=== PATIENT | male | born 1945 | race African-American/Black ===

== ENCOUNTER 2017-01-02 18:58 | Emergency (ER) | payer MEDICARE, BC ==
[~2017-01-02 18:58] MED LIST: AMLO5TAB2 PO; ASPI500T10 PO; CARV6.25 PO; CHOL100017 PO; CLOP75TA PO; DABI150C PO; GLIP10TA13 PO; INSU100V9 SQ; IPRA4AER IH; LISI1TAB5 PO; METF500T4 PO; NIAC500T PO; OMEP40CA5 PO; SIMV20TA3 PO; SOTA120T7 PO; TRAM50TA PO
[2017-01-02] MEDS ORDERED: ASPI-482 PO (19:28)
[2017-01-02] MEDS ORDERED: IPRATRPIUM/ALBUTEROL 0.5/2.5MG 3 ML NEBU. NEB ONE (20:15)
[2017-01-02] MEDS ORDERED: PREDNISONE 10 MG TABLET PO ONE (20:15)
[2017-01-02 20:22] LABS: BASO % 0 % (0-3); EOS % 4 % (0-3); HEMATOCRIT 38.8 % (39.0-53.0); LYMPH # 3.3 x10^3/uL (1.0-4.8); LYMPH % 36 % (24-48); MEAN CORPUSCULAR HEMOGLOBIN 31 pg (25-35); MEAN CORPUSCULAR HGB CONC 33 g/dL (31-37); MEAN CORPUSCULAR VOLUME 94 fL (79-100); MONO % 9 % (0-9); NEUT % 51 % (31-73); PLATELET COUNT 207 x10^3/uL (140-400); RED BLOOD COUNT 4.12 x10^6/uL (4.30-5.70); RED CELL DISTRIBUTION WIDTH 12.6 % (11.5-14.5); WHITE BLOOD COUNT 9.2 x10^3/uL (4.0-11.0)
[2017-01-02 20:32] LABS: CALCIUM 9.1 mg/dL (8.5-10.1); CREATININE 1.6 mg/dL (0.7-1.3); GFR 52.1; POTASSIUM 3.8 mmol/L (3.5-5.1)
[2017-01-02 20:38] LABS: ALBUMIN 3.4 g/dL (3.4-5.0); ALBUMIN/GLOBULIN RATIO 0.8 (1.0-1.7); TOTAL BILIRUBIN 0.7 mg/dL (0.2-1.0); TOTAL PROTEIN 7.6 g/dL (6.4-8.2)
[2017-01-02 20:48] LABS: CKMB MASS 1.5 ng/mL (0.0-3.6)
[2017-01-02 20:58] LABS: OBC FLU VALID
--- NOTE | 2017-01-02 21:03 | PHYS DOC ---
Past Medical History Past Medical History: A-Fib, Asthma, CVA, Diabetes-Type II, GERD, Hypertension Past Surgical History: Cholecystectomy, Coronary Bypass Surgery Additional Past Surgical Histo: X5 BYPASS,ROTATOR CUFF Alcohol Use: None Drug Use: None Adult General Chief Complaint Chief Complaint: SHORTNESS OF BREATH HPI HPI Patient is a 71 year old male who presents with complaint of cough for the past week. Patient states that he has had persistent symptoms over the course of the last week. Patient has history of asthma and history of congestive heart failure. The patient saw his primary physician who started him on azithromycin. Patient states that he completed the azithromycin but is continuing to have persistent cough. Patient states that he is not having shortness of breath while at rest but is having shortness of breath with exertion. Patient has had subjective fevers associated with his symptoms. Patient states his cough is nonproductive. Patient denies any chest pain, nausea, vomiting, or abdominal pain currently. Review of Systems Review of Systems Constitutional: Subjective fever [] Eyes: Denies change in visual acuity, redness, or eye pain [] HENT: Denies nasal congestion or sore throat [] Respiratory: Cough, shortness of breath [] Cardiovascular: Denies chest pain or edema [] GI: Denies abdominal pain, nausea, vomiting, bloody stools or diarrhea [] : Denies dysuria or hematuria [] Musculoskeletal: Denies back pain or joint pain [] Integument: Denies rash or skin lesions [] Neurologic: Denies headache, focal weakness or sensory changes [] Current Medications Current Medications Current Medications Medications (Trade) Dose Ordered Sig/Missy Start Time Stop Time Status Last Admin Dose Admin Albuterol/ Ipratropium (Duoneb) 6 ml 1X ONCE 01/02/17 20:15 01/02/17 20:20 DC 01/02/17 20:50 6 ML Prednisone (Prednisone) 50 mg 1X ONCE 01/02/17 20:15 01/02/17 20:20 DC 01/02/17 20:34 50 MG Allergies Allergies Allergies Coded Allergies Type Severity Reaction Last Updated Verified No Known Drug Allergies 05/13/14 No Physical Exam Physical Exam Constitutional: Alert, afebrile, appears in mild respiratory distress. [] HENT: Normocephalic, atraumatic, bilateral external ears normal, oropharynx moist, no oral exudates, nose normal. [] Eyes: PERRLA, EOMI, conjunctiva normal, no discharge. [] Neck: Normal range of motion, no tenderness, supple, no stridor. [] Cardiovascular:Heart rate regular rhythm, no murmur [] Lungs & Thorax: Mild to moderate restriction of air movement bilaterally, expiratory wheezes bilaterally, no rales Abdomen: Bowel sounds normal, soft, no tenderness, no masses, no pulsatile masses. [] Skin: Warm, dry, no erythema, no rash. [] Back: No tenderness, no CVA tenderness. [] Extremities: No tenderness, no cyanosis, no clubbing, ROM intact, no edema. [] Neurologic: Alert and oriented X 3, normal motor function, normal sensory function, no focal deficits noted. [] Current Patient Data Vital Signs Vital Signs Date Time Temp Pulse Resp B/P Pulse Ox O2 Delivery O2 Flow Rate FiO2 01/02/17 20:51 95 Room Air 01/02/17 19:06 97.8 103 24 170/107 97.8 Lab Values Laboratory Tests Test 01/02/17 19:15 01/02/17 20:34 White Blood Count 9.2x10^3/uL (4.0-11.0) Red Blood Count 4.12x10^6/uL (4.30-5.70) L Hemoglobin 13.0g/dL (13.0-17.5) Hematocrit 38.8% (39.0-53.0) L Mean Corpuscular Volume 94fL (79-100) Mean Corpuscular Hemoglobin 31pg (25-35) Mean Corpuscular Hemoglobin Concent 33g/dL (31-37) Red Cell Distribution Width 12.6% (11.5-14.5) Platelet Count 207x10^3/uL (140-400) Neutrophils (%) (Auto) 51% (31-73) Lymphocytes (%) (Auto) 36% (24-48) Monocytes (%) (Auto) 9% (0-9) Eosinophils (%) (Auto) 4% (0-3) H Basophils (%) (Auto) 0% (0-3) Neutrophils # (Auto) 4.7x10^3uL (1.8-7.7) Lymphocytes # (Auto) 3.3x10^3/uL (1.0-4.8) Monocytes # (Auto) 0.8x10^3/uL (0.0-1.1) Eosinophils # (Auto) 0.4x10^3/uL (0.0-0.7) Basophils # (Auto) 0.0x10^3/uL (0.0-0.2) Sodium Level 135mmol/L (136-145) L Potassium Level 3.8mmol/L (3.5-5.1) Chloride Level 99mmol/L (98-107) Carbon Dioxide Level 27mmol/L (21-32) Anion Gap 9 (6-14) Blood Urea Nitrogen 31mg/dL (8-26) H Creatinine 1.6mg/dL (0.7-1.3) H Estimated GFR (Cockcroft-Gault) 52.1 BUN/Creatinine Ratio 19 (6-20) Glucose Level 180mg/dL (70-99) H Calcium Level 9.1mg/dL (8.5-10.1) Total Bilirubin 0.7mg/dL (0.2-1.0) Aspartate Amino Transferase (AST) 24U/L (15-37) Alanine Aminotransferase (ALT) 20U/L (16-63) Alkaline Phosphatase 50U/L (46-116) Creatine Kinase 146U/L (39-308) Creatine Kinase MB (Mass) 1.5ng/mL (0.0-3.6) Creatine Kinase MB Relative Index 1.0% (0-4) Troponin I Quantitative 0.022ng/mL (0.000-0.055) UG-Evl-Y-Type Natriuretic Peptide 1383pg/mL (0-124) H Total Protein 7.6g/dL (6.4-8.2) Albumin 3.4g/dL (3.4-5.0) Albumin/Globulin Ratio 0.8 (1.0-1.7) L Influenza Type A Antigen Negative (NEGATIVE) Influenza Type B Antigen Negative (NEGATIVE) Laboratory Tests 01/02/17 19:15 Laboratory Tests 01/02/17 19:15 EKG EKG Interpreted by me: Heart rate 83, atrial fibrillation, left axis deviation, no acute ST elevation or depression [] Radiology/Procedures Radiology/Procedures One view AP chest x-ray interpreted by me: No infiltrates, no effusions, cardiomegaly [] Course & Med Decision Making Course & Med Decision Making Pertinent Labs and Imaging studies reviewed. (See chart for details) Patient was treated with DuoNeb and prednisone in the emergency department. The patient's symptoms improved with treatment. Patient's vital signs are stable at this time. After speaking with the patient, he would like to continue with outpatient treatment at home. Advised him to increase use of Combivent 1-2 puffs every 4 hours as needed for wheezing. Patient will be continued on prednisone taper. Recommended follow-up in 2 days a primary doctor and return to emergency department for any worsening symptoms. Patient voiced understanding and in agreement with treatment plan. Dragon Disclaimer Dragon Disclaimer This electronic medical record was generated, in whole or in part, using a voice recognition dictation system. Departure Departure Impression: Primary Impression: COPD with acute exacerbation Additional Impression: Chronic a-fib Disposition: 01 HOME, SELF-CARE Condition: IMPROVED Referrals: KEMAL JENNINGS (PCP) Patient Instructions: Chronic Obstructive Pulmonary Disease Exacerbation Additional Instructions: Be sure to take your Combivent inhaler 1-2 puffs every 4 hours as needed for wheezing and shortness of breath. Follow-up with your primary doctor in 2 days. Return to the emergency department for any worsening symptoms. Scripts Prednisone 10 Mg [id number] Mg PO UD PREDNISONE TAPER #39 TAB Ref 0 Take 3 tablets by mouth twice a day for 3 days, then take 2 tablets by mouth twice a day for 3 days, then take 1 tablet by mouth twice a day for 3 days, then take 1 tablet by mouth daily x 3 days, then stop. Prov:ANASTASIYA LO MD 01/02/17 Problem Qualifiers ANASTASIYA LO MD Jan 02, 2017 21:03
[2017-01-02] MEDS ORDERED: PRED-220 PO (21:45)
[2017-01-02 22:00] VITALS: BP 119/65
--- NOTE | 2017-01-03 06:02 | EKG ---
[facility] [address] [place] [address] Test Date: 2017-01-02 Test Time: 20:24:41 Pat Name: KIMBER MAYERS Department: Room: Gender: M Manager Staffing: : 1945 Requested By: ANASTASIYA LO Order Number: [id number] Reading MD: Measurements Intervals Hinkley Rate: 83 P: [place]: QRS: -45 QRSD: 114 T: 134 QT: 418 QTc: 492 Interpretive Statements IRREGULAR RHYTHM, NO P-WAVE FOUND ABNORMAL LEFT AXIS DEVIATION LEFT ANTERIOR FASCICULAR BLOCK LVH WITH REPOLARIZATION ABNORMALITY PROLONGED QT RI6.01 Unconfirmed report No previous ECG available for comparison
--- NOTE | 2017-01-03 07:56 | RAD ---
Indication: Cough and short of breath for a week. Technique: Upright portable chest radiograph was obtained. Comparison is from October 09, 2013. Findings: The lungs are clear. The heart is enlarged. There is no heart failure. Median sternotomy wires are noted. There are degenerative changes in the spine and shoulders. Leads overlie the patient. Impression: Cardiomegaly.
== END 2017-01-02 22:13 | disposition home or self-care (01) ==
LOC: ER 18:58
DX: J44.1 Chronic obstructive pulmonary disease with (acute) exacerbation (principal); I48.2 Chronic atrial fibrillation; J45.909 Unspecified asthma, uncomplicated; I11.0 Hypertensive heart disease with heart failure; I50.9 Heart failure, unspecified; E11.9 Type 2 diabetes mellitus without complications; Z95.1 Presence of aortocoronary bypass graft; Z86.73 Personal history of transient ischemic attack (TIA), and cerebral infarction without residual deficits
CPT/HCPCS: 36415; 71010; 80053; 82553; 83880; 84484; 85027; 87804; 93005; 94250; 94640; 99285; J7512; J7620

== ENCOUNTER 2017-01-21 18:59 | Inpatient (IN) | payer MEDICARE, BC ==
[~2017-01-21] VITALS: Ht 172.7 cm; Wt 77.7 kg
[~2017-01-21 18:59] MED LIST changes: +ASPI-482 PO; +PRED-220 PO
[2017-01-21] MEDS ORDERED: methylPREDNISolone SOD SUCC PF 125 MG/2 ML VIAL. IV ONE (19:30)
[2017-01-21 19:44] LABS: BASO # 0.1 x10^3/uL (0.0-0.2); BASO % 0 % (0-3); EOS % 2 % (0-3); HEMATOCRIT 33.1 % (39.0-53.0); HEMOGLOBIN 10.8 g/dL (13.0-17.5); LYMPH # 1.4 x10^3/uL (1.0-4.8); LYMPH % 11 % (24-48); MEAN CORPUSCULAR HEMOGLOBIN 32 pg (25-35); MEAN CORPUSCULAR HGB CONC 33 g/dL (31-37); MEAN CORPUSCULAR VOLUME 98 fL (79-100); MONO % 10 % (0-9); NEUT % 77 % (31-73); PLATELET COUNT 188 x10^3/uL (140-400); RED BLOOD COUNT 3.37 x10^6/uL (4.30-5.70); RED CELL DISTRIBUTION WIDTH 14.7 % (11.5-14.5)
[2017-01-21 20:04] LABS: OBC FLU VALID
[2017-01-21 20:28] LABS: HCO3 ABG 27 mmol/L (21-28); PCO2 ABG 40 mmHg (35-46); PH ABG 7.44 (7.35-7.45); PO2 ABG 208 mmHg (65-108); SAT O2 ABG 99 % (92-99)
[2017-01-21 20:31] LABS: FIO2 ABG 60
[2017-01-21 20:41] LABS: CALCIUM 8.8 mg/dL (8.5-10.1); CREATININE 1.1 mg/dL (0.7-1.3); GFR 80.3; POTASSIUM 4.3 mmol/L (3.5-5.1)
[2017-01-21 20:46] LABS: TOTAL BILIRUBIN 1.2 mg/dL (0.2-1.0); TOTAL PROTEIN 6.3 g/dL (6.4-8.2)
[2017-01-21] MEDS ORDERED: FUROSEMIDE 20 MG/2 ML VIAL IVP ONE (21:00)
[2017-01-21] MEDS ORDERED: VANCOMYCIN 2 GM in IV NORMAL SALINE 500ML BAG 500 ML IV ONE (21:00)
[2017-01-21] MEDS ORDERED: PIPERACILLIN/TAZOBACTAM 4.5 GM in IV NORMAL SALINE 100ML 100 ML IV ONE (21:00)
[2017-01-21 21:17] LABS: ALBUMIN 3.5 g/dL (3.4-5.0); ALBUMIN/GLOBULIN RATIO 1.3 (1.0-1.7)
[2017-01-21] MEDS ORDERED: ONDANSETRON PF 4 MG/2 ML VIAL. IV PRN (22:45)
[2017-01-21] MEDS ORDERED: MORPHINE SULFATE 2 MG/ML DISP.SYRIN. IV PRN (22:45)
[2017-01-21] MEDS ORDERED: ACETAMINOPHEN 325 MG TABLET. PO PRN (22:45)
[2017-01-21 22:50] VITALS: BP 142/91
--- NOTE | 2017-01-21 23:49 | ED.ADGEN ---
Past Medical History Past Medical History: A-Fib, Asthma, CVA, Diabetes-Type II, GERD, Hypertension Past Surgical History: Cholecystectomy, Coronary Bypass Surgery Additional Past Surgical Histo: X5 BYPASS,ROTATOR CUFF Alcohol Use: None Drug Use: None Adult General Chief Complaint Chief Complaint: SHORTNESS OF BREATH HPI HPI Patient is a 71 year old [man, history of CAD status post bypass surgery, COPD , who presents to the emergency department with complaint of difficulty breathing. Patient states that he is experiencing "flulike" symptoms over the past several weeks, intermittently, worsening over the past several days, cough with suspected white sputum, shortness of breath, denies any fevers, chills, or rhinorrhea. Patient states that he recently completed a course of antibiotics and steroids after an admission to the hospital for COPD exacerbation and bronchitis. His vaccinations are up-to-date. He denies any chest pain or nausea or vomiting, noted to be in significant respiratory distress upon arrival to the emergency department, with retractions, oxygen saturation 84% on room air, patient does not use supplemental oxygen at baseline. Patient placed on a nonrebreather, oxygen saturation 1%, he was then transitioned to BiPAP without issue. No recent travel or surgery, history of DVT or PE. Review of Systems Review of Systems Constitutional: Denies fever or chills. [] Eyes: Denies change in visual acuity. [] HENT: Denies nasal congestion or sore throat. [] Respiratory: Cough, with white sputum, shortness of breath worsening over the past several days. Cardiovascular: Denies chest pain or edema. [] GI: Denies abdominal pain, nausea, vomiting, bloody stools or diarrhea. [] : Denies dysuria. [] Musculoskeletal: Denies back pain or joint pain. [] Integument: Denies rash. [] Neurologic: Denies headache, focal weakness or sensory changes. [] Endocrine: Denies polyuria or polydipsia. [] Lymphatic: Denies swollen glands. [] Psychiatric: Denies depression or anxiety. [] Current Medications Current Medications Current Medications Medications (Trade) Dose Ordered Sig/Missy Start Time Stop Time Status Last Admin Dose Admin Methylprednisolone Sodium Succinate (Solu-Medrol 125mg Vial) 125 mg 1X ONCE 01/21/17 19:30 01/21/17 19:31 DC 01/21/17 19:36 125 MG Allergies Allergies Allergies Coded Allergies Type Severity Reaction Last Updated Verified No Known Drug Allergies 05/13/14 No Physical Exam Physical Exam Constitutional: Well developed, well nourished, moderate respiratory distress, ill in appearance. [] HENT: Normocephalic, atraumatic, bilateral external ears normal, oropharynx moist, no oral exudates, nose normal. [] Eyes: PERRLA, EOMI, conjunctiva normal, no discharge. [] Neck: Normal range of motion, no tenderness, supple, no stridor. [] Cardiovascular: Tachycardic, S1, S2, no rubs or gallops. Soft heart sounds. Lungs & Thorax: Patient with diminished breath sounds throughout, poor aeration , significant respiratory distress. No chest tenderness or crepitus. Abdomen: Bowel sounds normal, soft, no tenderness, no rebound, rigidity, or guarding, no masses, no pulsatile masses. [] Skin: Warm, dry, no erythema, no rash. [] Back: No tenderness, no CVA tenderness. [] Extremities: No tenderness, no cyanosis, no clubbing, ROM intact, no edema. Negative Homans sign. Neurologic: Alert and oriented X 3, normal motor function, normal sensory function, no focal deficits noted. [] Psychologic: Affect normal, judgement normal, mood normal. [] Current Patient Data Vital Signs Vital Signs Date Time Temp Pulse Resp B/P Pulse Ox O2 Delivery O2 Flow Rate FiO2 01/21/17 20:39 110 22 161/88 100 BiPAP/CPAP 01/21/17 19:47 100.0 100.0 Lab Values Laboratory Tests Test 01/21/17 19:27 01/21/17 20:20 White Blood Count 13.0x10^3/uL (4.0-11.0) H Red Blood Count 3.37x10^6/uL (4.30-5.70) L Hemoglobin 10.8g/dL (13.0-17.5) L Hematocrit 33.1% (39.0-53.0) L Mean Corpuscular Volume 98fL (79-100) Mean Corpuscular Hemoglobin 32pg (25-35) Mean Corpuscular Hemoglobin Concent 33g/dL (31-37) Red Cell Distribution Width 14.7% (11.5-14.5) H Platelet Count 188x10^3/uL (140-400) Neutrophils (%) (Auto) 77% (31-73) H Lymphocytes (%) (Auto) 11% (24-48) L Monocytes (%) (Auto) 10% (0-9) H Eosinophils (%) (Auto) 2% (0-3) Basophils (%) (Auto) 0% (0-3) Neutrophils # (Auto) 9.9x10^3uL (1.8-7.7) H Lymphocytes # (Auto) 1.4x10^3/uL (1.0-4.8) Monocytes # (Auto) 1.3x10^3/uL (0.0-1.1) H Eosinophils # (Auto) 0.3x10^3/uL (0.0-0.7) Basophils # (Auto) 0.1x10^3/uL (0.0-0.2) Sodium Level 143mmol/L (136-145) Potassium Level 4.3mmol/L (3.5-5.1) Chloride Level 103mmol/L (98-107) Carbon Dioxide Level 24mmol/L (21-32) Anion Gap 16 (6-14) H Blood Urea Nitrogen 17mg/dL (8-26) Creatinine 1.1mg/dL (0.7-1.3) Estimated GFR (Cockcroft-Gault) 80.3 BUN/Creatinine Ratio 15 (6-20) Glucose Level 200mg/dL (70-99) H Calcium Level 8.8mg/dL (8.5-10.1) Total Bilirubin 1.2mg/dL (0.2-1.0) H Aspartate Amino Transferase (AST) 33U/L (15-37) Alanine Aminotransferase (ALT) 37U/L (16-63) Alkaline Phosphatase 66U/L (46-116) Troponin I Quantitative 0.036ng/mL (0.000-0.055) UL-Zaj-M-Type Natriuretic Peptide 4611pg/mL (0-124) H Total Protein 6.3g/dL (6.4-8.2) L Albumin 3.5g/dL (3.4-5.0) Albumin/Globulin Ratio 1.3 (1.0-1.7) Influenza Type A Antigen Negative (NEGATIVE) Influenza Type B Antigen Negative (NEGATIVE) O2 Saturation 99% (92-99) Arterial Blood pH 7.44 (7.35-7.45) Arterial Blood pCO2 at Patient Temp 40mmHg (35-46) Arterial Blood pO2 at Patient Temp 208mmHg (65-108) H Arterial Blood HCO3 27mmol/L (21-28) Arterial Blood Base Excess 2mmol/L (-3-3) FiO2 60 Laboratory Tests 01/21/17 19:27 Laboratory Tests 01/21/17 19:27 EKG EKG EC: Irregular rhythm, atrial fibrillation, heart rate 10 9 bpm, QTC of 468, QRS of 96, patient with contour abnormalities noted in the inferior leads, with Q waves, occasional PVCs, no ST elevations or depressions, abnormal ECG, does not meet STEMI criteria. As interpreted by me. [] Radiology/Procedures Radiology/Procedures Chest x-ray: One view: Patient with hyperinflation noted with flattening of the diaphragms, cephalization noted, with a normal cardiac silhouette, evidence of sternotomy wires in place, no discrete infiltrates identified. No pneumothorax. No bony abnormalities. As interpreted by me. [] Course & Med Decision Making Course & Med Decision Making Pertinent Labs and Imaging studies reviewed. (See chart for details) Patient placed on BiPAP, with good effect, patient tolerating BiPAP without issue, with improvement of his respiratory function. Initial ABG revealed a pH of 7.439, CO2 of 40, PO2 of 208, bicarbonate of 26.8, and a base excess of 2. Oxygen was decreased from 60-35, settings of 18/8 continued. Chest x-ray reveals COPD, with concern for cephalization, patient does not have a history of congestive heart failure than aware of, but does have a proBNP in the ED of greater than 4000. Patient received steroids, nebs, and Lasix in the ED, is agreeable for patient to the hospital for additional evaluation of shortness of breath, also initiated on healthcare associated antibiotics due to his recent hospitalization, and leukocytosis of 13 although he was recently on steroids, and has no fever. Findings as above discussed with Dr. Gomez, on-call for the patient's primary care provider, patient accepted his service as a full admission to the cardiac telemetry floor, with continuation of BiPAP, respiratory support, consultation with cardiology and pulmonary critical care, with bridge orders entered per his request. Dragon Disclaimer Dragon Disclaimer This electronic medical record was generated, in whole or in part, using a voice recognition dictation system. Departure Impression: Primary Impression: COPD with acute exacerbation Additional Impressions: Chronic a-fib Respiratory failure Disposition: ADMITTED INPATIENT Admitting Physician: Livia Gomez Condition: IMPROVED Critical Care Time Critical care time was 15 minutes exclusive of procedures. Problem Qualifiers Additional Impressions: Respiratory failure Chronicity: acute Respiratory failure complication: hypoxia Qualified Code : J96.01 - Acute respiratory failure with hypoxia TREMAINE CAO DO Jan 21, 2017 23:49
[2017-01-22] MEDS: VANCOMYCIN PER PHARMACY MC PRN (00:29)
[2017-01-22] MEDS ORDERED: PRED5DRO6 LEFTEYE (00:36)
[2017-01-22] MEDS ORDERED: KETO5DRO24 LEFTEYE (00:36)
[2017-01-22] MEDS ORDERED: TOBR5DRO13 LEFTEYE (00:36)
--- NOTE | 2017-01-22 01:24 | ACF ---
Admission Forms Criteria COPD Clinical Indications for Admission to Inpatient Care (Place 'X' for any and all applicable criteria): Admission is indicated for ANY ONE of the following (1)(2)(3): [X]I. Acute exacerbation by high-risk comorbidity (e.g., pneumonia, dysrhythmia, heart failure, pleural effusion, pneumothorax) or severe underlying COPD (e.g., steroid dependent) [ ]II. Inpatient admission required rather than observation care (see Chronic Obstructive Pulmonary Disease: Observation Care) because of ANY ONE of the following: [ ]a) New or pre-existing signs or symptoms of COPD (eg, dyspnea or Tachypnea at rest or with minimal activity) that persist despite outpatient and observation care treatment [ ]b) New-onset hypoxemia (room air SaO2 less than 90%, PO2 less than 60 mm Hg (8.0 kPa)) that persists despite outpatient and observation care treatment [ ]c) Worsening of pre-existing hypoxemia (eg, new or increased requirement for supplemental oxygen to maintain oxygenation at baseline level) that persists despite outpatient and observation care treatment, with oxygen treatment needs performable only in acute inpatient setting [ ]d) Hypercarbia (PCO2 greater than 40 mm Hg (5.3 kPa))-induced respiratory acidosis (pH less than 7.35) that persists despite outpatient and observation care treatment [ ]e) Supplemental oxygen or respiratory treatments for over 24 hours that are performable only in acute inpatient setting [ ]f) Chest tube placement with active evacuation (e.g., suction, drainage) (5) [ ]g) Other condition, treatment or monitoring requiring inpatient admission [ ]III. Planned invasive surgical or diagnostic procedures requiring acute- care hospitalization [X]IV. Acute respiratory failure (e.g., uncompensated hypercarbia, severe hypoxemia) [ ]V. Severe comorbid condition (e.g., severe steroid myopathy, acute vertebral fracture) that has acutely worsened pulmonary function [ ]. Confusion state, lethargy, obtundation, stupor or coma Extended stay beyond goal length of stay may be needed for (31)(32): [ ]a ) Respiratory Failure. [ ]b) Severe or persisting hypoxemia or hypercarbia [ ]c) Severe or persistent dyspnea [ ]d) Comorbidities (e.g. chronic heart failure, atrial fibrillation with rapid response, pneumonia) [ ]e) Malnutrition The original [facility] content created by [facility] has been revised. The portions of the content which have been revised are identified through the use of italic text or in bold, and [facility] has neither reviewed nor approved the modified material. All other unmodified content is copyright [facility]. Please see references footnoted in the original [facility] edition 2016 Admission Criteria Met?: Yes JERSON BECERRIL Jan 22, 2017 01:23
[2017-01-22 03:00] VITALS: BP 127/75
[2017-01-22 04:58] LABS: BASO % 0 % (0-3); EOS % 0 % (0-3); HEMATOCRIT 34.8 % (39.0-53.0); HEMOGLOBIN 11.3 g/dL (13.0-17.5); LYMPH # 0.8 x10^3/uL (1.0-4.8); LYMPH % 9 % (24-48); MEAN CORPUSCULAR HEMOGLOBIN 32 pg (25-35); MEAN CORPUSCULAR HGB CONC 32 g/dL (31-37); MEAN CORPUSCULAR VOLUME 99 fL (79-100); MONO % 1 % (0-9); NEUT % 90 % (31-73); PLATELET COUNT 170 x10^3/uL (140-400); RED BLOOD COUNT 3.52 x10^6/uL (4.30-5.70); RED CELL DISTRIBUTION WIDTH 14.5 % (11.5-14.5); WHITE BLOOD COUNT 8.8 x10^3/uL (4.0-11.0)
[2017-01-22] MEDS: PIPERACILLIN/TAZOBACTAM 4.5 GM in IV NORMAL SALINE 100ML 100 ML IV SCH ×3 (05:54→18:08)
[2017-01-22 06:05] LABS: CALCIUM 8.9 mg/dL (8.5-10.1); CREATININE 1.2 mg/dL (0.7-1.3); GFR 72.6; POTASSIUM 4.4 mmol/L (3.5-5.1)
--- NOTE | 2017-01-22 06:40 | EKG ---
[facility] [address] [place] [address] Test Date: 2017-01-21 Test Time: 19:42:49 Pat Name: KIMBER MAYERS Department: Room: 203 1 Gender: M Data Management Analyst: : 1945 Requested By: TREMAINE CAO Order Number: [id number] Reading MD: Manda Rick Measurements Intervals Kiana Rate: 109 P: [place]: QRS: -44 QRSD: 96 T: 121 QT: 346 QTc: 468 Interpretive Statements ATRIAL FIBRILLATION ABNORMAL LEFT AXIS DEVIATION QRS(T) CONTOUR ABNORMALITY CONSISTENT WITH INFERIOR INFARCT PROBABLY OLD T ABNORMALITY IN HIGH LATERAL LEADS ABNORMAL ECG RI6.01 Compared to ECG 01/02/2017 20:24:41 Electronically Signed On 01-26-2017 19:36:23 TERRITORY DEVELOPMENT MANAGER by Manda Rick
[2017-01-22 06:41] VITALS: BP 118/75
--- NOTE | 2017-01-22 09:12 | RAD ---
EXAM: Chest one view. HISTORY: Shortness of breath. COMPARISON: 01/02/2017. FINDINGS: A frontal view of the chest is obtained. There are changes of coronary artery bypass grafting. There are minimal interstitial opacities in the left base. There is no pneumothorax or pleural effusion. The heart is mildly enlarged. IMPRESSION: 1. Mild cardiomegaly. Correlate for trace pulmonary edema.
[2017-01-22] MEDS ORDERED: NON FORMULARY ITEM (Ipratropium/Albuterol Sulfate (Combivent Respimat Inhal) 2 INH) IH PRN (09:15)
[2017-01-22] MEDS ORDERED: HYDROCHLOROTHIAZIDE 25 MG TABLET PO SCH (09:30)
[2017-01-22] MEDS ORDERED: TOBRAMYCIN OS SCH (09:30)
[2017-01-22] MEDS: AMLODIPINE BESYLATE 5 MG TABLET PO SCH (09:30)
[2017-01-22] MEDS ORDERED: DEXAMETHASONE OS SCH (09:30)
[2017-01-22] MEDS ORDERED: LISINOPRIL 20 MG TABLET PO SCH (09:30)
[2017-01-22] MEDS ORDERED: CARVEDILOL 6.25 MG TABLET PO SCH (09:30)
--- NOTE | 2017-01-22 09:33 | PDOC2 ---
CARDIAC CONSULT DATE OF CONSULT Date of Consult DATE: 01/22/17 TIME: 09:30 REASON FOR CONSULT Reason for Consult: respiratory failure REFERRING PHYSICIAN Referring Physician: Patricia SOURCE Source: Chart review, Patient HISTORY OF PRESENT ILLNESS HISTORY OF PRESENT ILLNESS This is a pleasant 71 yo male admitted for complains of shortness of breath. In the last 4-6 weeks he had symptoms of bronchitis in which he was treated with antibiotics and eventually with steroids. He did get well and was doing ok till about 6 days ago when he started having some symptoms again. Reports of nonproductive cough which eventually able to expectorate some white sputum, at time SOA. Yesterday he did have his cataract surgery to his left eye and he did well but afterwards his symptoms appeared to have accelerated. His SOA increased, positive for ROWLAND, orthopnea. Denies any chest pain, palpitations. He also has been experiencing chills. He has significant cardiac history and has been compliant with his medications till in the last few days in which he has skipped some doses because of symptoms. Upon admission he was noted with O2 sat in the 80s which eventually corrected with O2 supplementation and evtual bipap. He currently has NC and is doing much better. PAST MEDICAL HISTORY Cardiovascular: AFIB, CAD, CHF, HTN, Hyperlipidemia Pulmonary: COPD CENTRAL NERVOUS SYSTEM: CVA GI: GERD Heme/Onc: Anemia NOS Hepatobiliary: Cholelithiasis Psych: No pertinent hx Musculoskeletal: Osteoarthritis Rheumatologic: No pertinent hx Infectious disease: No pertinent hx ENT: No pertinent hx Endocrine: Diabetes (2) Dermatology: No pertinent hx PAST SURGICAL HISTORY Past Surgical History: Arthroscopy (right RTC repair), Cholecystectomy, CABG ( 2001), Other (PCI with stents; cardioversion in the past) FAMILY HISTORY Family History: Diabetes SOCIAL HISTORY Smoke: No (quit) ALCOHOL: none Drugs: None Lives: with Family CURRENT MEDICATIONS CURRENT MEDICATIONS Current Medications Medications (Trade) Dose Ordered Sig/Missy Route PRN Reason Start Time Stop Time Status Last Admin Dose Admin Methylprednisolone Sodium Succinate (Solu-Medrol 125mg Vial) 125 mg 1X ONCE IV 01/21/17 19:30 01/21/17 19:31 DC 01/21/17 19:36 Furosemide 20 mg 20 mg 1X ONCE IVP 01/21/17 21:00 01/21/17 21:01 DC 01/21/17 20:56 Piperacillin Sod/ Tazobactam Sod/ Sodium Chloride (Zosyn/Iv Sodium Chloride 0.9% 100ml) 100 ml @ 200 mls/hr Q6HRS IV 01/22/17 06:00 01/22/17 05:54 Vancomycin HCl 1 each 1 each PRN DAILY PRN MC SEE COMMENTS 01/21/17 21:00 01/22/17 00:29 Vancomycin HCl 2 gm/Sodium Chloride 500 ml @ 250 mls/hr 1X ONCE IV 01/21/17 21:00 01/21/17 22:59 DC 01/21/17 23:28 Piperacillin Sod/ Tazobactam Sod/ Sodium Chloride (Zosyn/Iv Sodium Chloride 0.9% 100ml) 100 ml @ 200 mls/hr 1X ONCE IV 01/21/17 21:00 01/21/17 21:29 DC 01/21/17 21:08 ALLERGIES ALLERGIES: Coded Allergies: No Known Drug Allergies (Unverified , 05/13/14) ROS Review of System 14 point ROS evaluated with pertinent positives noted per HPI PHYSICAL EXAM General: Alert, Oriented X3, Cooperative, No acute distress HEENT: Atraumatic, Mucous membr. moist/pink Lungs: Other (diffuse crackles) Heart: Normal S1, Normal S2, Other (3/6 systolic murmur to LLS border; AFIB RVR ) Abdomen: Soft, No tenderness Extremities: No cyanosis, Other (trace LE edema) Skin: No breakdown, No significant lesion Neuro: Normal speech, Sensation intact Psych/Mental Status: Mental status NL, Mood NL MUSCULOSKELETAL: Osteoarthritic changes both hands VITALS VITALS Vital Signs Date Time Temp Pulse Resp B/P Pulse Ox O2 Delivery O2 Flow Rate FiO2 01/22/17 06:41 98.1 97 20 118/75 97 BiPAP/CPAP 98.1 01/21/17 22:50 4.0 LABS Lab: Laboratory Tests Test 01/21/17 19:27 01/21/17 20:20 01/22/17 03:25 White Blood Count 13.0x10^3/uL (4.0-11.0) 8.8x10^3/uL (4.0-11.0) Red Blood Count 3.37x10^6/uL (4.30-5.70) 3.52x10^6/uL (4.30-5.70) Hemoglobin 10.8g/dL (13.0-17.5) 11.3g/dL (13.0-17.5) Hematocrit 33.1% (39.0-53.0) 34.8% (39.0-53.0) Mean Corpuscular Volume 98fL (79-100) 99fL (79-100) Mean Corpuscular Hemoglobin 32pg (25-35) 32pg (25-35) Mean Corpuscular Hemoglobin Concent 33g/dL (31-37) 32g/dL (31-37) Red Cell Distribution Width 14.7% (11.5-14.5) 14.5% (11.5-14.5) Platelet Count 188x10^3/uL (140-400) 170x10^3/uL (140-400) Neutrophils (%) (Auto) 77% (31-73) 90% (31-73) Lymphocytes (%) (Auto) 11% (24-48) 9% (24-48) Monocytes (%) (Auto) 10% (0-9) 1% (0-9) Eosinophils (%) (Auto) 2% (0-3) 0% (0-3) Basophils (%) (Auto) 0% (0-3) 0% (0-3) Neutrophils # (Auto) 9.9x10^3uL (1.8-7.7) 7.9x10^3uL (1.8-7.7) Lymphocytes # (Auto) 1.4x10^3/uL (1.0-4.8) 0.8x10^3/uL (1.0-4.8) Monocytes # (Auto) 1.3x10^3/uL (0.0-1.1) 0.1x10^3/uL (0.0-1.1) Eosinophils # (Auto) 0.3x10^3/uL (0.0-0.7) 0.0x10^3/uL (0.0-0.7) Basophils # (Auto) 0.1x10^3/uL (0.0-0.2) 0.0x10^3/uL (0.0-0.2) Sodium Level 143mmol/L (136-145) 144mmol/L (136-145) Potassium Level 4.3mmol/L (3.5-5.1) 4.4mmol/L (3.5-5.1) Chloride Level 103mmol/L (98-107) 103mmol/L (98-107) Carbon Dioxide Level 24mmol/L (21-32) 27mmol/L (21-32) Anion Gap 16 (6-14) 14 (6-14) Blood Urea Nitrogen 17mg/dL (8-26) 20mg/dL (8-26) Creatinine 1.1mg/dL (0.7-1.3) 1.2mg/dL (0.7-1.3) Estimated GFR (Cockcroft-Gault) 80.3 72.6 BUN/Creatinine Ratio 15 (6-20) Glucose Level 200mg/dL (70-99) 221mg/dL (70-99) Calcium Level 8.8mg/dL (8.5-10.1) 8.9mg/dL (8.5-10.1) Total Bilirubin 1.2mg/dL (0.2-1.0) Aspartate Amino Transf (AST/SGOT) 33U/L (15-37) Alanine Aminotransferase (ALT/SGPT) 37U/L (16-63) Alkaline Phosphatase 66U/L (46-116) Troponin I Quantitative 0.036ng/mL (0.000-0.055) 0.019ng/mL (0.000-0.055) HV-Zea-D-Type Natriuretic Peptide 4611pg/mL (0-124) Total Protein 6.3g/dL (6.4-8.2) Albumin 3.5g/dL (3.4-5.0) Albumin/Globulin Ratio 1.3 (1.0-1.7) Influenza Type A Antigen Negative (NEGATIVE) Influenza Type B Antigen Negative (NEGATIVE) O2 Saturation 99% (92-99) Arterial Blood pH 7.44 (7.35-7.45) Arterial Blood pCO2 at Patient Temp 40mmHg (35-46) Arterial Blood pO2 at Patient Temp 208mmHg (65-108) Arterial Blood HCO3 27mmol/L (21-28) Arterial Blood Base Excess 2mmol/L (-3-3) FiO2 60 ECHOCARDIOGRAM ECHOCARDIOGRAM <Conclusion> Mild LV systolic dysfunction. EF 45% Mild pulmonary HTN Wall motion abnormalities as noted above. DATE: 10/11/15 1632 STRESS TEST STRESS TEST Conclusion 1. Regadenoson cardioisotope stress test did not show any evidence of ischemia or infarct. 2. Normal left ventricular systolic function with ejection fraction 60%. 3. Low risk for cardiovascular events. DATE: 03/14/15 1531 HEART CATH HEART CATH <Conclusion> #1. [place] coronary artery disease as described above #2. Patent saphenous vein graft to RCA. #3. Patent saphenous vein graft sequence to diagonal 1, diagonal 2 and obtuse marginal with severe stenosis prior to OM insertion. #4. Successful positive tenderness intervention of saphenous vein graft to OM with drug-eluting stent. #5. Atrial fibrillation #6. Left ventricular dysfunction noted based on left ventriculogram. Recommendations: #1. Dual antiplatelet therapy #2. Continue anticoagulation for atrial fibrillation #3. Reassess left ventricular function with appropriate for potential need for AICD. DATE: 03/23/14 1120 ASSESSMENT/PLAN ASSESSMENT/PLAN 1. Possible viral syndrome with AECOPD/hypoxia 2. AFIB RVR: Likely triggered by above with noted missed doses of cardiac meds. By history this paroxysmal with successful cardioversion in the past. 3. Acute on chronic systolic CHF: likely induced by AFIB/hypoxia 4. CAD: CABG. Prior PCI/RAD to SVG to OM, CP free. stable. 5. HTN: controlled 6. DM2/HLP 7. ICM: stable, prior EF 45% Recommendations 1. Will need outpt PREETHI workup 2. Continue supplemental O2, lasix therapy 3. Lopressor IV and Dig IV x1. 4. Per review he is on sotalol and coreg. Will change coreg to metoprolol. QTc 468 5. Will continue with rest of antiHTN per BP response to AFIB control to avoid hypotension. 6. Continue with DAPT and pradaxa. 7. Continue with secondary prevention 8. TTE Problems: GRACE DE LA CRUZ APRN Jan 22, 2017 09:33
[2017-01-22] MEDS ORDERED: DEXAMETHASONE 0.1% OPHTH SOLUTION 5ML BOTTLE. OS SCH (10:00)
[2017-01-22] MEDS ORDERED: DEXTROSE 50% 25 GM / 50ML DISP.SYRIN. IV PRN (10:00)
[2017-01-22] MEDS ORDERED: POTASSIUM CHLORIDE 20 MEQ TABLET.ER. PO ONE (10:00)
--- NOTE | 2017-01-22 10:01 | PDOC ---
Provider Note Provider Note pt seen.H&P dictated. #[id number] NAUN ROPER MD Jan 22, 2017 10:01
[2017-01-22] MEDS: CLOPIDOGREL BISULFATE 75 MG TABLET PO SCH (10:09)
[2017-01-22] MEDS: DABIGATRAN ETEXILATE 150 MG CAPSULE. PO SCH ×2 (10:09→20:18)
[2017-01-22] MEDS: METFORMIN 500 MG TABLET. PO SCH ×2 (10:09→18:06)
[2017-01-22] MEDS: ASPIRIN ENTERIC COATED 81 MG TABLET.DR. PO SCH (10:09)
[2017-01-22] MEDS: KETOROLAC TROMETHAMINE 0.5% OPHTH SOLUTION 3ML BOTTLE. OS SCH ×3 (10:11→20:21)
[2017-01-22] MEDS: DEXAMETHASONE 0.1% OPHTH SOLUTION 5ML BOTTLE. OS SCH ×4 (10:13→22:30)
[2017-01-22] MEDS: TOBRAMYCIN 0.3% OPHTH SOLUTION 5ML BOTTLE. OS SCH ×3 (10:14→20:21)
[2017-01-22] MEDS ORDERED: DIGOXIN 500 MCG/2 ML AMPUL. IV ONE (10:15)
[2017-01-22] MEDS ORDERED: METOPROLOL TARTRATE 5 MG/5 ML VIAL. IVP ONE (10:15)
[2017-01-22] MEDS: INSULIN ASPART 300 UNITS/3 ML INSULN.PEN SQ SCH ×5 (10:17→18:22)
[2017-01-22 10:47] VITALS: BP 136/84
[2017-01-22] MEDS: FUROSEMIDE 40 MG/4 ML VIAL IVP SCH ×2 (10:53→15:03)
[2017-01-22] MEDS: methylPREDNISolone SOD SUCC PF 125 MG/2 ML VIAL. IV SCH ×3 (10:55→22:31)
[2017-01-22] MEDS: VANCOMYCIN 1.25 GM in IV NORMAL SALINE 250ML 250 ML IV SCH ×2 (10:56→22:30)
[2017-01-22] MEDS: IPRATRPIUM/ALBUTEROL 0.5/2.5MG 3 ML NEBU. NEB SCH ×3 (11:25→19:53)
[2017-01-22 12:07] LABS: % BASOS 1 % (0-3); PLT ESTIMATE ADEQUATE (ADEQUATE)
[2017-01-22] MEDS: PANTOPRAZOLE 40 MG TABLET. PO SCH (12:44)
--- NOTE | 2017-01-22 13:17 | PDOC ---
Provider Note Provider Note DICTATED CHF ALEX STARR MD Jan 22, 2017 13:17
[2017-01-22] MEDS ORDERED: METOPROLOL TART IMMED RELEASE 25 MG TABLET PO ONE (14:45)
[2017-01-22] MEDS: TRAMADOL 50 MG TABLET. PO PRN ×2 (15:03→20:18)
[2017-01-22 15:12] VITALS: BP 111/76
[2017-01-22] MEDS: ANTI-COAG MONITOR BY PHARMACY. MC PRN (15:19)
--- NOTE | 2017-01-22 15:43 | HP ---
ADMIT DATE: 01/21/2017 PATIENT LOCATION: 203. REASON FOR ADMISSION TO THE HOSPITAL: 1. Shortness of breath. 2. Atrial fibrillation with rapid ventricular response. ATTENDING PHYSICIAN: Dr. Roper. PRIMARY CARE PHYSICIAN: Dr. Cuba. HISTORY OF PRESENT ILLNESS: The patient is a 71-year-old male patient of Dr. Cuba. The patient has a history of chronic AFib. He is on Pradaxa. He also has a history of coronary artery disease 2001, cardiac stent 2014 and he also was seen in the Emergency Room 4 weeks ago for respiratory failure. He was on prednisone and breathing treatments. He was doing relatively well, for last 1 week is off the prednisone, has started having more cough, short of breath and came to the Emergency Room. His heart rate was 120, was in hypoxia with pulmonary edema. The patient was admitted to the hospital, second floor, was given Lasix, was put on BiPAP. Cardiology and Pulmonary was consulted. PAST MEDICAL HISTORY: He has a history of AFib, coronary artery disease, CHF, hypertension, COPD, hyperlipidemia. PAST SURGICAL HISTORY: Arthroplasty, right; gallbladder surgery; bypass 2001; stent 2014. The patient had a cataract surgery yesterday, left eye. ALLERGIES: No known allergies. MEDICATIONS AT HOME: The patient is on amlodipine 5 mg daily, aspirin 81 mg daily, Coreg 6.25 twice a day, vitamin D 50,000 units weekly, Plavix 75 mg daily, Pradaxa 150 mg twice a day, insulin sliding scale 10 units 3 times a day, Combivent 4 times daily, lisinopril 20/12.5 daily, metformin 1000 mg twice a day, Niaspan 500 mg at bedtime, protonix 40 mg daily, prednisone eye drops, simvastatin 20 mg daily, sotalol 160 mg p.o. twice a day. He is on tramadol 50 mg q. 6, tobramycin, dexamethasone eyedrops and ketorolac eyedrops. PERSONAL HISTORY: Smoker in the past, has not been smoked lately. Denies alcohol or street drugs. FAMILY HISTORY: Positive for diabetes, hypertension and heart problems. REVIEW OF SYSTEMS: Fourteen-system review, cardiac: No chest pain, only shortness of breath, wheezing and tachycardia. No fever. Rest of the 14-systems was reviewed and negative. PHYSICAL EXAMINATION: VITAL SIGNS: Temperature 100, pulse 125, respirations 28, blood pressure 160/101, 80% on room air, 100% on BiPAP. HEENT: Head is atraumatic. The patient has an eye shield in front of the left eye, had cataract surgery yesterday. Oral cavity: No congestion. NECK: Supple. Thyroid not enlarged. JVD not elevated. CHEST: Symmetrical, has scar of heart surgery. CARDIOVASCULAR: S1, S2, tachycardic, irregular. LUNGS: Wheezing with rales at the bases. ABDOMEN: Soft, bowel sounds present, no mass palpable. EXTERNAL GENITALIA: No Garcia. RECTAL: Deferred. EXTREMITIES: No calf tenderness or edema. Pulses 1+. NEUROLOGIC: Cranial nerves intact. Power 5/5 in all extremities. LABORATORY DATA: Shows a white count of 13 yesterday, today 8.8; hemoglobin 11, platelets 188. Electrolytes show sodium 144, potassium 4.4, chloride 103, bicarbonate 27, BUN 20, creatinine 1.1. Troponin was 0.036. BNP was 4600. Influenza A and B was negative. Chest x-ray shows cardiomegaly, pulmonary edema. EKG report not available. Blood gas shows a pH 7.44, pCO2 45 pO2, bicarbonate 27 on 60% oxygen, saturation is 99%. FINAL IMPRESSION: 1. Acute congestive heart failure/pulmonary edema. 2. Atrial fibrillation with rapid ventricular response. 3. Possibility of underlying pneumonitis. 4. Chronic obstructive pulmonary disease. 5. Coronary artery disease status post bypass surgery and cardiac stents. 6. Hypertension. 7. Hyperlipidemia. 8. Diabetes. 9. Recent cataract surgery. PLAN: At this time, was admitted to hospital, seen by Cardiology and Pulmonology, started on BiPAP and IV Lasix, IV Solu-Medrol, broad-spectrum antibiotics, sputum cultures and Cardiology is going to see, IV Cardizem to control heart rate, IV drip. NAUN ROPER MD DR: RAE/harjinder JOB#: [id number] / [id number] KEMAL Ross
--- NOTE | 2017-01-22 15:44 | CONS ---
DATE OF CONSULTATION: PULMONARY CONSULTATION ATTENDING PHYSICIAN: Dr. Gomez. REASON FOR CONSULTATION: Dyspnea. HISTORY OF PRESENT ILLNESS: The patient is a 71-year-old male who has history of CAD status post bypass surgery, history of secondhand tobacco exposure, but he never smoked cigarettes. He has a history of cardiomyopathy with an EF of 45% based on echo in 2015. He presented to the hospital with not feeling any better for the past 1-1/2 months. The patient states he had some cough with chest congestion. He was treated for flu-like symptoms. He also was treated for COPD exacerbation. The patient, however, has not made any improvement despite receiving antibiotics. On arrival, he was noted to have saturation of 84% on room air and currently he is on nasal cannula. He did receive Lasix. I have reviewed the patient's chest x-ray and to me, chest x-ray shows mild congestive heart failure. There is fluid in the fissure. This was a new finding compared to his film from before. PAST MEDICAL HISTORY: History of AFib, history of asthma, history of CVA, history of type 2 diabetes, GERD, hypertension and no significant tobacco history. PAST SURGICAL HISTORY: Cholecystectomy, coronary artery bypass surgery, and rotator cuff surgery. ALLERGIES: None. SOCIAL HISTORY: Nonsmoker, but had some secondhand tobacco exposure. MEDICATIONS: All reviewed as listed in the MRAD including antibiotics. REVIEW OF SYSTEMS: Twelve-point system obtained. Pertinent positives discussed in my history of present illness, otherwise noncontributory. All systems that were negative were reviewed as well. PHYSICAL EXAMINATION: VITAL SIGNS: Blood pressure 136/84, afebrile, pulse ox 96% on 4 liters. NECK: Supple. LUNGS: Few rhonchi posteriorly. CARDIOVASCULAR: Regular rate and rhythm. ABDOMEN: Soft and nontender. EXTREMITIES: With no pitting edema. LABORATORY DATA: Reviewed. BUN 20, creatinine 1.2. His proBNP is 4611. Influenza negative. ABGs with pH of 7.44, pCO2 of 40 and pO2 of 208 on 60% FIO2. IMPRESSION: 1. Acute hypoxic respiratory failure, most likely related to congestive heart failure. The patient has not been feeling well for the last 4 weeks and has failed to respond to antibiotics and bronchodilators. He has an ejection fraction of 45% in 2015. I suspect we are dealing with congestive heart failure. 2. Clinically unlikely pneumonia. 3. No significant history of tobacco use. RECOMMENDATIONS: 1. We will continue with diuresis. 2. Followup chest x-ray. 3. Obtain an echocardiogram. 4. If makes no progress with diuresis, then we will do a CT chest. 5. Wean FIO2 once he starts to make clinical improvement. 6. Discussed with RN and the patient's . ALEX STARR MD DR: ROQUE/harjinder JOB#: [id number] / [id number]
--- NOTE | 2017-01-22 17:16 | CARD ---
APPROVED REPORT EXAM: Two-dimensional and M-mode echocardiogram with Doppler and color Doppler. Other Information Quality : GoodHR: 116bpm Rhythm : Atrial Fibrillation INDICATION Arrhythmia 2D DIMENSIONS RVDd2.7 (2.9-3.5cm)Left Atrium(2D)4.7 (1.6-4.0cm) IVSd1.0 (0.7-1.1cm)Aortic Root(2D)3.1 (2.0-3.7cm) LVDd5.1 (3.9-5.9cm)LVOT Diameter2.3 (1.8-2.4cm) PWd1.0 (0.7-1.1cm)LVDs4.0 (2.5-4.0cm) FS (%) 20.3 %SV50.0 ml Mitral Valve MV E Peak Gr.6mmHgMV E Mean Gr.2mmHg Pulmonary Valve PV Peak Sebltyrv530.9cm/s Tricuspid Valve TR P. [id number]/sTR Peak Gr.110mmHg Pulmonary Vein S1 [place]on13.5cm/s LEFT VENTRICLE The left ventricle is normal size. There is borderline concentric left ventricular hypertrophy. Left ventricle systolic function is mildly impaired. The Ejection Fraction is 40-45%. Unable to assess the LV diastolic function due to atrial fibrillation. No left ventricle thrombus noted on this study. RIGHT VENTRICLE The right ventricle is normal size. There is normal right ventricular wall thickness. The right ventr icular systolic function is normal. ATRIA The left atrium is mildly dilated. The right atrium size is mild to moderately dilated. The interatri al septum is intact with no evidence for an atrial septal defect or patent foramen ovale as noted on 2-D or Doppler imaging. AORTIC VALVE The aortic valve is mildly thickened. Doppler and Color Flow revealed no significant aortic regurgita tion. There is no significant aortic valvular stenosis. MITRAL VALVE The mitral valve leaflets are thickened. There is no evidence of mitral valve prolapse. There is no m itral valve stenosis. Doppler and Color Flow revealed trace mitral regurgitation. TRICUSPID VALVE The tricuspid valve is normal in structure and function. Doppler and Color Flow revealed mild tricusp id regurgitation. There is no tricuspid valve prolapse or vegetation. PULMONIC VALVE The pulmonary valve is normal in structure and function. Doppler and Color Flow revealed mild pulmoni c valvular regurgitation. There is no pulmonic valvular stenosis. GREAT VESSELS The aortic root is normal in size. The ascending aorta is normal in size. The pulmonary artery is nor mal. The IVC is normal in size and collapses >50% with inspiration. PERICARDIAL EFFUSION There is no evidence of significant pericardial effusion. Critical Notification Critical Value: No <Conclusion> The left ventricle is normal size. Left ventricle systolic function is mildly impaired. The Ejection Fraction is 40-45%. There is borderline concentric left ventricular hypertrophy. There is no significant aortic valvular stenosis. Doppler and Color Flow revealed no significant aortic regurgitation. Doppler and Color Flow revealed trace mitral regurgitation. Doppler and Color Flow revealed mild tricuspid regurgitation. There is no evidence of significant pericardial effusion.
[2017-01-22 19:00] VITALS: BP 134/68
[2017-01-22] MEDS: SIMVASTATIN 20 MG TABLET PO SCH (20:19)
[2017-01-22] MEDS: METOPROLOL TART IMMED RELEASE 25 MG TABLET PO SCH (20:19)
[2017-01-22] MEDS: NIACIN ER 500 MG TABLET.ER PO SCH (22:29)
[2017-01-22] MEDS: SOTALOL 80 MG TABLET. PO SCH (22:30)
[2017-01-22 22:45] VITALS: BP 142/71
[2017-01-22] MEDS: ALBUTEROL SULFATE 2.5 MG/3 ML NEBU. NEB PRN (23:07)
[2017-01-23] MEDS: PIPERACILLIN/TAZOBACTAM 4.5 GM in IV NORMAL SALINE 100ML 100 ML IV SCH ×2 (00:13→06:30)
[2017-01-23 03:00] VITALS: BP 141/77
[2017-01-23] MEDS: TRAMADOL 50 MG TABLET. PO PRN (03:00)
[2017-01-23 05:46] LABS: BASO % 0 % (0-3); EOS % 0 % (0-3); HEMOGLOBIN 10.9 g/dL (13.0-17.5); LYMPH # 0.6 x10^3/uL (1.0-4.8); LYMPH % 4 % (24-48); MEAN CORPUSCULAR HEMOGLOBIN 32 pg (25-35); MEAN CORPUSCULAR HGB CONC 32 g/dL (31-37); MEAN CORPUSCULAR VOLUME 99 fL (79-100); MONO % 5 % (0-9); NEUT % 91 % (31-73); PLATELET COUNT 161 x10^3/uL (140-400); RED BLOOD COUNT 3.42 x10^6/uL (4.30-5.70); WHITE BLOOD COUNT 13.9 x10^3/uL (4.0-11.0)
[2017-01-23 06:05] LABS: CALCIUM 8.5 mg/dL (8.5-10.1); CHOLESTEROL/HDL RATIO 2.3; CREATININE 1.6 mg/dL (0.7-1.3); GFR 52.1; POTASSIUM 4.2 mmol/L (3.5-5.1)
[2017-01-23] MEDS: methylPREDNISolone SOD SUCC PF 125 MG/2 ML VIAL. IV SCH (06:30)
[2017-01-23] MEDS: DEXAMETHASONE 0.1% OPHTH SOLUTION 5ML BOTTLE. OS SCH ×5 (06:31→21:21)
[2017-01-23 07:26] VITALS: BP 143/83
[2017-01-23] MEDS: PANTOPRAZOLE 40 MG TABLET. PO SCH (08:45)
[2017-01-23] MEDS: ASPIRIN ENTERIC COATED 81 MG TABLET.DR. PO SCH (08:45)
[2017-01-23] MEDS: METFORMIN 500 MG TABLET. PO SCH ×2 (08:46→17:57)
[2017-01-23] MEDS: CLOPIDOGREL BISULFATE 75 MG TABLET PO SCH (08:46)
[2017-01-23] MEDS: METOPROLOL TART IMMED RELEASE 25 MG TABLET PO SCH ×2 (08:48→21:21)
[2017-01-23] MEDS: SOTALOL 80 MG TABLET. PO SCH ×2 (08:49→21:21)
[2017-01-23] MEDS: AMLODIPINE BESYLATE 5 MG TABLET PO SCH (08:49)
[2017-01-23] MEDS: DABIGATRAN ETEXILATE 150 MG CAPSULE. PO SCH ×2 (08:50→21:20)
[2017-01-23] MEDS: TOBRAMYCIN 0.3% OPHTH SOLUTION 5ML BOTTLE. OS SCH ×3 (08:51→21:21)
[2017-01-23] MEDS: KETOROLAC TROMETHAMINE 0.5% OPHTH SOLUTION 3ML BOTTLE. OS SCH ×3 (08:51→21:21)
[2017-01-23] MEDS: INSULIN ASPART 300 UNITS/3 ML INSULN.PEN SQ SCH ×6 (08:58→18:07)
[2017-01-23] MEDS ORDERED: ERGOCALCIFEROL (VITAMIN D2) 50,000 UNIT CAPSULE PO SCH (09:00)
--- NOTE | 2017-01-23 09:22 | PDOC ---
PULMONARY PROGRESS NOTES Subjective feels better Vitals Vital Signs Date Time Temp Pulse Resp B/P Pulse Ox O2 Delivery O2 Flow Rate FiO2 01/23/17 08:49 119 143/83 01/23/17 07:50 95 3.5 01/23/17 07:26 98.0 22 Nasal Cannula 98.0 General: Alert, No acute distress Lungs: Clear Cardiovascular: S1 Abdomen: Soft Neuro Exam: Alert Extremities: No Edema Skin: Warm Labs Laboratory Tests Test 01/21/17 19:27 01/21/17 20:20 01/22/17 03:25 01/22/17 09:15 White Blood Count 13.0x10^3/uL (4.0-11.0) 8.8x10^3/uL (4.0-11.0) Red Blood Count 3.37x10^6/uL (4.30-5.70) 3.52x10^6/uL (4.30-5.70) Hemoglobin 10.8g/dL (13.0-17.5) 11.3g/dL (13.0-17.5) Hematocrit 33.1% (39.0-53.0) 34.8% (39.0-53.0) Mean Corpuscular Volume 98fL (79-100) 99fL (79-100) Mean Corpuscular Hemoglobin 32pg (25-35) 32pg (25-35) Mean Corpuscular Hemoglobin Concent 33g/dL (31-37) 32g/dL (31-37) Red Cell Distribution Width 14.7% (11.5-14.5) 14.5% (11.5-14.5) Platelet Count 188x10^3/uL (140-400) 170x10^3/uL (140-400) Neutrophils (%) (Auto) 77% (31-73) 90% (31-73) Lymphocytes (%) (Auto) 11% (24-48) 9% (24-48) Monocytes (%) (Auto) 10% (0-9) 1% (0-9) Eosinophils (%) (Auto) 2% (0-3) 0% (0-3) Basophils (%) (Auto) 0% (0-3) 0% (0-3) Neutrophils # (Auto) 9.9x10^3uL (1.8-7.7) 7.9x10^3uL (1.8-7.7) Lymphocytes # (Auto) 1.4x10^3/uL (1.0-4.8) 0.8x10^3/uL (1.0-4.8) Monocytes # (Auto) 1.3x10^3/uL (0.0-1.1) 0.1x10^3/uL (0.0-1.1) Eosinophils # (Auto) 0.3x10^3/uL (0.0-0.7) 0.0x10^3/uL (0.0-0.7) Basophils # (Auto) 0.1x10^3/uL (0.0-0.2) 0.0x10^3/uL (0.0-0.2) Sodium Level 143mmol/L (136-145) 144mmol/L (136-145) Potassium Level 4.3mmol/L (3.5-5.1) 4.4mmol/L (3.5-5.1) Chloride Level 103mmol/L (98-107) 103mmol/L (98-107) Carbon Dioxide Level 24mmol/L (21-32) 27mmol/L (21-32) Anion Gap 16 (6-14) 14 (6-14) Blood Urea Nitrogen 17mg/dL (8-26) 20mg/dL (8-26) Creatinine 1.1mg/dL (0.7-1.3) 1.2mg/dL (0.7-1.3) Estimated GFR (Cockcroft-Gault) 80.3 72.6 BUN/Creatinine Ratio 15 (6-20) Glucose Level 200mg/dL (70-99) 221mg/dL (70-99) Calcium Level 8.8mg/dL (8.5-10.1) 8.9mg/dL (8.5-10.1) Total Bilirubin 1.2mg/dL (0.2-1.0) Aspartate Amino Transf (AST/SGOT) 33U/L (15-37) Alanine Aminotransferase (ALT/SGPT) 37U/L (16-63) Alkaline Phosphatase 66U/L (46-116) Troponin I Quantitative 0.036ng/mL (0.000-0.055) 0.019ng/mL (0.000-0.055) < 0.017ng/mL (0.000-0.055) QH-Rxm-J-Type Natriuretic Peptide 4611pg/mL (0-124) Total Protein 6.3g/dL (6.4-8.2) Albumin 3.5g/dL (3.4-5.0) Albumin/Globulin Ratio 1.3 (1.0-1.7) Influenza Type A Antigen Negative (NEGATIVE) Influenza Type B Antigen Negative (NEGATIVE) O2 Saturation 99% (92-99) Arterial Blood pH 7.44 (7.35-7.45) Arterial Blood pCO2 at Patient Temp 40mmHg (35-46) Arterial Blood pO2 at Patient Temp 208mmHg (65-108) Arterial Blood HCO3 27mmol/L (21-28) Arterial Blood Base Excess 2mmol/L (-3-3) FiO2 60 Segmented Neutrophils % 87% (35-66) Band Neutrophils % 6% (0-9) Lymphocytes % 4% (24-48) Atypical Lymphocytes % (Manual) 1% (0-0) Monocytes % 1% (0-10) Basophils % 1% (0-3) Platelet Estimate Adequate (ADEQUATE) Test 01/22/17 11:32 01/22/17 17:52 01/22/17 20:32 01/23/17 05:08 Glucose (Fingerstick) 328mg/dL (70-99) 269mg/dL (70-99) 295mg/dL (70-99) White Blood Count 13.9x10^3/uL (4.0-11.0) Red Blood Count 3.42x10^6/uL (4.30-5.70) Hemoglobin 10.9g/dL (13.0-17.5) Hematocrit 34.0% (39.0-53.0) Mean Corpuscular Volume 99fL (79-100) Mean Corpuscular Hemoglobin 32pg (25-35) Mean Corpuscular Hemoglobin Concent 32g/dL (31-37) Red Cell Distribution Width 15.0% (11.5-14.5) Platelet Count 161x10^3/uL (140-400) Neutrophils (%) (Auto) 91% (31-73) Lymphocytes (%) (Auto) 4% (24-48) Monocytes (%) (Auto) 5% (0-9) Eosinophils (%) (Auto) 0% (0-3) Basophils (%) (Auto) 0% (0-3) Neutrophils # (Auto) 12.6x10^3uL (1.8-7.7) Lymphocytes # (Auto) 0.6x10^3/uL (1.0-4.8) Monocytes # (Auto) 0.7x10^3/uL (0.0-1.1) Eosinophils # (Auto) 0.0x10^3/uL (0.0-0.7) Basophils # (Auto) 0.0x10^3/uL (0.0-0.2) Sodium Level 141mmol/L (136-145) Potassium Level 4.2mmol/L (3.5-5.1) Chloride Level 106mmol/L (98-107) Carbon Dioxide Level 29mmol/L (21-32) Anion Gap 6 (6-14) Blood Urea Nitrogen 28mg/dL (8-26) Creatinine 1.6mg/dL (0.7-1.3) Estimated GFR (Cockcroft-Gault) 52.1 Glucose Level 273mg/dL (70-99) Calcium Level 8.5mg/dL (8.5-10.1) Triglycerides Level 41mg/dL (0-150) Cholesterol Level 110mg/dL (0-200) LDL Cholesterol, Calculated 54mg/dL (0-100) VLDL Cholesterol, Calculated 8mg/dL (0-40) HDL Cholesterol 48mg/dL (40-60) Cholesterol/HDL Ratio 2.3 Thyroid Stimulating Hormone (TSH) 0.246uIU/mL (0.358-3.74) Test 01/23/17 07:33 Glucose (Fingerstick) 282mg/dL (70-99) Laboratory Tests Test 01/22/17 11:32 01/22/17 17:52 01/22/17 20:32 01/23/17 05:08 Glucose (Fingerstick) 328mg/dL (70-99) 269mg/dL (70-99) 295mg/dL (70-99) White Blood Count 13.9x10^3/uL (4.0-11.0) Red Blood Count 3.42x10^6/uL (4.30-5.70) Hemoglobin 10.9g/dL (13.0-17.5) Hematocrit 34.0% (39.0-53.0) Mean Corpuscular Volume 99fL (79-100) Mean Corpuscular Hemoglobin 32pg (25-35) Mean Corpuscular Hemoglobin Concent 32g/dL (31-37) Red Cell Distribution Width 15.0% (11.5-14.5) Platelet Count 161x10^3/uL (140-400) Neutrophils (%) (Auto) 91% (31-73) Lymphocytes (%) (Auto) 4% (24-48) Monocytes (%) (Auto) 5% (0-9) Eosinophils (%) (Auto) 0% (0-3) Basophils (%) (Auto) 0% (0-3) Neutrophils # (Auto) 12.6x10^3uL (1.8-7.7) Lymphocytes # (Auto) 0.6x10^3/uL (1.0-4.8) Monocytes # (Auto) 0.7x10^3/uL (0.0-1.1) Eosinophils # (Auto) 0.0x10^3/uL (0.0-0.7) Basophils # (Auto) 0.0x10^3/uL (0.0-0.2) Sodium Level 141mmol/L (136-145) Potassium Level 4.2mmol/L (3.5-5.1) Chloride Level 106mmol/L (98-107) Carbon Dioxide Level 29mmol/L (21-32) Anion Gap 6 (6-14) Blood Urea Nitrogen 28mg/dL (8-26) Creatinine 1.6mg/dL (0.7-1.3) Estimated GFR (Cockcroft-Gault) 52.1 Glucose Level 273mg/dL (70-99) Calcium Level 8.5mg/dL (8.5-10.1) Triglycerides Level 41mg/dL (0-150) Cholesterol Level 110mg/dL (0-200) LDL Cholesterol, Calculated 54mg/dL (0-100) VLDL Cholesterol, Calculated 8mg/dL (0-40) HDL Cholesterol 48mg/dL (40-60) Cholesterol/HDL Ratio 2.3 Thyroid Stimulating Hormone (TSH) 0.246uIU/mL (0.358-3.74) Test 01/23/17 07:33 Glucose (Fingerstick) 282mg/dL (70-99) Medications Active Scripts Medications Dose Route/Sig Days Date Category Ketorolac Tromethamine 5 Ml Drops 1 Drop LEFTEYE TID 7 01/22/17 Reported Tobramycin-Dexameth Ophth Susp (Tobramycin/Dexamethasone) 5 Ml Drops.susp 1 Drop LEFTEYE TID 01/22/17 Reported Prednisolone Acetate 5 Ml Drops.susp 1 Drop LEFTEYE TID 01/22/17 Reported Aspir 81 (Aspirin) 81 Mg Tablet.dr 1 Tab PO 1X 01/02/17 Reported Omeprazole 40 Mg Capsule.dr 40 Mg PO DAILY 05/12/14 Reported Clopidogrel (Clopidogrel Bisulfate) 75 Mg Tablet 75 Mg PO DAILY 05/12/14 Reported Combivent Respimat Inhal (Ipratropium/Albuterol Sulfate) 4 Gm Aer.w.adap 2 Inh IH QID PRN 05/12/14 Reported Tramadol Hcl 50 Mg Tablet 50 Mg PO PRN Q4HRS PRN 03/18/14 Reported Apidra (Insulin Glulisine) 100 Unit/1 Ml Vial 10 Unit SQ TIDAC 03/18/14 Reported Pradaxa (Dabigatran Etexilate Mesylate) 150 Mg Capsule 150 Mg PO BID 03/18/14 Reported Vitamin D (Cholecalciferol (Vitamin D3)) 10,000 Unit Capsule 50,000 Unit PO WEEKLY 03/18/14 Reported Niaspan (Niacin) 500 Mg Tab.er.24h 500 Mg PO HS 03/18/14 Reported Simvastatin 20 Mg Tablet 20 Mg PO HS 03/18/14 Reported Sotalol Af (Sotalol Hcl) 120 Mg Tablet 160 Mg PO BID 03/18/14 Reported Coreg (Carvedilol) 6.25 Mg Tablet 6.25 Mg PO BID 03/18/14 Reported Lisinopril-Hctz 20-12.5 Mg Tab (Lisinopril/Hydrochlorothiazide) 1 Each Tablet 1 Each PO DAILY 03/18/14 Reported Amlodipine Besylate 5 Mg Tablet 5 Mg PO DAILY 03/18/14 Reported Metformin Hcl 500 Mg Tablet 1,000 Mg PO BID 03/18/14 Reported Impression . 1. Acute hypoxic respiratory failure, related to congestive heart failure. The patient has not been feeling well for the last 4 weeks and has failed to respond to antibiotics and bronchodilators. He has an ejection fraction of 45% in 2014. I suspect we are dealing with congestive heart failure. 2. Clinically unlikely pneumonia. 3. No significant history of tobacco use. 4. A-fib Plan . 1. We will continue with diuresis. 2. Followup chest x-ray in am 3. repeat echocardiogram. with EF 40-45% 4. A-fib per cardiology 5. Wean FIO2 once he starts to make clinical improvement. 6. Discussed with ALEX PERALTA MD Jan 23, 2017 09:22
--- NOTE | 2017-01-23 09:49 | RAD ---
EXAM: Chest one view. HISTORY: Shortness of breath. COMPARISON: 01/21/2017. FINDINGS: A frontal view of the chest is obtained. There are changes of coronary artery bypass grafting. There are no confluent infiltrates. There is no pneumothorax or pleural effusion. The heart is mildly enlarged. There are atherosclerotic calcifications of the aorta. IMPRESSION: 1. Mild cardiomegaly.
--- NOTE | 2017-01-23 09:58 | PDOC ---
PROGRESS NOTES Subjective Subjective seenin cardiac icu, feeling better Objective Objective Vital Signs Date Time Temp Pulse Resp B/P Pulse Ox O2 Delivery O2 Flow Rate FiO2 01/23/17 08:49 119 143/83 01/23/17 07:50 95 3.5 01/23/17 07:26 98.0 22 Nasal Cannula 98.0 Intake and Output 01/23/17 07:00 Intake Total 1650 ml Output Total 1936 ml Balance -286 ml Intake Oral 1650 ml Output Urine Total 1936 ml # Voids 1 Physical Exam Abdomen: Soft, No tenderness Heart: Normal S1, Normal S2, Other (3/6 systolic murmur to LLS border; AFIB RVR ) Extremities: No cyanosis, Other (trace LE edema) General: Alert, Oriented X3, Cooperative, No acute distress HEENT: Atraumatic, Mucous membr. moist/pink Lungs: Other (diffuse crackles) MUSCULOSKELETAL: Osteoarthritic changes both hands Neuro: Normal speech, Sensation intact Psych/Mental Status: Mental status NL, Mood NL Skin: No breakdown, No significant lesion Diagnosis Problem List Problems Medical Problems: (1) CHF (congestive heart failure) Status: Acute (2) Chronic a-fib Status: Acute (3) COPD with acute exacerbation Status: Acute (4) Respiratory failure Status: Acute Assessment Assessment Problems Medical Problems: (1) CHF (congestive heart failure) Status: Acute (2) Chronic a-fib Status: Acute (3) COPD with acute exacerbation Status: Acute (4) Respiratory failure Status: Acute FINAL IMPRESSION: ac renal failure cr 1.6 1. Acute congestive heart failure/pulmonary edema. 2. Atrial fibrillation with rapid ventricular response. 3. Possibility of underlying pneumonitis. 4. Chronic obstructive pulmonary disease. 5. Coronary artery disease status post bypass surgery and cardiac stents. 6. Hypertension. 7. Hyperlipidemia. 8. Diabetes. 9. Recent cataract surgery. PLAN: holding on diuretics due t inc cr. cxr chf. hr 120,irregular. echo? At this time, was admitted to hospital, seen by Cardiology and Pulmonology, started on BiPAP and IV Lasix, IV Solu-Medrol, broad-spectrum antibiotics, sputum cultures and Cardiology is going to see, IV Cardizem to control heart rate, IV drip. Problems: Plan Plan of Care Problems Medical Problems: (1) CHF (congestive heart failure) Status: Acute (2) Chronic a-fib Status: Acute (3) COPD with acute exacerbation Status: Acute (4) Respiratory failure Status: Acute Comment Review of Relevant I have reviewed the following items debbie (where applicable) has been applied. Labs Laboratory Tests Test 01/22/17 11:32 01/22/17 17:52 01/22/17 20:32 01/23/17 05:08 Glucose (Fingerstick) 328mg/dL (70-99) 269mg/dL (70-99) 295mg/dL (70-99) White Blood Count 13.9x10^3/uL (4.0-11.0) Red Blood Count 3.42x10^6/uL (4.30-5.70) Hemoglobin 10.9g/dL (13.0-17.5) Hematocrit 34.0% (39.0-53.0) Mean Corpuscular Volume 99fL (79-100) Mean Corpuscular Hemoglobin 32pg (25-35) Mean Corpuscular Hemoglobin Concent 32g/dL (31-37) Red Cell Distribution Width 15.0% (11.5-14.5) Platelet Count 161x10^3/uL (140-400) Neutrophils (%) (Auto) 91% (31-73) Lymphocytes (%) (Auto) 4% (24-48) Monocytes (%) (Auto) 5% (0-9) Eosinophils (%) (Auto) 0% (0-3) Basophils (%) (Auto) 0% (0-3) Neutrophils # (Auto) 12.6x10^3uL (1.8-7.7) Lymphocytes # (Auto) 0.6x10^3/uL (1.0-4.8) Monocytes # (Auto) 0.7x10^3/uL (0.0-1.1) Eosinophils # (Auto) 0.0x10^3/uL (0.0-0.7) Basophils # (Auto) 0.0x10^3/uL (0.0-0.2) Sodium Level 141mmol/L (136-145) Potassium Level 4.2mmol/L (3.5-5.1) Chloride Level 106mmol/L (98-107) Carbon Dioxide Level 29mmol/L (21-32) Anion Gap 6 (6-14) Blood Urea Nitrogen 28mg/dL (8-26) Creatinine 1.6mg/dL (0.7-1.3) Estimated GFR (Cockcroft-Gault) 52.1 Glucose Level 273mg/dL (70-99) Calcium Level 8.5mg/dL (8.5-10.1) Triglycerides Level 41mg/dL (0-150) Cholesterol Level 110mg/dL (0-200) LDL Cholesterol, Calculated 54mg/dL (0-100) VLDL Cholesterol, Calculated 8mg/dL (0-40) HDL Cholesterol 48mg/dL (40-60) Cholesterol/HDL Ratio 2.3 Thyroid Stimulating Hormone (TSH) 0.246uIU/mL (0.358-3.74) Test 01/23/17 07:33 Glucose (Fingerstick) 282mg/dL (70-99) Medications Current Medications Dexamethasone (Maxidex) 2 drop Q4HRS OS ; Start 01/22/17 at 10:00; Stop at 10:00; Status DC Dexamethasone (Maxidex) 2 drop Q4HRS W/A OS Last administered on 01/23/17 08: 51; Start 01/22/17 at 10:00 Dextrose 12.5 gm PRN Q15MIN PRN IV SEE COMMENTS; Start 01/22/17 at 10:00 Digoxin (Lanoxin) 500 mcg 1X ONCE IV Last administered on 01/22/17 10:54; Start 01/22/17 at 10:15; Stop 01/22/17 at 10:17; Status DC Ergocalciferol (Vitamin D2) 50,000 unit We PO Last administered on 01/23/17 08 :48; Start 01/23/17 at 09:00 Furosemide (Lasix) 40 mg BID92 IVP Last administered on 01/22/17 15:03; Start 01/22/17 at 10:30; Stop 01/23/17 at 08:26; Status DC Insulin Aspart (Novolog) 0-7 UNITS TIDWMEALS SQ Last administered on 01/23/17 09:05; Start 01/22/17 at 12:00 Insulin Aspart (Novolog) 10 units TIDAC SQ Last administered on 01/23/17 08:58 ; Start 01/22/17 at 14:07 Methylprednisolone Sodium Succinate (Solu-Medrol 125mg Vial) 60 mg Q8HRS IV Last administered on 01/23/17 06:30; Start 01/22/17 at 10:30 Metoprolol Tartrate (Lopressor) 5 mg 1X ONCE IVP Last administered on 10:54; Start 01/22/17 at 10:15; Stop 01/22/17 at 10:18; Status DC Metoprolol Tartrate (Lopressor) 25 mg 1X ONCE PO Last administered on 15:01; Start 01/22/17 at 14:45; Stop 01/22/17 at 14:46; Status DC Metoprolol Tartrate (Lopressor) 25 mg BID PO Last administered on 01/23/17 08: 48; Start 01/22/17 at 21:00 Niacin (Slo-Niacin) 500 mg HS PO Last administered on 01/22/17 22:29; Start at 21:00 Pantoprazole Sodium (Protonix) 40 mg DAILYAC PO Last administered on 01/23/17 08:45; Start 01/22/17 at 11:30 Potassium Chloride (Klor-Con) 40 meq 1X ONCE PO Last administered on 10:53; Start 01/22/17 at 10:00; Stop 01/22/17 at 10:18; Status DC Simvastatin (Zocor) 20 mg HS PO Last administered on 01/22/17 20:19; Start at 21:00 Sotalol HCl (Betapace) 160 mg BID PO Last administered on 01/23/17 08:49; Start 01/22/17 at 21:30 [facility] 1 drop TID OS Last administered on 08:51; Start 01/22/17 at 10:00 Vancomycin HCl 1 each 1X ONCE MC ; Start 01/23/17 at 10:30; Stop 01/23/17 at 10 :31 Vancomycin HCl/ Sodium Chloride (Iv Sodium Chloride 0.9% 250ml) 250 ml @ 167 mls/hr Q12H IV Last administered on 01/22/17 22:30; Start 01/22/17 at 11:00 Vitals/I & O Vital Sign - Last 24 Hours 01/22/17 01/22/17 01/22/17 01/22/17 10:47 10:54 10:54 15:01 Temp 97.9 97.9 Pulse 113 136 136 113 Resp 20 B/P 136/84 111/76 Pulse Ox 96 O2 Delivery Nasal Cannula O2 Flow Rate 4.0 01/22/17 01/22/17 01/22/17 01/22/17 15:03 15:12 15:22 19:00 Temp 98.3 97.9 98.3 97.9 Pulse 104 114 Resp B/P 111/76 134/68 Pulse Ox 96 97 96 O2 Delivery Nasal Cannula Nasal Cannula Nasal Cannula Nasal Cannula O2 Flow Rate 4.0 4.0 4.0 4.0 01/22/17 01/22/17 01/22/17 01/22/17 19:40 19:55 20:18 20:19 Pulse 114 Resp 20 B/P 134/68 Pulse Ox 96 O2 Delivery Nasal Cannula Nasal Cannula O2 Flow Rate 4.0 3.5 4.0 01/22/17 01/22/17 01/22/17 01/23/17 22:30 22:45 23:07 03:00 Temp 98.9 98.9 Pulse 102 102 Resp B/P 142/71 142/71 Pulse Ox 92 96 O2 Delivery Nasal Cannula Nasal Cannula O2 Flow Rate 4.0 3.5 4.0 01/23/17 01/23/17 01/23/17 01/23/17 03:00 04:00 07:26 07:50 Temp 98.0 98.0 98.0 98.0 Pulse 117 119 Resp B/P 141/77 143/83 Pulse Ox 94 96 95 95 O2 Delivery Nasal Cannula Nasal Cannula Nasal Cannula O2 Flow Rate 4.0 4.0 3.5 01/23/17 01/23/17 01/23/17 08:48 08:49 08:49 Pulse 119 119 119 B/P 143/83 143/83 143/83 Intake and Output 01/22/17 01/22/17 01/23/17 15:00 23:00 07:00 Intake Total 1400 ml 250 ml Output Total 350 ml 1200 ml 386 ml Balance -350 ml 200 ml -136 ml NAUN ROPER MD Jan 23, 2017 09:58
[2017-01-23 10:17] VITALS: BP 122/71
[2017-01-23] MEDS: VANCOMYCIN PER PHARMACY MC PRN (10:49)
[2017-01-23] MEDS: ANTI-COAG MONITOR BY PHARMACY. MC PRN (10:51)
[2017-01-23] MEDS: VANCOMYCIN 1.25 GM in IV NORMAL SALINE 250ML 250 ML IV SCH (11:00)
--- NOTE | 2017-01-23 11:44 | PDOC ---
CARDIO Progress Notes Date and Time Date of Service 01/23/2017 Time of Evaluation 1130 Subjective Subjective: No Chest Pain, No Palpitations, No Dizziness, Other (SOA much better) Vitals Vitals Vital Signs Date Time Temp Pulse Resp B/P Pulse Ox O2 Delivery O2 Flow Rate FiO2 01/23/17 10:17 97.9 115 24 122/71 96 Nasal Cannula 97.9 01/23/17 08:00 4.0 Weight Weight [ ] Input and Output Intake and Output Intake and Output 01/23/17 07:00 Intake Total 1650 ml Output Total 1936 ml Balance -286 ml Intake Oral 1650 ml Output Urine Total 1936 ml # Voids 1 Laboratory Labs Laboratory Tests Test 01/22/17 17:52 01/22/17 20:32 01/23/17 05:08 01/23/17 07:33 Glucose (Fingerstick) 269mg/dL (70-99) 295mg/dL (70-99) 282mg/dL (70-99) White Blood Count 13.9x10^3/uL (4.0-11.0) Red Blood Count 3.42x10^6/uL (4.30-5.70) Hemoglobin 10.9g/dL (13.0-17.5) Hematocrit 34.0% (39.0-53.0) Mean Corpuscular Volume 99fL (79-100) Mean Corpuscular Hemoglobin 32pg (25-35) Mean Corpuscular Hemoglobin Concent 32g/dL (31-37) Red Cell Distribution Width 15.0% (11.5-14.5) Platelet Count 161x10^3/uL (140-400) Neutrophils (%) (Auto) 91% (31-73) Lymphocytes (%) (Auto) 4% (24-48) Monocytes (%) (Auto) 5% (0-9) Eosinophils (%) (Auto) 0% (0-3) Basophils (%) (Auto) 0% (0-3) Neutrophils # (Auto) 12.6x10^3uL (1.8-7.7) Lymphocytes # (Auto) 0.6x10^3/uL (1.0-4.8) Monocytes # (Auto) 0.7x10^3/uL (0.0-1.1) Eosinophils # (Auto) 0.0x10^3/uL (0.0-0.7) Basophils # (Auto) 0.0x10^3/uL (0.0-0.2) Sodium Level 141mmol/L (136-145) Potassium Level 4.2mmol/L (3.5-5.1) Chloride Level 106mmol/L (98-107) Carbon Dioxide Level 29mmol/L (21-32) Anion Gap 6 (6-14) Blood Urea Nitrogen 28mg/dL (8-26) Creatinine 1.6mg/dL (0.7-1.3) Estimated GFR (Cockcroft-Gault) 52.1 Glucose Level 273mg/dL (70-99) Calcium Level 8.5mg/dL (8.5-10.1) Triglycerides Level 41mg/dL (0-150) Cholesterol Level 110mg/dL (0-200) LDL Cholesterol, Calculated 54mg/dL (0-100) VLDL Cholesterol, Calculated 8mg/dL (0-40) HDL Cholesterol 48mg/dL (40-60) Cholesterol/HDL Ratio 2.3 Thyroid Stimulating Hormone (TSH) 0.246uIU/mL (0.358-3.74) Test 01/23/17 10:35 Vancomycin Level Trough 22.5mcg/mL (10.0-20.0) Vancomycin Last Dose Date 01/22/17 Vancomycin Last Dose Time 2300 Physical Exam HEENT: Neck Supple W Full Motion Chest: Symmetric LUNGS: Other (basilar crackles) Heart: S1S2, irregularly irregular Abdomen: Soft N/T Extremities: No Calf Tenderness, Other (trace LE ) Neurology: alert, oriented, follow commands Assessment Assessment 1. Hypoxia: r/t CHF/COPD with possible viral syndrome. 2. AFIB RVR: Improved today. HR 80-110 3. Acute on chronic systolic CHF: much better today. EF 40-45%. TTE virtually unchanged. Has lost 4 pounds 4. CAD: CABG. Prior PCI/RAD to SVG to OM, CP free. stable. 5. HTN: controlled 6. DM2/HLP 7. ICM: stable, prior EF 45% Recommendations 1. PREETHI could not be ruled out. recommend outpt workup 2. Continue supplemental O2, Hold lasix therapy today with prerenal development Cr up 0.4 points. 3. Continue with sotalol and metoprolol 4. Continue with secondary prevention 5. Continue with DAPT and pradaxa. 6. BMP, Mg in AM, PO lasix to commence tomorrow and completely discontinue HCTZ. GRACE DE LA CRUZ APRN Jan 23, 2017 11:44
[2017-01-23 14:12] VITALS: BP 125/67
[2017-01-23 19:35] VITALS: BP 132/84
[2017-01-23] MEDS: ALBUTEROL SULFATE 2.5 MG/3 ML NEBU. NEB PRN (20:27)
[2017-01-23] MEDS ORDERED: methylPREDNISolone SOD SUCC PF 125 MG/2 ML VIAL. IV SCH (21:00)
[2017-01-23] MEDS: NIACIN ER 500 MG TABLET.ER PO SCH (21:20)
[2017-01-23] MEDS: SIMVASTATIN 20 MG TABLET PO SCH (21:20)
[2017-01-23] MEDS: ZOLPIDEM 5 MG TABLET. PO PRN (21:21)
[2017-01-23 23:06] VITALS: BP 132/75
[2017-01-24 03:20] VITALS: BP 134/85
[2017-01-24 05:14] LABS: BASO % 0 % (0-3); EOS % 1 % (0-3); HEMOGLOBIN 10.7 g/dL (13.0-17.5); LYMPH # 1.5 x10^3/uL (1.0-4.8); LYMPH % 11 % (24-48); MEAN CORPUSCULAR HEMOGLOBIN 32 pg (25-35); MEAN CORPUSCULAR HGB CONC 32 g/dL (31-37); MEAN CORPUSCULAR VOLUME 99 fL (79-100); MONO % 11 % (0-9); NEUT % 77 % (31-73); PLATELET COUNT 154 x10^3/uL (140-400); RED BLOOD COUNT 3.35 x10^6/uL (4.30-5.70); RED CELL DISTRIBUTION WIDTH 14.8 % (11.5-14.5); WHITE BLOOD COUNT 12.8 x10^3/uL (4.0-11.0)
[2017-01-24 05:15] LABS: CALCIUM 8.4 mg/dL (8.5-10.1); CREATININE 1.1 mg/dL (0.7-1.3); GFR 80.3; POTASSIUM 3.7 mmol/L (3.5-5.1)
[2017-01-24] MEDS: DEXAMETHASONE 0.1% OPHTH SOLUTION 5ML BOTTLE. OS SCH ×5 (06:00→21:20)
[2017-01-24 07:00] VITALS: BP 147/91
--- NOTE | 2017-01-24 07:20 | RAD ---
EXAM: Chest one view. HISTORY: Congestive heart failure. COMPARISON: 01/23/2017. FINDINGS: A frontal view of the chest is obtained. There is mild retrocardiac atelectasis or infiltrate. There is no pneumothorax or pleural effusion. The heart is mildly enlarged. There are changes of coronary artery bypass grafting. There are atherosclerotic calcifications of the aorta. IMPRESSION: 1. Mild retrocardiac infiltrate or atelectasis. 2. Mild cardiomegaly.
[2017-01-24] MEDS: INSULIN ASPART 300 UNITS/3 ML INSULN.PEN SQ SCH ×6 (08:00→17:40)
[2017-01-24] MEDS: DABIGATRAN ETEXILATE 150 MG CAPSULE. PO SCH ×2 (08:27→21:19)
[2017-01-24] MEDS: METFORMIN 500 MG TABLET. PO SCH ×2 (08:27→17:29)
[2017-01-24] MEDS: ASPIRIN ENTERIC COATED 81 MG TABLET.DR. PO SCH (08:27)
[2017-01-24] MEDS: CLOPIDOGREL BISULFATE 75 MG TABLET PO SCH (08:27)
[2017-01-24] MEDS: PANTOPRAZOLE 40 MG TABLET. PO SCH (08:28)
[2017-01-24] MEDS: SOTALOL 80 MG TABLET. PO SCH ×2 (08:28→21:20)
[2017-01-24] MEDS: TOBRAMYCIN 0.3% OPHTH SOLUTION 5ML BOTTLE. OS SCH ×3 (08:29→21:20)
[2017-01-24] MEDS: KETOROLAC TROMETHAMINE 0.5% OPHTH SOLUTION 3ML BOTTLE. OS SCH ×3 (08:29→21:20)
[2017-01-24] MEDS: METOPROLOL TART IMMED RELEASE 25 MG TABLET PO SCH ×2 (08:29→21:19)
[2017-01-24] MEDS: ALBUTEROL SULFATE 2.5 MG/3 ML NEBU. NEB PRN (08:59)
[2017-01-24] MEDS: ANTI-COAG MONITOR BY PHARMACY. MC PRN (09:31)
--- NOTE | 2017-01-24 09:46 | PDOC ---
CARDIO Progress Notes Date and Time Date of Service 01/24/17 Time of Evaluation 0945 Subjective Subjective: No Chest Pain, No Palpitations, No Dizziness, Other (mild distress ; SOA improved but persists) Vitals Vitals Vital Signs Date Time Temp Pulse Resp B/P Pulse Ox O2 Delivery O2 Flow Rate FiO2 01/24/17 09:00 95 3.0 01/24/17 08:29 118 147/91 01/24/17 08:00 Nasal Cannula 01/24/17 07:00 98.8 22 98.8 Weight Weight [ ] Input and Output Intake and Output Intake and Output 01/24/17 07:00 Intake Total 1740 ml Output Total 1200 ml Balance 540 ml Intake Oral 1740 ml Output Urine Total 1200 ml Laboratory Labs Laboratory Tests Test 01/23/17 10:35 01/23/17 11:31 01/23/17 17:23 01/23/17 21:25 Vancomycin Level Trough 22.5mcg/mL (10.0-20.0) Vancomycin Last Dose Date 01/22/17 Vancomycin Last Dose Time 2300 Glucose (Fingerstick) 290mg/dL (70-99) 182mg/dL (70-99) 136mg/dL (70-99) Test 01/24/17 04:35 01/24/17 07:56 White Blood Count 12.8x10^3/uL (4.0-11.0) Red Blood Count 3.35x10^6/uL (4.30-5.70) Hemoglobin 10.7g/dL (13.0-17.5) Hematocrit 33.0% (39.0-53.0) Mean Corpuscular Volume 99fL (79-100) Mean Corpuscular Hemoglobin 32pg (25-35) Mean Corpuscular Hemoglobin Concent 32g/dL (31-37) Red Cell Distribution Width 14.8% (11.5-14.5) Platelet Count 154x10^3/uL (140-400) Neutrophils (%) (Auto) 77% (31-73) Lymphocytes (%) (Auto) 11% (24-48) Monocytes (%) (Auto) 11% (0-9) Eosinophils (%) (Auto) 1% (0-3) Basophils (%) (Auto) 0% (0-3) Neutrophils # (Auto) 9.9x10^3uL (1.8-7.7) Lymphocytes # (Auto) 1.5x10^3/uL (1.0-4.8) Monocytes # (Auto) 1.4x10^3/uL (0.0-1.1) Eosinophils # (Auto) 0.1x10^3/uL (0.0-0.7) Basophils # (Auto) 0.0x10^3/uL (0.0-0.2) Sodium Level 146mmol/L (136-145) Potassium Level 3.7mmol/L (3.5-5.1) Chloride Level 109mmol/L (98-107) Carbon Dioxide Level 29mmol/L (21-32) Anion Gap 8 (6-14) Blood Urea Nitrogen 27mg/dL (8-26) Creatinine 1.1mg/dL (0.7-1.3) Estimated GFR (Cockcroft-Gault) 80.3 Glucose Level 123mg/dL (70-99) Calcium Level 8.4mg/dL (8.5-10.1) Glucose (Fingerstick) 110mg/dL (70-99) Physical Exam HEENT: Neck Supple W Full Motion Chest: Symmetric LUNGS: Other (basilar crackles) Heart: S1S2, irregularly irregular Abdomen: Soft N/T Extremities: No Calf Tenderness, Other (trace LE edema bilaterally ) Neurology: alert, oriented, follow commands Assessment Assessment 1. Acute on chronic systolic CHF: EF 40-45%. 2. AFIB RVR: Improved today. HR 80-110 3. Acute on chronic respiratory failure: multifactorial 4. CAD: s/p CABG. Prior PCI/RAD to SVG to OM, CP free. stable. 5. HTN: controlled 6. DM2/HLP 7. ICM: stable, prior EF 45% Recommendations Mild distress; Lasix held 01/23 with increasing Cr. Will give dose of IV Lasix now and start oral in am. Monitor Cr; now 1.1. Sotalol and metoprolol for rate control; Pradaxa for stroke prophylaxis Continue with secondary prevention including DAPT SASHA MCFARLANE APRN Jan 24, 2017 09:45
--- NOTE | 2017-01-24 10:13 | PDOC ---
PROGRESS NOTES Subjective Subjective cough ,thick sputum Objective Objective Vital Signs Date Time Temp Pulse Resp B/P Pulse Ox O2 Delivery O2 Flow Rate FiO2 01/24/17 09:00 95 3.0 01/24/17 08:29 118 147/91 01/24/17 08:00 Nasal Cannula 01/24/17 07:00 98.8 22 98.8 Intake and Output 01/24/17 07:00 Intake Total 1740 ml Output Total 1200 ml Balance 540 ml Intake Oral 1740 ml Output Urine Total 1200 ml Physical Exam Abdomen: Soft, No tenderness Heart: Normal S1, Normal S2, Other (3/6 systolic murmur to LLS border; AFIB RVR ) Extremities: No cyanosis, Other (trace LE edema) General: Alert, Oriented X3, Cooperative, No acute distress HEENT: Atraumatic, Mucous membr. moist/pink Lungs: Other (diffuse crackles) MUSCULOSKELETAL: Osteoarthritic changes both hands Neuro: Normal speech, Sensation intact Psych/Mental Status: Mental status NL, Mood NL Skin: No breakdown, No significant lesion Diagnosis Problem List Problems Medical Problems: (1) CHF (congestive heart failure) Status: Acute (2) Chronic a-fib Status: Acute (3) COPD with acute exacerbation Status: Acute (4) Respiratory failure Status: Acute Assessment Assessment Problems Medical Problems: (1) CHF (congestive heart failure) Status: Acute (2) Chronic a-fib Status: Acute (3) COPD with acute exacerbation Status: Acute (4) Respiratory failure Status: Acute FINAL IMPRESSION: ac renal failure cr 1.6 improved 1. Acute congestive heart failure/pulmonary edema. 2. Atrial fibrillation with rapid ventricular response. 3. Possibility of underlying pneumonitis. 4. Chronic obstructive pulmonary disease. 5. Coronary artery disease status post bypass surgery and cardiac stents. 6. Hypertension. 7. Hyperlipidemia. 8. Diabetes. 9. Recent cataract surgery. PLAN: cr 1.2 stable holding on diuretics due t inc cr. cxr chf. hr 120,irregular. echo45% ejf cxr improved d/c iv antibiotics d/c iv solumedrol Problems: Plan Plan of Care Problems Medical Problems: (1) CHF (congestive heart failure) Status: Acute (2) Chronic a-fib Status: Acute (3) COPD with acute exacerbation Status: Acute (4) Respiratory failure Status: Acute Comment Review of Relevant I have reviewed the following items debbie (where applicable) has been applied. Labs Laboratory Tests Test 01/23/17 10:35 01/23/17 11:31 01/23/17 17:23 01/23/17 21:25 Vancomycin Level Trough 22.5mcg/mL (10.0-20.0) Vancomycin Last Dose Date 01/22/17 Vancomycin Last Dose Time 2300 Glucose (Fingerstick) 290mg/dL (70-99) 182mg/dL (70-99) 136mg/dL (70-99) Test 01/24/17 04:35 01/24/17 07:56 White Blood Count 12.8x10^3/uL (4.0-11.0) Red Blood Count 3.35x10^6/uL (4.30-5.70) Hemoglobin 10.7g/dL (13.0-17.5) Hematocrit 33.0% (39.0-53.0) Mean Corpuscular Volume 99fL (79-100) Mean Corpuscular Hemoglobin 32pg (25-35) Mean Corpuscular Hemoglobin Concent 32g/dL (31-37) Red Cell Distribution Width 14.8% (11.5-14.5) Platelet Count 154x10^3/uL (140-400) Neutrophils (%) (Auto) 77% (31-73) Lymphocytes (%) (Auto) 11% (24-48) Monocytes (%) (Auto) 11% (0-9) Eosinophils (%) (Auto) 1% (0-3) Basophils (%) (Auto) 0% (0-3) Neutrophils # (Auto) 9.9x10^3uL (1.8-7.7) Lymphocytes # (Auto) 1.5x10^3/uL (1.0-4.8) Monocytes # (Auto) 1.4x10^3/uL (0.0-1.1) Eosinophils # (Auto) 0.1x10^3/uL (0.0-0.7) Basophils # (Auto) 0.0x10^3/uL (0.0-0.2) Sodium Level 146mmol/L (136-145) Potassium Level 3.7mmol/L (3.5-5.1) Chloride Level 109mmol/L (98-107) Carbon Dioxide Level 29mmol/L (21-32) Anion Gap 8 (6-14) Blood Urea Nitrogen 27mg/dL (8-26) Creatinine 1.1mg/dL (0.7-1.3) Estimated GFR (Cockcroft-Gault) 80.3 Glucose Level 123mg/dL (70-99) Calcium Level 8.4mg/dL (8.5-10.1) Glucose (Fingerstick) 110mg/dL (70-99) Medications Current Medications Albuterol/ Ipratropium (Duoneb) 3 ml RTQID NEB ; Start 01/24/17 at 12:00 Methylprednisolone Sodium Succinate (Solu-Medrol 125mg Vial) 60 mg BID IV ; Start 01/23/17 at 21:00; Stop 01/23/17 at 21:00; Status DC Vancomycin HCl 1 each 1X ONCE MC ; Start 01/23/17 at 10:30; Stop 01/23/17 at 11 :13; Status DC Vitals/I & O Vital Sign - Last 24 Hours 01/23/17 01/23/17 01/23/17 01/23/17 10:17 11:40 14:12 19:35 Temp 97.9 97.8 98.0 97.9 97.8 98.0 Pulse 115 108 113 Resp B/P 122/71 125/67 132/84 Pulse Ox 96 96 95 O2 Delivery Nasal Cannula Nasal Cannula Nasal Cannula O2 Flow Rate 3.5 1.5 01/23/17 01/23/17 01/23/17 01/23/17 19:53 20:29 21:21 21:21 Pulse 113 113 B/P 132/84 132/84 Pulse Ox 95 O2 Delivery Nasal Cannula O2 Flow Rate 4.0 3.0 01/23/17 01/24/17 01/24/17 01/24/17 23:06 03:20 07:00 08:00 Temp 98.4 98.4 98.8 98.4 98.4 98.8 Pulse 103 73 103 Resp B/P 132/75 134/85 147/91 Pulse Ox 95 96 92 O2 Delivery Nasal Cannula Nasal Cannula Nasal Cannula Nasal Cannula O2 Flow Rate 1.5 1.5 1.5 2.0 01/24/17 01/24/17 01/24/17 08:28 08:29 09:00 Pulse 118 118 B/P 147/91 147/91 Pulse Ox 95 O2 Flow Rate 3.0 Intake and Output 01/23/17 01/23/17 01/24/17 15:00 23:00 07:00 Intake Total 940 ml 800 ml Output Total 450 ml 750 ml Balance 490 ml 50 ml NAUN ROPER MD Jan 24, 2017 10:13
[2017-01-24] MEDS: GUAIFENESIN DM 600/30MG TAB.ER.12H. PO SCH ×2 (10:47→21:19)
[2017-01-24 11:00] VITALS: BP 116/71
[2017-01-24] MEDS ORDERED: FUROSEMIDE 40 MG/4 ML VIAL IVP ONE (11:00)
[2017-01-24] MEDS: IPRATRPIUM/ALBUTEROL 0.5/2.5MG 3 ML NEBU. NEB SCH ×3 (12:00→20:04)
[2017-01-24] MEDS ORDERED: MAGNESIUM SULFATE 1GM 100 ML IV ONE (13:30)
[2017-01-24] MEDS ORDERED: POTASSIUM CHLORIDE 20 MEQ TABLET.ER. PO ONE (14:30)
--- NOTE | 2017-01-24 14:54 | PDOC ---
PULMONARY PROGRESS NOTES Subjective feels better Vitals Vital Signs Date Time Temp Pulse Resp B/P Pulse Ox O2 Delivery O2 Flow Rate FiO2 01/24/17 12:02 95 3.0 01/24/17 11:00 99.2 78 20 116/71 Room Air 99.2 General: Alert, No acute distress Lungs: Clear Cardiovascular: S1 Abdomen: Soft Neuro Exam: Alert Extremities: No Edema Skin: Warm Labs Laboratory Tests Test 01/22/17 17:52 01/22/17 20:32 01/23/17 05:08 01/23/17 07:33 Glucose (Fingerstick) 269mg/dL (70-99) 295mg/dL (70-99) 282mg/dL (70-99) White Blood Count 13.9x10^3/uL (4.0-11.0) Red Blood Count 3.42x10^6/uL (4.30-5.70) Hemoglobin 10.9g/dL (13.0-17.5) Hematocrit 34.0% (39.0-53.0) Mean Corpuscular Volume 99fL (79-100) Mean Corpuscular Hemoglobin 32pg (25-35) Mean Corpuscular Hemoglobin Concent 32g/dL (31-37) Red Cell Distribution Width 15.0% (11.5-14.5) Platelet Count 161x10^3/uL (140-400) Neutrophils (%) (Auto) 91% (31-73) Lymphocytes (%) (Auto) 4% (24-48) Monocytes (%) (Auto) 5% (0-9) Eosinophils (%) (Auto) 0% (0-3) Basophils (%) (Auto) 0% (0-3) Neutrophils # (Auto) 12.6x10^3uL (1.8-7.7) Lymphocytes # (Auto) 0.6x10^3/uL (1.0-4.8) Monocytes # (Auto) 0.7x10^3/uL (0.0-1.1) Eosinophils # (Auto) 0.0x10^3/uL (0.0-0.7) Basophils # (Auto) 0.0x10^3/uL (0.0-0.2) Sodium Level 141mmol/L (136-145) Potassium Level 4.2mmol/L (3.5-5.1) Chloride Level 106mmol/L (98-107) Carbon Dioxide Level 29mmol/L (21-32) Anion Gap 6 (6-14) Blood Urea Nitrogen 28mg/dL (8-26) Creatinine 1.6mg/dL (0.7-1.3) Estimated GFR (Cockcroft-Gault) 52.1 Glucose Level 273mg/dL (70-99) Hemoglobin A1c 6.3% (4.8-5.6) Calcium Level 8.5mg/dL (8.5-10.1) Triglycerides Level 41mg/dL (0-150) Cholesterol Level 110mg/dL (0-200) LDL Cholesterol, Calculated 54mg/dL (0-100) VLDL Cholesterol, Calculated 8mg/dL (0-40) HDL Cholesterol 48mg/dL (40-60) Cholesterol/HDL Ratio 2.3 Thyroid Stimulating Hormone (TSH) 0.246uIU/mL (0.358-3.74) Test 01/23/17 10:35 01/23/17 11:31 01/23/17 17:23 01/23/17 21:25 Vancomycin Level Trough 22.5mcg/mL (10.0-20.0) Vancomycin Last Dose Date 01/22/17 Vancomycin Last Dose Time 2300 Glucose (Fingerstick) 290mg/dL (70-99) 182mg/dL (70-99) 136mg/dL (70-99) Test 01/24/17 04:35 01/24/17 07:56 01/24/17 11:35 White Blood Count 12.8x10^3/uL (4.0-11.0) Red Blood Count 3.35x10^6/uL (4.30-5.70) Hemoglobin 10.7g/dL (13.0-17.5) Hematocrit 33.0% (39.0-53.0) Mean Corpuscular Volume 99fL (79-100) Mean Corpuscular Hemoglobin 32pg (25-35) Mean Corpuscular Hemoglobin Concent 32g/dL (31-37) Red Cell Distribution Width 14.8% (11.5-14.5) Platelet Count 154x10^3/uL (140-400) Neutrophils (%) (Auto) 77% (31-73) Lymphocytes (%) (Auto) 11% (24-48) Monocytes (%) (Auto) 11% (0-9) Eosinophils (%) (Auto) 1% (0-3) Basophils (%) (Auto) 0% (0-3) Neutrophils # (Auto) 9.9x10^3uL (1.8-7.7) Lymphocytes # (Auto) 1.5x10^3/uL (1.0-4.8) Monocytes # (Auto) 1.4x10^3/uL (0.0-1.1) Eosinophils # (Auto) 0.1x10^3/uL (0.0-0.7) Basophils # (Auto) 0.0x10^3/uL (0.0-0.2) Sodium Level 146mmol/L (136-145) Potassium Level 3.7mmol/L (3.5-5.1) Chloride Level 109mmol/L (98-107) Carbon Dioxide Level 29mmol/L (21-32) Anion Gap 8 (6-14) Blood Urea Nitrogen 27mg/dL (8-26) Creatinine 1.1mg/dL (0.7-1.3) Estimated GFR (Cockcroft-Gault) 80.3 Glucose Level 123mg/dL (70-99) Calcium Level 8.4mg/dL (8.5-10.1) Magnesium Level 1.8mg/dL (1.8-2.4) Glucose (Fingerstick) 110mg/dL (70-99) 120mg/dL (70-99) Laboratory Tests Test 01/23/17 17:23 01/23/17 21:25 01/24/17 04:35 01/24/17 07:56 Glucose (Fingerstick) 182mg/dL (70-99) 136mg/dL (70-99) 110mg/dL (70-99) White Blood Count 12.8x10^3/uL (4.0-11.0) Red Blood Count 3.35x10^6/uL (4.30-5.70) Hemoglobin 10.7g/dL (13.0-17.5) Hematocrit 33.0% (39.0-53.0) Mean Corpuscular Volume 99fL (79-100) Mean Corpuscular Hemoglobin 32pg (25-35) Mean Corpuscular Hemoglobin Concent 32g/dL (31-37) Red Cell Distribution Width 14.8% (11.5-14.5) Platelet Count 154x10^3/uL (140-400) Neutrophils (%) (Auto) 77% (31-73) Lymphocytes (%) (Auto) 11% (24-48) Monocytes (%) (Auto) 11% (0-9) Eosinophils (%) (Auto) 1% (0-3) Basophils (%) (Auto) 0% (0-3) Neutrophils # (Auto) 9.9x10^3uL (1.8-7.7) Lymphocytes # (Auto) 1.5x10^3/uL (1.0-4.8) Monocytes # (Auto) 1.4x10^3/uL (0.0-1.1) Eosinophils # (Auto) 0.1x10^3/uL (0.0-0.7) Basophils # (Auto) 0.0x10^3/uL (0.0-0.2) Sodium Level 146mmol/L (136-145) Potassium Level 3.7mmol/L (3.5-5.1) Chloride Level 109mmol/L (98-107) Carbon Dioxide Level 29mmol/L (21-32) Anion Gap 8 (6-14) Blood Urea Nitrogen 27mg/dL (8-26) Creatinine 1.1mg/dL (0.7-1.3) Estimated GFR (Cockcroft-Gault) 80.3 Glucose Level 123mg/dL (70-99) Calcium Level 8.4mg/dL (8.5-10.1) Magnesium Level 1.8mg/dL (1.8-2.4) Test 01/24/17 11:35 Glucose (Fingerstick) 120mg/dL (70-99) Medications Active Scripts Medications Dose Route/Sig Days Date Category Ketorolac Tromethamine 5 Ml Drops 1 Drop LEFTEYE TID 7 01/22/17 Reported Tobramycin-Dexameth Ophth Susp (Tobramycin/Dexamethasone) 5 Ml Drops.susp 1 Drop LEFTEYE TID 01/22/17 Reported Prednisolone Acetate 5 Ml Drops.susp 1 Drop LEFTEYE TID 01/22/17 Reported Aspir 81 (Aspirin) 81 Mg Tablet.dr 1 Tab PO 1X 01/02/17 Reported Omeprazole 40 Mg Capsule.dr 40 Mg PO DAILY 05/12/14 Reported Clopidogrel (Clopidogrel Bisulfate) 75 Mg Tablet 75 Mg PO DAILY 05/12/14 Reported Combivent Respimat Inhal (Ipratropium/Albuterol Sulfate) 4 Gm Aer.w.adap 2 Inh IH QID PRN 05/12/14 Reported Tramadol Hcl 50 Mg Tablet 50 Mg PO PRN Q4HRS PRN 03/18/14 Reported Apidra (Insulin Glulisine) 100 Unit/1 Ml Vial 10 Unit SQ TIDAC 03/18/14 Reported Pradaxa (Dabigatran Etexilate Mesylate) 150 Mg Capsule 150 Mg PO BID 03/18/14 Reported Vitamin D (Cholecalciferol (Vitamin D3)) 10,000 Unit Capsule 50,000 Unit PO WEEKLY 03/18/14 Reported Niaspan (Niacin) 500 Mg Tab.er.24h 500 Mg PO HS 03/18/14 Reported Simvastatin 20 Mg Tablet 20 Mg PO HS 03/18/14 Reported Sotalol Af (Sotalol Hcl) 120 Mg Tablet 160 Mg PO BID 03/18/14 Reported Coreg (Carvedilol) 6.25 Mg Tablet 6.25 Mg PO BID 03/18/14 Reported Lisinopril-Hctz 20-12.5 Mg Tab (Lisinopril/Hydrochlorothiazide) 1 Each Tablet 1 Each PO DAILY 03/18/14 Reported Amlodipine Besylate 5 Mg Tablet 5 Mg PO DAILY 03/18/14 Reported Metformin Hcl 500 Mg Tablet 1,000 Mg PO BID 03/18/14 Reported Impression . 1. Acute hypoxic respiratory failure, related to congestive heart failure. 2. CMP , ejection fraction of 40-45% 2. Clinically unlikely pneumonia. 3. No significant history of tobacco use. 4. A-fib Plan . 1. We will continue with diuresis. 2. Followup chest x-ray as needed 3. repeat echocardiogram. with EF 40-45% 4. A-fib per cardiology 5. Wean FIO2 once he starts to make clinical improvement. 6. Discussed with ALEX PERALTA MD Jan 24, 2017 14:54
[2017-01-24 15:00] VITALS: BP 108/59
[2017-01-24 19:30] VITALS: BP 100/59
[2017-01-24] MEDS: TRAMADOL 50 MG TABLET. PO PRN (19:47)
[2017-01-24] MEDS: ZOLPIDEM 5 MG TABLET. PO PRN (21:19)
[2017-01-24] MEDS: NIACIN ER 500 MG TABLET.ER PO SCH (21:19)
[2017-01-24] MEDS: SIMVASTATIN 20 MG TABLET PO SCH (21:19)
[2017-01-24 23:02] VITALS: BP 137/83
[2017-01-25 03:00] VITALS: BP 140/85
[2017-01-25 05:33] LABS: BASO % 0 % (0-3); EOS % 5 % (0-3); HEMATOCRIT 34.7 % (39.0-53.0); HEMOGLOBIN 11.2 g/dL (13.0-17.5); LYMPH # 2.4 x10^3/uL (1.0-4.8); LYMPH % 26 % (24-48); MEAN CORPUSCULAR HEMOGLOBIN 32 pg (25-35); MEAN CORPUSCULAR HGB CONC 32 g/dL (31-37); MEAN CORPUSCULAR VOLUME 99 fL (79-100); MONO % 9 % (0-9); NEUT % 60 % (31-73); PLATELET COUNT 143 x10^3/uL (140-400); RED BLOOD COUNT 3.51 x10^6/uL (4.30-5.70); WHITE BLOOD COUNT 9.4 x10^3/uL (4.0-11.0)
[2017-01-25 05:43] LABS: CALCIUM 8.6 mg/dL (8.5-10.1); GFR 89.6; POTASSIUM 3.9 mmol/L (3.5-5.1)
[2017-01-25] MEDS: DEXAMETHASONE 0.1% OPHTH SOLUTION 5ML BOTTLE. OS SCH ×5 (06:00→20:38)
[2017-01-25 07:35] VITALS: BP 133/90
[2017-01-25] MEDS: TOBRAMYCIN 0.3% OPHTH SOLUTION 5ML BOTTLE. OS SCH ×3 (08:37→20:38)
[2017-01-25] MEDS: FUROSEMIDE 40 MG TABLET PO SCH (08:37)
[2017-01-25] MEDS: GUAIFENESIN DM 600/30MG TAB.ER.12H. PO SCH ×2 (08:37→20:38)
[2017-01-25] MEDS: DABIGATRAN ETEXILATE 150 MG CAPSULE. PO SCH ×2 (08:37→20:38)
[2017-01-25] MEDS: KETOROLAC TROMETHAMINE 0.5% OPHTH SOLUTION 3ML BOTTLE. OS SCH ×3 (08:37→21:00)
[2017-01-25] MEDS: TRAMADOL 50 MG TABLET. PO PRN (08:38)
[2017-01-25] MEDS: ASPIRIN ENTERIC COATED 81 MG TABLET.DR. PO SCH (08:38)
[2017-01-25] MEDS: SOTALOL 80 MG TABLET. PO SCH ×2 (08:38→20:39)
[2017-01-25] MEDS: PANTOPRAZOLE 40 MG TABLET. PO SCH (08:39)
[2017-01-25] MEDS: CLOPIDOGREL BISULFATE 75 MG TABLET PO SCH (08:39)
[2017-01-25] MEDS: METFORMIN 500 MG TABLET. PO SCH ×2 (08:39→17:54)
[2017-01-25] MEDS: METOPROLOL TART IMMED RELEASE 25 MG TABLET PO SCH ×2 (08:39→20:39)
[2017-01-25] MEDS: INSULIN ASPART 300 UNITS/3 ML INSULN.PEN SQ SCH ×6 (08:47→17:56)
[2017-01-25] MEDS: IPRATRPIUM/ALBUTEROL 0.5/2.5MG 3 ML NEBU. NEB SCH ×4 (09:08→20:03)
--- NOTE | 2017-01-25 10:08 | PDOC ---
PROGRESS NOTES Subjective Subjective slept well , feeling better today Objective Objective Vital Signs Date Time Temp Pulse Resp B/P Pulse Ox O2 Delivery O2 Flow Rate FiO2 01/25/17 09:38 96 Nasal Cannula 2.0 01/25/17 08:39 89 133/90 01/25/17 08:38 18 01/25/17 07:35 98.2 98.2 Intake and Output 01/25/17 07:00 Intake Total 2000 ml Output Total 2650 ml Balance -650 ml Intake Oral 2000 ml Output Urine Total 2650 ml Physical Exam Abdomen: Soft, No tenderness Heart: Normal S1, Normal S2, Other (3/6 systolic murmur to LLS border; AFIB RVR ) Extremities: No cyanosis, Other (trace LE edema) General: Alert, Oriented X3, Cooperative, No acute distress HEENT: Atraumatic, Mucous membr. moist/pink Lungs: Other (diffuse crackles) MUSCULOSKELETAL: Osteoarthritic changes both hands Neuro: Normal speech, Sensation intact Psych/Mental Status: Mental status NL, Mood NL Skin: No breakdown, No significant lesion Diagnosis Problem List Problems Medical Problems: (1) CHF (congestive heart failure) Status: Acute (2) Chronic a-fib Status: Acute (3) COPD with acute exacerbation Status: Acute (4) Respiratory failure Status: Acute Assessment Assessment Problems Medical Problems: (1) CHF (congestive heart failure) Status: Acute (2) Chronic a-fib Status: Acute (3) COPD with acute exacerbation Status: Acute (4) Respiratory failure Status: Acute FINAL IMPRESSION: ac renal failure improved 1. Acute congestive heart failure/pulmonary edema. 2. Atrial fibrillation with rapid ventricular response. 3. Possibility of underlying pneumonitis. 4. Chronic obstructive pulmonary disease. 5. Coronary artery disease status post bypass surgery and cardiac stents. 6. Hypertension. 7. Hyperlipidemia. 8. Diabetes. 9. Recent cataract surgery. PLAN: cr 1.2 stable holding on diuretics due t inc cr. cxr chf.improved hr 120,irregular. echo45% ejf home over the weekend d/c iv antibiotics d/c iv solumedrol Problems: Plan Plan of Care Problems Medical Problems: (1) CHF (congestive heart failure) Status: Acute (2) Chronic a-fib Status: Acute (3) COPD with acute exacerbation Status: Acute (4) Respiratory failure Status: Acute Comment Review of Relevant I have reviewed the following items debbie (where applicable) has been applied. Labs Laboratory Tests Test 01/24/17 11:35 01/24/17 17:28 01/24/17 21:29 01/25/17 05:00 Glucose (Fingerstick) 120mg/dL (70-99) 121mg/dL (70-99) 133mg/dL (70-99) White Blood Count 9.4x10^3/uL (4.0-11.0) Red Blood Count 3.51x10^6/uL (4.30-5.70) Hemoglobin 11.2g/dL (13.0-17.5) Hematocrit 34.7% (39.0-53.0) Mean Corpuscular Volume 99fL (79-100) Mean Corpuscular Hemoglobin 32pg (25-35) Mean Corpuscular Hemoglobin Concent 32g/dL (31-37) Red Cell Distribution Width 15.0% (11.5-14.5) Platelet Count 143x10^3/uL (140-400) Neutrophils (%) (Auto) 60% (31-73) Lymphocytes (%) (Auto) 26% (24-48) Monocytes (%) (Auto) 9% (0-9) Eosinophils (%) (Auto) 5% (0-3) Basophils (%) (Auto) 0% (0-3) Neutrophils # (Auto) 5.6x10^3uL (1.8-7.7) Lymphocytes # (Auto) 2.4x10^3/uL (1.0-4.8) Monocytes # (Auto) 0.9x10^3/uL (0.0-1.1) Eosinophils # (Auto) 0.4x10^3/uL (0.0-0.7) Basophils # (Auto) 0.0x10^3/uL (0.0-0.2) Sodium Level 144mmol/L (136-145) Potassium Level 3.9mmol/L (3.5-5.1) Chloride Level 106mmol/L (98-107) Carbon Dioxide Level 35mmol/L (21-32) Anion Gap 3 (6-14) Blood Urea Nitrogen 18mg/dL (8-26) Creatinine 1.0mg/dL (0.7-1.3) Estimated GFR (Cockcroft-Gault) 89.6 Glucose Level 139mg/dL (70-99) Calcium Level 8.6mg/dL (8.5-10.1) Test 01/25/17 07:32 Glucose (Fingerstick) 153mg/dL (70-99) Medications Current Medications Albuterol/ Ipratropium (Duoneb) 3 ml RTQID NEB Last administered on 01/25/17 09:08; Start 01/24/17 at 12:00 Furosemide (Lasix) 40 mg 1X ONCE IVP Last administered on 01/24/17 10:47; Start 01/24/17 at 11:00; Stop 01/24/17 at 11:01; Status DC Furosemide 40 mg 40 mg DAILY PO Last administered on 01/25/17 08:37; Start at 09:00 Guaifenesin (MUCINEX ER with DM) 1 tab BID PO Last administered on 01/25/17 08 :37; Start 01/24/17 at 10:15 Magnesium Sulfate/ Dextrose (Magnesium Sulfate PREMIX 1GM) 100 ml @ 100 mls/hr 1X ONCE IV Last administered on 01/24/17 13:47; Start 01/24/17 at 13:30; Stop 01/24/17 at 14:29; Status DC Potassium Chloride (Klor-Con) 40 meq 1X ONCE PO Last administered on 14:48; Start 01/24/17 at 14:30; Stop 01/24/17 at 14:31; Status DC Vitals/I & O Vital Sign - Last 24 Hours 01/24/17 01/24/17 01/24/17 01/24/17 11:00 12:02 15:00 16:26 Temp 99.2 98.2 99.2 98.2 Pulse 78 75 Resp 20 24 B/P 116/71 108/59 Pulse Ox 92 95 95 96 O2 Delivery Room Air Room Air O2 Flow Rate 3.0 3.0 01/24/17 01/24/17 01/24/17 01/24/17 19:30 19:40 19:47 20:05 Temp 98.8 98.8 Pulse 115 Resp 20 22 B/P 100/59 Pulse Ox 93 93 6 O2 Delivery Room Air Nasal Cannula Room Air O2 Flow Rate 2.0 3.0 01/24/17 01/24/17 01/24/17 01/24/17 20:47 21:19 21:20 23:02 Temp 98.1 98.1 Pulse 105 115 100 Resp 20 20 B/P 100/59 100/59 137/83 Pulse Ox 98 O2 Delivery Nasal Cannula O2 Flow Rate 2.0 01/25/17 01/25/17 01/25/17 01/25/17 03:00 07:35 07:58 08:38 Temp 97.9 98.2 97.9 98.2 Pulse 93 89 Resp 20 20 18 B/P 140/85 133/90 Pulse Ox 96 97 97 O2 Delivery Nasal Cannula Nasal Cannula Nasal Cannula Nasal Cannula O2 Flow Rate 2.0 2.0 2.0 2.0 01/25/17 01/25/17 01/25/17 01/25/17 08:38 08:39 09:08 09:38 Pulse 89 89 B/P 133/90 133/90 Pulse Ox 96 96 O2 Delivery Nasal Cannula Nasal Cannula O2 Flow Rate 2.0 2.0 Intake and Output 01/24/17 01/24/17 01/25/17 15:00 23:00 07:00 Intake Total 480 ml 1520 ml 0 ml Output Total 1000 ml 1650 ml Balance -520 ml -130 ml 0 ml NAUN ROPER MD Jan 25, 2017 10:08
[2017-01-25] MEDS ORDERED: PREDNISONE 20 MG TABLET PO ONE (10:15)
--- NOTE | 2017-01-25 10:50 | PDOC ---
GRACE DE LA CRUZ [employer] 01/25/17 1050: CARDIO Progress Notes Date and Time Date of Service 01/25/2017 Time of Evaluation 1040 Subjective Subjective: No Chest Pain, No Palpitations, No Dizziness, Other (mild distress ; SOA improved but persists) Vitals Vitals Vital Signs Date Time Temp Pulse Resp B/P Pulse Ox O2 Delivery O2 Flow Rate FiO2 01/25/17 09:38 96 Nasal Cannula 2.0 01/25/17 08:39 89 133/90 01/25/17 08:38 18 01/25/17 07:35 98.2 98.2 Weight Weight [ ] Input and Output Intake and Output Intake and Output 01/25/17 07:00 Intake Total 2000 ml Output Total 2650 ml Balance -650 ml Intake Oral 2000 ml Output Urine Total 2650 ml Laboratory Labs Laboratory Tests Test 01/24/17 11:35 01/24/17 17:28 01/24/17 21:29 01/25/17 05:00 Glucose (Fingerstick) 120mg/dL (70-99) 121mg/dL (70-99) 133mg/dL (70-99) White Blood Count 9.4x10^3/uL (4.0-11.0) Red Blood Count 3.51x10^6/uL (4.30-5.70) Hemoglobin 11.2g/dL (13.0-17.5) Hematocrit 34.7% (39.0-53.0) Mean Corpuscular Volume 99fL (79-100) Mean Corpuscular Hemoglobin 32pg (25-35) Mean Corpuscular Hemoglobin Concent 32g/dL (31-37) Red Cell Distribution Width 15.0% (11.5-14.5) Platelet Count 143x10^3/uL (140-400) Neutrophils (%) (Auto) 60% (31-73) Lymphocytes (%) (Auto) 26% (24-48) Monocytes (%) (Auto) 9% (0-9) Eosinophils (%) (Auto) 5% (0-3) Basophils (%) (Auto) 0% (0-3) Neutrophils # (Auto) 5.6x10^3uL (1.8-7.7) Lymphocytes # (Auto) 2.4x10^3/uL (1.0-4.8) Monocytes # (Auto) 0.9x10^3/uL (0.0-1.1) Eosinophils # (Auto) 0.4x10^3/uL (0.0-0.7) Basophils # (Auto) 0.0x10^3/uL (0.0-0.2) Sodium Level 144mmol/L (136-145) Potassium Level 3.9mmol/L (3.5-5.1) Chloride Level 106mmol/L (98-107) Carbon Dioxide Level 35mmol/L (21-32) Anion Gap 3 (6-14) Blood Urea Nitrogen 18mg/dL (8-26) Creatinine 1.0mg/dL (0.7-1.3) Estimated GFR (Cockcroft-Gault) 89.6 Glucose Level 139mg/dL (70-99) Calcium Level 8.6mg/dL (8.5-10.1) Test 01/25/17 07:32 Glucose (Fingerstick) 153mg/dL (70-99) Physical Exam HEENT: Neck Supple W Full Motion Chest: Symmetric LUNGS: Other (basilar crackles) Heart: S1S2, irregularly irregular Abdomen: Soft N/T Extremities: No Calf Tenderness, Other (trace LE edema bilaterally ) Neurology: alert, oriented, follow commands Assessment Assessment AFIB remains 80-120s If no signficant pulm disease, consider amio. if AFIB persist repeat cardioversion vs ablation? NICK DIEGO MD 01/25/17 1647: CARDIO Progress Notes Assessment Assessment The patient was seen and examined. 1. Acute on chronic systolic CHF: EF 40-45%. Patient continues to slowly improve. We will increase activities. 2. AFIB RVR: Improved today. HR 80-110. Continue medical treatment. Future EP evaluation. 3. Acute on chronic respiratory failure: multifactorial. Patient continues to improve. We'll increase activities. 4. CAD: s/p CABG. Prior PCI/RAD to SVG to OM, CP free. stable. 5. HTN: controlled 6. DM2/HLP 7. ICM: stable, prior EF 45% GRACE DE LA CRUZ APRN Jan 25, 2017 10:50 NICK DIEGO MD Jan 25, 2017 16:47
[2017-01-25 11:00] VITALS: BP 133/66
--- NOTE | 2017-01-25 12:08 | PDOC ---
PULMONARY PROGRESS NOTES Subjective feels better Vitals Vital Signs Date Time Temp Pulse Resp B/P Pulse Ox O2 Delivery O2 Flow Rate FiO2 01/25/17 11:30 96 Nasal Cannula 2.0 01/25/17 11:00 98.3 77 20 133/66 98.3 General: Alert, No acute distress Lungs: Clear Cardiovascular: S1 Abdomen: Soft Neuro Exam: Alert Extremities: No Edema Skin: Warm Labs Laboratory Tests Test 01/23/17 17:23 01/23/17 21:25 01/24/17 04:35 01/24/17 07:56 Glucose (Fingerstick) 182mg/dL (70-99) 136mg/dL (70-99) 110mg/dL (70-99) White Blood Count 12.8x10^3/uL (4.0-11.0) Red Blood Count 3.35x10^6/uL (4.30-5.70) Hemoglobin 10.7g/dL (13.0-17.5) Hematocrit 33.0% (39.0-53.0) Mean Corpuscular Volume 99fL (79-100) Mean Corpuscular Hemoglobin 32pg (25-35) Mean Corpuscular Hemoglobin Concent 32g/dL (31-37) Red Cell Distribution Width 14.8% (11.5-14.5) Platelet Count 154x10^3/uL (140-400) Neutrophils (%) (Auto) 77% (31-73) Lymphocytes (%) (Auto) 11% (24-48) Monocytes (%) (Auto) 11% (0-9) Eosinophils (%) (Auto) 1% (0-3) Basophils (%) (Auto) 0% (0-3) Neutrophils # (Auto) 9.9x10^3uL (1.8-7.7) Lymphocytes # (Auto) 1.5x10^3/uL (1.0-4.8) Monocytes # (Auto) 1.4x10^3/uL (0.0-1.1) Eosinophils # (Auto) 0.1x10^3/uL (0.0-0.7) Basophils # (Auto) 0.0x10^3/uL (0.0-0.2) Sodium Level 146mmol/L (136-145) Potassium Level 3.7mmol/L (3.5-5.1) Chloride Level 109mmol/L (98-107) Carbon Dioxide Level 29mmol/L (21-32) Anion Gap 8 (6-14) Blood Urea Nitrogen 27mg/dL (8-26) Creatinine 1.1mg/dL (0.7-1.3) Estimated GFR (Cockcroft-Gault) 80.3 Glucose Level 123mg/dL (70-99) Calcium Level 8.4mg/dL (8.5-10.1) Magnesium Level 1.8mg/dL (1.8-2.4) Test 01/24/17 11:35 01/24/17 17:28 01/24/17 21:29 01/25/17 05:00 Glucose (Fingerstick) 120mg/dL (70-99) 121mg/dL (70-99) 133mg/dL (70-99) White Blood Count 9.4x10^3/uL (4.0-11.0) Red Blood Count 3.51x10^6/uL (4.30-5.70) Hemoglobin 11.2g/dL (13.0-17.5) Hematocrit 34.7% (39.0-53.0) Mean Corpuscular Volume 99fL (79-100) Mean Corpuscular Hemoglobin 32pg (25-35) Mean Corpuscular Hemoglobin Concent 32g/dL (31-37) Red Cell Distribution Width 15.0% (11.5-14.5) Platelet Count 143x10^3/uL (140-400) Neutrophils (%) (Auto) 60% (31-73) Lymphocytes (%) (Auto) 26% (24-48) Monocytes (%) (Auto) 9% (0-9) Eosinophils (%) (Auto) 5% (0-3) Basophils (%) (Auto) 0% (0-3) Neutrophils # (Auto) 5.6x10^3uL (1.8-7.7) Lymphocytes # (Auto) 2.4x10^3/uL (1.0-4.8) Monocytes # (Auto) 0.9x10^3/uL (0.0-1.1) Eosinophils # (Auto) 0.4x10^3/uL (0.0-0.7) Basophils # (Auto) 0.0x10^3/uL (0.0-0.2) Sodium Level 144mmol/L (136-145) Potassium Level 3.9mmol/L (3.5-5.1) Chloride Level 106mmol/L (98-107) Carbon Dioxide Level 35mmol/L (21-32) Anion Gap 3 (6-14) Blood Urea Nitrogen 18mg/dL (8-26) Creatinine 1.0mg/dL (0.7-1.3) Estimated GFR (Cockcroft-Gault) 89.6 Glucose Level 139mg/dL (70-99) Calcium Level 8.6mg/dL (8.5-10.1) Test 01/25/17 07:32 Glucose (Fingerstick) 153mg/dL (70-99) Laboratory Tests Test 01/24/17 17:28 01/24/17 21:29 01/25/17 05:00 01/25/17 07:32 Glucose (Fingerstick) 121mg/dL (70-99) 133mg/dL (70-99) 153mg/dL (70-99) White Blood Count 9.4x10^3/uL (4.0-11.0) Red Blood Count 3.51x10^6/uL (4.30-5.70) Hemoglobin 11.2g/dL (13.0-17.5) Hematocrit 34.7% (39.0-53.0) Mean Corpuscular Volume 99fL (79-100) Mean Corpuscular Hemoglobin 32pg (25-35) Mean Corpuscular Hemoglobin Concent 32g/dL (31-37) Red Cell Distribution Width 15.0% (11.5-14.5) Platelet Count 143x10^3/uL (140-400) Neutrophils (%) (Auto) 60% (31-73) Lymphocytes (%) (Auto) 26% (24-48) Monocytes (%) (Auto) 9% (0-9) Eosinophils (%) (Auto) 5% (0-3) Basophils (%) (Auto) 0% (0-3) Neutrophils # (Auto) 5.6x10^3uL (1.8-7.7) Lymphocytes # (Auto) 2.4x10^3/uL (1.0-4.8) Monocytes # (Auto) 0.9x10^3/uL (0.0-1.1) Eosinophils # (Auto) 0.4x10^3/uL (0.0-0.7) Basophils # (Auto) 0.0x10^3/uL (0.0-0.2) Sodium Level 144mmol/L (136-145) Potassium Level 3.9mmol/L (3.5-5.1) Chloride Level 106mmol/L (98-107) Carbon Dioxide Level 35mmol/L (21-32) Anion Gap 3 (6-14) Blood Urea Nitrogen 18mg/dL (8-26) Creatinine 1.0mg/dL (0.7-1.3) Estimated GFR (Cockcroft-Gault) 89.6 Glucose Level 139mg/dL (70-99) Calcium Level 8.6mg/dL (8.5-10.1) Medications Active Scripts Medications Dose Route/Sig Days Date Category Ketorolac Tromethamine 5 Ml Drops 1 Drop LEFTEYE TID 7 01/22/17 Reported Tobramycin-Dexameth Ophth Susp (Tobramycin/Dexamethasone) 5 Ml Drops.susp 1 Drop LEFTEYE TID 01/22/17 Reported Prednisolone Acetate 5 Ml Drops.susp 1 Drop LEFTEYE TID 01/22/17 Reported Aspir 81 (Aspirin) 81 Mg Tablet.dr 1 Tab PO 1X 01/02/17 Reported Omeprazole 40 Mg Capsule. 40 Mg PO DAILY 05/12/14 Reported Clopidogrel (Clopidogrel Bisulfate) 75 Mg Tablet 75 Mg PO DAILY 05/12/14 Reported Combivent Respimat Inhal (Ipratropium/Albuterol Sulfate) 4 Gm Aer.w.adap 2 Inh IH QID PRN 05/12/14 Reported Tramadol Hcl 50 Mg Tablet 50 Mg PO PRN Q4HRS PRN 03/18/14 Reported Apidra (Insulin Glulisine) 100 Unit/1 Ml Vial 10 Unit SQ TIDAC 03/18/14 Reported Pradaxa (Dabigatran Etexilate Mesylate) 150 Mg Capsule 150 Mg PO BID 03/18/14 Reported Vitamin D (Cholecalciferol (Vitamin D3)) 10,000 Unit Capsule 50,000 Unit PO WEEKLY 03/18/14 Reported Niaspan (Niacin) 500 Mg Tab.er.24h 500 Mg PO HS 03/18/14 Reported Simvastatin 20 Mg Tablet 20 Mg PO HS 03/18/14 Reported Sotalol Af (Sotalol Hcl) 120 Mg Tablet 160 Mg PO BID 03/18/14 Reported Coreg (Carvedilol) 6.25 Mg Tablet 6.25 Mg PO BID 03/18/14 Reported Lisinopril-Hctz 20-12.5 Mg Tab (Lisinopril/Hydrochlorothiazide) 1 Each Tablet 1 Each PO DAILY 03/18/14 Reported Amlodipine Besylate 5 Mg Tablet 5 Mg PO DAILY 03/18/14 Reported Metformin Hcl 500 Mg Tablet 1,000 Mg PO BID 03/18/14 Reported Impression . 1. Acute hypoxic respiratory failure, related to congestive heart failure. 2. CMP , ejection fraction of 40-45% 2. Clinically unlikely pneumonia. 3. No significant history of tobacco use. 4. A-fib Plan . 1. We will continue with diuresis. 2. Followup chest x-ray as needed 3. repeat echocardiogram. with EF 40-45% 4. A-fib per cardiology 5. Wean FIO2 once he starts to make clinical improvement. 6. Discussed with RN stable pulmonary status. will see ALEX Cordoba MD Jan 25, 2017 12:08
[2017-01-25 15:00] VITALS: BP 120/67
[2017-01-25 19:00] VITALS: BP 118/59
[2017-01-25] MEDS: NIACIN ER 500 MG TABLET.ER PO SCH (20:39)
[2017-01-25] MEDS: SIMVASTATIN 20 MG TABLET PO SCH (20:39)
[2017-01-25] MEDS: ZOLPIDEM 5 MG TABLET. PO PRN (20:39)
[2017-01-25 22:31] VITALS: BP 124/82
[2017-01-26 03:33] VITALS: BP 136/94
[2017-01-26 06:51] VITALS: BP 138/83
[2017-01-26] MEDS: IPRATRPIUM/ALBUTEROL 0.5/2.5MG 3 ML NEBU. NEB SCH ×4 (07:11→20:29)
--- NOTE | 2017-01-26 07:40 | PDOC ---
IM PROGRESS NOTES- Subjective Subjective breathing improved Objective Objective no distress Vitals Vital Signs Date Time Temp Pulse Resp B/P Pulse Ox O2 Delivery O2 Flow Rate FiO2 01/26/17 07:13 95 Room Air 01/26/17 06:51 98.2 108 20 138/83 98.2 Input & Output Intake and Output 01/26/17 07:00 Intake Total 0 ml Output Total 775 ml Balance -775 ml Intake Oral 0 ml Output Urine Total 775 ml Physical Exam Physical Exam General appearance - alert,well appearing, and in no distress Mental Status - alert, oriented to person, place, and time, affect appropriate to mood Head - normal Chest - clear to auscultation, no wheezes, rales or rhonchi Heart - S1 and S2, irregular irregular Abdomen - soft, nontender, nondistended, BS+ Neurological - no acute focal neurological deficit noted Musculoskeletal - no muscular tenderness noted Extremities - no pedal edema Skin - warm and dry Labs Laboratory Tests Test 01/24/17 07:56 01/24/17 11:35 01/24/17 17:28 01/24/17 21:29 Glucose (Fingerstick) 110mg/dL (70-99) 120mg/dL (70-99) 121mg/dL (70-99) 133mg/dL (70-99) Test 01/25/17 05:00 01/25/17 07:32 01/25/17 12:26 01/25/17 16:59 White Blood Count 9.4x10^3/uL (4.0-11.0) Red Blood Count 3.51x10^6/uL (4.30-5.70) Hemoglobin 11.2g/dL (13.0-17.5) Hematocrit 34.7% (39.0-53.0) Mean Corpuscular Volume 99fL (79-100) Mean Corpuscular Hemoglobin 32pg (25-35) Mean Corpuscular Hemoglobin Concent 32g/dL (31-37) Red Cell Distribution Width 15.0% (11.5-14.5) Platelet Count 143x10^3/uL (140-400) Neutrophils (%) (Auto) 60% (31-73) Lymphocytes (%) (Auto) 26% (24-48) Monocytes (%) (Auto) 9% (0-9) Eosinophils (%) (Auto) 5% (0-3) Basophils (%) (Auto) 0% (0-3) Neutrophils # (Auto) 5.6x10^3uL (1.8-7.7) Lymphocytes # (Auto) 2.4x10^3/uL (1.0-4.8) Monocytes # (Auto) 0.9x10^3/uL (0.0-1.1) Eosinophils # (Auto) 0.4x10^3/uL (0.0-0.7) Basophils # (Auto) 0.0x10^3/uL (0.0-0.2) Sodium Level 144mmol/L (136-145) Potassium Level 3.9mmol/L (3.5-5.1) Chloride Level 106mmol/L (98-107) Carbon Dioxide Level 35mmol/L (21-32) Anion Gap 3 (6-14) Blood Urea Nitrogen 18mg/dL (8-26) Creatinine 1.0mg/dL (0.7-1.3) Estimated GFR (Cockcroft-Gault) 89.6 Glucose Level 139mg/dL (70-99) Calcium Level 8.6mg/dL (8.5-10.1) Glucose (Fingerstick) 153mg/dL (70-99) 133mg/dL (70-99) 150mg/dL (70-99) Test 01/25/17 20:37 Glucose (Fingerstick) 234mg/dL (70-99) Laboratory Tests Test 01/25/17 12:26 01/25/17 16:59 01/25/17 20:37 Glucose (Fingerstick) 133mg/dL (70-99) 150mg/dL (70-99) 234mg/dL (70-99) Meds Current Medications Furosemide (Lasix) 40 mg DAILY PO Last administered on 01/25/17 08:37; Start 01/25/17 at 09:00 Prednisone (Prednisone) 40 mg DAILY PO ; Start 01/26/17 at 09:00 Prednisone (Prednisone) 60 mg 1X ONCE PO Last administered on 01/25/17 13:10 ; Start 01/25/17 at 10:15; Stop 01/25/17 at 10:16; Status DC Assessment Assessment Problems Medical Problems: (1) CHF (congestive heart failure) Status: Acute (2) Chronic a-fib Status: Acute (3) COPD with acute exacerbation Status: Acute (4) Respiratory failure Status: Acute FINAL IMPRESSION: ac renal failure improved 1. Acute congestive heart failure/pulmonary edema. 2. Atrial fibrillation with rapid ventricular response. 3. Possibility of underlying pneumonitis. 4. Chronic obstructive pulmonary disease. 5. Coronary artery disease status post bypass surgery and cardiac stents. 6. Hypertension. 7. Hyperlipidemia. 8. Diabetes. 9. Recent cataract surgery. PLAN: ICM-a/c CHF-Lasix 40mg daily, BS clear. increased Cr 1.6 max now 1.0 DM II -BS 133-234 steroids-currently Prednisone 40mg daily AF RVR pradaxa, rate 100-120 EPS in future. continue current plan of care. PLAN: cr 1.2 stable holding on diuretics due t inc cr. cxr chf.improved hr 120,irregular. echo45% ejf home over the weekend d/c iv antibiotics d/c iv solumedrol Plan Plan For more details regarding further plans, please refer to the orders. JUVE ROCHE APRN Jan 26, 2017 07:40
[2017-01-26] MEDS: DEXAMETHASONE 0.1% OPHTH SOLUTION 5ML BOTTLE. OS SCH ×5 (08:50→20:20)
[2017-01-26] MEDS: METFORMIN 500 MG TABLET. PO SCH ×2 (08:51→17:56)
[2017-01-26] MEDS: DABIGATRAN ETEXILATE 150 MG CAPSULE. PO SCH ×2 (08:51→20:20)
[2017-01-26] MEDS: PANTOPRAZOLE 40 MG TABLET. PO SCH (08:52)
[2017-01-26] MEDS: FUROSEMIDE 40 MG TABLET PO SCH (08:52)
[2017-01-26] MEDS: SOTALOL 80 MG TABLET. PO SCH ×2 (08:52→20:21)
[2017-01-26] MEDS: CLOPIDOGREL BISULFATE 75 MG TABLET PO SCH (08:52)
[2017-01-26] MEDS: PREDNISONE 20 MG TABLET PO SCH (08:53)
[2017-01-26] MEDS: ASPIRIN ENTERIC COATED 81 MG TABLET.DR. PO SCH (08:53)
[2017-01-26] MEDS: METOPROLOL TART IMMED RELEASE 25 MG TABLET PO SCH ×2 (08:54→20:20)
[2017-01-26] MEDS: GUAIFENESIN DM 600/30MG TAB.ER.12H. PO SCH ×2 (08:54→20:20)
[2017-01-26] MEDS: TOBRAMYCIN 0.3% OPHTH SOLUTION 5ML BOTTLE. OS SCH ×3 (08:56→20:20)
[2017-01-26] MEDS: KETOROLAC TROMETHAMINE 0.5% OPHTH SOLUTION 3ML BOTTLE. OS SCH ×3 (08:57→20:20)
[2017-01-26] MEDS: INSULIN ASPART 300 UNITS/3 ML INSULN.PEN SQ SCH ×6 (09:04→18:00)
[2017-01-26 10:29] VITALS: BP 99/72
[2017-01-26 14:12] VITALS: BP 109/74
--- NOTE | 2017-01-26 15:38 | PDOC ---
PROGRESS NOTES Subjective Subjective Feeling better today. Dyspnea improved. Objective Objective Vital Signs Date Time Temp Pulse Resp B/P Pulse Ox O2 Delivery O2 Flow Rate FiO2 01/26/17 15:23 Nasal Cannula 2.0 01/26/17 14:12 97.8 74 18 109/74 94 97.8 Intake and Output 01/26/17 07:00 Intake Total 0 ml Output Total 775 ml Balance -775 ml Intake Oral 0 ml Output Urine Total 775 ml Physical Exam Abdomen: Soft, No tenderness Heart: Other (3/6 systolic murmur to LLS border; AFIB RVR) Extremities: No cyanosis, Other (trace LE edema) General: Alert, Oriented X3, Cooperative, No acute distress HEENT: Atraumatic, Mucous membr. moist/pink Lungs: Other (diffuse crackles) Psych/Mental Status: Mental status NL, Mood NL Assessment Assessment 1. Acute on chronic systolic CHF: EF 40-45%. Improved with diuresis.. 2. AFIB RVR: Heart rate continues to be labile. Continue Coreg and add digoxin for better rate control. Since he has failed antiarrhythmic therapy with sotalol, we will stop this. 3. Acute on chronic respiratory failure: multifactorial. Patient continues to improve. . 4. CAD: s/p CABG. Prior PCI/RAD to SVG to OM, CP free. stable. 5. HTN: controlled 6. DM2/HLP Plan Plan of Care Problems Medical Problems: (1) CHF (congestive heart failure) Status: Acute (2) Chronic a-fib Status: Acute (3) COPD with acute exacerbation Status: Acute (4) Respiratory failure Status: Acute Comment Review of Relevant I have reviewed the following items debbie (where applicable) has been applied. Labs Laboratory Tests Test 01/25/17 16:59 01/25/17 20:37 01/26/17 08:11 01/26/17 11:36 Glucose (Fingerstick) 150mg/dL (70-99) 234mg/dL (70-99) 250mg/dL (70-99) 292mg/dL (70-99) Medications Current Medications Prednisone (Prednisone) 40 mg DAILY PO Last administered on 01/26/17t 08:53; Start 01/26/17 at 09:00 Vitals/I & O Vital Sign - Last 24 Hours 01/25/17 01/25/17 01/25/1724/17 15:48 19:00 19:52 20:03 Temp 98.1 98.1 Pulse 97 Resp 20 B/P 118/59 Pulse Ox 97 98 98 O2 Delivery Nasal Cannula Nasal Cannula Nasal Cannula Nasal Cannula O2 Flow Rate 2.0 2.0 2.0 2.0 01/25/17 01/25/17 01/25/17 01/26/17 20:39 20:39 22:31 03:33 Temp 97.5 98.1 97.5 98.1 Pulse 97 97 110 110 Resp 18 18 B/P 118/59 118/59 124/82 136/94 Pulse Ox 96 94 O2 Delivery Room Air Room Air 01/26/17 01/26/17 01/26/17 01/26/17 06:51 07:13 08:52 08:54 Temp 98.2 98.2 Pulse 108 108 108 Resp 20 B/P 138/83 138/83 138/83 Pulse Ox 94 95 O2 Delivery Room Air Room Air O2 Flow Rate 01/26/17 01/26/17 01/26/17 01/26/17 10:29 11:23 14:12 15:23 Temp 97.7 97.8 97.7 97.8 Pulse 109 74 Resp 18 B/P 99/72 109/74 Pulse Ox 94 94 O2 Delivery Room Air Nasal Cannula Nasal Cannula Nasal Cannula O2 Flow Rate 2.0 2.0 2.0 Intake and Output 01/25/17 01/25/17 01/26/17 15:00 23:00 07:00 Intake Total 0 ml Output Total 375 ml 400 ml Balance -375 ml -400 ml 0 ml CARSON FAIRCHILD MD Jan 26, 2017 15:38
[2017-01-26] MEDS ORDERED: DIGOXIN 500 MCG/2 ML AMPUL. IV ONE (16:15)
[2017-01-26 19:00] VITALS: BP 148/67
[2017-01-26] MEDS: NIACIN ER 500 MG TABLET.ER PO SCH (20:20)
[2017-01-26] MEDS: SIMVASTATIN 20 MG TABLET PO SCH (20:20)
[2017-01-26] MEDS: ZOLPIDEM 5 MG TABLET. PO PRN (20:21)
[2017-01-26 22:49] VITALS: BP 136/88
[2017-01-27 03:45] VITALS: BP 148/77
[2017-01-27 06:26] LABS: BASO % 0 % (0-3); EOS % 1 % (0-3); HEMATOCRIT 32.4 % (39.0-53.0); HEMOGLOBIN 10.5 g/dL (13.0-17.5); LYMPH # 2.1 x10^3/uL (1.0-4.8); LYMPH % 19 % (24-48); MEAN CORPUSCULAR HEMOGLOBIN 31 pg (25-35); MEAN CORPUSCULAR HGB CONC 32 g/dL (31-37); MEAN CORPUSCULAR VOLUME 96 fL (79-100); MONO % 6 % (0-9); NEUT % 74 % (31-73); PLATELET COUNT 170 x10^3/uL (140-400); RED BLOOD COUNT 3.37 x10^6/uL (4.30-5.70); RED CELL DISTRIBUTION WIDTH 14.2 % (11.5-14.5); WHITE BLOOD COUNT 11.1 x10^3/uL (4.0-11.0)
[2017-01-27 06:41] LABS: CALCIUM 8.3 mg/dL (8.5-10.1); CREATININE 1.1 mg/dL (0.7-1.3); GFR 80.3; MAGNESIUM 1.6 mg/dL (1.8-2.4); POTASSIUM 3.7 mmol/L (3.5-5.1)
[2017-01-27 07:00] VITALS: BP 143/84
[2017-01-27] MEDS: DEXAMETHASONE 0.1% OPHTH SOLUTION 5ML BOTTLE. OS SCH ×5 (07:14→20:35)
[2017-01-27] MEDS: PANTOPRAZOLE 40 MG TABLET. PO SCH (07:14)
[2017-01-27] MEDS: IPRATRPIUM/ALBUTEROL 0.5/2.5MG 3 ML NEBU. NEB SCH ×4 (07:43→19:49)
[2017-01-27] MEDS: DABIGATRAN ETEXILATE 150 MG CAPSULE. PO SCH ×2 (08:40→20:38)
[2017-01-27] MEDS: CLOPIDOGREL BISULFATE 75 MG TABLET PO SCH (08:40)
[2017-01-27] MEDS: FUROSEMIDE 40 MG TABLET PO SCH (08:40)
[2017-01-27] MEDS: METOPROLOL TART IMMED RELEASE 25 MG TABLET PO SCH ×2 (08:40→20:36)
[2017-01-27] MEDS: SOTALOL 80 MG TABLET. PO SCH ×2 (08:41→20:35)
[2017-01-27] MEDS: PREDNISONE 20 MG TABLET PO SCH (08:41)
[2017-01-27] MEDS: METFORMIN 500 MG TABLET. PO SCH ×2 (08:41→18:11)
[2017-01-27] MEDS: ASPIRIN ENTERIC COATED 81 MG TABLET.DR. PO SCH (08:41)
[2017-01-27] MEDS: DIGOXIN 125 MCG TABLET PO SCH (08:42)
[2017-01-27] MEDS: KETOROLAC TROMETHAMINE 0.5% OPHTH SOLUTION 3ML BOTTLE. OS SCH ×3 (08:43→20:35)
[2017-01-27] MEDS: TOBRAMYCIN 0.3% OPHTH SOLUTION 5ML BOTTLE. OS SCH ×3 (08:43→20:34)
[2017-01-27] MEDS: INSULIN ASPART 300 UNITS/3 ML INSULN.PEN SQ SCH ×6 (08:52→18:16)
[2017-01-27] MEDS: GUAIFENESIN DM 600/30MG TAB.ER.12H. PO SCH ×2 (10:21→20:35)
[2017-01-27 11:00] VITALS: BP 128/65
[2017-01-27] MEDS ORDERED: methylPREDNISolone SOD SUCC PF 125 MG/2 ML VIAL. IV ONE ×2 (11:30→12:15)
--- NOTE | 2017-01-27 12:12 | PDOC ---
IM PROGRESS NOTES- Subjective Subjective Had herat rate 120-140/min yesterday responded to IV Digoxin 0.5 mg but has lot of PVCs and triplets.still has cough,dyspnea.slightly better. Objective Objective no distress Vitals Vital Signs Date Time Temp Pulse Resp B/P Pulse Ox O2 Delivery O2 Flow Rate FiO2 01/27/17 11:00 98.1 91 20 128/65 95 Room Air 98.1 01/27/17 03:45 2.0 Input & Output Intake and Output 01/27/17 07:00 Intake Total 375 ml Output Total 2175 ml Balance -1800 ml Intake Oral 375 ml Output Urine Total 2175 ml Physical Exam Physical Exam General appearance - alert,chronically ill appearing, and in no distress Mental Status - alert, oriented to person, place, and time, affect appropriate to mood Head - normal Chest - bilateral whhezes,coarse breath sounds Heart - S1 and S2, irregular irregular Abdomen - soft, nontender, nondistended, BS+ Neurological - no acute focal neurological deficit noted Musculoskeletal - no muscular tenderness noted Extremities - no pedal edema Skin - warm and dry Labs Laboratory Tests Test 01/25/17 12:26 01/25/17 16:59 01/25/17 20:37 01/26/17 08:11 Glucose (Fingerstick) 133mg/dL (70-99) 150mg/dL (70-99) 234mg/dL (70-99) 250mg/dL (70-99) Test 01/26/17 11:36 01/26/17 16:41 01/27/17 05:45 01/27/17 08:49 Glucose (Fingerstick) 292mg/dL (70-99) 225mg/dL (70-99) 171mg/dL (70-99) White Blood Count 11.1x10^3/uL (4.0-11.0) Red Blood Count 3.37x10^6/uL (4.30-5.70) Hemoglobin 10.5g/dL (13.0-17.5) Hematocrit 32.4% (39.0-53.0) Mean Corpuscular Volume 96fL (79-100) Mean Corpuscular Hemoglobin 31pg (25-35) Mean Corpuscular Hemoglobin Concent 32g/dL (31-37) Red Cell Distribution Width 14.2% (11.5-14.5) Platelet Count 170x10^3/uL (140-400) Neutrophils (%) (Auto) 74% (31-73) Lymphocytes (%) (Auto) 19% (24-48) Monocytes (%) (Auto) 6% (0-9) Eosinophils (%) (Auto) 1% (0-3) Basophils (%) (Auto) 0% (0-3) Neutrophils # (Auto) 8.2x10^3uL (1.8-7.7) Lymphocytes # (Auto) 2.1x10^3/uL (1.0-4.8) Monocytes # (Auto) 0.7x10^3/uL (0.0-1.1) Eosinophils # (Auto) 0.1x10^3/uL (0.0-0.7) Basophils # (Auto) 0.0x10^3/uL (0.0-0.2) Sodium Level 141mmol/L (136-145) Potassium Level 3.7mmol/L (3.5-5.1) Chloride Level 106mmol/L (98-107) Carbon Dioxide Level 30mmol/L (21-32) Anion Gap 5 (6-14) Blood Urea Nitrogen 28mg/dL (8-26) Creatinine 1.1mg/dL (0.7-1.3) Estimated GFR (Cockcroft-Gault) 80.3 Glucose Level 193mg/dL (70-99) Calcium Level 8.3mg/dL (8.5-10.1) Magnesium Level 1.6mg/dL (1.8-2.4) Laboratory Tests Test 01/26/17 16:41 01/27/17 05:45 01/27/17 08:49 Glucose (Fingerstick) 225mg/dL (70-99) 171mg/dL (70-99) White Blood Count 11.1x10^3/uL (4.0-11.0) Red Blood Count 3.37x10^6/uL (4.30-5.70) Hemoglobin 10.5g/dL (13.0-17.5) Hematocrit 32.4% (39.0-53.0) Mean Corpuscular Volume 96fL (79-100) Mean Corpuscular Hemoglobin 31pg (25-35) Mean Corpuscular Hemoglobin Concent 32g/dL (31-37) Red Cell Distribution Width 14.2% (11.5-14.5) Platelet Count 170x10^3/uL (140-400) Neutrophils (%) (Auto) 74% (31-73) Lymphocytes (%) (Auto) 19% (24-48) Monocytes (%) (Auto) 6% (0-9) Eosinophils (%) (Auto) 1% (0-3) Basophils (%) (Auto) 0% (0-3) Neutrophils # (Auto) 8.2x10^3uL (1.8-7.7) Lymphocytes # (Auto) 2.1x10^3/uL (1.0-4.8) Monocytes # (Auto) 0.7x10^3/uL (0.0-1.1) Eosinophils # (Auto) 0.1x10^3/uL (0.0-0.7) Basophils # (Auto) 0.0x10^3/uL (0.0-0.2) Sodium Level 141mmol/L (136-145) Potassium Level 3.7mmol/L (3.5-5.1) Chloride Level 106mmol/L (98-107) Carbon Dioxide Level 30mmol/L (21-32) Anion Gap 5 (6-14) Blood Urea Nitrogen 28mg/dL (8-26) Creatinine 1.1mg/dL (0.7-1.3) Estimated GFR (Cockcroft-Gault) 80.3 Glucose Level 193mg/dL (70-99) Calcium Level 8.3mg/dL (8.5-10.1) Magnesium Level 1.6mg/dL (1.8-2.4) Meds Current Medications Digoxin (Lanoxin) 125 mcg DAILY PO Last administered on 01/27/17 08:42; Start 01/27/17 at 09:00 Digoxin (Lanoxin) 500 mcg 1X ONCE IV Last administered on 01/26/17 16:38; Start 01/26/17 at 16:15; Stop 01/26/17 at 17:10; Status DC Methylprednisolone Sodium Succinate (Solu-Medrol 125mg Vial) 60 mg ONCE ONCE IV ; Start 01/27/17 at 11:30; Stop 01/27/17 at 11:31; Status DC Assessment Assessment Problems Medical Problems: (1) CHF (congestive heart failure) Status: Acute (2) Chronic a-fib Status: Acute (3) COPD with acute exacerbation Status: Acute (4) Respiratory failure Status: Acute FINAL IMPRESSION: ac renal failure improved 1. Acute congestive heart failure/pulmonary edema. 2. Atrial fibrillation with rapid ventricular response. 3. Possibility of underlying pneumonitis. 4. Chronic obstructive pulmonary disease. 5. Coronary artery disease status post bypass surgery and cardiac stents. 6. Hypertension. 7. Hyperlipidemia. 8. Diabetes. 9. Recent cataract surgery. PLAN: ICM-a/c CHF-Lasix 40mg daily, BS clear. increased Cr 1.6 max now 1.0 DM II -BS 133-234 steroids-currently Prednisone 40mg daily AF RVR pradaxa, rate 100-120 EPS in future. continue current plan of care. PLAN: cr 1.2 stable holding on diuretics due t inc cr. cxr chf.improved hr 120,irregular. echo45% ejf Cardiac arrhythmia- medication adjustment- heart rate slowing down- yesterday 120-140/min..Now on Coreg and Digoxin.Off Sotalol. Exacerbation of COPD- IV solumedrol. Discharge tomorrow if better. Plan Plan For more details regarding further plans, please refer to the orders. NEENA GOLDSMITH MD Jan 27, 2017 12:12
[2017-01-27 15:00] VITALS: BP 157/70
[2017-01-27 19:20] VITALS: BP 96/65
[2017-01-27] MEDS: NIACIN ER 500 MG TABLET.ER PO SCH (20:35)
[2017-01-27] MEDS: SIMVASTATIN 20 MG TABLET PO SCH (20:35)
[2017-01-27] MEDS: ZOLPIDEM 5 MG TABLET. PO PRN (20:36)
[2017-01-27 22:18] VITALS: BP 113/74
[2017-01-28 03:20] VITALS: BP 125/72
[2017-01-28 07:00] VITALS: BP 151/83
[2017-01-28] MEDS: SOTALOL 80 MG TABLET. PO SCH (07:27)
[2017-01-28] MEDS: IPRATRPIUM/ALBUTEROL 0.5/2.5MG 3 ML NEBU. NEB SCH ×3 (07:29→16:00)
[2017-01-28] MEDS: DABIGATRAN ETEXILATE 150 MG CAPSULE. PO SCH (08:15)
[2017-01-28] MEDS: PANTOPRAZOLE 40 MG TABLET. PO SCH (08:15)
[2017-01-28] MEDS: GUAIFENESIN DM 600/30MG TAB.ER.12H. PO SCH (08:15)
[2017-01-28] MEDS: METFORMIN 500 MG TABLET. PO SCH (08:16)
[2017-01-28] MEDS: PREDNISONE 20 MG TABLET PO SCH (08:16)
[2017-01-28] MEDS: CLOPIDOGREL BISULFATE 75 MG TABLET PO SCH (08:16)
[2017-01-28] MEDS: ASPIRIN ENTERIC COATED 81 MG TABLET.DR. PO SCH (08:17)
[2017-01-28] MEDS: DIGOXIN 125 MCG TABLET PO SCH (08:17)
[2017-01-28] MEDS: METOPROLOL TART IMMED RELEASE 25 MG TABLET PO SCH (08:18)
[2017-01-28] MEDS: TOBRAMYCIN 0.3% OPHTH SOLUTION 5ML BOTTLE. OS SCH ×2 (08:23→14:35)
[2017-01-28] MEDS: INSULIN ASPART 300 UNITS/3 ML INSULN.PEN SQ SCH ×5 (08:25→16:30)
[2017-01-28] MEDS: FUROSEMIDE 40 MG TABLET PO SCH (09:00)
[2017-01-28] MEDS: DEXAMETHASONE 0.1% OPHTH SOLUTION 5ML BOTTLE. OS SCH ×3 (10:00→14:34)
--- NOTE | 2017-01-28 10:18 | PDOC ---
PROGRESS NOTES Subjective Subjective feels better ,anxious to go home Objective Objective Vital Signs Date Time Temp Pulse Resp B/P Pulse Ox O2 Delivery O2 Flow Rate FiO2 01/28/17 08:18 80 151/83 01/28/17 07:48 Room Air 01/28/17 07:31 99 01/28/17 07:00 98.0 14 98.0 Intake and Output 01/28/17 07:00 Intake Total 2310 ml Output Total 1450 ml Balance 860 ml Intake Oral 2310 ml Output Urine Total 1450 ml Physical Exam Abdomen: Soft, No tenderness Heart: Other (3/6 systolic murmur to LLS border; AFIB RVR) Extremities: No cyanosis, Other (trace LE edema) General: Alert, Oriented X3, Cooperative, No acute distress HEENT: Atraumatic, Mucous membr. moist/pink Lungs: Other (diffuse crackles) Psych/Mental Status: Mental status NL, Mood NL Diagnosis Problem List Problems Medical Problems: (1) CHF (congestive heart failure) Status: Acute (2) Chronic a-fib Status: Acute (3) COPD with acute exacerbation Status: Acute (4) Respiratory failure Status: Acute Assessment Assessment Problems Medical Problems: (1) CHF (congestive heart failure) Status: Acute (2) Chronic a-fib Status: Acute (3) COPD with acute exacerbation Status: Acute (4) Respiratory failure Status: Acute FINAL IMPRESSION: ac renal failure improved 1. Acute congestive heart failure/pulmonary edema. 2. Atrial fibrillation with rapid ventricular response. 3. Possibility of underlying pneumonitis. 4. Chronic obstructive pulmonary disease. 5. Coronary artery disease status post bypass surgery and cardiac stents. 6. Hypertension. 7. Hyperlipidemia. 8. Diabetes. 9. Recent cataract surgery. PLAN:oral meds. d/c home if ok with cardiology. 6 mts walk ICM-a/c CHF-Lasix 40mg daily, BS clear. increased Cr 1.6 max now 1.0 DM II -BS 133-234 steroids-currently Prednisone 40mg daily AF RVR pradaxa, rate 100-120 EPS in future. continue current plan of care. PLAN: cr 1.2 stable holding on diuretics due t inc cr. cxr chf.improved hr 120,irregular. echo45% ejf Cardiac arrhythmia- medication adjustment- heart rate slowing down- yesterday 120-140/min..Now on Coreg and Digoxin.Off Sotalol. Exacerbation of COPD- IV solumedrol. Discharge tomorrow if better. Problems: Plan Plan of Care Problems Medical Problems: (1) CHF (congestive heart failure) Status: Acute (2) Chronic a-fib Status: Acute (3) COPD with acute exacerbation Status: Acute (4) Respiratory failure Status: Acute Comment Review of Relevant I have reviewed the following items debbie (where applicable) has been applied. Labs Laboratory Tests Test 01/27/17 12:39 01/27/17 17:10 01/27/17 20:48 01/28/17 08:06 Glucose (Fingerstick) 222mg/dL (70-99) 225mg/dL (70-99) 286mg/dL (70-99) 187mg/dL (70-99) Medications Current Medications Methylprednisolone Sodium Succinate (Solu-Medrol 125mg Vial) 60 mg 1X ONCE IV Last administered on 01/27/17t 12:49; Start 01/27/17 at 12:15; Stop 01/27/17 at 12:16; Status DC Methylprednisolone Sodium Succinate (Solu-Medrol 125mg Vial) 60 mg ONCE ONCE IV ; Start 01/27/17 at 11:30; Stop 01/27/17 at 12:59; Status DC Vitals/I & O Vital Sign - Last 24 Hours 01/27/17 01/27/17 01/27/17 01/27/17 11:00 12:20 15:00 17:00 Temp 98.1 98.0 98.1 98.0 Pulse 91 96 Resp 20 18 B/P 128/65 157/70 Pulse Ox 95 96 95 97 O2 Delivery Room Air Room Air Room Air Room Air 01/27/17 01/27/17 01/27/17 01/27/17 19:20 19:50 19:59 20:35 Temp 97.7 97.7 Pulse 112 120 Resp 18 B/P 96/65 134/71 Pulse Ox 95 97 O2 Delivery Nasal Cannula Room Air Room Air 01/27/17 01/27/17 01/28/17 01/28/17 20:36 22:18 03:20 07:00 Temp 97.6 98.3 98.0 97.6 98.3 98.0 Pulse 120 105 75 99 Resp 20 18 14 B/P 134/71 113/74 125/72 151/83 Pulse Ox 98 97 97 O2 Delivery Room Air Room Air Room Air 01/28/17 01/28/17 01/28/17 01/28/17 07:31 07:48 08:17 08:18 Pulse 80 80 B/P 151/83 151/83 Pulse Ox 99 O2 Delivery Room Air Room Air Intake and Output 01/27/17 01/27/17 01/28/17 15:00 23:00 07:00 Intake Total 720 ml 940 ml 650 ml Output Total 1250 ml 200 ml Balance 720 ml -310 ml 450 ml NAUN ROPER MD Jan 28, 2017 10:18
[2017-01-28] MEDS: ANTI-COAG MONITOR BY PHARMACY. MC PRN (10:25)
[2017-01-28] MEDS ORDERED: PRED20TA PO (10:28)
[2017-01-28] MEDS ORDERED: POTA10CA PO (10:28)
[2017-01-28] MEDS ORDERED: FURO40TA4 PO (10:28)
[2017-01-28 11:09] VITALS: BP 132/76
[2017-01-28] MEDS: KETOROLAC TROMETHAMINE 0.5% OPHTH SOLUTION 3ML BOTTLE. OS SCH ×2 (11:48→14:35)
[2017-01-28] MEDS: TRAMADOL 50 MG TABLET. PO PRN (12:19)
[2017-01-28] MEDS ORDERED: DILTIAZEM HCL 120 MG CAP.ER.24H PO SCH (13:00)
--- NOTE | 2017-01-28 13:02 | PDOC ---
CARDIO Progress Notes Date and Time Date of Service 01/28/2014 Time of Evaluation 1045 Subjective Subjective: No Chest Pain, No shortness of breath, No Palpitations, No Dizziness Vitals Vitals Vital Signs Date Time Temp Pulse Resp B/P Pulse Ox O2 Delivery O2 Flow Rate FiO2 01/28/17 11:33 98 Room Air 01/28/17 11:09 97.7 95 18 132/76 97.7 Weight Weight [ ] Input and Output Intake and Output Intake and Output 01/28/17 07:00 Intake Total 2310 ml Output Total 1450 ml Balance 860 ml Intake Oral 2310 ml Output Urine Total 1450 ml Laboratory Labs Laboratory Tests Test 01/27/17 17:10 01/27/17 20:48 01/28/17 08:06 01/28/17 11:11 Glucose (Fingerstick) 225mg/dL (70-99) 286mg/dL (70-99) 187mg/dL (70-99) 186mg/dL (70-99) Physical Exam HEENT: Neck Supple W Full Motion Chest: Symmetric LUNGS: Other (faint basilar crackles) Heart: S1S2, irregularly irregular Abdomen: Soft N/T Extremities: No Edema, No Calf Tenderness Neurology: alert, oriented, follow commands Assessment Assessment 1. Acute on chronic systolic CHF: EF 40-45%, compensated 2. Persistent AFIB RVR: x2 cardioversion in the past. Remains on AFIB 80-110 3. Acute on chronic respiratory failure: multifactorial. Much better 4. CAD: s/p CABG. Prior PCI/RAD to SVG to OM, CP free. stable. 5. HTN: controlled 6. DM2/HLP Recommendations 1. DC sotalol. Rate control at this time with Dig/metoprolol and will add cardizem CD 2. Home BP daily monitoring with daily weight 3. Continue with pradaxa and DAPT 4. Follow up in office in 4 weeks 5. Continue with secondary prevention and po lasix therapy. Lisinopril 2.5 mg daily 6. Stop home HCTZ, coreg and norvasc. GRACE DE LA CRUZ APRN Jan 28, 2017 13:02
[2017-01-28] MEDS ORDERED: LISINOPRIL 2.5 MG TABLET PO SCH (13:30)
--- NOTE | 2017-01-28 14:04 | PDOC ---
PULMONARY PROGRESS NOTES Subjective feels better post nasal drip Vitals Vital Signs Date Time Temp Pulse Resp B/P Pulse Ox O2 Delivery O2 Flow Rate FiO2 01/28/17 13:52 Room Air 01/28/17 11:33 98 01/28/17 11:09 97.7 95 18 132/76 97.7 General: Alert, No acute distress Lungs: Clear Cardiovascular: S1 Abdomen: Soft Neuro Exam: Alert Extremities: No Edema Skin: Warm Labs Laboratory Tests Test 01/26/17 16:41 01/27/17 05:45 01/27/17 08:49 01/27/17 12:39 Glucose (Fingerstick) 225mg/dL (70-99) 171mg/dL (70-99) 222mg/dL (70-99) White Blood Count 11.1x10^3/uL (4.0-11.0) Red Blood Count 3.37x10^6/uL (4.30-5.70) Hemoglobin 10.5g/dL (13.0-17.5) Hematocrit 32.4% (39.0-53.0) Mean Corpuscular Volume 96fL (79-100) Mean Corpuscular Hemoglobin 31pg (25-35) Mean Corpuscular Hemoglobin Concent 32g/dL (31-37) Red Cell Distribution Width 14.2% (11.5-14.5) Platelet Count 170x10^3/uL (140-400) Neutrophils (%) (Auto) 74% (31-73) Lymphocytes (%) (Auto) 19% (24-48) Monocytes (%) (Auto) 6% (0-9) Eosinophils (%) (Auto) 1% (0-3) Basophils (%) (Auto) 0% (0-3) Neutrophils # (Auto) 8.2x10^3uL (1.8-7.7) Lymphocytes # (Auto) 2.1x10^3/uL (1.0-4.8) Monocytes # (Auto) 0.7x10^3/uL (0.0-1.1) Eosinophils # (Auto) 0.1x10^3/uL (0.0-0.7) Basophils # (Auto) 0.0x10^3/uL (0.0-0.2) Sodium Level 141mmol/L (136-145) Potassium Level 3.7mmol/L (3.5-5.1) Chloride Level 106mmol/L (98-107) Carbon Dioxide Level 30mmol/L (21-32) Anion Gap 5 (6-14) Blood Urea Nitrogen 28mg/dL (8-26) Creatinine 1.1mg/dL (0.7-1.3) Estimated GFR (Cockcroft-Gault) 80.3 Glucose Level 193mg/dL (70-99) Calcium Level 8.3mg/dL (8.5-10.1) Magnesium Level 1.6mg/dL (1.8-2.4) Test 01/27/17 17:10 01/27/17 20:48 01/28/17 08:06 01/28/17 11:11 Glucose (Fingerstick) 225mg/dL (70-99) 286mg/dL (70-99) 187mg/dL (70-99) 186mg/dL (70-99) Laboratory Tests Test 01/27/17 17:10 01/27/17 20:48 01/28/17 08:06 01/28/17 11:11 Glucose (Fingerstick) 225mg/dL (70-99) 286mg/dL (70-99) 187mg/dL (70-99) 186mg/dL (70-99) Medications Active Scripts Medications Dose Route/Sig Days Date Category Ketorolac Tromethamine 5 Ml Drops 1 Drop LEFTEYE TID 7 01/22/17 Reported Tobramycin-Dexameth Ophth Susp (Tobramycin/Dexamethasone) 5 Ml Drops.susp 1 Drop LEFTEYE TID 01/22/17 Reported Prednisolone Acetate 5 Ml Drops.susp 1 Drop LEFTEYE TID 01/22/17 Reported Aspir 81 (Aspirin) 81 Mg Tablet. 1 Tab PO 1X 01/02/17 Reported Omeprazole 40 Mg Capsule. 40 Mg PO DAILY 05/12/14 Reported Clopidogrel (Clopidogrel Bisulfate) 75 Mg Tablet 75 Mg PO DAILY 05/12/14 Reported Combivent Respimat Inhal (Ipratropium/Albuterol Sulfate) 4 Gm Aer.w.adap 2 Inh IH QID PRN 05/12/14 Reported Tramadol Hcl 50 Mg Tablet 50 Mg PO PRN Q4HRS PRN 03/18/14 Reported Apidra (Insulin Glulisine) 100 Unit/1 Ml Vial 10 Unit SQ TIDAC 03/18/14 Reported Pradaxa (Dabigatran Etexilate Mesylate) 150 Mg Capsule 150 Mg PO BID 03/18/14 Reported Vitamin D (Cholecalciferol (Vitamin D3)) 10,000 Unit Capsule 50,000 Unit PO WEEKLY 03/18/14 Reported Niaspan (Niacin) 500 Mg Tab.er.24h 500 Mg PO HS 03/18/14 Reported Simvastatin 20 Mg Tablet 20 Mg PO HS 03/18/14 Reported Sotalol Af (Sotalol Hcl) 120 Mg Tablet 160 Mg PO BID 03/18/14 Reported Coreg (Carvedilol) 6.25 Mg Tablet 6.25 Mg PO BID 03/18/14 Reported Lisinopril-Hctz 20-12.5 Mg Tab (Lisinopril/Hydrochlorothiazide) 1 Each Tablet 1 Each PO DAILY 03/18/14 Reported Amlodipine Besylate 5 Mg Tablet 5 Mg PO DAILY 03/18/14 Reported Metformin Hcl 500 Mg Tablet 1,000 Mg PO BID 03/18/14 Reported Impression . 1. Acute hypoxic respiratory failure, related to congestive heart failure. 2. CMP , ejection fraction of 40-45% 2. Clinically unlikely pneumonia. 3. No significant history of tobacco use. 4. A-fib 6. post nasal drip Plan . 1. diuresis.per cardiology 2. Followup chest x-ray as needed 3. repeat echocardiogram. with EF 40-45% 4. A-fib per cardiology 5. off oxygen 6. flonase stable pulmonary status for ALEX Chappell MD Jan 28, 2017 14:04
[2017-01-28 14:34] VITALS: BP 152/70
[2017-01-28] MEDS ORDERED: FLUTICASONE 50MCG/NASAL SPRAY 16GM BOTTLE. NS SCH (15:00)
[2017-01-28] MEDS ORDERED: DILT120C97 PO (15:14)
--- NOTE | 2017-01-29 10:09 | PDOC ---
Provider Note Provider Note Discharge summary dictated. #[id number] NAUN ROPER MD Jan 29, 2017 10:09
--- NOTE | 2017-01-29 17:45 | DS ---
DATE OF DISCHARGE: 01/28/2017 ATTENDING PHYSICIAN: Dr. Roper. PRIMARY PHYSICIAN: Dr. Cuba. REASON FOR ADMISSION TO THE HOSPITAL: Shortness of breath, pulmonary edema. CONSULTATIONS: 1. Dr. Borjas. 2. Dr. Stark. 3. Dr. Ceron. PROCEDURES DONE: Echocardiogram. COMPLICATIONS NOTED: None. HOSPITAL COURSE: The patient is a 71-year-old male patient of Dr. Cuba, has history of chronic AFib, is on Pradaxa, and he also has history of coronary artery disease, bypass surgery, also stent in the past. He came with shortness of breath, was in pulmonary edema, was given IV Lasix. Was seen by Cardiology and the patient was found to have atrial fibrillation with rapid ventricular response, and was initially put on Cardizem. He has a history of cardioversion in the past and he continues to remain in AFib with tachycardia and some of the medications were adjusted. The patient was put on beta-danika and digoxin. He also had COPD with exacerbation, was given IV Solu-Medrol, later on changed to prednisone. Had echocardiogram showing ejection fraction 40% to 45%, impaired systolic function, borderline LVH, no significant valvular disease. The patient was seen by Physical Therapy and recommended that needs to see outpatient EP for further cardiac evaluation for atrial fibrillation. Otherwise, the patient was discharged on oral medications. FINAL DIAGNOSES: 1. Acute pulmonary edema. 2. Ledwg-gp-krtzdou systolic heart failure.40% EJF 3. Chronic atrial fibrillation with rapid ventricular response.h/o cardioversion in the past. 4. Chronic obstructive pulmonary disease with acute exacerbation. 5. Coronary artery disease, bypass surgery. 6. History of cardiac stents, hypertension, hyperlipidemia, diabetes, and recent cataract surgery. The patient was discharged home. See MRAD for discharge medications. NAUN ROPER MD DR: RAE/harjinder JOB#: [id number] / [id number] KEMAL Ross VINAYA MD [facility]
== END 2017-01-28 16:45 | disposition home or self-care (01) | DRG 291 ==
LOC: ER 18:59 → 2 NORTH 20:54 → CVICU 01-22 17:25
PROVIDERS: ADMIT Internal Medicine; ATTEND Internal Medicine
PROC: 5A09357 Assistance with Respiratory Ventilation, Less than 24 Consecutive Hours, Continuous Positive Airway Pressure (ICD-10-PCS; principal; 2017-01-21)
DX: I50.23 Acute on chronic systolic (congestive) heart failure (principal); J96.21 Acute and chronic respiratory failure with hypoxia; I48.1 Persistent atrial fibrillation; J44.1 Chronic obstructive pulmonary disease with (acute) exacerbation; I11.0 Hypertensive heart disease with heart failure; I48.0 Paroxysmal atrial fibrillation; E11.9 Type 2 diabetes mellitus without complications; E78.5 Hyperlipidemia, unspecified; I25.10 Atherosclerotic heart disease of native coronary artery without angina pectoris; M19.90 Unspecified osteoarthritis, unspecified site; I48.2 Chronic atrial fibrillation; I25.5 Ischemic cardiomyopathy; J45.909 Unspecified asthma, uncomplicated; K21.9 Gastro-esophageal reflux disease without esophagitis; Z79.01 Long term (current) use of anticoagulants; Z82.49 Family history of ischemic heart disease and other diseases of the circulatory system; Z83.3 Family history of diabetes mellitus; Z86.73 Personal history of transient ischemic attack (TIA), and cerebral infarction without residual deficits; Z95.1 Presence of aortocoronary bypass graft; Z95.5 Presence of coronary angioplasty implant and graft; Z90.49 Acquired absence of other specified parts of digestive tract; Z79.82 Long term (current) use of aspirin; Z79.02 Long term (current) use of antithrombotics/antiplatelets; Z79.899 Other long term (current) drug therapy
CPT/HCPCS: 36415; 36600; 71010; 80048; 80053; 80061; 80202; 82805; 82947; 83036; 83735; 83880; 84443; 84484; 85007; 85027; 87804; 93005; 93306; 94250; 94620; 94640; 94660; 94760; 96365; 96375; J1160; J1815; J1940; J2543; J2930; J3370; J3475; J3490; J7040; J7050; J7512; J7620; 97116; 99285-25; J7030

== ENCOUNTER → 2017-09-10 | Day surgery (SDC) | payer MEDICARE, BC ==
[~2017-09-10] MED LIST changes: +ALBU2.5V14 NEB; +CALC200T3 PO; +DIGO125T PO; +DILT120C80 PO; +FURO20TA3 PO; +FURO40TA4 PO; +HYDROmorphone 2 MG/ML VIAL IV PRN; +IV RINGERS,LACTATED 1000ML 1,000 ML IV ONE; +IV RINGERS,LACTATED 1000ML 1,000 ML IV SCH; +KETO5DRO24 LEFTEYE; +LIDOCAINE 1% PF 2 ML VIAL. ID PRN; +LISI-338 PO; +METO100T2 PO; +MORPHINE SULFATE 2 MG/ML DISP.SYRIN. IV PRN; +ONDANSETRON PF 4 MG/2 ML VIAL. IV PRN; +POTASSIUM CHLO10 MEQ PO; +PRED20TA PO; +PRED5DRO16 LEFTEYE; +PROCHLORPERAZINE 10 MG/2 ML VIAL. IV PRN; +PROPOFOL 20 ML IV ONE; +TOBR5DRO13 LEFTEYE; +fentaNYL PF VIAL 100 MCG/2 ML VIAL IV PRN
--- NOTE | 2017-09-10 09:05 | PDOC1 ---
HISTORY & PHYSICAL H&P Jimi Butts [id number] 1945 08/28/2017 01:00 PM 12/02 [employer] [facility], [facility] OUR PATIENTS COME FIRST [address] [place], [place] [id number] Ph. [phone] Patient: Jimi Butts Date of : 1945 Date: 08/28/2017 1:00 PM Visit Type: Consult This 72 year old male presents for Anemia. History of Present Illness: 1. Anemia Additional information: Patient has been anemic with hgb around 10. Patient has significant issue with CHF and has ejection fraction around 30. Had been recently hospitalized. Patient has been on aspirin, Pradaxa and Plavix. Patient also has atrial fibrillation. INTAKE COMMENTS: Intake Comments: Nurse Note: the pt is here today due to Anemia, the pts last colonoscopy was in 2012. The pt's last Hgb was 10.2, the pt states that there has been no evidence of blood in his stool or rectal bleeding. 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 Acute bronchitis, unspecified organism 12/09/2015 Reactive airway disease that is not asthma 12/09/2015 Boil, back 03/23/2016 MGUS (monoclonal gammopathy of unknown significance) 08/24/2016 Coronary artery disease of [place] heart with stable angina pectoris 08/24/2016 Gall bladder stone 10/13/2009 Diabetes mellitus without complication 10/13/2009 Asthma 10/13/2009 Hypertensive heart disease 10/13/2009 Coronary atherosclerosis 10/13/2009 Osteoarthritis 10/13/2009 PAST MEDICAL/SURGICAL HISTORY (Detailed) Disease/disorder Onset Date Management Date Comments Cholecystectomy 11/2009 Cerebrovascular accident Coronary artery disease Coronary artery bypass graft (CABG) 2001 Diabetes mellitus Diverticulosis colonoscopy 04/09/2013 DJD High cholesterol Hypertension Hypogonadism Obesity Rotator cuff tear (right) surgery 2012 Rotator cuff tear (right) surgery 2011 DIAGNOSTICS HISTORY: Test Ordered Interpretation Result completed COLONOSCOPY AND BIOPSY 03/09/2010 Abnormal Transverse colon polyp.BX: tubular adenoma. Recall 3 years-KR 03/23/2010 Echocardiogram 07/02/2007 Normal EF 45% 07/02/2007 Cardiolyte 08/02/2007 Normal EF 38%, Neg for Ischemia 08/02/2007 Colonoscopy 03/04/2013 abnormal Imp: Diverticulosis of the sigmoid colon 2012 Test Ordered Ordering Comments Modifier COLONOSCOPY AND BIOPSY 03/09/2010 Gastroenterology Echocardiogram 07/02/2007 Cardiac Studies Cardiolyte 08/02/2007 Cardiac Studies Colonoscopy 03/04/2013 Medications (Active): Started Medication Directions Instruction Stopped 08/06/2017 albuterol sulfate 2.5 mg/3 mL (0.083 %) solution for nebulization inhale 1 Vial by Nebulization every 6 hours as needed 03/04/2017 APIDRA SOLOSTAR 100 UNITS/ML INJECT 10 UNITS 3 TIMES DAILY WITH MEALS DIRECTED 03/01/2010 Aspir-81 81 mg Tab take 1 tablet (81MG) by ORAL route every day 10/29/2016 BD ULTRA-FINE PEN NDL [id number] USE FOR INJECTIONS 3 TIMES A DAY 03/21/2017 digoxin 125 mcg tablet take 1 tablet by oral route every day 03/21/2017 diltiazem ER 120 mg capsule,extended release take 1 capsule by oral route every day 02/05/2017 Flovent HFA 110 mcg/actuation aerosol inhaler inhale 1 puff by inhalation route 2 times every day 04/23/2017 FLUTICASONE PROP 50 MCG SPRAY INHALE 1 SPRAY BY INTRANASAL ROUTE 2 TIMES EVERY DAY IN EACH NOSTRIL 07/15/2017 furosemide 40 mg tablet 1 1/2 tabs daily 07/31/2017 ipratropium-albuterol 0.5 mg-3 mg(2.5 mg base)/3 mL nebulization soln inhale 3 milliliter by nebulization route 4 times every day as needed calculate and fill for 90 day supply 05/20/2017 Klor-Con M10 mEq tablet,extended release take 1 tablet by mouth daily 07/10/2017 lisinopril 5 mg tablet TAKE 1 TABLET BY ORAL ROUTE EVERY DAY 10/02/2016 METFORMIN TAB 500MG TAKE 2 TABLETS TWICE A DAY WITH MORNING AND EVENING MEALS 07/15/2017 metoprolol tartrate 50 mg tablet take 2 tablet by oral route 2 times every day with meals NEW DOSE 05/07/17 05/25/2010 Niaspan Extended-Release 500 mg Tab take 1 tablet (500MG) by ORAL route every day at bedtime after a low-fat snack 04/24/2016 [employer] Ultra Test strips TEST 3 TIMES A DAY DX: 250.02 03/29/2014 Plavix 75 mg tablet take 1 tablet by oral route every day 07/23/2011 Pradaxa 150 mg Cap take 1 capsule (150MG) by oral route 2 times every day 02/05/2017 ProAir HFA 90 mcg/actuation aerosol inhaler inhale 2 puff by Inhalation route every 4 - 6 hours as needed 07/23/2011 simvastatin 20 mg Tab take 1 tablet (20MG) by oral route every day in the evening 06/12/2017 tramadol 50 mg tablet take 1 tablet by oral route every 3 hours as needed 06/12/2017 Vitamin D2 50,000 unit capsule take 1 by Oral route twice a week for three months then 1 per week for 3 months every month Allergies: Ingredient Reaction Medication Name Comment NO KNOWN ALLERGIES REVIEW OF SYSTEMS System Neg/Pos Details Constitutional Negative Chills, fever, malaise and weight loss. ENMT Negative Sore throat. Eyes Negative Double vision. Respiratory Negative Dyspnea and wheezing. Cardio Negative Chest pain and irregular heartbeat/palpitations. GI Positive See HPI. GI Negative See HPI. Negative Dysuria and hematuria. Endocrine Negative Cold intolerance and heat intolerance. Psych Negative Anxiety. Integumentary Negative Hives and rash. MS Negative Joint pain. Rory/Lymph Negative Easy bleeding and easy bruising. Allergic/Immuno Negative Animals at home and food allergies. VITAL SIGNS Time BP mm/Hg Pulse /min Resp /min Temp F Ht ft Ht in Ht cm Wt lb Wt kg BMI kg/ m2 BSA m2 O2 Sat% 1:17 PM 67 97.6 5.0 8.00 172.72 159.00 72.121 24.18 97 Time Measured by 1:17 PM Kristen Peng PHYSICAL EXAM: Exam Findings Details Constitutional Normal Well developed. Eyes Normal Conjunctiva - Right: Normal, Left: Normal. Sclera - Right: Normal, Left: Normal. Nasopharynx Normal Lips/teeth/gums - Normal. Neck Exam Normal Inspection - Normal. Thyroid gland - Normal. Respiratory Normal Inspection - Normal. Auscultation - Normal. Cardiovascular Normal Regular rate and rhythm. No murmurs, gallops, or rubs. Vascular Normal Pulses - Carotids: Normal, Femoral: Normal, Dorsalis pedis: Normal. Abdomen Normal Inspection - Normal. Anterior palpation - No guarding. No abdominal tenderness. No hepatic enlargement. No splenic enlargement. No hernia. No ascites. Skin Normal Inspection - Normal. Extremity Normal No edema. Psychiatric * Oriented to time, place, person and situation. Psychiatric Normal Appropriate mood and effect. Assessment/Plan # Detail Type Description 1. Assessment Iron deficiency anemia, unspecified iron deficiency anemia type ( D50.9). Patient Plan schedule EGD at [facility] Plan Orders Further diagnostic evaluations ordered today include(s) EGD to be performed today. He is to schedule a follow-up visit with Danish Gross MD upon completion of work-up Electronically signed by: Danish Gross MD 08/28/2017 02:07 PM Document generated by: Danish Gross 08/28/2017 02:07 PM Bridget Cuba MD, Family Practice; Jhony Brown MD Internal Medicine; Livia Gomez MD, Internal Medicine; Wellington Gross MD Internal Medicine; Danish Gross MD, Gastroenterology; Diogenes Bray MD, Rheumatology, S. Missael Isaacs, Physical Medicine/Rehab JUmu Foy APRN ------ 09/10/17 Patient seen and examined. No change in H&P. DANISH GROSS MD Sep 10, 2017 09:05
[2017-09-10 09:55] VITALS: BP 162/77
== END | disposition home or self-care (01) ==
LOC: ENDOS 08:32
PROVIDERS: ATTEND Internal Medicine Gastroenterology
DX: K21.0 Gastro-esophageal reflux disease with esophagitis (principal); K31.89 Other diseases of stomach and duodenum; E78.00 Pure hypercholesterolemia, unspecified; I48.91 Unspecified atrial fibrillation; I10 Essential (primary) hypertension; J44.9 Chronic obstructive pulmonary disease, unspecified; K21.9 Gastro-esophageal reflux disease without esophagitis; M19.91 Primary osteoarthritis, unspecified site; E11.9 Type 2 diabetes mellitus without complications; Z86.69 Personal history of other diseases of the nervous system and sense organs; Z98.41 Cataract extraction status, right eye; Z98.42 Cataract extraction status, left eye; Z86.39 Personal history of other endocrine, nutritional and metabolic disease; Z90.49 Acquired absence of other specified parts of digestive tract; Z87.39 Personal history of other diseases of the musculoskeletal system and connective tissue
CPT/HCPCS: 43235; J2704

== ENCOUNTER → 2018-03-25 | Outpatient (CLI) | payer MEDICARE, BC | END | disposition home or self-care (01) | LOC: NM 10:21 | DX: K30 Functional dyspepsia (principal); E11.9 Type 2 diabetes mellitus without complications | CPT/HCPCS: 78264; A9541 ==

== ENCOUNTER → 2018-08-26 | Outpatient (CLI) | payer MEDICARE, BC ==
[2017-12-10 11:11] VITALS: BP 125/55
[~2018-08-26] MED LIST changes: -AMLO5TAB2 PO; +AMLO5TAB7 PO; -HYDROmorphone 2 MG/ML VIAL IV PRN; -IV RINGERS,LACTATED 1000ML 1,000 ML IV ONE; -IV RINGERS,LACTATED 1000ML 1,000 ML IV SCH; -LIDOCAINE 1% PF 2 ML VIAL. ID PRN; +METF500T16 PO; -METF500T4 PO; -METO100T2 PO; +METO100T7 PO; +METO2.5T PO; -MORPHINE SULFATE 2 MG/ML DISP.SYRIN. IV PRN; -ONDANSETRON PF 4 MG/2 ML VIAL. IV PRN; +POTA10TA12 PO; -POTASSIUM CHLO10 MEQ PO; -PROCHLORPERAZINE 10 MG/2 ML VIAL. IV PRN; -PROPOFOL 20 ML IV ONE; -fentaNYL PF VIAL 100 MCG/2 ML VIAL IV PRN
--- NOTE | 2018-08-26 12:17 | CARD ---
MR#: [id number] Date of Study: 08/26/2018 Ordering Physician: CARSON FAIRCHILD, Referring Physician: CARSON FAIRCHILD Tech: Celina Fabian RDCS APPROVED REPORT EXAM: Two-dimensional and M-mode echocardiogram with Doppler and color Doppler. Other Information Quality : GoodHR: 55bpm Rhythm : Pacemaker INDICATION Congestive Heart Failure Surgery/Intervention ICD/Pacemaker: 2D DIMENSIONS RVDd3.4 (2.9-3.5cm)IVSd1.0 (0.7-1.1cm) Aortic Root(2D)3.2 (2.0-3.7cm)LVDd4.7 (3.9-5.9cm) LVOT Diameter1.9 (1.8-2.4cm)PWd1.2 (0.7-1.1cm) LVDs4.1 (2.5-4.0cm)FS (%) 12.1 % SV26.6 ml M-Mode DIMENSIONS Left Atrium(MM)4.87 (2.5-4.0cm)IVSd0.81 (0.7-1.1cm) Aortic Root3.27 (2.2-3.7cm)LVDd5.85 (4.0-5.6cm) PWd1.12 (0.7-1.1cm)IVSs1.37 cm FS (%) 9 %LVDs4.88 (2.0-3.8cm) PWs1.34 cmLVEF(%)18 (>50%) Aortic Valve AoV Peak Fidencio.101.7cm/sAoV VTI18.0cm AO Peak GR.4.1mmHgLVOT Peak Fidencio.71.4cm/s LVOT VTI 11.20cmAO Mean GR.2mmHg IVETTE (VMAX)1.52ay5FGG (VTI)1.70cm2 Mitral Valve MV E Crwinxtk16.2cm/sMV DECEL [id number] MV A Cwzimdvi27.1cm/sMV XIA08lu E/A Ratio3.5MVA (PHT)5.09cm2 TDI E/Lateral E'11.4E/Medial E'24.1 Pulmonary Valve PV Peak Ftqunjve40.4cm/sPV Peak Grad.3mmHg Tricuspid Valve TR P. [id number]/sRAP EFSOKHUV9fpAc TR Peak Gr.20mkYbZSZG18mbKa LEFT VENTRICLE The left ventricle is normal size. There is borderline to mild concentric left ventricular hypertroph y. The systolic function is severely impaired. The Ejection Fraction is 15-20%. There is global hypok inesis of the left ventricle. Transmitral Doppler flow pattern is Grade IV-fixed restrictive diastoli c dysfunction. RIGHT VENTRICLE The right ventricle is mildly dilated. There is normal right ventricular wall thickness. Systolic fun ction is mildly reduced. There is a device lead in the right heart. ATRIA The left atrium is mildly dilated. The right atrium is mildly dilated. Possible small PFO seen by col or doppler. AORTIC VALVE The aortic valve is thickened but opens well. Doppler and Color Flow revealed no significant aortic r egurgitation. There is no significant aortic valvular stenosis. MITRAL VALVE The mitral valve is thickened but opens well. There is no evidence of mitral valve prolapse. There is no mitral valve stenosis. Doppler and Color-flow revealed mild mitral regurgitation. TRICUSPID VALVE The tricuspid valve is normal in structure and function. Doppler and Color Flow revealed mild to mode rate tricuspid regurgitation. There is moderate-severe pulmonary hypertension. The PA pressure was es timated at 58 mmHg. There is no tricuspid valve prolapse or vegetation. There is no tricuspid valve s tenosis. PULMONIC VALVE The pulmonary valve is normal in structure and function. Doppler and Color Flow revealed trace pulmon ic valvular regurgitation. There is no pulmonic valvular stenosis. GREAT VESSELS The aortic root is normal in size. The ascending aorta is normal in size. PERICARDIAL EFFUSION There is no evidence of significant pericardial effusion. Critical Notification Critical Value: No <Conclusion> The left ventricle is normal size. The systolic function is severely impaired. The Ejection Fraction is 15-20%. There is global hypokinesis of the left ventricle. There is borderline to mild concentric left ventricular hypertrophy. There is no significant aortic valvular stenosis. Doppler and Color Flow revealed no significant aortic regurgitation. Doppler and Color-flow revealed mild mitral regurgitation. Doppler and Color Flow revealed mild to moderate tricuspid regurgitation. There is moderate-severe pulmonary hypertension. The PA pressure was estimated at 58 mmHg. Signed by : Yobani Alves MD Electronically Approved : 08/26/2018 12:16:44
== END | disposition home or self-care (01) ==
LOC: ECHO 10:53
PROVIDERS: ATTEND Internal Medicine Cardiovascular Disease
DX: I08.1 Rheumatic disorders of both mitral and tricuspid valves (principal); I27.20 Pulmonary hypertension, unspecified; I13.0 Hypertensive heart and chronic kidney disease with heart failure and stage 1 through stage 4 chronic kidney disease, or unspecified chronic kidney disease; E11.22 Type 2 diabetes mellitus with diabetic chronic kidney disease; I50.22 Chronic systolic (congestive) heart failure; N18.3 Chronic kidney disease, stage 3 (moderate); E78.5 Hyperlipidemia, unspecified; E78.00 Pure hypercholesterolemia, unspecified; I48.1 Persistent atrial fibrillation; E87.6 Hypokalemia; K21.9 Gastro-esophageal reflux disease without esophagitis; J44.9 Chronic obstructive pulmonary disease, unspecified; I25.10 Atherosclerotic heart disease of native coronary artery without angina pectoris; Z86.73 Personal history of transient ischemic attack (TIA), and cerebral infarction without residual deficits; Z87.891 Personal history of nicotine dependence; Z86.39 Personal history of other endocrine, nutritional and metabolic disease; Z79.4 Long term (current) use of insulin; Z87.39 Personal history of other diseases of the musculoskeletal system and connective tissue; Z86.69 Personal history of other diseases of the nervous system and sense organs; Z90.49 Acquired absence of other specified parts of digestive tract; Z82.49 Family history of ischemic heart disease and other diseases of the circulatory system; Z82.3 Family history of stroke; Z83.3 Family history of diabetes mellitus
CPT/HCPCS: 93306

== ENCOUNTER 2018-09-03 06:50 | Outpatient (CLI) | payer MEDICARE, BC ==
[~2018-09-03] VITALS: Ht 172.7 cm; Wt 68.0 kg
[2018-09-03] VITALS (12 sets, daily range): BP systolic 146–167; BP diastolic 68–103
[2018-09-03] MEDS ORDERED: FLUT16SP NS (07:25)
[2018-09-03] MEDS ORDERED: FLUT12AE IH (07:25)
[2018-09-03] MEDS ORDERED: CYAN10005 PO (07:25)
[2018-09-03 07:32] LABS: BASO % 1 % (0-3); EOS # 0.2 x10^3/uL (0.0-0.7); EOS % 3 % (0-3); HEMATOCRIT 28.3 % (39.0-53.0); HEMOGLOBIN 9.6 g/dL (13.0-17.5); LYMPH # 1.4 x10^3/uL (1.0-4.8); LYMPH % 18 % (24-48); MEAN CORPUSCULAR HEMOGLOBIN 32 pg (25-35); MEAN CORPUSCULAR HGB CONC 34 g/dL (31-37); MEAN CORPUSCULAR VOLUME 96 fL (79-100); MONO # 0.7 x10^3/uL (0.0-1.1); MONO % 9 % (0-9); NEUT # 5.7 x10^3uL (1.8-7.7); NEUT % 70 % (31-73); PLATELET COUNT 188 x10^3/uL (140-400); RED BLOOD COUNT 2.96 x10^6/uL (4.30-5.70); RED CELL DISTRIBUTION WIDTH 14.3 % (11.5-14.5); WHITE BLOOD COUNT 8.2 x10^3/uL (4.0-11.0)
[2018-09-03 07:42] LABS: PROTHROMBIN TIME PATIENT 17.4 SEC (11.7-14.0)
[2018-09-03] MEDS ORDERED: LIDOCAINE WITH 8.4% SOD BICARB 3 ML DISP.SYRIN. ONE (07:46)
[2018-09-03] MEDS ORDERED: fentaNYL PF VIAL 100 MCG/2 ML VIAL ONE (08:29)
[2018-09-03] MEDS ORDERED: MIDAZOLAM HCL/PF 2 MG/2 ML VIAL. ONE (08:29)
[2018-09-03] MEDS ORDERED: FLUMAZENIL 0.5 MG/5 ML VIAL. IV ONE (08:29)
[2018-09-03] MEDS ORDERED: NALOXONE 0.4 MG/ML VIAL. ONE (08:30)
[2018-09-03] MEDS ORDERED: MIDAZOLAM HCL/PF 2 MG/2 ML VIAL. IV ONE (08:45)
[2018-09-03] MEDS: fentaNYL PF VIAL 100 MCG/2 ML VIAL IV ONE ×2 (08:45→09:01)
[2018-09-03] MEDS ORDERED: LIDOCAINE WITH 8.4% SOD BICARB 3 ML DISP.SYRIN. IJ ONE (08:45)
--- NOTE | 2018-09-03 16:30 | RAD ---
CT-guided bone marrow biopsy. 09/03/2018 4:25 PM Indication: MGUS Discussion: The risks and benefits of the procedure, including but not limited to, bleeding and infection were discussed patient. Informed consent was obtained. The patient was brought to the CT scanner and placed in the prone position. A timeout procedure was performed. Venue Manager CT imaging of the pelvis demonstrated left ilium amenable to bone marrow biopsy. The overlying soft tissues were prepped and draped using maximum sterile barrier technique. 1% lidocaine without epinephrine was administered for local anesthesia. Under intermittent CT guidance, an OncControl needle was advanced into the bone marrow of the left iliac crest. 2 Aspirates and 1 core biopsy samples were obtained. Samples were delivered to pathology was present at the time of procedure. The needle was removed and manual pressure held to achieve hemostasis. No immediate complications were identified. The procedure was performed under conscious sedation including continuous cardiopulmonary monitoring via dedicated sedation nurse. Sedation time: 20 minutes Impression: Successful CT-guided bone marrow biopsy of the left iliac crest . PQRS Compliance Statement: One or more of the following individualized dose reduction techniques were utilized for this examination: 1. Automated exposure control 2. Adjustment of the mA and/or kV according to patient size 3. Use of iterative reconstruction technique
== END 2018-09-03 10:52 | disposition home or self-care (01) ==
LOC: INTRAD 06:50
PROVIDERS: ATTEND Internal Medicine Hematology & Oncology
DX: D47.2 Monoclonal gammopathy (principal); I25.10 Atherosclerotic heart disease of native coronary artery without angina pectoris; J44.9 Chronic obstructive pulmonary disease, unspecified; K21.9 Gastro-esophageal reflux disease without esophagitis; I13.0 Hypertensive heart and chronic kidney disease with heart failure and stage 1 through stage 4 chronic kidney disease, or unspecified chronic kidney disease; E11.22 Type 2 diabetes mellitus with diabetic chronic kidney disease; N18.3 Chronic kidney disease, stage 3 (moderate); I08.1 Rheumatic disorders of both mitral and tricuspid valves; I50.9 Heart failure, unspecified; E78.5 Hyperlipidemia, unspecified; Z79.4 Long term (current) use of insulin; I48.1 Persistent atrial fibrillation; Z79.899 Other long term (current) drug therapy; Z79.82 Long term (current) use of aspirin; Z90.49 Acquired absence of other specified parts of digestive tract; Z87.891 Personal history of nicotine dependence
CPT/HCPCS: 36415; 38222; 77012; 85025; 85610; 88184; 88185; 88237; J2250; J3010; 99152

== ENCOUNTER 2018-10-03 05:05 | Emergency (ER) | payer MEDICARE, BC ==
[~2018-10-03] VITALS: Ht 172.7 cm; Wt 65.8 kg
[~2018-10-03 05:05] MED LIST changes: +CYAN10005 PO; +FLUT12AE IH; +FLUT16SP NS
[2018-10-03] MEDS ORDERED: MORPHINE SULFATE 10 MG/ML VIAL. IV ONE (05:45)
[2018-10-03 05:52] LABS: BASO % 0 % (0-3); EOS # 0.4 x10^3/uL (0.0-0.7); EOS % 5 % (0-3); HEMOGLOBIN 12.7 g/dL (13.0-17.5); LYMPH # 1.3 x10^3/uL (1.0-4.8); LYMPH % 15 % (24-48); MEAN CORPUSCULAR HEMOGLOBIN 30 pg (25-35); MEAN CORPUSCULAR HGB CONC 33 g/dL (31-37); MEAN CORPUSCULAR VOLUME 92 fL (79-100); MONO # 0.9 x10^3/uL (0.0-1.1); MONO % 10 % (0-9); NEUT # 6.3 x10^3uL (1.8-7.7); NEUT % 71 % (31-73); PLATELET COUNT 231 x10^3/uL (140-400); RED BLOOD COUNT 4.25 x10^6/uL (4.30-5.70); RED CELL DISTRIBUTION WIDTH 15.1 % (11.5-14.5)
[2018-10-03 05:58] LABS: CALCIUM 8.9 mg/dL (8.5-10.1); CREATININE 2.2 mg/dL (0.7-1.3); GFR 35.9; POTASSIUM 4.1 mmol/L (3.5-5.1)
[2018-10-03 06:01] LABS: C-REACTIVE PROTEIN 4.7 mg/L (0-3.3)
--- NOTE | 2018-10-03 06:42 | PHYS DOC ---
Past Medical History Past Medical History: CAD, CHF, Diabetes-Type II Additional Past Medical Histor: PM ICD, RESPIRATORY FAILURE Past Surgical History: Pacemaker Additional Past Surgical Histo: X5 BYPASS,ROTATOR CUFF Alcohol Use: None Drug Use: None Adult General Chief Complaint Chief Complaint: BACK PAIN - NO INJURY [facility] HPI Patient is a 73 year old male who presents with lumbar back pain. Patient states he has been having pain for several months. He has been seen by his primary care physician and treated with medications at home. 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 He has undergone some injections in the lumbar spine. Pain is worse with movement. He did not sustain any trauma prior to onset of symptoms several months earlier. This evening, he presents to the ER complaining of the exact same pain which is chronic in nature. He awoke this morning however and the pain was severely worse. The pain was so bad he states he was unable to move about his house. He has not had a fever or chills. He denies any recent trauma. No difficulties with elimination. He denies numbness or tingling in the lower extremities. His had no chest pain, dizziness , palpitations. Review of Systems Review of Systems Constitutional: Denies fever or chills Eyes: Denies change in visual acuity, redness HENT: Denies nasal congestion or sore throat Respiratory: Denies cough or shortness of breath Cardiovascular: No additional information not addressed in HPI GI: Denies abdominal pain, nausea, vomiting : Denies dysuria Musculoskeletal: Denies back pain Integument: Denies rash or skin lesions Neurologic: Denies headache Endocrine: Denies polyuria All other systems were reviewed and found to be within normal limits, except as documented in this note. Current Medications Current Medications Current Medications Medications (Trade) Dose Ordered Sig/[facility] Start Time Stop Time Status Last Admin Dose Admin Morphine Sulfate (Morphine Sulfate) 6 mg 1X ONCE 10/03/18 05:45 10/03/18 05:46 DC 10/03/18 05:44 6 MG Allergies Allergies Allergies Coded Allergies Type Severity Reaction Last Updated Verified No Known Drug Allergies 09/03/18 No Physical Exam Physical Exam Constitutional: Well developed, well nourished, no acute distress, non-toxic appearance HENT: Normocephalic, atraumatic, bilateral external ears normal Eyes: PERRLA, EOMI, conjunctiva normal Neck: Normal range of motion, no tenderness Cardiovascular:Heart rate regular rhythm Lungs & Thorax: Bilateral breath sounds clear to auscultation Abdomen: Bowel sounds normal, soft Skin: Warm, dry, no erythema Back: + TTP about the lumbar paraspinal muscles and midline lumbar/sacral areas. Extremities: No edema Neurologic: Alert and oriented X 3 Psychologic: Affect normal Current Patient Data Vital Signs Vital Signs Date Time Temp Pulse Resp B/P (MAP) Pulse Ox O2 Delivery O2 Flow Rate FiO2 10/03/18 05:19 97.5 55 18 152/84 (106) 98 Room Air 97.5 Lab Values Laboratory Tests Test 10/03/18 05:40 White Blood Count 9.0 x10^3/uL (4.0-11.0) Red Blood Count 4.25 x10^6/uL (4.30-5.70) L Hemoglobin 12.7 g/dL (13.0-17.5) L Hematocrit 39.0 % (39.0-53.0) Mean Corpuscular Volume 92 fL (79-100) Mean Corpuscular Hemoglobin 30 pg (25-35) Mean Corpuscular Hemoglobin Concent 33 g/dL (31-37) Red Cell Distribution Width 15.1 % (11.5-14.5) H Platelet Count 231 x10^3/uL (140-400) Neutrophils (%) (Auto) 71 % (31-73) Lymphocytes (%) (Auto) 15 % (24-48) L Monocytes (%) (Auto) 10 % (0-9) H Eosinophils (%) (Auto) 5 % (0-3) H Basophils (%) (Auto) 0 % (0-3) Neutrophils # (Auto) 6.3 x10^3uL (1.8-7.7) Lymphocytes # (Auto) 1.3 x10^3/uL (1.0-4.8) Monocytes # (Auto) 0.9 x10^3/uL (0.0-1.1) Eosinophils # (Auto) 0.4 x10^3/uL (0.0-0.7) Basophils # (Auto) 0.0 x10^3/uL (0.0-0.2) Sodium Level 142 mmol/L (136-145) Potassium Level 4.1 mmol/L (3.5-5.1) Chloride Level 103 mmol/L (98-107) Carbon Dioxide Level 29 mmol/L (21-32) Anion Gap 10 (6-14) Blood Urea Nitrogen 45 mg/dL (8-26) H Creatinine 2.2 mg/dL (0.7-1.3) H Estimated GFR (Cockcroft-Gault) 35.9 Glucose Level 138 mg/dL (70-99) H Calcium Level 8.9 mg/dL (8.5-10.1) C-Reactive Protein, Quantitative 4.7 mg/L (0-3.3) H Laboratory Tests 10/03/18 05:40 Laboratory Tests 10/03/18 05:40 EKG EKG [] Radiology/Procedures Radiology/Procedures [] Course & Med Decision Making Course & Med Decision Making Pertinent Labs and Imaging studies reviewed. (See chart for details) 05:35: Patient is seen and examined for lumbar back pain which seems musculoskeletal in nature and is acute on chronic this am. Patient states he has not undergone imaging and there are no images available in the EMR. Today, the pain is worse. He has no numbness or tingling. He denies saddle anesthesia. He has no difficulty with elimination. No loss of motor strength. 5/5 motor strength bilateral LE's. 2/4 DTR's at achilles and patellar levels. No fever, chills. Today, labs and imaging are ordered. Patient has no symptoms above the Lumbar area. CT abd/pelvis with lumbar recon's ordered. Meds for pain. 06:00: Transfer of care to Dr. Ludwig. (please f/u on symptom control, imaging, labs) Hilaria Disclaimer Hilaria Disclaimer This electronic medical record was generated, in whole or in part, using a voice recognition dictation system. Departure Departure Referrals: KEMAL JENNINGS (PCP) JULIANA STALEY DO Oct 03, 2018 06:42
[2018-10-03] MEDS ORDERED: MORPHINE SULFATE 4 MG/ML VIAL. IV ONE (07:00)
[2018-10-03] MEDS ORDERED: IV NORMAL SALINE 500ML BAG 500 ML IV ONE (07:00)
--- NOTE | 2018-10-03 07:19 | RAD ---
CT abdomen and pelvis without contrast. HISTORY: Lower abdominal pain CT scan the abdomen and pelvis was done without contrast. There are small bilateral effusions. There is a calcified granulomas in both lower lobes unchanged from old studies. There is diffuse soft tissue swelling suggesting anasarca. Spleen is normal in appearance. There are bilateral renal cysts. There is no hydronephrosis in the kidneys. Pancreas is grossly unremarkable although the common duct appears dilated. Patient's had a cholecystectomy. There is no bowel obstruction. There is mild inflammation at the umbilicus. There is a small amount of fluid in the pelvis which is nonspecific. There is no bowel obstruction. The appendix is not specifically identified. IMPRESSION: 1. Small bilateral effusions. 2. Bilateral renal cysts. 3. Small amount of fluid in the pelvis nonspecific. 4. Moderate stool in the colon. 5. No bowel obstruction. 6. Dilated bile duct similar to an old study. 7. Appendix is not specifically identified, acute inflammation not otherwise identified PQRS Compliance Statement: One or more of the following individualized dose reduction techniques were utilized for this examination: 1. Automated exposure control 2. Adjustment of the mA and/or kV according to patient size 3. Use of iterative reconstruction technique Electronically signed by: Brendan Arteaga MD (10/03/2018 7:16 AM) [id number]
--- NOTE | 2018-10-03 07:23 | RAD ---
CT lumbar spine without contrast. HISTORY: Lower back pain Axial CT images were obtained to the lumbar spine. Sagittal and coronal reconstructed images were reviewed. Lower thoracic levels are unremarkable with mild hypertrophic changes but without spinal stenosis. T12-L1, L1-2, and discs are unremarkable without a focal protrusion or spinal stenosis. There is mild bulging of the disc at L2-3 without spinal stenosis or foraminal stenosis. There is moderate bulging of the disc at L3-3-4 with mild spinal stenosis and bilateral lateral recess stenosis. There is mild to moderate bulging of the disc at L4-5 with mild lateral recess stenosis but without central spinal stenosis or foraminal stenosis. There is no focal disc protrusion or spinal stenosis at L5-S1. There is no acute fracture. Spine is in normal alignment. IMPRESSION: 1. Bulging discs at L3-4 and L4-5 with mild lateral recess stenosis and mild narrowing of the canal, a more focal protrusion is not identified. PQRS Compliance Statement: One or more of the following individualized dose reduction techniques were utilized for this examination: 1. Automated exposure control 2. Adjustment of the mA and/or kV according to patient size 3. Use of iterative reconstruction technique Electronically signed by: Brendan Arteaga MD (10/03/2018 7:20 AM) [facility]
[2018-10-03 07:37] LABS: BILIRUBIN,URINE NEGATIVE (NEG); CLARITY,URINE CLEAR; COLOR,URINE YELLOW; NITRITE,URINE NEGATIVE (NEG); PROTEIN,URINE 100 mg/dL (NEG-TRACE); UROBILINOGEN,URINE 0.2 mg/dL (0.2 mg/dL)
[2018-10-03 07:57] LABS: HYALINE CASTS, URINE OCCASIONAL /HPF; SQUAMOUS EPITHELIAL CELL,UR OCC /LPF
[2018-10-03 07:58] LABS: BACTERIA,URINE 0 /HPF (0-FEW); RBC,URINE OCC /HPF (0-2); WBC,URINE OCC /HPF (0-4)
[2018-10-03] MEDS ORDERED: DOCU-109 PO (08:12)
[2018-10-03] MEDS ORDERED: HYDR-971 PO (08:12)
[2018-10-03 08:18] VITALS: BP 165/84
== END 2018-10-03 08:44 | disposition home or self-care (01) ==
LOC: ER 05:05
DX: M48.061 Spinal stenosis, lumbar region without neurogenic claudication (principal); N28.1 Cyst of kidney, acquired; G89.29 Other chronic pain; R19.8 Other specified symptoms and signs involving the digestive system and abdomen; K83.8 Other specified diseases of biliary tract; R10.2 Pelvic and perineal pain; E11.9 Type 2 diabetes mellitus without complications; I25.10 Atherosclerotic heart disease of native coronary artery without angina pectoris; Z95.0 Presence of cardiac pacemaker; Z95.1 Presence of aortocoronary bypass graft; Z87.09 Personal history of other diseases of the respiratory system; Z86.79 Personal history of other diseases of the circulatory system
CPT/HCPCS: 36415; 74176; 80048; 81001; 85025; 85651; 86140; 96374; 96376; 99285; J2270; J7040

== ENCOUNTER → 2018-10-27 | Outpatient (CLI) | payer MEDICARE, BC ==
[2018-10-03 08:18] VITALS: BP 165/84
[~2018-10-27] MED LIST changes: +DOCU-109 PO; +HYDR-3164 PO
--- NOTE | 2018-10-27 13:01 | PAIN ---
DATE OF SERVICE: 10/27/2018 INITIAL CONSULTATION FOR PAIN CLINIC CHIEF COMPLAINT: Low back and right lower extremity pain. HISTORY OF PRESENT ILLNESS: This is a 73-year-old male who presents with history of pain for about 5 weeks now, not a result of any injury or action that he is aware of. He feels pain across the low back into the right lower extremity, posterior gluteus, posterolateral thigh, lateral anterior thigh, medial groin, medial anterior thigh on the right side to the level of the medial knee. The patient reports it is worse with walking and standing. After he walks for about 5-10 minutes, the pain subsides to some extent, but when he sits down and gets back up, it is painful getting out of a chair, getting into a chair, also with standing and walking for shorter distances. The patient reports the pain is sharp, stabbing, throbbing, shooting, changes during the day, worse at night, worse with more activity and worse in the evenings significantly. The patient has had some exercise therapy in the past. He has been doing some exercises recently for the pain, but has not been helping significantly. He has also seen his physical medicine and rehabilitation physician who has him on an exercise routine as well and tried some trigger point injections, which did help temporarily at that time. The patient reports it awakens him from sleep at least twice a night, does not affect bowel or bladder control, but does affect his ability to walk using a cane, which he has with him in his right hand or walker at times at home. He reports it does sometimes drag his right foot. It catches at all surfaces on the floor at home unless he has been on his feet for quite a time of greater than 30 minutes in general. The patient reports his disability from 0-10, 10 being the worst, 8 with family home responsibilities, sexual behavior and self-care, 9 with recreation, social activity, occupation and life support activities. The patient did have CT scan of the lumbar spine showing bulging disk, L3-L4 and L4-L5 with lateral recess stenosis and mild narrowing of the canal, with L3-L4 showing mild spinal stenosis and bilateral recess stenosis and [id number]-wi-[id number] bulging of the disk at L4-L5 with mild lateral recess stenosis without central stenosis or foraminal stenosis. PAST MEDICAL HISTORY: Significant for hypertension, diabetes, atrial fibrillation, congestive heart failure, coronary artery bypass, arthritis. PREVIOUS SURGERY: Also includes bilateral cataract extractions, pacemaker and defibrillator placement, coronary artery bypass in 2002, also previous rotator cuff repair and cholecystectomy. CURRENT MEDICATIONS: Include tramadol, insulin, Pradaxa, niacin, simvastatin, diltiazem, potassium, metolazone, clopidogrel, vitamin D, daily baby aspirin, digoxin, metoprolol and albuterol. ALLERGIES: The patient has no known drug allergies. FAMILY HISTORY: Significant for no major medical problems or conditions that he is aware of. SOCIAL HISTORY: The patient does not smoke, does not drink alcohol, does not use any illegal, illicit or recreational drugs. He is and lives with his spouse, has 2 children living at home, lives locally in [place], [place] and reports he is retired. REVIEW OF SYSTEMS: The patient's review of systems is positive for those items mentioned in history of present illness. All systems reviewed and otherwise negative. It is complete, full and well documented on the patient's chart. PHYSICAL EXAMINATION: VITAL SIGNS: Blood pressure is 158/89, pulse 57, respirations 18, temperature 97.3 degrees Fahrenheit, height 5 feet 8 inches, weight 151 pounds. GENERAL: The patient is awake, alert, oriented, appropriate, very pleasant demeanor. HEENT: Head is normocephalic, atraumatic. Extraocular movements are intact and symmetrical. Oral cavity shows mucous membranes moist and pink. Dentition is intact. NECK: Shows anterior throat supple without palpable lymphadenopathy noted. Swallow reflex symmetrical. CHEST: Shows normal with inspection. Breath sounds clear to auscultation bilaterally. HEART: Shows S1, S2 clear. No murmurs auscultated. ABDOMEN: Soft, nontender, nondistended. No palpable organomegaly, no rebound or guarding demonstrated. BACK: Shows spine grossly in the midline. Normal appearing thoracic kyphosis and some minor flattening of the lumbar lordotic curvature. Normal-appearing thoracic paraspinous musculature is symmetrical and lumbar paraspinous muscles on inspection shows normal symmetry. No atrophy, hypertrophy. No tenderness with palpation. In the superior aspect of the lower aspect, still has some moderate tenderness with palpation bilaterally, but without trigger points, without radiation or asymmetry. No tenderness over the spinous processes, sacrum or sacroiliac regions. The patient has good rotational motion of lumbar spine, both laterally greater than 10 degrees right and left as well as extension greater than 10 degrees, forward flexion 45 degrees without significant discomfort or pain reported. EXTREMITIES: The patient's lower extremities show deep tendon reflexes at 1+ in the patellar and tendo calcaneus tendons are equal. Motor exam is strong with approximately 4 on a scale of 5 with right dorsiflexion, extension, quadriceps and hamstring flexion and 5/5 on the left. Peripheral pulses are 1+ posterior tibia. No peripheral edema is noted. Lower extremities are warm and dry to touch, equal in color and appearance. Straight leg raising noted to be negative for reproduction of radicular symptoms bilaterally. Gaenslen and Rah maneuvers are negative bilaterally as well. The patient is able to stand, has slight difficulty standing on his toes on his right foot, but can do this, loses balance quickly. The patient is walking with a limping gait favoring the right lower extremity, again using a walking cane in his right hand. SKIN: Shows warm and dry, good turgor. No edema. No sores, rashes or bruising. IMPRESSION: 1. This is a 73-year-old male with approximately 5-week history of increasing pain, low back, into the right lower extremity is noted. 2. CT scan of lumbar spine as noted. 3. Hypertension. 4. Atrial fibrillation. 5. Diabetes. 6. Arthritis. PLAN: Options were discussed with the patient including conservative medical management, physical therapy, interventional technique. He would like to pursue interventional techniques as he is doing physical therapy and exercises already. We discussed a lumbar epidural steroid injection; however, the patient is on both Pradaxa and Plavix. We will check with his etymology professor to see if this may be deemed safe to hold these in preparation for interventional spine procedure. The patient would like to pursue this. In the meantime, we will try Medrol Dosepak. The patient was given instruction as well as side effects to be aware of with medication, most notably with increased blood glucose, and he will monitor this closely. The patient will return to clinic in approximately 2 weeks pending opinion from the patient's etymology professor regarding holding his blood thinners. JULIANA DONOVAN MD DR: RAUL/harjinder JOB#: [id number] / [id number] KEMAL Ross
== END | disposition home or self-care (01) ==
LOC: PNCL 10:18
PROVIDERS: ATTEND Anesthesiology
DX: M79.604 Pain in right leg (principal); M54.5 Low back pain; E11.9 Type 2 diabetes mellitus without complications; I48.91 Unspecified atrial fibrillation; I11.0 Hypertensive heart disease with heart failure; I50.9 Heart failure, unspecified; M19.90 Unspecified osteoarthritis, unspecified site
CPT/HCPCS: G0463

== ENCOUNTER → 2018-11-21 | Outpatient (CLI) | payer MEDICARE, BC ==
[~2018-11-21] MED LIST changes: -DILT120C80 PO; +DILT120C85 PO; +IOHEXOL 180 MG/ML 10 ML VIAL. ONE; +methylPREDNISolone ACETATE 40 MG/ML VIAL. ONE; +methylPREDNISolone ACETATE 80 MG/ML VIAL. ONE
--- NOTE | 2018-11-21 12:28 | PAIN ---
DATE OF SERVICE: 11/21/2018 PROGRESS NOTE FOR PAIN CLINIC DIAGNOSES: Lumbar radiculopathy with lumbar degenerative disk disease. HISTORY OF PRESENT ILLNESS: The patient is a 73-year-old male who returns for followup status post evaluation for lumbar epidural steroid injection. 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 He has been off of that now for 4 days. The patient reports still significant pain in the low back and right lower extremity as it was previously. No significant change, better with sitting or lying down and worse with walking and standing, especially with walking. The patient reports it is cramping, aching, sharp, tight, shooting into the right lower extremity, goes in the anterior thigh, anterior medial thigh, medial knee as well and in the low back on the right side. The patient reports it is severe and unbearable at times. He rates it at 8 on a scale of 10 at its worst, 6 on average, 4 at its least, and it is a 6 today. The patient reports no new motor or sensory deficits. No new bowel or bladder incontinence or other complaints. PHYSICAL EXAMINATION: VITAL SIGNS: The patient's blood pressure is 157/81, pulse 61, respirations 18 and temperature 97.2 degree Fahrenheit. Height is 5 foot 7 inches, weight is 155 pounds. GENERAL: The patient is awake, alert, oriented, appropriate, very pleasant demeanor. HEENT EXAMINATION: Shows normocephalic, atraumatic. Extraocular movements are intact and symmetrical. Oral cavity, mucous membranes are moist and pink. Dentition is intact. NECK: Shows anterior throat supple, without palpable lymphadenopathy noted. Swallow reflex is symmetrical. CHEST: Shows normal on inspection. Breath sounds are clear to auscultation bilaterally. HEART: Shows S1 and S2 clear. No murmurs auscultated. ABDOMEN: Soft, nontender and nondistended. No palpable organomegaly is noted. No rebound or guarding demonstrated. BACK: Shows spine grossly in the midline. Normal-appearing thoracic kyphosis and lumbar lordotic curvature. Lumbar paraspinal muscle shows symmetrical on inspection. With palpation, it shows some moderate tenderness diffusely throughout the upper, middle and lower distribution in the paraspinous muscles. No specific radiation. No asymmetry, atrophy or hypertrophy. He has good rotational motion of the lumbar spine, both laterally as well as extension and flexion, without significant difficulty. EXTREMITIES: Lower extremities show deep tendon reflexes at 1+ in the patellar and tendo calcaneus tendons are equal. Motor exam is approximately 4 on a scale 5 on the right and 5/5 in the left with dorsiflexion, extension, quadriceps and hamstring flexion. Peripheral pulses are 1+ posterior tibial. No peripheral edema is noted bilaterally. Options were discussed with the patient. The patient's old chart was reviewed as was his current medications regimen updated. Current review of systems updated today as well. We will proceed with a lumbar epidural steroid injection today as he has been off of his Pradaxa now for several days. Risks were again discussed including, but not limited to bleeding, infection, possibility of epidural hematoma, subsequent neurological compromise, dural puncture, headache, spinal cord and/or nerve damage, side effects of steroid medication and poor results regarding pain control. The patient understands and wishes to proceed. The patient will return to the clinic in approximately 2 weeks for follow up. He was counseled about his return appointment, activity level and side effects to be aware of. DIAGNOSES: Lumbar radiculopathy with lumbar degenerative disk disease. PROCEDURE: Lumbar epidural steroid injection in translaminar approach at L3-L4 level using C-arm fluoroscopic guidance under sterile prep and drape using local anesthetic. MEDICATION INJECTED: A total of 120 mg of Depo-Medrol plus 10 mL preservative-free normal saline and 2 mL of Isovue for contrast. CONDITION ON DISCHARGE: Stable. The patient tolerated the procedure well, had no complications. JULIANA DONOVAN MD DR: RAUL/harjinder JOB#: [id number] / [id number]
== END | disposition home or self-care (01) ==
LOC: PNCL 10:46
PROVIDERS: ATTEND Anesthesiology
DX: M51.16 Intervertebral disc disorders with radiculopathy, lumbar region (principal)
CPT/HCPCS: 62323; J1030; J1040; Q9965

== ENCOUNTER → 2018-12-18 | Outpatient (CLI) | payer MEDICARE, BC ==
--- NOTE | 2018-12-18 12:53 | PAIN ---
DATE OF SERVICE: 12/18/2018 PROGRESS NOTE FOR PAIN CLINIC DIAGNOSES: Lumbar radiculopathy with lumbar degenerative disk disease. HISTORY OF PRESENT ILLNESS: The patient is a 73-year-old male who returns for followup status post lumbar epidural steroid injection x 1. The patient reports about 75% improvement in the low back and right lower extremity pain. The patient reports he has been increasing his activity with greater ease and comfort, walking greater distances with greater ease, able to do household activities, traveling, getting out of the car easier, sleeping well at night, it does not awaken him from sleep, sleeps about 8 hours at a time. The patient reports his pain is a 6 on a scale 10 at its worst, 5 on average and 3 at its least and is a 5 today. The patient reports it is dull and shooting, becoming more noticeable, but not nearly back to baseline. The patient reports it is in the low back, right lower extremity, right anterior lateral thigh, lateral anterior medial thigh, medial lower leg and into the knee and calf on the medial aspect on the right as well. The patient reports no new motor or sensory deficits, no bowel or bladder incontinence or other complaints. PHYSICAL EXAMINATION: VITAL SIGNS: The patient's blood pressure 142/85, pulse 76, respirations are 18, temperature 97.4 degrees Fahrenheit, height is 5 feet 7 inches, weight 157 pounds. GENERAL: The patient is awake, alert, oriented, appropriate, very pleasant demeanor. HEENT: Head shows normocephalic, atraumatic. Extraocular movements are intact and symmetrical. Oral cavity: Mucous membranes moist and pink. Dentition is intact. NECK: Shows anterior throat supple without palpable lymphadenopathy noted. Swallow reflex symmetrical. CHEST: Shows normal on inspection. Breath sounds clear to auscultation bilaterally. HEART: Shows S1, S2 clear. No murmurs auscultated. ABDOMEN: Soft, nontender, nondistended. No palpable organomegaly is noted. No rebound or guarding demonstrated. BACK: Shows spine grossly in the midline. Normal appearing thoracic kyphosis and some minor flattening of lumbar lordotic curvature. Lumbar paraspinous muscle shows symmetrical on inspection with palpation, shows some moderate tenderness only diffusely in the low lumbar distribution without significant radiation. EXTREMITIES: The patient's lower extremities show deep tendon reflexes at 1+ in the patellar and tendo calcaneus tendons are equal. Motor exam is approximately 4 on a scale of 5 on the right and 5/5 on the left with dorsiflexion, extension, quadriceps and hamstring flexion. Peripheral pulses are 1+ posterior tibial. No peripheral edema is noted bilaterally. PLAN: Options were discussed with the patient. The patient's old chart was reviewed as his current medication regimen updated. Current review of systems updated today as well. We will proceed with a second in the series of lumbar epidural steroid injection today with fluoroscopic guidance. Risks were again discussed including, but not limited to bleeding, infection, possibility of epidural hematoma and subsequent neurological compromise, dural puncture, headaches, spinal cord and/or nerve damage, side effects of steroid medication and poor results regarding pain control. The patient understands and wished to proceed. The patient to return to clinic in approximately 2 weeks for followup, was counseled on return appointment, activity level and side effects to be aware of. DIAGNOSES: Lumbar radiculopathy with lumbar degenerative disk disease. PROCEDURE: Lumbar epidural steroid injection, translaminar approach L4-L5 level using C-arm fluoroscopic guidance under sterile prep and drape using local anesthetic. MEDICATION INJECTED: A total of 120 mg Depo-Medrol plus 10 mL of preservative-free normal saline and 2 mL of Isovue for contrast. CONDITION AT DISCHARGE: Stable. The patient tolerated the procedure well and had no complications. JULIANA DONOVAN MD DR: RAUL/harjinder JOB#: [id number] / [id number]
== END | disposition home or self-care (01) ==
LOC: PNCL 11:37
PROVIDERS: ATTEND Anesthesiology
DX: M51.16 Intervertebral disc disorders with radiculopathy, lumbar region (principal)
CPT/HCPCS: 62323; J1030; J1040; Q9965

== ENCOUNTER → 2019-01-05 | Outpatient (CLI) | payer MEDICARE, BC ==
[~2019-01-05] MED LIST changes: +AMLO5TAB10 PO; -AMLO5TAB7 PO; -IOHEXOL 180 MG/ML 10 ML VIAL. ONE; -methylPREDNISolone ACETATE 40 MG/ML VIAL. ONE; -methylPREDNISolone ACETATE 80 MG/ML VIAL. ONE
--- NOTE | 2019-01-05 15:58 | RAD ---
CHEST PA LATERAL CLINICAL INDICATION: CHF, PLEURAL EFFUSION COMPARISON: 12/10/2017 FINDINGS: CABG changes noted. Stable position of single lead cardiac pacer with its lead projecting over the heart. Heart is top normal in size. Diffuse prominence of bilateral vascular markings. No focal consolidation. No pneumothorax or pleural effusion. Visualized bony thorax is within normal limits. IMPRESSION: Chronic congestive changes. No pleural effusion. Electronically signed by: Emile Gross DO (01/05/2019 3:53 PM) [id number]
== END | disposition home or self-care (01) ==
LOC: RAD 15:15
PROVIDERS: ATTEND Family Medicine
DX: J90 Pleural effusion, not elsewhere classified (principal); I13.0 Hypertensive heart and chronic kidney disease with heart failure and stage 1 through stage 4 chronic kidney disease, or unspecified chronic kidney disease; E11.22 Type 2 diabetes mellitus with diabetic chronic kidney disease; I50.9 Heart failure, unspecified; N18.3 Chronic kidney disease, stage 3 (moderate)
CPT/HCPCS: 71046

== ENCOUNTER → 2019-04-23 | Outpatient (CLI) | payer MEDICARE, BC ==
[~2019-04-23] MED LIST changes: +IOHEXOL 180 MG/ML 10 ML VIAL. ONE; +methylPREDNISolone ACETATE 40 MG/ML VIAL. ONE; +methylPREDNISolone ACETATE 80 MG/ML VIAL. ONE
--- NOTE | 2019-04-23 14:26 | RAD ---
Cervical spine, 04/23/2019: HISTORY: Cervical adenopathy There is moderate disc space narrowing and marginal spurring at C5-6 and C6-7. There are mild scattered spurs at the other disc levels. There are moderate hypertrophic degenerative changes involving multiple facet joints bilaterally. No fracture or dislocation is evident. There is slight reversal of the normal cervical lordosis. Moderate calcific plaquing is present at both carotid bifurcations. IMPRESSION: 1. Moderate multilevel degenerative change, most severe at the C5-6 and C6-7 disc levels. 2. No acute bony abnormality is detected. Electronically signed by: Blayne Matos MD (04/23/2019 2:23 PM) [facility]
--- NOTE | 2019-04-24 00:34 | PAIN ---
DATE OF SERVICE: 04/23/2019 DIAGNOSES: Lumbar radiculopathy with lumbar degenerative disk disease. HISTORY OF PRESENT ILLNESS: The patient is a 74-year-old male who returns for followup status post lumbar epidural steroid injection x 2, most recently on 10/18/2018. The patient reports about 50% improvement after the last injection overall with subsequent pain returning in the low back and right leg. The patient reports it has been increasing for about a month or so in the low back on the right side, right posterior hip, right lateral thigh, lateral anterior medial thigh, medial lower leg as well. The patient reports it is an 8 on a scale of 10 on average, 9 at its worst over the past week, and a 5 at its least and is a 5 today. The patient reports no new motor or sensory deficits, no new bowel or bladder incontinence, better with lying down or sleeping, does awaken him from sleep occasionally, but he sleeps about 8 hours at a time, better with being off of his feet, worse with standing, walking, changing positions. The patient reports no new changes. PHYSICAL EXAMINATION: VITAL SIGNS: The patient's blood pressure 137/82, pulse 65, respirations 16, temperature 97.3 degrees Fahrenheit, weight is 153 pounds. GENERAL: The patient is awake, alert, oriented, appropriate, very pleasant demeanor. HEENT: Shows normocephalic, atraumatic. Extraocular movements are intact and symmetrical. Oral cavity: Mucous membranes are moist and pink. Dentition is intact. NECK: Shows anterior throat supple without palpable lymphadenopathy noted. Swallow reflex is symmetrical. CHEST: Shows normal on inspection. Breath sounds clear to auscultation bilaterally. HEART: Shows S1, S2 clear. No murmurs auscultated. ABDOMEN: Soft, nontender, nondistended. No palpable organomegaly is noted. No rebound or guarding demonstrated. BACK: Shows spine grossly in the midline. Normal appearing thoracic kyphosis and minor flattening of lumbar lordotic curvature. Lumbar paraspinous muscle shows symmetrical on inspection with some mild palpation and tenderness in the low lumbar distribution of the paraspinous muscle on the right side only, but without atrophy or hypertrophy, no asymmetry, no trigger points or radiation. The patient has good rotational motion of lumbar spine, both laterally as well as extension and flexion without difficulty. No tenderness over the spinous processes, sacrum or sacroiliac regions. EXTREMITIES: The patient's lower extremities show deep tendon reflexes at 1+ in the patellar and tendo calcaneus tendons are equal. Motor exam is strong with approximately 4 on scale of 5 on the right with dorsiflexion and extension, 5/5 on the left. Peripheral pulses are 1+ posterior tibia. No peripheral edema is noted bilaterally. Options were discussed with the patient. The patient's old chart was reviewed as was his current medication regimen updated. Current review of systems is updated today as well. We will proceed with a third in the series of lumbar epidural steroid injection today with fluoroscopic guidance. Risks were again discussed including, but not limited to bleeding, infection, possibility of epidural hematoma, subsequent neurologic compromise, dural puncture, headaches, spinal cord and/or nerve damage, side effects of steroid medication and poor results regarding pain control. The patient understands and wished to proceed. The patient will return to the clinic in approximately 2 weeks for followup, was counseled on return appointment, activity level and side effects to be aware of. DIAGNOSIS: Lumbar radiculopathy with lumbar degenerative disk disease. PROCEDURE: Lumbar epidural steroid injection, translaminar approach L3-L4 level using C-arm fluoroscopic guidance under sterile prep and drape using local anesthetic. MEDICATION INJECTED: A total of 120 mg Depo-Medrol plus 10 mL of preservative-free normal saline and 2 mL of Isovue for contrast. CONDITION AT DISCHARGE: Stable. The patient tolerated procedure well, had no complications. JULIANA DONOVAN MD DR: RAUL/harjinder JOB#: [id number] / [id number]
== END | disposition home or self-care (01) ==
LOC: PNCL 10:27
PROVIDERS: ATTEND Anesthesiology
DX: M51.16 Intervertebral disc disorders with radiculopathy, lumbar region (principal); M79.604 Pain in right leg; M47.812 Spondylosis without myelopathy or radiculopathy, cervical region; Z98.890 Other specified postprocedural states
CPT/HCPCS: 62323; 72050; J1030; J1040; Q9965

== ENCOUNTER → 2019-05-28 | Outpatient (CLI) | payer MEDICARE, BC ==
--- NOTE | 2019-05-28 14:16 | PAIN ---
DATE OF SERVICE: 05/28/2019 PROGRESS NOTE FOR PAIN CLINIC DIAGNOSES: 1. Lumbar radiculopathy with lumbar degenerative disk disease. 2. Cervical radiculopathy with cervical degenerative disk disease. HISTORY OF PRESENT ILLNESS: The patient is a 74-year-old male who returns for followup status post lumbar epidural steroid injection x 3, last seen on 04/25/2019. The patient did very well with about an 80% improvement in his low back and leg pain. The patient reports it on his last visit, we have discussed getting some x-rays on his cervical spine, which he has obtained with some degenerative changes noted and has pain in the base of the neck and left shoulder and upper extremity. The patient reports that it is still significant, but his back is doing much better. He is quite pleased with that and he is increasing his activity with greater ease and comfort but his neck and shoulder is becoming more noticeable. The patient reports it is worse with exercise using upper extremity repetitive motions, reaching over his head with his left hand, getting dressed, putting any weight or lifting abilities with the left arm, which is more weak but without any overt muscle or motor loss. The patient reports it is cramping, aching, dull, tight, becoming more constant and more severe and sometimes it is unbearable on the left shoulder and arm. The patient reports it is a 7 on a scale of 10 at its worst in the last week, average is a 7, at its least is 5 and is 7 today. The patient reports no new motor or sensory deficits and no new bowel or bladder incontinence or other complaints. PHYSICAL EXAMINATION: VITAL SIGNS: The patient's blood pressure 122/67, pulse 56, respirations 18 and temperature 97.9 degrees Fahrenheit. Height is 5 feet 8 inches and weight is 149 pounds. GENERAL: The patient is awake, alert, oriented, appropriate and very pleasant demeanor. HEENT: Head is normocephalic and atraumatic. Extraocular movements are intact and symmetrical. Oral cavity: Mucous membranes moist and pink. Dentition is intact. NECK: Shows anterior throat supple without palpable lymphadenopathy noted. Swallow reflex symmetrical. CHEST: Shows normal on inspection. Breath sounds are clear bilaterally. HEART: Shows S1 and S2 clear. No murmurs auscultated. ABDOMEN: Obese but soft, nontender and nondistended. BACK: Shows spine grossly in the midline. Cervical lordotic curvature is maintained as is thoracic kyphotic curvature, mild flattening of lumbar lordotic curvature. Cervical paraspinous muscle shows symmetrical on inspection, with palpation shows some moderate tenderness in the inferior aspect of the left cervical paraspinous musculature as well as the superior medial and lateral trapezius on the left only. The patient reports no radiation with pain with palpation and the patient has good rotational motion of the cervical spine, both laterally as well as extension and flexion without significant difficulty. EXTREMITIES: The patient's upper extremities show deep tendon reflexes at 2+ in the biceps and triceps tendons. 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 Bicep and tricep flexion is 5/5 and equal. Peripheral pulses are 2+ radial distribution. No peripheral edema is noted bilaterally. Options were discussed with the patient. The patient's old chart was reviewed as well as his current medication regimen updated. Current review of systems updated today as well. We will proceed with a cervical epidural steroid injection today with fluoroscopic guidance. Risks were discussed including but not limited to bleeding, infection, possibility of epidural hematoma, subsequent neurologic compromise, dural puncture, headaches, spinal cord and/or nerve damage, side effects of steroid medication and poor results regarding pain control. The patient understands and wished to proceed. The patient will return to the clinic in approximately 2 weeks for followup, was counseled as to return appointment, activity level and side effects to be aware of. DIAGNOSIS: Cervical radiculopathy with cervical degenerative disk disease. PROCEDURE: Cervical epidural steroid injection, translaminar approach, C6-C7 level using C-arm fluoroscopic guidance under sterile prep and drape using local anesthetic. MEDICATION INJECTED: A total of 120 mg Depo-Medrol plus 5 mL of preservative-free normal saline and 2 mL of contrast. CONDITION AT DISCHARGE: Stable. The patient tolerated the procedure well and had no complications. JULIANA DONOVAN MD DR: RAUL/harjinder JOB#: [id number] / [id number]
== END ==
LOC: PNCL 10:37
PROVIDERS: ATTEND Anesthesiology
DX: M50.123 Cervical disc disorder at C6-C7 level with radiculopathy (principal); M51.16 Intervertebral disc disorders with radiculopathy, lumbar region
CPT/HCPCS: 62321; J1030; J1040; Q9965

== ENCOUNTER → 2019-09-09 | Outpatient (CLI) | payer MEDICARE, BC ==
[~2019-09-09] MED LIST changes: +CYAN-25 PO; -CYAN10005 PO; -DILT120C85 PO; +DILT120C99 PO; -IOHEXOL 180 MG/ML 10 ML VIAL. ONE; +LISI1TAB19 PO; -LISI1TAB5 PO; +OMEP40CA45 PO; -OMEP40CA5 PO; -methylPREDNISolone ACETATE 40 MG/ML VIAL. ONE; -methylPREDNISolone ACETATE 80 MG/ML VIAL. ONE
--- NOTE | 2019-09-09 10:57 | CARD ---
MR#: [id number] Date of Study: 09/09/2019 Ordering Physician: CARSON STARK, Referring Physician: CARSON STARK, Tech: Willow Ferraro APPROVED REPORT EXAM: Two-dimensional and M-mode echocardiogram with Doppler and color Doppler. Other Information Quality : GoodHR: 65bpm Rhythm : Pacemaker INDICATION Congestive Heart Failure Surgery/Intervention Pacemaker: RISK FACTORS Hypertension Hyperlipidemia Diabetes 2D DIMENSIONS RVDd3.8 (2.9-3.5cm)Left Atrium(2D)4.4 (1.6-4.0cm) IVSd1.1 (0.7-1.1cm)Aortic Root(2D)2.9 (2.0-3.7cm) LVDd5.2 (3.9-5.9cm)LVOT Diameter2.1 (1.8-2.4cm) PWd1.1 (0.7-1.1cm)LVDs4.3 (2.5-4.0cm) FS (%) 16.3 %SV43.1 ml LVEF(%)34.0 (>50%) Aortic Valve AoV Peak Fidencio.128.1cm/sAoV VTI26.8cm AO Peak GR.6.6mmHgLVOT Peak Fidencio.85.1cm/s LVOT VTI 16.28cmAO Mean GR.3mmHg IVETTE (VMAX)1.85jz3VON (VTI)2.15cm2 Mitral Valve MV E Hsdiztyt950.9cm/sMV DECEL QEUF887vu MV A Cjduwdkn97.8cm/sMV DKD48uf E/A Ratio3.5MVA (PHT)3.85cm2 TDI E/Lateral E'16.5E/Medial E'35.8 Pulmonary Valve PV Peak Brwovtka18.9cm/sPV Peak Grad.3mmHg Tricuspid Valve TR P. Roqpcgxn211at/sRAP SUEYNTJG39zvVm TR Peak Gr.25fiMjHJAA73jdMh Pulmonary Vein S1 Nskzlhks87.4cm/sD2 Bbbvkfcl94.6cm/s LEFT VENTRICLE The left ventricle is normal size. There is mild concentric left ventricular hypertrophy. The left ve ntricular systolic function is severely impaired. The Ejection Fraction is 25%. Abnormal septal motio n probably from paced rhythm. Transmitral Doppler flow pattern is Grade IV-fixed restrictive diastoli c dysfunction. RIGHT VENTRICLE The right ventricle is borderline dilated.he right ventricle is normal size. There is normal right ve ntricular wall thickness. Systolic function is mildly reduced. There is a pacemaker lead in the right ventricle. ATRIA The left atrium is borderline dilated. The right atrium is mildly dilated. There is a pacemaker lead seen in the right atrium. The interatrial septum is intact with no evidence for an atrial septal defe ct or patent foramen ovale as noted on 2-D or Doppler imaging. AORTIC VALVE The aortic valve is thickened but opens well. Doppler and Color Flow revealed no significant aortic r egurgitation. There is no significant aortic valvular stenosis. MITRAL VALVE The mitral valve is normal in structure and function. There is no evidence of mitral valve prolapse. There is no mitral valve stenosis. Doppler and Color Flow revealed no mitral valve regurgitation note d. TRICUSPID VALVE The tricuspid valve is normal in structure and function. Doppler and Color Flow revealed mild tricusp id regurgitation with an estimated PAP of 81 mmHg. There is severe pulmonary hypertension. There is n o tricuspid valve prolapse or vegetation. PULMONIC VALVE The pulmonic valve is not well visualized. Doppler and Color Flow revealed no pulmonic valvular regur gitation. GREAT VESSELS The aortic root is normal in size. The IVC is dilated and collapses <50% with inspiration. PERICARDIAL EFFUSION There is no evidence of significant pericardial effusion. Critical Notification Critical Value: No <Conclusion> The left ventricular systolic function is severely impaired. The Ejection Fraction is 25%. There is a pacemaker lead in RA/RV. Mild tricuspid regurgitation with an estimated PAP of 81 mmHg. There is severe pulmonary hypertension. There is no evidence of significant pericardial effusion. Signed by : Carson Stark, Electronically Approved : 09/09/2019 10:56:59
== END | disposition home or self-care (01) ==
LOC: ECHO 08:22
PROVIDERS: ATTEND Internal Medicine Cardiovascular Disease
DX: I07.1 Rheumatic tricuspid insufficiency (principal); I27.20 Pulmonary hypertension, unspecified; Z95.0 Presence of cardiac pacemaker; I50.22 Chronic systolic (congestive) heart failure
CPT/HCPCS: 93306

== ENCOUNTER → 2020-04-11 | Outpatient (CLI) | payer MEDICARE, BC ==
[~2020-04-11] MED LIST changes: -DIGO125T PO; +DIGO125T3 PO; +REGADENOSON 0.4 MG/5 ML DISP.SYRIN. IV ONE; +SIMV20TA18 PO; -SIMV20TA3 PO
--- NOTE | 2020-04-11 12:06 | RAD ---
MR#: [id number] Date of Study: 04/11/2020 Ordering Physician: CARSON FAIRCHILD Referring Physician: VICTOR MANUEL PATTERSON Tech: RT Truman NavarroR) (N)DORIAN Blank APPROVED REPORT Test Type: Pharmacological Stress Nurse/Tech: RT Melanie (Parviz) (N) Test Indications: Chronic systolic failure Cardiac History: [place] CABG 1991 Medications: see EHR Medical History: see EHR Resting EC% V-paced Nurse/Tech Notes Consent: The procedure was explained to the patient in lay terms. Informed consent was witnessed. Humberto eout was entered into [employer]. History and Stress Test performed by RT Tobin Navarro) (N) Pharm. Details Pharmacologic stress testing was performed using 0.4mg per 5ml of regadenoson given intravenously ove r 7-10 seconds. POST EXERCISE Max HR: 53 bpm Max Blood Pressure: 117/42mmHg Blood Pressure response to exercise: Normal blood pressure response during stress. Chest Pain: No. Arrhythmia: No. INTERPRETATION Stress EKG Conclusion: The patient remains in a V paced rhythm throughout the examination. Imaging Protocol IMAGE PROTOCOL: Rest Tc-99m/stress Tc-99m 1 day Rest: Stress: Viability: Radiopharm.Tc99m YoltaqhcwJs83p Sestamibi Yuco90xXa 33mCi Duration 15min. 10min. Img Date 04/11/2020 04/11/2020 Inj-Img Zgvz01qkl. 60min. Rest Admin Site:IV - Right AntecubitalAdministrator:DORIAN Blank Stress Admin Site: IV - Right AntecubitalAdministrator: RT Tobin Navarro)(N) STRESS DATA End Diast. Vol.156.0mlAv. Heart Rate40.0bpm End Syst. Vol.93.0mlCO Index BSA0.0L/min Myocardial Hbyp491.0gEject. Ybaunfda58.0% Stress Rates Pk. Fill Rate1.26EDV/secLVtime Pk. Fill 192.10msec Pk. Empty Rate1.53ESV/secLVtime Pk. Rmjcv181.05msec 12/04 Pk. Fill0.94EDV/sec Stress Scores Regional WT1.00Summed WT33.00 Regional WM1.00Summed WM19.00 LV Perfusion The stress scans show mild thinning of the septal wall. The rest scans show mild thinning of the septal wall. Nuclear imaging shows no reversible ischemia. There is mild fixed thinning of the septal wall. Wall Motion Left ventricular systolic function is moderately decreased with an ejection fraction of 39%. There i s global hypokinesis mildly accentuated in the septal wall. LV Perf. Quant 17 Seg. SSS7.00 17 Seg. SRS6.00 17 Seg. SDS2.00 Stress Defect Extent (% LAD)22.50Rest Defect Extent (% LAD)4.40Rev. Defect Extent (% LAD)4.40 Stress Defect Extent (% LCX) 28.80Rest Defect Extent (% LCX)15.00Rev. Defect Extent (% LCX)8.80 Stress Defect Extent (% RCA)1.10Rest Defect Extent (% RCA)2.20Rev. Defect Extent (% RCA)0.00 Stress Defect Extent (% ISMAEL)18.70Rest Defect Extent (% ISMAEL)10.20Rev. Defect Extent (% ISMAEL)3.00 Conclusion 1. V paced rhythm during the test. 2. Nuclear imaging shows no significant reversible ischemia. 3. Nuclear imaging shows mild fixed thinning of the septal wall. 4. Left ventricular systolic function is moderately decreased with an ejection fraction of 39%. Ther e is global hypokinesis mildly accentuated in the septal wall. 5. Moderate risk study. Signed by : Yobani Alves MD Electronically Approved : 04/11/2020 12:06:31
== END | disposition home or self-care (01) ==
LOC: NM 08:10
PROVIDERS: ATTEND Internal Medicine Cardiovascular Disease
DX: I50.22 Chronic systolic (congestive) heart failure (principal); I25.2 Old myocardial infarction; Z95.1 Presence of aortocoronary bypass graft
CPT/HCPCS: 78452; 93017; A9500; J2785

== ENCOUNTER 2020-12-01 13:36 | Inpatient (IN) | payer MEDICARE, BC ==
[~2020-12-01] VITALS: Ht 172.7 cm; Wt 55.2 kg
[~2020-12-01 13:36] MED LIST changes: +AMLO-186 PO; -AMLO5TAB10 PO; +DABI75CA3 PO; +ERGO500089 PO; +HYDR-2868 PO; -LISI-338 PO; +LISI-517 PO; -LISI1TAB19 PO; +LISI1TAB37 PO; +MEGE40TA3 PO; -OMEP40CA45 PO; +OMEP40CA7 PO; +PROM6.257 PO; -REGADENOSON 0.4 MG/5 ML DISP.SYRIN. IV ONE; +SACU1TAB7 PO; +SERT25TA PO
[2020-12-01 14:13] LABS: BASO % 0 % (0-3); EOS % 0 % (0-3); HEMATOCRIT 45.7 % (39.0-53.0); HEMOGLOBIN 14.7 g/dL (13.0-17.5); LYMPH # 0.8 x10^3/uL (1.0-4.8); LYMPH % 6 % (24-48); MEAN CORPUSCULAR HEMOGLOBIN 32 pg (25-35); MEAN CORPUSCULAR HGB CONC 32 g/dL (31-37); MEAN CORPUSCULAR VOLUME 99 fL (79-100); MONO # 0.6 x10^3/uL (0.0-1.1); MONO % 5 % (0-9); NEUT # 11.2 x10^3/uL (1.8-7.7); NEUT % 89 % (31-73); PLATELET COUNT 238 x10^3/uL (140-400); RED BLOOD COUNT 4.62 x10^6/uL (4.30-5.70); RED CELL DISTRIBUTION WIDTH 17.5 % (11.5-14.5); WHITE BLOOD COUNT 12.6 x10^3/uL (4.0-11.0)
[2020-12-01] MEDS ORDERED: FUROSEMIDE 40 MG/4 ML VIAL. IVP ONE (14:15)
[2020-12-01 14:24] LABS: CALCIUM 10.1 mg/dL (8.5-10.1); CREATININE 4.4 mg/dL (0.7-1.3); POTASSIUM 4.5 mmol/L (3.5-5.1)
[2020-12-01 14:27] LABS: % BANDS 1 % (0-9); % LYMPHS 6 % (24-48); % MONOS 9 % (0-10); % SEGS 84 % (35-66); PLT ESTIMATE ADEQUATE (ADEQUATE)
[2020-12-01 14:30] LABS: ALBUMIN 3.9 g/dL (3.4-5.0); ALBUMIN/GLOBULIN RATIO 1.3 (1.0-1.7); TOTAL BILIRUBIN 1.4 mg/dL (0.2-1.0)
--- NOTE | 2020-12-01 15:06 | RAD ---
Single view of the chest. 12/01/2020 2:29 PM Indication: Reason: CHF, fluids / Spl. Instructions: / History: Comparison: Chest radiograph October 19, 2020 Findings: Median sternotomy noted. Pacemaking/ICD device from a left subclavian approach noted. Coronary stents noted. Heart is mildly enlarged. Mild central vascular congestion noted. No pneumothorax or pleural effusion is identified. No focal infiltrate is seen. IMPRESSION: Mild cardiomegaly and central vascular congestion Electronically signed by: Josesito Guerra MD (12/01/2020 3:04 PM) [id number]
--- NOTE | 2020-12-01 15:07 | ED.ADGEN ---
Past Medical History Past Medical History: CAD, CHF, Diabetes-Type II Additional Past Medical Histor: PM ICD, RESPIRATORY FAILURE Past Surgical History: Pacemaker Additional Past Surgical Histo: X5 BYPASS,ROTATOR CUFF Smoking Status: Never Smoker Alcohol Use: None Drug Use: None General Adult EDM: Chief Complaint: FATIGUE HPI: HPI: Patient is 75-year-old male who presents to the emergency room complaining of generalized weakness, feeling unwell, swelling in his legs, arms, eyelids. He states this is been ongoing for the last several days. He believes he has been taking keeping his diabetic medications but he is unsure. He has not been on Lasix for quite some time. He denies any fever, cough, URI symptoms, abdominal pain, nausea, vomiting. He states is hard to see due to the swelling in his eyelids. Review of Systems: Review of Systems: Complete ROS is negative unless otherwise documented in HPI Current Medications: Current Medications Medications (Trade) Dose Ordered Sig/Missy Start Time Stop Time Status Last Admin Dose Admin Furosemide (Lasix) 80 mg 1X ONCE 12/01/20 14:15 12/01/20 14:16 DC 12/01/20 14:53 80 MG Allergies: Allergies: Allergies Coded Allergies Type Severity Reaction Last Updated Verified No Known Drug Allergies 09/03/18 No Physical Exam: PE: General: Awake, alert, anasarca HEENT: Atraumatic, EOMI, PERR L, airway patent, bilateral upper eyelid edema Neck: Supple, trachea midline Respiratory: CTA bilaterally, normal effort, no wheezing/crackles CV: RRR, no murmur, cap refill <2, 3+ pitting edema bilateral lower extremities GI: Soft, nondistended, nontender, no masses MSK: No obvious deformities Skin: Warm, dry, intact Neuro: A&O x3, speech NL, sensory and motor grossly intact, no focal deficits Psych: Normal affect, normal mood, not suicidal or homicidal Current Patient Data: Labs: Laboratory Tests Test 12/01/20 14:05 White Blood Count 12.6 x10^3/uL (4.0-11.0) H Red Blood Count 4.62 x10^6/uL (4.30-5.70) Hemoglobin 14.7 g/dL (13.0-17.5) Hematocrit 45.7 % (39.0-53.0) Mean Corpuscular Volume 99 fL (79-100) Mean Corpuscular Hemoglobin 32 pg (25-35) Mean Corpuscular Hemoglobin Concent 32 g/dL (31-37) Red Cell Distribution Width 17.5 % (11.5-14.5) H Platelet Count 238 x10^3/uL (140-400) Neutrophils (%) (Auto) 89 % (31-73) H Lymphocytes (%) (Auto) 6 % (24-48) L Monocytes (%) (Auto) 5 % (0-9) Eosinophils (%) (Auto) 0 % (0-3) Basophils (%) (Auto) 0 % (0-3) Neutrophils # (Auto) 11.2 x10^3/uL (1.8-7.7) H Lymphocytes # (Auto) 0.8 x10^3/uL (1.0-4.8) L Monocytes # (Auto) 0.6 x10^3/uL (0.0-1.1) Eosinophils # (Auto) 0.0 x10^3/uL (0.0-0.7) Basophils # (Auto) 0.0 x10^3/uL (0.0-0.2) Segmented Neutrophils % 84 % (35-66) H Band Neutrophils % 1 % (0-9) Lymphocytes % 6 % (24-48) L Monocytes % 9 % (0-10) Platelet Estimate Adequate (ADEQUATE) Sodium Level 135 mmol/L (136-145) L Potassium Level 4.5 mmol/L (3.5-5.1) Chloride Level 97 mmol/L (98-107) L Carbon Dioxide Level 22 mmol/L (21-32) Anion Gap 16 (6-14) H Blood Urea Nitrogen 98 mg/dL (8-26) H Creatinine 4.4 mg/dL (0.7-1.3) H Estimated GFR (Cockcroft-Gault) 16.0 BUN/Creatinine Ratio 22 (6-20) H Glucose Level 381 mg/dL (70-99) H Calcium Level 10.1 mg/dL (8.5-10.1) Total Bilirubin 1.4 mg/dL (0.2-1.0) H Aspartate Amino Transferase (AST) 23 U/L (15-37) Alanine Aminotransferase (ALT) 25 U/L (16-63) Alkaline Phosphatase 87 U/L (46-116) Troponin I Quantitative 0.090 ng/mL (0.000-0.055) QL-Vhm-T-Type Natriuretic Peptide > 75502 pg/mL (0-124) H Total Protein 7.0 g/dL (6.4-8.2) Albumin 3.9 g/dL (3.4-5.0) Albumin/Globulin Ratio 1.3 (1.0-1.7) Laboratory Tests 12/01/20 14:05 Laboratory Tests 12/01/20 14:05 Vital Signs: Vital Signs Date Time Temp Pulse Resp B/P (MAP) Pulse Ox O2 Delivery O2 Flow Rate FiO2 12/01/20 13:40 97.4 77 13 98 97.4 EKG: EKG: [] Heart Score: Risk Factors: Risk Factors: DM, Current or recent (<one month) smoker, HTN, HLP, family history of CAD, obesity. Risk Scores: Score 0 - 3: 2.5% MACE over next 6 weeks - Discharge Home Score 4 - 6: 20.3% MACE over next 6 weeks - Admit for Clinical Observation Score 7 - 10: 72.7% MACE over next 6 weeks - Early Invasive Strategies Radiology/Procedures: Radiology/Procedures: [] Course & Med Decision Making: Course & Med Decision Making Pertinent Labs and Imaging studies reviewed. (See chart for details) Patient is 75-year-old male who presents to the emergency room complaining of generalized fatigue. Patient has anasarca with signs of fluid overload. This is likely due to both his kidney and heart failure. He was given Lasix here in the emergency room. Kidney failure appears to worsen previous. I have discussed the case with his primary care physician who will admit him. Consult will be placed for cardiology and nephrology. Dragon Disclaimer: Dragon Disclaimer: This electronic medical record was generated, in whole or in part, using a voice recognition dictation system. Departure Departure Impression: Primary Impression: CHF (congestive heart failure) Additional Impressions: Fluid overload Kidney failure Disposition: 09 ADMITTED INPT THIS HOSP Condition: STABLE Referrals: NAUN ROPER MD (PCP) Problem Qualifiers IFEANYI ANDRADE MD Dec 01, 2020 15:07
[2020-12-01 15:08] LABS: BILIRUBIN,URINE NEGATIVE (NEG); CLARITY,URINE CLEAR; COLOR,URINE YELLOW; NITRITE,URINE NEGATIVE (NEG); PROTEIN,URINE NEGATIVE (NEG-TRACE); UROBILINOGEN,URINE 0.2 mg/dL (0.2 mg/dL)
[2020-12-01 15:17] LABS: BACTERIA,URINE 0 /HPF (0-FEW); HYALINE CASTS, URINE FEW /HPF; RBC,URINE 0 /HPF (0-2); WBC,URINE 0 /HPF (0-4)
[2020-12-01] MEDS ORDERED: DEXTROSE 50% 25 GM / 50ML DISP.SYRIN. IV PRN (16:30)
[2020-12-01] MEDS ORDERED: INSULIN LISPRO 300 UNITS/3 ML VIAL. SQ SCH ×2 (17:00→21:00)
[2020-12-01] MEDS ORDERED: ALBUTEROL SULFATE 2.5 MG/3 ML NEBU. NEB PRN ×2 (18:00)
[2020-12-01] MEDS: ASPIRIN ENTERIC COATED 81 MG TABLET.DR. PO SCH (20:36)
[2020-12-01] MEDS: METOPROLOL TART IMMED RELEASE 50 MG TABLET. PO SCH (20:37)
[2020-12-01] MEDS: hydrALAZINE 25 MG TABLET PO SCH (20:37)
[2020-12-01] MEDS: INSULIN GLARGINE SYRINGE. SQ SCH (20:44)
[2020-12-01] MEDS ORDERED: INSULIN LISPRO 300 UNITS/3 ML VIAL. SQ ONE ×2 (21:00→21:30)
[2020-12-01] MEDS ORDERED: INSULIN LISPRO 300 UNITS/3 ML VIAL. IV SCH (21:00)
[2020-12-01] MEDS: HYDROcodone/APAP 5/325MG 1 TAB TABLET PO PRN (21:08)
[2020-12-01] MEDS: INSULIN LISPRO 300 UNITS/3 ML VIAL. SQ SCH (21:10)
[2020-12-01 22:00] VITALS: BP 136/81
[2020-12-01] MEDS: SIMVASTATIN 20 MG TABLET PO SCH (22:49)
[2020-12-01] MEDS: DABIGATRAN ETEXILATE 75 MG CAPSULE. PO SCH (22:50)
[2020-12-02] VITALS (7 sets, daily range): BP systolic 109–137; BP diastolic 62–88
--- NOTE | 2020-12-02 05:27 | NUR ---
pt had 19 beats of Vtach @ 0121. Pt asleep, no complaints.
[2020-12-02] MEDS: INSULIN LISPRO 300 UNITS/3 ML VIAL. SQ SCH ×4 (08:00→21:00)
[2020-12-02 09:00] LABS: BASO % 0 % (0-3); EOS # 0.1 x10^3/uL (0.0-0.7); EOS % 1 % (0-3); HEMATOCRIT 44.8 % (39.0-53.0); HEMOGLOBIN 14.2 g/dL (13.0-17.5); LYMPH # 0.9 x10^3/uL (1.0-4.8); LYMPH % 10 % (24-48); MEAN CORPUSCULAR HEMOGLOBIN 32 pg (25-35); MEAN CORPUSCULAR HGB CONC 32 g/dL (31-37); MEAN CORPUSCULAR VOLUME 99 fL (79-100); MONO # 0.7 x10^3/uL (0.0-1.1); MONO % 8 % (0-9); NEUT # 7.7 x10^3/uL (1.8-7.7); NEUT % 82 % (31-73); PLATELET COUNT 221 x10^3/uL (140-400); RED BLOOD COUNT 4.51 x10^6/uL (4.30-5.70); RED CELL DISTRIBUTION WIDTH 16.8 % (11.5-14.5); WHITE BLOOD COUNT 9.4 x10^3/uL (4.0-11.0)
[2020-12-02 09:06] LABS: CALCIUM 9.5 mg/dL (8.5-10.1); CREATININE 4.1 mg/dL (0.7-1.3); GFR 17.4; POTASSIUM 3.7 mmol/L (3.5-5.1)
[2020-12-02] MEDS: FUROSEMIDE 40 MG/4 ML VIAL. IVP SCH ×2 (09:15→14:18)
[2020-12-02] MEDS: SERTRALINE 25 MG TABLET. PO SCH (09:15)
[2020-12-02] MEDS: hydrALAZINE 25 MG TABLET PO SCH ×3 (09:15→21:40)
[2020-12-02] MEDS: metOLazone 2.5 MG TABLET PO SCH (09:15)
[2020-12-02] MEDS: METOPROLOL TART IMMED RELEASE 50 MG TABLET. PO SCH ×2 (09:16→21:40)
[2020-12-02] MEDS: POTASSIUM CHLORIDE 10 MEQ TABLET.ER. PO SCH (09:16)
[2020-12-02] MEDS: DABIGATRAN ETEXILATE 75 MG CAPSULE. PO SCH ×2 (09:16→21:39)
[2020-12-02] MEDS: ANTI-COAG MONITOR BY PHARMACY. MC PRN (09:46)
--- NOTE | 2020-12-02 10:08 | NUR ---
Cardiology called d/t patient having multiple runs of vtach. Was notified by answering service that Dr. Mata would receive my page. Will continue to monitor.
--- NOTE | 2020-12-02 11:00 | PDOC ---
Provider Note Date of Service: DATE: 12/02/20 TIME: 10:59 Provider Note Pt seen .H&P to be dictated.#[id number]. Justifications for Admission Other Justification NAUN ROPER MD Dec 02, 2020 11:00
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
--- NOTE | 2020-12-02 14:03 | PDOC2 ---
CONSULT Date of Consult Date of Consult DATE: 12/02/20 TIME: 13:53 Reason for Consult Reason for Consult: Heart failure, history of bypass surgery Referring Physician Referring Physician: Dr. Gomez Identification/Chief Complaint Chief Complaint Shortness of breath, weakness Source Source: Chart review, Patient History of Present Illness Reason for Visit: The patient is a 75-year-old male who presented to the emergency room for progressive weakness, shortness of breath and swelling of his lower extremities. He is not able to give a clear history but apparently the symptoms have been progressive over the last week. He denies chest pain. His history from old records are is significant for previous bypass surgery, an implantable defibrillator, heart failure and diabetes. As noted above he denies any chest pain. EKG is V paced. Chest x-ray shows mild cardiomegaly with central venous congestion. A previous Lexiscan MPI test on 04/11/2020 showed no reversible ischemia and an ejection fraction of 39%. Lab testing is significant for a BUN of 98, creatinine 4.4, potassium 4.5, glucose 381. His BNP is greater than 35,000 and his troponin is 0.090. Past Medical History Cardiovascular: AFIB, CAD, CHF, HTN, Hyperlipidemia, Other Pulmonary: COPD CENTRAL NERVOUS SYSTEM: CVA GI: GERD Heme/Onc: Anemia NOS Hepatobiliary: Cholelithiasis Musculoskeletal: Osteoarthritis Endocrine: Diabetes Past Surgical History Past Surgical History: Cholecystectomy, CABG, Cataract Removal Family History Family History: Cancer, Diabetes Social History No ALCOHOL: none Drugs: None Lives: with Family Current Problem List Problem List Problems Medical Problems: (1) CHF (congestive heart failure) Status: Acute (2) Fluid overload Status: Acute (3) Kidney failure Status: Acute Current Medications Current Medications Current Medications Furosemide (Lasix) 80 mg 1X ONCE IVP Last administered on 12/01/20at 14:53; Start 12/01/20 at 14:15; Stop 12/01/20 at 14:16; Status DC Aspirin (Ecotrin) 81 mg HS PO Last administered on 12/01/20at 20:36; Start 12/01/20 at 21:00 Dabigatran (Pradaxa) 75 mg BID PO Last administered on 12/02/20at 09:16; Start 12/01/20 at 21:00 Hydralazine HCl (Apresoline) 25 mg TID PO Last administered on 12/02/20at 09:15; Start 12/01/20 at 21:00 Metolazone (Zaroxolyn) 2.5 mg DAILY PO Last administered on 12/02/20 09:15; Start 12/02/20 at 09:00 Potassium Chloride (Klor-Con) 10 meq DAILY PO Last administered on 12/02/20at 09:16; Start 12/02/20 at 09:00 Sertraline HCl (Zoloft) 25 mg DAILY PO Last administered on 12/02/20at 09:15; Start 12/02/20 at 09:00 Simvastatin (Zocor) 20 mg HS PO Last administered on 12/01/20at 22:49; Start 12/01/20 at 21:00 Albuterol Sulfate (Ventolin Neb Soln) 2.5 mg PRN Q6HRS PRN NEB SHORTNESS OF BREATH; Start 12/01/20 at 18:00; Status Cancel Ergocalciferol (Vitamin D2) 50,000 unit WEEKLY PO ; Start 12/08/20 at 09:00 Metoprolol Tartrate (Lopressor) 50 mg BID PO Last administered on 12/02/20at 09:16; Start 12/01/20 at 21:00 Insulin Human Lispro (HumaLOG) 0-5 UNITS TIDWMEALS SQ ; Start 12/01/20 at 17:00; Stop 12/01/20 at 19:15; Status DC Dextrose (Dextrose 50%-Water Syringe) 12.5 gm PRN Q15MIN PRN IV SEE COMMENTS; Start 12/01/20 at 16:30 Furosemide (Lasix) 40 mg BID92 IVP Last administered on 12/02/20at 09:15; Start 12/02/20 at 09:00 Albuterol Sulfate (Ventolin Neb Soln) 2.5 mg PRN Q4HRS PRN NEB SHORTNESS OF BREATH; Start 12/01/20 at 18:00 Insulin Human Lispro (HumaLOG) 10 units TIDWMEALHC SQ ; Start 12/01/20 at 21:00; Status UNV Insulin Glargine (Lantus Syringe) 10 unit QHS SQ Last administered on 12/01/20at 20:44; Start 12/01/20 at 21:00 Insulin Human Lispro (HumaLOG) 0-10 UNITS TIDWMEALHC SQ Last administered on 12/01/20at 21:10; Start 12/01/20 at 21:00 Acetaminophen/ Hydrocodone Bitart (Lortab 5/325) 1 tab PRN Q8HRS PRN PO MODERATE PAIN 4-6 Last administered on 12/01/20at 21:08; Start 12/01/20 at 21:00 Insulin Human Lispro (HumaLOG) 10 units 1X IV ; Start 12/01/20 at 21:00; Status UNV Insulin Human Lispro (HumaLOG) 10 units 1X ONCE SQ ; Start 12/01/20 at 21:00; Stop 12/01/20 at 21:04; Status DC Insulin Human Lispro (HumaLOG) 10 units 1X ONCE SQ ; Start 12/01/20 at 21:30; Stop 12/01/20 at 21:31; Status DC Info (Anti-Coagulation Monitoring By Pharmacy) 1 each PRN DAILY PRN MC SEE COMMENTS Last administered on 12/02/20at 09:46; Start 12/01/20 at 21:45 Active Scripts Active Pradaxa (Dabigatran Etexilate Mesylate) 75 Mg Capsule 75 Mg PO BID 30 Days Digoxin 125 Mcg Tablet 125 Mcg PO QODAY 30 Days Reported Hydralazine Hcl 25 Mg Tablet 1 Tab PO TID Furosemide 40 Mg Tablet 40 PO DAILY Fluticasone Propionate Nasal [place] (Fluticasone Propionate) Unknown Strength [place].susp Unknown Dose NS DAILY Promethazine Hcl 6.25 Mg/5 Ml Syrup 1 PO TID PRN Megestrol Acetate 40 Mg Tablet 1 Tab PO BID Vitamin D2 (Ergocalciferol (Vitamin D2)) 1,250 Mcg Capsule 1 Cap PO WEEKLY Zoloft (Sertraline Hcl) 25 Mg Tablet 1 Tab PO DAILY Tramadol Hcl 50 Mg Tablet 50 Mg PO PRN BID PRN Potassium Chloride (Potassium Chloride) 10 Meq Tab.sr.24h 10 Meq PO DAILY Metolazone 2.5 Mg Tablet 2.5 Mg PO DAILY Albuterol Sulfate Conc Neb Soln (Albuterol Sulfate) 2.5 Mg/0.5 Ml Vial.neb 1 Vial NEB Q4HRS PRN Digoxin 125 Mcg Tablet 125 Mcg PO DAILY Metoprolol Tartrate 100 Mg Tablet 50 Mg PO BID Diltiazem 24HR Cd (Diltiazem Hcl) 120 Mg Cap.er.24h 1 Cap PO DAILY Aspir 81 (Aspirin) 81 Mg Tablet.dr 1 Tab PO HS Apidra (Insulin Glulisine) 100 Unit/1 Ml Vial 10 Unit SQ TIDAC Vitamin D (Cholecalciferol (Vitamin D3)) 10,000 Unit Capsule 50,000 Unit PO WEEKLY Niaspan (Niacin) 500 Mg Tab.er.24h 500 Mg PO HS Simvastatin 20 Mg Tablet 20 Mg PO HS Allergies Allergies: Coded Allergies: No Known Drug Allergies (Unverified , 09/03/18) ROS General: YES: Fatigue, Malaise Respiratory: YES: Shortness of breath, SOB with excertion Cardiovascular: yes Edema Physical Exam General: mild distress Lungs: Other (Decreased breath sounds bilaterally) Heart: Regular rate Abdomen: Normal bowel sounds Extremities: Other (+2 edema bilaterally) Vitals VITALS Vital Signs Date Time Temp Pulse Resp B/P (MAP) Pulse Ox O2 Delivery O2 Flow Rate FiO2 12/02/20 13:45 67 19 117/71 (86) 95 Nasal Cannula 1.0 12/02/20 11:00 97.7 97.7 Labs Labs Laboratory Tests Test 12/01/20 14:05 12/01/20 14:55 12/01/20 17:40 12/01/20 20:17 White Blood Count 12.6 x10^3/uL (4.0-11.0) Red Blood Count 4.62 x10^6/uL (4.30-5.70) Hemoglobin 14.7 g/dL (13.0-17.5) Hematocrit 45.7 % (39.0-53.0) Mean Corpuscular Volume 99 fL (79-100) Mean Corpuscular Hemoglobin 32 pg (25-35) Mean Corpuscular Hemoglobin Concent 32 g/dL (31-37) Red Cell Distribution Width 17.5 % (11.5-14.5) Platelet Count 238 x10^3/uL (140-400) Neutrophils (%) (Auto) 89 % (31-73) Lymphocytes (%) (Auto) 6 % (24-48) Monocytes (%) (Auto) 5 % (0-9) Eosinophils (%) (Auto) 0 % (0-3) Basophils (%) (Auto) 0 % (0-3) Neutrophils # (Auto) 11.2 x10^3/uL (1.8-7.7) Lymphocytes # (Auto) 0.8 x10^3/uL (1.0-4.8) Monocytes # (Auto) 0.6 x10^3/uL (0.0-1.1) Eosinophils # (Auto) 0.0 x10^3/uL (0.0-0.7) Basophils # (Auto) 0.0 x10^3/uL (0.0-0.2) Segmented Neutrophils % 84 % (35-66) Band Neutrophils % 1 % (0-9) Lymphocytes % 6 % (24-48) Monocytes % 9 % (0-10) Platelet Estimate Adequate (ADEQUATE) Sodium Level 135 mmol/L (136-145) Potassium Level 4.5 mmol/L (3.5-5.1) Chloride Level 97 mmol/L (98-107) Carbon Dioxide Level 22 mmol/L (21-32) Anion Gap 16 (6-14) Blood Urea Nitrogen 98 mg/dL (8-26) Creatinine 4.4 mg/dL (0.7-1.3) Estimated GFR (Cockcroft-Gault) 16.0 BUN/Creatinine Ratio 22 (6-20) Glucose Level 381 mg/dL (70-99) Calcium Level 10.1 mg/dL (8.5-10.1) Total Bilirubin 1.4 mg/dL (0.2-1.0) Aspartate Amino Transf (AST/SGOT) 23 U/L (15-37) Alanine Aminotransferase (ALT/SGPT) 25 U/L (16-63) Alkaline Phosphatase 87 U/L (46-116) Troponin I Quantitative 0.090 ng/mL (0.000-0.055) KT-Kgw-G-Type Natriuretic Peptide > 72374 pg/mL (0-124) Total Protein 7.0 g/dL (6.4-8.2) Albumin 3.9 g/dL (3.4-5.0) Albumin/Globulin Ratio 1.3 (1.0-1.7) Urine Collection Type Unknown Urine Color Yellow Urine Clarity Clear Urine pH 5.0 (<5.0-8.0) Urine Specific Wing 1.010 (1.000-1.030) Urine Protein Negative mg/dL (NEG-TRACE) Urine Glucose (UA) 100 mg/dL (NEG) Urine Ketones (Stick) Negative mg/dL (NEG) Urine Blood Negative (NEG) Urine Nitrite Negative (NEG) Urine Bilirubin Negative (NEG) Urine Urobilinogen Dipstick 0.2 mg/dL (0.2 mg/dL) Urine Leukocyte Esterase Negative (NEG) Urine RBC 0 /HPF (0-2) Urine WBC 0 /HPF (0-4) Urine Bacteria 0 /HPF (0-FEW) Urine Hyaline Casts Few /HPF Glucose (Fingerstick) 361 mg/dL (70-99) 461 mg/dL (70-99) Test 12/01/20 20:20 12/02/20 03:15 12/02/20 07:01 12/02/20 08:00 Glucose (Fingerstick) 447 mg/dL (70-99) 237 mg/dL (70-99) 124 mg/dL (70-99) White Blood Count 9.4 x10^3/uL (4.0-11.0) Red Blood Count 4.51 x10^6/uL (4.30-5.70) Hemoglobin 14.2 g/dL (13.0-17.5) Hematocrit 44.8 % (39.0-53.0) Mean Corpuscular Volume 99 fL (79-100) Mean Corpuscular Hemoglobin 32 pg (25-35) Mean Corpuscular Hemoglobin Concent 32 g/dL (31-37) Red Cell Distribution Width 16.8 % (11.5-14.5) Platelet Count 221 x10^3/uL (140-400) Neutrophils (%) (Auto) 82 % (31-73) Lymphocytes (%) (Auto) 10 % (24-48) Monocytes (%) (Auto) 8 % (0-9) Eosinophils (%) (Auto) 1 % (0-3) Basophils (%) (Auto) 0 % (0-3) Neutrophils # (Auto) 7.7 x10^3/uL (1.8-7.7) Lymphocytes # (Auto) 0.9 x10^3/uL (1.0-4.8) Monocytes # (Auto) 0.7 x10^3/uL (0.0-1.1) Eosinophils # (Auto) 0.1 x10^3/uL (0.0-0.7) Basophils # (Auto) 0.0 x10^3/uL (0.0-0.2) Sodium Level 139 mmol/L (136-145) Potassium Level 3.7 mmol/L (3.5-5.1) Chloride Level 102 mmol/L (98-107) Carbon Dioxide Level 19 mmol/L (21-32) Anion Gap 18 (6-14) Blood Urea Nitrogen 103 mg/dL (8-26) Creatinine 4.1 mg/dL (0.7-1.3) Estimated GFR (Cockcroft-Gault) 17.4 Glucose Level 122 mg/dL (70-99) Calcium Level 9.5 mg/dL (8.5-10.1) Test 12/02/20 11:09 Glucose (Fingerstick) 83 mg/dL (70-99) Laboratory Tests Test 12/01/20 14:05 12/01/20 14:55 12/01/20 17:40 12/01/20 20:17 White Blood Count 12.6 x10^3/uL (4.0-11.0) Red Blood Count 4.62 x10^6/uL (4.30-5.70) Hemoglobin 14.7 g/dL (13.0-17.5) Hematocrit 45.7 % (39.0-53.0) Mean Corpuscular Volume 99 fL (79-100) Mean Corpuscular Hemoglobin 32 pg (25-35) Mean Corpuscular Hemoglobin Concent 32 g/dL (31-37) Red Cell Distribution Width 17.5 % (11.5-14.5) Platelet Count 238 x10^3/uL (140-400) Neutrophils (%) (Auto) 89 % (31-73) Lymphocytes (%) (Auto) 6 % (24-48) Monocytes (%) (Auto) 5 % (0-9) Eosinophils (%) (Auto) 0 % (0-3) Basophils (%) (Auto) 0 % (0-3) Neutrophils # (Auto) 11.2 x10^3/uL (1.8-7.7) Lymphocytes # (Auto) 0.8 x10^3/uL (1.0-4.8) Monocytes # (Auto) 0.6 x10^3/uL (0.0-1.1) Eosinophils # (Auto) 0.0 x10^3/uL (0.0-0.7) Basophils # (Auto) 0.0 x10^3/uL (0.0-0.2) Segmented Neutrophils % 84 % (35-66) Band Neutrophils % 1 % (0-9) Lymphocytes % 6 % (24-48) Monocytes % 9 % (0-10) Platelet Estimate Adequate (ADEQUATE) Sodium Level 135 mmol/L (136-145) Potassium Level 4.5 mmol/L (3.5-5.1) Chloride Level 97 mmol/L (98-107) Carbon Dioxide Level 22 mmol/L (21-32) Anion Gap 16 (6-14) Blood Urea Nitrogen 98 mg/dL (8-26) Creatinine 4.4 mg/dL (0.7-1.3) Estimated GFR (Cockcroft-Gault) 16.0 BUN/Creatinine Ratio 22 (6-20) Glucose Level 381 mg/dL (70-99) Calcium Level 10.1 mg/dL (8.5-10.1) Total Bilirubin 1.4 mg/dL (0.2-1.0) Aspartate Amino Transf (AST/SGOT) 23 U/L (15-37) Alanine Aminotransferase (ALT/SGPT) 25 U/L (16-63) Alkaline Phosphatase 87 U/L (46-116) Troponin I Quantitative 0.090 ng/mL (0.000-0.055) CF-Twi-M-Type Natriuretic Peptide > 76664 pg/mL (0-124) Total Protein 7.0 g/dL (6.4-8.2) Albumin 3.9 g/dL (3.4-5.0) Albumin/Globulin Ratio 1.3 (1.0-1.7) Urine Collection Type Unknown Urine Color Yellow Urine Clarity Clear Urine pH 5.0 (<5.0-8.0) Urine Specific Wing 1.010 (1.000-1.030) Urine Protein Negative mg/dL (NEG-TRACE) Urine Glucose (UA) 100 mg/dL (NEG) Urine Ketones (Stick) Negative mg/dL (NEG) Urine Blood Negative (NEG) Urine Nitrite Negative (NEG) Urine Bilirubin Negative (NEG) Urine Urobilinogen Dipstick 0.2 mg/dL (0.2 mg/dL) Urine Leukocyte Esterase Negative (NEG) Urine RBC 0 /HPF (0-2) Urine WBC 0 /HPF (0-4) Urine Bacteria 0 /HPF (0-FEW) Urine Hyaline Casts Few /HPF Glucose (Fingerstick) 361 mg/dL (70-99) 461 mg/dL (70-99) Test 12/01/20 20:20 12/02/20 03:15 12/02/20 07:01 12/02/20 08:00 Glucose (Fingerstick) 447 mg/dL (70-99) 237 mg/dL (70-99) 124 mg/dL (70-99) White Blood Count 9.4 x10^3/uL (4.0-11.0) Red Blood Count 4.51 x10^6/uL (4.30-5.70) Hemoglobin 14.2 g/dL (13.0-17.5) Hematocrit 44.8 % (39.0-53.0) Mean Corpuscular Volume 99 fL (79-100) Mean Corpuscular Hemoglobin 32 pg (25-35) Mean Corpuscular Hemoglobin Concent 32 g/dL (31-37) Red Cell Distribution Width 16.8 % (11.5-14.5) Platelet Count 221 x10^3/uL (140-400) Neutrophils (%) (Auto) 82 % (31-73) Lymphocytes (%) (Auto) 10 % (24-48) Monocytes (%) (Auto) 8 % (0-9) Eosinophils (%) (Auto) 1 % (0-3) Basophils (%) (Auto) 0 % (0-3) Neutrophils # (Auto) 7.7 x10^3/uL (1.8-7.7) Lymphocytes # (Auto) 0.9 x10^3/uL (1.0-4.8) Monocytes # (Auto) 0.7 x10^3/uL (0.0-1.1) Eosinophils # (Auto) 0.1 x10^3/uL (0.0-0.7) Basophils # (Auto) 0.0 x10^3/uL (0.0-0.2) Sodium Level 139 mmol/L (136-145) Potassium Level 3.7 mmol/L (3.5-5.1) Chloride Level 102 mmol/L (98-107) Carbon Dioxide Level 19 mmol/L (21-32) Anion Gap 18 (6-14) Blood Urea Nitrogen 103 mg/dL (8-26) Creatinine 4.1 mg/dL (0.7-1.3) Estimated GFR (Cockcroft-Gault) 17.4 Glucose Level 122 mg/dL (70-99) Calcium Level 9.5 mg/dL (8.5-10.1) Test 12/02/20 11:09 Glucose (Fingerstick) 83 mg/dL (70-99) Images Images Chest x-ray with mild cardiomegaly and central vascular congestion. Assessment/Plan Assessment/Plan 1. Congestive heart failure. Probably systolic. Patient cannot give a clear history at this time. He denies chest pain. Previous Lexiscan testing earlier this year showed an ejection fraction of 39%. The patient's creatinine which is now 4.4 compared to 2.3 on 10/21/2020. He is being reviewed by the renal service for diuresis if possible. We will check an echocardiogram for LV function. 2. History of coronary artery bypass surgery. Will check on old records. Patient is unable to state who his primary milker machine is. 3. ICD. Patient is in a V paced rhythm. Again we will attempt to obtain old records. 4. ALEXIA. Creatinine now 4.4 compared to a 2.3 level last October. The renal service is evaluating. 5. Uncontrolled diabetes. Initial glucose in the ER was 381. As per the primary service. Thank you for allowing us to participate in the care of your patient. NICK DIEGO MD Dec 02, 2020 14:03
--- NOTE | 2020-12-02 14:03 | HP ---
ADMIT DATE: 12/01/2020 MEDICAL HISTORY AND PHYSICAL PATIENT'S LOCATION: [facility]. REASON FOR ADMISSION TO THE HOSPITAL: Shortness of breath, acute on chronic systolic heart failure, worsening kidney failure. HISTORY OF PRESENT ILLNESS: The patient is a 75-year-old male with history of chronic kidney disease, chronic dilated cardiomyopathy, ejection fraction 15-20%. The patient has AICD. He also had a bypass surgery, he had bad kidneys too. He also has diabetes. His creatinine was 2.3. He was discharged last month. COVID test at that time was negative and the patient has not been doing well, sleepy, more short of breath and puffiness and swelling. Finally, home health was sent and he got progressively worse, was sent to the hospital and he has worsening kidney failure, now creatinine 4.5, worsening heart failure and was admitted to the hospital. PAST MEDICAL HISTORY: Coronary artery disease, cardiomyopathy, diabetes, hypertension, hyperlipidemia, chronic kidney disease stage 3-4. PAST SURGICAL HISTORY: Heart bypass surgery, pacemaker. SOCIAL HISTORY: Ex-smoker, denies alcohol. Has been at home. ALLERGIES: No known allergies to medicines. MEDICATIONS AT HOME: The patient is on digoxin every other day, diltiazem 120 mg daily, vitamin D once a week 50,000 units, Lasix 40 mg twice a day, tramadol 50 mg for pain, Flonase daily, Apidra 10 units 3 times daily, niacin 500 daily, Megace 40 mg twice a day for increasing appetite, DuoNeb 4 times daily, aspirin 81 mg daily, Pradaxa 75 mg twice a day, hydralazine 25 mg 3 times a day, Zaroxolyn 2.5 mg daily, metoprolol 50 mg twice a day, potassium 10 mEq daily, Zoloft 25 mg daily, simvastatin 20 mg daily. REVIEW OF SYMPTOMS: Complains of weakness, shortness of breath, puffy face and swelling in the extremities. He has been not doing well lately. FAMILY HISTORY: Positive for diabetes, heart disease. PHYSICAL EXAMINATION: GENERAL: The patient looks older than his age. VITAL SIGNS: Temperature at the time of admission shows 97, pulse 77, respirations 13, blood pressure 143/93, 98. HEENT: Head is atraumatic, puffiness of the face and eyelids. Oral cavity: Dentures. NECK: Supple. CHEST: Scar of heart surgery, has a pacemaker defibrillator, left side of the chest. CARDIOVASCULAR: S1, S2. LUNGS: Crackles at 1/3 at the base. ABDOMEN: Soft, no mass palpable. EXTERNAL GENITALIA: No Garcia. RECTAL: Deferred. EXTREMITIES: 2+ edema. Skin tear anterior part of the garcia. Pulses thready. NEUROLOGIC: The patient is weak, able to lift lower extremities off the bed, but very weak. The patient is awake, slow to answer. IMAGING DATA: Chest x-ray shows CHF. EKG, has pacemaker leads. IMPRESSION: 1. Acute on chronic systolic heart failure. 2. Worsening kidney failure. 3. Chronic dilated cardiomyopathy, ejection fraction 20%. 4. Insulin-dependent diabetes. 5. Hypertension. 6. Hyperlipidemia. 7. Malnutrition severe. 8. General debility. 9. H/o heart surgery.CABG 10.Presence of AICD PLAN: At this time, the patient is admitted to the hospital, IV Lasix 40 mg b.i.d., but I suspect patient has end-stage renal disease, may need dialysis. Cardiology is consulted, renal is consulted, and insulin sliding scale and the patient's prognosis is poor. NAUN ROPER MD DR: RAE/harjinder JOB#: [id number] / [id number] MTDD
--- NOTE | 2020-12-02 14:14 | EKG ---
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[id number] Requested By: NICK DIEGO Order Number: [id number] Reading MD: Measurements Intervals Davy Rate: 76 P: IA: QRS: 20 QRSD: 116 T: 182 QT: 446 QTc: 507 Interpretive Statements IRREGULAR RHYTHM, NO P-WAVE FOUND VENTRICULAR PREMATURE COMPLEX(ES), TRIGEMINY LOW LIMB LEAD VOLTAGE LVH WITH REPOLARIZATION ABNORMALITY QRS(T) CONTOUR ABNORMALITY CONSIDER ANTEROSEPTAL MYOCARDIAL DAMAGE PROLONGED QT ABNORMAL ECG RI6.02 Compared to ECG 12/01/2020 13:50:29 Left ventricular hypertrophy now present Early repolarization now present Prolonged QT interval now present Right superior axis no longer present Myocardial infarct finding no longer present
[2020-12-02] MEDS: SIMVASTATIN 20 MG TABLET PO SCH (21:40)
[2020-12-02] MEDS: ASPIRIN ENTERIC COATED 81 MG TABLET.DR. PO SCH (21:40)
[2020-12-02] MEDS: INSULIN GLARGINE SYRINGE. SQ SCH (21:44)
--- NOTE | 2020-12-02 23:38 | RAD ---
Exam: Ultrasound renal complete Indication: Acute kidney injury on chronic kidney disease Technique: Real-time grayscale and color Doppler images of the kidneys were obtained by the [facility] machine dyer. Comparisons: None FINDINGS: Right kidney measures 9.9 cm in length. There are numerous cystic lesions noted within the kidneys la rgest at the upper pole measuring 2.4 cm which is mildly complex. No hydronephrosis. Left kidney measures 8.7 cm in length. No kidney is not well visualized. No hydronephrosis. Bladder is distended and appears thin-walled. There is bilateral pleural effusions noted. IMPRESSION: 1. No hydronephrosis. 2. Mildly complex lesion at the upper pole of the right kidney. Further evaluation with nonemergent/ outpatient renal protocol CT or MRI is recommended. Electronically signed by: Nazario Kilgore MD (12/02/2020 11:35 PM) [facility]
[2020-12-03 03:16] VITALS: BP 131/84
[2020-12-03 06:01] LABS: CALCIUM 9.4 mg/dL (8.5-10.1); CREATININE 4.1 mg/dL (0.7-1.3); GFR 17.4; MAGNESIUM 2.6 mg/dL (1.8-2.4); POTASSIUM 3.2 mmol/L (3.5-5.1)
[2020-12-03 06:02] LABS: CHOLESTEROL/HDL RATIO 4.5
[2020-12-03 06:07] LABS: BASO % 0 % (0-3); EOS # 0.1 x10^3/uL (0.0-0.7); EOS % 1 % (0-3); HEMATOCRIT 44.8 % (39.0-53.0); HEMOGLOBIN 14.5 g/dL (13.0-17.5); LYMPH # 0.9 x10^3/uL (1.0-4.8); LYMPH % 9 % (24-48); MEAN CORPUSCULAR HEMOGLOBIN 32 pg (25-35); MEAN CORPUSCULAR HGB CONC 32 g/dL (31-37); MEAN CORPUSCULAR VOLUME 97 fL (79-100); MONO # 0.6 x10^3/uL (0.0-1.1); MONO % 6 % (0-9); NEUT # 8.5 x10^3/uL (1.8-7.7); NEUT % 84 % (31-73); PLATELET COUNT 227 x10^3/uL (140-400); RED CELL DISTRIBUTION WIDTH 16.9 % (11.5-14.5); WHITE BLOOD COUNT 10.1 x10^3/uL (4.0-11.0)
[2020-12-03 07:00] VITALS: BP 135/82
[2020-12-03] MEDS: INSULIN LISPRO 300 UNITS/3 ML VIAL. SQ SCH ×4 (08:00→21:00)
[2020-12-03] MEDS: SERTRALINE 25 MG TABLET. PO SCH (08:57)
[2020-12-03] MEDS: DABIGATRAN ETEXILATE 75 MG CAPSULE. PO SCH ×2 (08:57→21:38)
[2020-12-03] MEDS: POTASSIUM CHLORIDE 10 MEQ TABLET.ER. PO SCH (08:58)
[2020-12-03] MEDS: hydrALAZINE 25 MG TABLET PO SCH ×3 (08:58→21:38)
[2020-12-03] MEDS: METOPROLOL TART IMMED RELEASE 50 MG TABLET. PO SCH ×2 (08:58→21:38)
[2020-12-03] MEDS: metOLazone 2.5 MG TABLET PO SCH (08:58)
[2020-12-03] MEDS: FUROSEMIDE 40 MG/4 ML VIAL. IVP SCH ×2 (10:08→15:11)
[2020-12-03] MEDS ORDERED: POTASSIUM CHLORIDE 20 MEQ TABLET.ER. PO ONE (10:30)
[2020-12-03 11:00] VITALS: BP 132/81
--- NOTE | 2020-12-03 11:28 | PDOC ---
PROGRESS NOTES Date of Service: DATE: 12/03/20 TIME: 11:24 Subjective Subjective slightly better Objective Objective Vital Signs Date Time Temp Pulse Resp B/P (MAP) Pulse Ox O2 Delivery O2 Flow Rate FiO2 12/03/20 08:58 61 135/82 12/03/20 08:00 Room Air 12/03/20 07:00 97.7 18 97 1.0 97.7 Intake and Output 12/03/20 06:59 Intake Total 1030 ml Output Total 100 ml Balance 930 ml Intake Oral 1030 ml Output Urine Total 100 ml # Voids 9 Physical Exam Abdomen: Normal bowel sounds Heart: Regular rate Extremities: Other (+2 edema bilaterally) General: mild distress Lungs: Other (Decreased breath sounds bilaterally) MUSCULOSKELETAL: No swelling, Osteoarthritic changes both hands Psych/Mental Status: Mood NL Skin: Other (skin break down) Diagnosis Problem List Problems Medical Problems: (1) CHF (congestive heart failure) Status: Acute (2) Fluid overload Status: Acute (3) Kidney failure Status: Acute Assessment Assessment Problems Medical Problems: (1) CHF (congestive heart failure) Status: Acute (2) Fluid overload Status: Acute (3) Kidney failure Status: Acute IMPRESSION: 1. Acute on chronic systolic heart failure. 2. Worsening kidney failure.[id number] 3. Chronic dilated cardiomyopathy, ejection fraction 20%. 4. Insulin-dependent diabetes. 5. Hypertension. 6. Hyperlipidemia. 7. Malnutrition severe. 8. General debility. 9. h/o heart surgery.CABG 10 .presence of AICD PLAN:cardiac arrhythmias, v tach, moved to cardiac floor discussed about dialysis ,pt is not happy about it,said he may consider doing it and see how it goes . BS good now wbc normal chf on cxr At this time, the patient is admitted to the hospital, IV Lasix 40 mg b.i.d., but I suspect patient has end-stage renal disease, may need dialysis. Cardiology is consulted, renal is consulted, and insulin sliding scale and the patient's prognosis is poor. Plan Plan of Care Problems Medical Problems: (1) CHF (congestive heart failure) Status: Acute (2) Fluid overload Status: Acute (3) Kidney failure Status: Acute Comment Review of Relevant I have reviewed the following items debbie (where applicable) has been applied. Labs Laboratory Tests Test 12/02/20 13:23 12/02/20 16:05 12/02/20 21:39 12/03/20 05:00 SARS-CoV-2 Antigen (Rapid) Negative (NEGATIVE) Glucose (Fingerstick) 98 mg/dL (70-99) 151 mg/dL (70-99) White Blood Count 10.1 x10^3/uL (4.0-11.0) Red Blood Count 4.60 x10^6/uL (4.30-5.70) Hemoglobin 14.5 g/dL (13.0-17.5) Hematocrit 44.8 % (39.0-53.0) Mean Corpuscular Volume 97 fL (79-100) Mean Corpuscular Hemoglobin 32 pg (25-35) Mean Corpuscular Hemoglobin Concent 32 g/dL (31-37) Red Cell Distribution Width 16.9 % (11.5-14.5) Platelet Count 227 x10^3/uL (140-400) Neutrophils (%) (Auto) 84 % (31-73) Lymphocytes (%) (Auto) 9 % (24-48) Monocytes (%) (Auto) 6 % (0-9) Eosinophils (%) (Auto) 1 % (0-3) Basophils (%) (Auto) 0 % (0-3) Neutrophils # (Auto) 8.5 x10^3/uL (1.8-7.7) Lymphocytes # (Auto) 0.9 x10^3/uL (1.0-4.8) Monocytes # (Auto) 0.6 x10^3/uL (0.0-1.1) Eosinophils # (Auto) 0.1 x10^3/uL (0.0-0.7) Basophils # (Auto) 0.0 x10^3/uL (0.0-0.2) Sodium Level 139 mmol/L (136-145) Potassium Level 3.2 mmol/L (3.5-5.1) Chloride Level 101 mmol/L (98-107) Carbon Dioxide Level 24 mmol/L (21-32) Anion Gap 14 (6-14) Blood Urea Nitrogen 99 mg/dL (8-26) Creatinine 4.1 mg/dL (0.7-1.3) Estimated GFR (Cockcroft-Gault) 17.4 Glucose Level 109 mg/dL (70-99) Calcium Level 9.4 mg/dL (8.5-10.1) Magnesium Level 2.6 mg/dL (1.8-2.4) Triglycerides Level 68 mg/dL (0-150) Cholesterol Level 121 mg/dL (0-200) LDL Cholesterol, Calculated 80 mg/dL (0-100) VLDL Cholesterol, Calculated 14 mg/dL (0-40) Non-HDL Cholesterol Calculated 94 mg/dL (0-129) HDL Cholesterol 27 mg/dL (40-60) Cholesterol/HDL Ratio 4.5 Thyroid Stimulating Hormone (TSH) 4.948 uIU/mL (0.358-3.74) Test 12/03/20 07:18 Glucose (Fingerstick) 98 mg/dL (70-99) Medications Current Medications Ergocalciferol (Vitamin D2) 50,000 unit WEEKLY PO ; Start 12/08/20 at 09:00 Potassium Chloride (Klor-Con) 40 meq 1X ONCE PO ; Start 12/03/20 at 10:30; Stop 12/03/20 at 10:31; Status DC Vitals/I & O Vital Sign - Last 24 Hours 12/02/20 12/02/20 12/02/20 12/02/20 12:45 13:45 14:18 14:20 Pulse 67 64 64 Resp 19 19 B/P (MAP) 117/71 (86) 133/76 (95) 133/76 Pulse Ox 95 93 O2 Delivery Nasal Cannula Nasal Cannula Nasal Cannula O2 Flow Rate 1.0 1.0 1.0 12/02/20 12/02/20 12/02/20 12/02/20 19:29 20:00 21:40 21:40 Temp 98.0 98.0 Pulse 61 61 61 Resp 19 B/P (MAP) 137/88 (104) 137/88 137/88 Pulse Ox 95 O2 Delivery Nasal Cannula Room Air O2 Flow Rate 1.0 12/02/20 12/03/20 12/03/20 12/03/20 23:28 03:16 07:00 08:00 Temp 98.0 97.7 97.7 98.0 97.7 97.7 Pulse 66 64 61 Resp 19 18 18 B/P (MAP) 130/69 (89) 131/84 (100) 135/82 (99) Pulse Ox 96 96 97 O2 Delivery Nasal Cannula Nasal Cannula Nasal Cannula Room Air O2 Flow Rate 1.0 1.0 1.0 12/03/20 12/03/20 08:58 08:58 Pulse 61 61 B/P (MAP) 135/82 135/82 Intake and Output 12/02/20 12/02/20 12/03/20 14:59 22:59 06:59 Intake Total 980 ml 50 ml Output Total 100 ml Balance -100 ml 980 ml 50 ml Justifications for Admission Other Justification NAUN ROPER MD Dec 03, 2020 11:28
[2020-12-03 15:00] VITALS: BP 137/89
--- NOTE | 2020-12-03 15:14 | PDOC ---
PROGRESS NOTES Date of Service DATE: 12/03/20 TIME: 15:11 Subjective Subjective Patient seen and examined Objective Objective Vital Signs Date Time Temp Pulse Resp B/P (MAP) Pulse Ox O2 Delivery O2 Flow Rate FiO2 12/03/20 11:00 97.4 59 18 132/81 (98) 97 Nasal Cannula 1.0 97.4 Intake and Output 12/03/20 07:00 Intake Total 1030 ml Output Total 100 ml Balance 930 ml Intake Oral 1030 ml Output Urine Total 100 ml # Voids 9 Physical Exam Abdomen: Normal bowel sounds Heart: Regular rate General: mild distress Lungs: Other (Mildly decreased breath sounds) Assessment Assessment Problems Medical Problems: (1) CHF (congestive heart failure) Status: Acute (2) Fluid overload Status: Acute (3) Kidney failure Status: Acute Assessment/Plan 1. Congestive heart failure. Probably systolic. The patient is feeling mildly better today. He denies chest pain. Previous Lexiscan testing earlier this year showed an ejection fraction of 39%. The patient's creatinine which is now mildly improved at 4.1. He is being worked up by the renal service. Ech ocardiogram is pending. He is being reviewed by the renal service for diuresis if possible. We will check an echocardiogram for LV function. 2. History of coronary artery bypass surgery. Will check on old records. 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 3. ICD. Patient is in a V paced rhythm. Continue present medications. 4. ALEXIA. Creatinine today has decreased from 4.4-4.1. It was 2.3 level last October. The renal service is evaluating. 5. Uncontrolled diabetes. Initial glucose in the ER was 381. On sliding scale insulin as per the primary service. Comment Review of Relevant I have reviewed the following items debbie (where applicable) has been applied. Labs Laboratory Tests Test 12/01/20 17:40 12/01/20 20:17 12/01/20 20:20 12/02/20 03:15 Glucose (Fingerstick) 361 mg/dL (70-99) 461 mg/dL (70-99) 447 mg/dL (70-99) 237 mg/dL (70-99) Test 12/02/20 07:01 12/02/20 08:00 12/02/20 11:09 12/02/20 13:23 Glucose (Fingerstick) 124 mg/dL (70-99) 83 mg/dL (70-99) White Blood Count 9.4 x10^3/uL (4.0-11.0) Red Blood Count 4.51 x10^6/uL (4.30-5.70) Hemoglobin 14.2 g/dL (13.0-17.5) Hematocrit 44.8 % (39.0-53.0) Mean Corpuscular Volume 99 fL (79-100) Mean Corpuscular Hemoglobin 32 pg (25-35) Mean Corpuscular Hemoglobin Concent 32 g/dL (31-37) Red Cell Distribution Width 16.8 % (11.5-14.5) Platelet Count 221 x10^3/uL (140-400) Neutrophils (%) (Auto) 82 % (31-73) Lymphocytes (%) (Auto) 10 % (24-48) Monocytes (%) (Auto) 8 % (0-9) Eosinophils (%) (Auto) 1 % (0-3) Basophils (%) (Auto) 0 % (0-3) Neutrophils # (Auto) 7.7 x10^3/uL (1.8-7.7) Lymphocytes # (Auto) 0.9 x10^3/uL (1.0-4.8) Monocytes # (Auto) 0.7 x10^3/uL (0.0-1.1) Eosinophils # (Auto) 0.1 x10^3/uL (0.0-0.7) Basophils # (Auto) 0.0 x10^3/uL (0.0-0.2) Sodium Level 139 mmol/L (136-145) Potassium Level 3.7 mmol/L (3.5-5.1) Chloride Level 102 mmol/L (98-107) Carbon Dioxide Level 19 mmol/L (21-32) Anion Gap 18 (6-14) Blood Urea Nitrogen 103 mg/dL (8-26) Creatinine 4.1 mg/dL (0.7-1.3) Estimated GFR (Cockcroft-Gault) 17.4 Glucose Level 122 mg/dL (70-99) Calcium Level 9.5 mg/dL (8.5-10.1) SARS-CoV-2 Antigen (Rapid) Negative (NEGATIVE) Test 12/02/20 16:05 12/02/20 21:39 12/03/20 05:00 12/03/20 07:18 Glucose (Fingerstick) 98 mg/dL (70-99) 151 mg/dL (70-99) 98 mg/dL (70-99) White Blood Count 10.1 x10^3/uL (4.0-11.0) Red Blood Count 4.60 x10^6/uL (4.30-5.70) Hemoglobin 14.5 g/dL (13.0-17.5) Hematocrit 44.8 % (39.0-53.0) Mean Corpuscular Volume 97 fL (79-100) Mean Corpuscular Hemoglobin 32 pg (25-35) Mean Corpuscular Hemoglobin Concent 32 g/dL (31-37) Red Cell Distribution Width 16.9 % (11.5-14.5) Platelet Count 227 x10^3/uL (140-400) Neutrophils (%) (Auto) 84 % (31-73) Lymphocytes (%) (Auto) 9 % (24-48) Monocytes (%) (Auto) 6 % (0-9) Eosinophils (%) (Auto) 1 % (0-3) Basophils (%) (Auto) 0 % (0-3) Neutrophils # (Auto) 8.5 x10^3/uL (1.8-7.7) Lymphocytes # (Auto) 0.9 x10^3/uL (1.0-4.8) Monocytes # (Auto) 0.6 x10^3/uL (0.0-1.1) Eosinophils # (Auto) 0.1 x10^3/uL (0.0-0.7) Basophils # (Auto) 0.0 x10^3/uL (0.0-0.2) Sodium Level 139 mmol/L (136-145) Potassium Level 3.2 mmol/L (3.5-5.1) Chloride Level 101 mmol/L (98-107) Carbon Dioxide Level 24 mmol/L (21-32) Anion Gap 14 (6-14) Blood Urea Nitrogen 99 mg/dL (8-26) Creatinine 4.1 mg/dL (0.7-1.3) Estimated GFR (Cockcroft-Gault) 17.4 Glucose Level 109 mg/dL (70-99) Calcium Level 9.4 mg/dL (8.5-10.1) Magnesium Level 2.6 mg/dL (1.8-2.4) Triglycerides Level 68 mg/dL (0-150) Cholesterol Level 121 mg/dL (0-200) LDL Cholesterol, Calculated 80 mg/dL (0-100) VLDL Cholesterol, Calculated 14 mg/dL (0-40) Non-HDL Cholesterol Calculated 94 mg/dL (0-129) HDL Cholesterol 27 mg/dL (40-60) Cholesterol/HDL Ratio 4.5 Thyroid Stimulating Hormone (TSH) 4.948 uIU/mL (0.358-3.74) Test 12/03/20 11:22 Glucose (Fingerstick) 96 mg/dL (70-99) Laboratory Tests Test 12/02/20 16:05 12/02/20 21:39 12/03/20 05:00 12/03/20 07:18 Glucose (Fingerstick) 98 mg/dL (70-99) 151 mg/dL (70-99) 98 mg/dL (70-99) White Blood Count 10.1 x10^3/uL (4.0-11.0) Red Blood Count 4.60 x10^6/uL (4.30-5.70) Hemoglobin 14.5 g/dL (13.0-17.5) Hematocrit 44.8 % (39.0-53.0) Mean Corpuscular Volume 97 fL (79-100) Mean Corpuscular Hemoglobin 32 pg (25-35) Mean Corpuscular Hemoglobin Concent 32 g/dL (31-37) Red Cell Distribution Width 16.9 % (11.5-14.5) Platelet Count 227 x10^3/uL (140-400) Neutrophils (%) (Auto) 84 % (31-73) Lymphocytes (%) (Auto) 9 % (24-48) Monocytes (%) (Auto) 6 % (0-9) Eosinophils (%) (Auto) 1 % (0-3) Basophils (%) (Auto) 0 % (0-3) Neutrophils # (Auto) 8.5 x10^3/uL (1.8-7.7) Lymphocytes # (Auto) 0.9 x10^3/uL (1.0-4.8) Monocytes # (Auto) 0.6 x10^3/uL (0.0-1.1) Eosinophils # (Auto) 0.1 x10^3/uL (0.0-0.7) Basophils # (Auto) 0.0 x10^3/uL (0.0-0.2) Sodium Level 139 mmol/L (136-145) Potassium Level 3.2 mmol/L (3.5-5.1) Chloride Level 101 mmol/L (98-107) Carbon Dioxide Level 24 mmol/L (21-32) Anion Gap 14 (6-14) Blood Urea Nitrogen 99 mg/dL (8-26) Creatinine 4.1 mg/dL (0.7-1.3) Estimated GFR (Cockcroft-Gault) 17.4 Glucose Level 109 mg/dL (70-99) Calcium Level 9.4 mg/dL (8.5-10.1) Magnesium Level 2.6 mg/dL (1.8-2.4) Triglycerides Level 68 mg/dL (0-150) Cholesterol Level 121 mg/dL (0-200) LDL Cholesterol, Calculated 80 mg/dL (0-100) VLDL Cholesterol, Calculated 14 mg/dL (0-40) Non-HDL Cholesterol Calculated 94 mg/dL (0-129) HDL Cholesterol 27 mg/dL (40-60) Cholesterol/HDL Ratio 4.5 Thyroid Stimulating Hormone (TSH) 4.948 uIU/mL (0.358-3.74) Test 12/03/20 11:22 Glucose (Fingerstick) 96 mg/dL (70-99) Medications Current Medications Furosemide (Lasix) 80 mg 1X ONCE IVP Last administered on 12/01/20at 14:53; Start 12/01/20 at 14:15; Stop 12/01/20 at 14:16; Status DC Aspirin (Ecotrin) 81 mg HS PO Last administered on 12/02/20at 21:40; Start 12/01/20 at 21:00 Dabigatran (Pradaxa) 75 mg BID PO Last administered on 12/03/20at 08:57; Start 12/01/20 at 21:00 Hydralazine HCl (Apresoline) 25 mg TID PO Last administered on 12/03/20at 08:58; Start 12/01/20 at 21:00 Metolazone (Zaroxolyn) 2.5 mg DAILY PO Last administered on 12/03/20at 08:58; Start 12/02/20 at 09:00 Potassium Chloride (Klor-Con) 10 meq DAILY PO Last administered on 12/03/20at 08:58; Start 12/02/20 at 09:00 Sertraline HCl (Zoloft) 25 mg DAILY PO Last administered on 12/03/20at 08:57; Start 12/02/20 at 09:00 Simvastatin (Zocor) 20 mg HS PO Last administered on 12/02/20at 21:40; Start 12/01/20 at 21:00 Albuterol Sulfate (Ventolin Neb Soln) 2.5 mg PRN Q6HRS PRN NEB SHORTNESS OF BREATH; Start 12/01/20 at 18:00; Status Cancel Ergocalciferol (Vitamin D2) 50,000 unit WEEKLY PO ; Start 12/08/20 at 09:00 Metoprolol Tartrate (Lopressor) 50 mg BID PO Last administered on 12/03/20at 08:58; Start 12/01/20 at 21:00 Insulin Human Lispro (HumaLOG) 0-5 UNITS TIDWMEALS SQ ; Start 12/01/20 at 17:00; Stop 12/01/20 at 19:15; Status DC Dextrose (Dextrose 50%-Water Syringe) 12.5 gm PRN Q15MIN PRN IV SEE COMMENTS; Start 12/01/20 at 16:30 Furosemide (Lasix) 40 mg BID92 IVP Last administered on 12/03/20at 10:08; Start 12/02/20 at 09:00 Albuterol Sulfate (Ventolin Neb Soln) 2.5 mg PRN Q4HRS PRN NEB SHORTNESS OF BREATH; Start 12/01/20 at 18:00 Insulin Human Lispro (HumaLOG) 10 units TIDWMEALHC SQ ; Start 12/01/20 at 21:00; Status UNV Insulin Glargine (Lantus Syringe) 10 unit QHS SQ Last administered on 12/02/20at 21:44; Start 12/01/20 at 21:00 Insulin Human Lispro (HumaLOG) 0-10 UNITS TIDWMEALHC SQ Last administered on 12/01/20at 21:10; Start 12/31/20 at 21:00 Acetaminophen/ Hydrocodone Bitart (Lortab 5/325) 1 tab PRN Q8HRS PRN PO MODERATE PAIN 4-6 Last administered on 12/01/20at 21:08; Start 12/01/20 at 21:00 Insulin Human Lispro (HumaLOG) 10 units 1X IV ; Start 12/01/20 at 21:00; Status UNV Insulin Human Lispro (HumaLOG) 10 units 1X ONCE SQ ; Start 12/01/20 at 21:00; Stop 12/01/20 at 21:04; Status DC Insulin Human Lispro (HumaLOG) 10 units 1X ONCE SQ ; Start 12/01/20 at 21:30; Stop 12/01/20 at 21:31; Status DC Info (Anti-Coagulation Monitoring By Pharmacy) 1 each PRN DAILY PRN MC SEE COMMENTS Last administered on 12/02/20at 09:46; Start 12/01/20 at 21:45 Potassium Chloride (Klor-Con) 40 meq 1X ONCE PO Last administered on 12/03/20at 10:30; Start 12/03/20 at 10:30; Stop 12/03/20 at 10:31; Status DC Levothyroxine Sodium (Synthroid) 25 mcg DAILY06 PO ; Start 12/04/20 at 06:00 Active Scripts Active Pradaxa (Dabigatran Etexilate Mesylate) 75 Mg Capsule 75 Mg PO BID 30 Days Digoxin 125 Mcg Tablet 125 Mcg PO QODAY 30 Days Reported Hydralazine Hcl 25 Mg Tablet 1 Tab PO TID Furosemide 40 Mg Tablet 40 PO DAILY Fluticasone Propionate Nasal [place] (Fluticasone Propionate) Unknown Strength [place].susp Unknown Dose NS DAILY Promethazine Hcl 6.25 Mg/5 Ml Syrup 1 PO TID PRN Megestrol Acetate 40 Mg Tablet 1 Tab PO BID Vitamin D2 (Ergocalciferol (Vitamin D2)) 1,250 Mcg Capsule 1 Cap PO WEEKLY Zoloft (Sertraline Hcl) 25 Mg Tablet 1 Tab PO DAILY Tramadol Hcl 50 Mg Tablet 50 Mg PO PRN BID PRN Potassium Chloride (Potassium Chloride) 10 Meq Tab.sr.24h 10 Meq PO DAILY Metolazone 2.5 Mg Tablet 2.5 Mg PO DAILY Albuterol Sulfate Conc Neb Soln (Albuterol Sulfate) 2.5 Mg/0.5 Ml Vial.neb 1 Vial NEB Q4HRS PRN Digoxin 125 Mcg Tablet 125 Mcg PO DAILY Metoprolol Tartrate 100 Mg Tablet 50 Mg PO BID Diltiazem 24HR Cd (Diltiazem Hcl) 120 Mg Cap.er.24h 1 Cap PO DAILY Aspir 81 (Aspirin) 81 Mg Tablet.dr 1 Tab PO HS Apidra (Insulin Glulisine) 100 Unit/1 Ml Vial 10 Unit SQ TIDAC Vitamin D (Cholecalciferol (Vitamin D3)) 10,000 Unit Capsule 50,000 Unit PO WEEKLY Niaspan (Niacin) 500 Mg Tab.er.24h 500 Mg PO HS Simvastatin 20 Mg Tablet 20 Mg PO HS Vitals/I & O Vital Sign - Last 24 Hours 12/02/20 12/02/20 12/02/20 12/02/20 19:29 20:00 21:40 21:40 Temp 98.0 98.0 Pulse 61 61 61 Resp 19 B/P (MAP) 137/88 (104) 137/88 137/88 Pulse Ox 95 O2 Delivery Nasal Cannula Room Air O2 Flow Rate 1.0 12/02/20 12/03/20 12/03/20 12/03/20 23:28 03:16 07:00 08:00 Temp 98.0 97.7 97.7 98.0 97.7 97.7 Pulse 66 64 61 Resp 19 18 18 B/P (MAP) 130/69 (89) 131/84 (100) 135/82 (99) Pulse Ox 96 96 97 O2 Delivery Nasal Cannula Nasal Cannula Nasal Cannula Room Air O2 Flow Rate 1.0 1.0 1.0 12/03/20 12/03/20 12/03/20 08:58 08:58 11:00 Temp 97.4 97.4 Pulse 61 61 59 Resp 18 B/P (MAP) 135/82 135/82 132/81 (98) Pulse Ox 97 O2 Delivery Nasal Cannula O2 Flow Rate 1.0 Intake and Output 12/02/20 12/02/20 12/03/20 15:00 23:00 07:00 Intake Total 980 ml 50 ml Output Total 100 ml Balance -100 ml 980 ml 50 ml Justifications for Admission Other Justification NICK DIEGO MD Dec 03, 2020 15:14
--- NOTE | 2020-12-03 16:07 | PDOC2 ---
CONSULT Date of Consult Date of Consult DATE: 12/03/20 TIME: 16:06 Reason for Consult Reason for Consult: Renal failure Referring Physician Referring Physician: cecile Source Source: Chart review, Patient History of Present Illness Reason for Visit: 75-year-old -[place] gentleman with known chronic kidney disease dating back to 2016. Is known to have a significant dilated cardiomyopathy with an EF of 15 to 20% with indwelling AICD. As reported by Dr. Gomez his creatinine was 2.3 in October and has gone up to 4.4 at presentation and is at 4.1 currently. Is somewhat drowsy and is noted to have some nausea. His chronic kidney disease is attributed to his underlying CHF as well as diabetes. He was recently hospitalized here last month also. It is reported that he has not been doing well, has been more sleepy somewhat short of breath with periorbital puffiness and swelling. He is felt to have for CHF exacerbation whereby chest x-ray in the ER was read as : Mild cardiomegaly and central vascular congestion. We were asked to see him for ongoing renal insufficiency. Patient is not a very good historian at this time and appears to be somewhat drowsy and disinterested in discussing his care with me . Past Medical History Cardiovascular: AFIB, CAD, CHF, HTN, Hyperlipidemia, Other Pulmonary: COPD CENTRAL NERVOUS SYSTEM: CVA GI: GERD Heme/Onc: Anemia NOS Hepatobiliary: Cholelithiasis Musculoskeletal: Osteoarthritis Endocrine: Diabetes Past Surgical History Past Surgical History: Cholecystectomy, CABG, Cataract Removal Family History Family History: Cancer, Diabetes Social History No ALCOHOL: none Drugs: None Lives: with Family Current Problem List Problem List Problems Medical Problems: (1) CHF (congestive heart failure) Status: Acute (2) Fluid overload Status: Acute (3) Kidney failure Status: Acute Current Medications Current Medications Current Medications Furosemide (Lasix) 80 mg 1X ONCE IVP Last administered on 12/01/20at 14:53; Start 12/01/20 at 14:15; Stop 12/01/20 at 14:16; Status DC Aspirin (Ecotrin) 81 mg HS PO Last administered on 12/02/20at 21:40; Start 12/01/20 at 21:00 Dabigatran (Pradaxa) 75 mg BID PO Last administered on 12/03/20at 08:57; Start 12/01/20 at 21:00 Hydralazine HCl (Apresoline) 25 mg TID PO Last administered on 12/03/20 15:14; Start 12/01/20 at 21:00 Metolazone (Zaroxolyn) 2.5 mg DAILY PO Last administered on 12/03/20 08:58; Start 12/02/20 at 09:00 Potassium Chloride (Klor-Con) 10 meq DAILY PO Last administered on 12/03/20 08:58; Start 12/02/20 at 09:00 Sertraline HCl (Zoloft) 25 mg DAILY PO Last administered on 12/03/20 08:57; Start 12/02/20 at 09:00 Simvastatin (Zocor) 20 mg HS PO Last administered on 12/02/20 21:40; Start 12/01/20 at 21:00 Albuterol Sulfate (Ventolin Neb Soln) 2.5 mg PRN Q6HRS PRN NEB SHORTNESS OF BREATH; Start 12/01/20 at 18:00; Status Cancel Ergocalciferol (Vitamin D2) 50,000 unit WEEKLY PO ; Start 12/08/20 at 09:00 Metoprolol Tartrate (Lopressor) 50 mg BID PO Last administered on 12/03/20 08:58; Start 12/01/20 at 21:00 Insulin Human Lispro (HumaLOG) 0-5 UNITS TIDWMEALS SQ ; Start 12/01/20 at 17:00; Stop 12/01/20 at 19:15; Status DC Dextrose (Dextrose 50%-Water Syringe) 12.5 gm PRN Q15MIN PRN IV SEE COMMENTS; Start 12/01/20 at 16:30 Furosemide (Lasix) 40 mg BID92 IVP Last administered on 12/03/20 15:11; Start 12/02/20 at 09:00 Albuterol Sulfate (Ventolin Neb Soln) 2.5 mg PRN Q4HRS PRN NEB SHORTNESS OF BREATH; Start 12/01/20 at 18:00 Insulin Human Lispro (HumaLOG) 10 units TIDWMEALHC SQ ; Start 12/01/20 at 21:00; Status UNV Insulin Glargine (Lantus Syringe) 10 unit QHS SQ Last administered on 12/02/20at 21:44; Start 12/01/20 at 21:00 Insulin Human Lispro (HumaLOG) 0-10 UNITS TIDWMEALHC SQ Last administered on 12/01/20at 21:10; Start 12/01/20 at 21:00 Acetaminophen/ Hydrocodone Bitart (Lortab 5/325) 1 tab PRN Q8HRS PRN PO MODERATE PAIN 4-6 Last administered on 12/01/20at 21:08; Start 12/01/20 at 21:00 Insulin Human Lispro (HumaLOG) 10 units 1X IV ; Start 12/01/20 at 21:00; Status UNV Insulin Human Lispro (HumaLOG) 10 units 1X ONCE SQ ; Start 12/01/20 at 21:00; Stop 12/01/20 at 21:04; Status DC Insulin Human Lispro (HumaLOG) 10 units 1X ONCE SQ ; Start 12/01/20 at 21:30; Stop 12/01/20 at 21:31; Status DC Info (Anti-Coagulation Monitoring By Pharmacy) 1 each PRN DAILY PRN MC SEE COMMENTS Last administered on 12/02/20at 09:46; Start 12/01/20 at 21:45 Potassium Chloride (Klor-Con) 40 meq 1X ONCE PO Last administered on 12/03/20at 10:30; Start 12/03/20 at 10:30; Stop 12/03/20 at 10:31; Status DC Levothyroxine Sodium (Synthroid) 25 mcg DAILY06 PO ; Start 12/04/20 at 06:00 Active Scripts Active Pradaxa (Dabigatran Etexilate Mesylate) 75 Mg Capsule 75 Mg PO BID 30 Days Digoxin 125 Mcg Tablet 125 Mcg PO QODAY 30 Days Reported Hydralazine Hcl 25 Mg Tablet 1 Tab PO TID Furosemide 40 Mg Tablet 40 PO DAILY Fluticasone Propionate Nasal [place] (Fluticasone Propionate) Unknown Strength [place].susp Unknown Dose NS DAILY Promethazine Hcl 6.25 Mg/5 Ml Syrup 1 PO TID PRN Megestrol Acetate 40 Mg Tablet 1 Tab PO BID Vitamin D2 (Ergocalciferol (Vitamin D2)) 1,250 Mcg Capsule 1 Cap PO WEEKLY Zoloft (Sertraline Hcl) 25 Mg Tablet 1 Tab PO DAILY Tramadol Hcl 50 Mg Tablet 50 Mg PO PRN BID PRN Potassium Chloride (Potassium Chloride) 10 Meq Tab.sr.24h 10 Meq PO DAILY Metolazone 2.5 Mg Tablet 2.5 Mg PO DAILY Albuterol Sulfate Conc Neb Soln (Albuterol Sulfate) 2.5 Mg/0.5 Ml Vial.neb 1 Vial NEB Q4HRS PRN Digoxin 125 Mcg Tablet 125 Mcg PO DAILY Metoprolol Tartrate 100 Mg Tablet 50 Mg PO BID Diltiazem 24HR Cd (Diltiazem Hcl) 120 Mg Cap.er.24h 1 Cap PO DAILY Aspir 81 (Aspirin) 81 Mg Tablet.dr 1 Tab PO HS Apidra (Insulin Glulisine) 100 Unit/1 Ml Vial 10 Unit SQ TIDAC Vitamin D (Cholecalciferol (Vitamin D3)) 10,000 Unit Capsule 50,000 Unit PO WEEKLY Niaspan (Niacin) 500 Mg Tab.er.24h 500 Mg PO HS Simvastatin 20 Mg Tablet 20 Mg PO HS Allergies Allergies: Coded Allergies: No Known Drug Allergies (Unverified , 09/03/18) ROS Review of System 14 point review of systems as noted under HPI. Patient not very cooperative in conversation. Physical Exam Physical Exam General Appearance: Awake not fully Alert Oriented x 1-2, drowsy In no visible respt Distress Eyes: Sclerae anicteric conjunctiva Normal EN: No EN Drainage Mucous Memb. Moist Neck: No JVD min JVP Supple no Thyromegaly CVS: S1 S2 soft murmur No Gallop No Rub trace dependent edema Resp: Rare basal Rales no rhonchi no Acc. Muscle use GI: BAS +ve NO Bruit Non Tender Non Distended : no CVA tenderness; no Suprapubic Tenderness SKIN: no visible Rashes Breast Exam deferred Mu.Sk: Limited ROM, Min Muscle Atrophy Heme: Unable to palpate Obvious LAD no palp Splenomegaly NEURO: Appears to be somewhat drowsy, no asterixis Psych: ? Depressed, no active hallucinations Vital Signs Vital Signs Date Time Temp Pulse Resp B/P (MAP) Pulse Ox O2 Delivery O2 Flow Rate FiO2 12/03/20 15:14 59 132/81 12/03/20 15:00 97.4 18 95 Nasal Cannula 1.0 97.4 Assessment & Plan ALEXIA - in the setting of Ac. Decompensation of CH sys CHF. Appears to have progression of his underlying CKD to current levels. Given his nausea, poor appetite as well as fluid balance challenges, he may best be served by initiation of hemodialysis. I have discussed this with him and he is agreeable to the same on Saturday. CHF - await cardio eval. Diuresis as needed Edema - Prooably asso with Pulm HTN and Rv Failure - diuresis as needed. Current examination of lower extremities does not reveal significant edema other than may be trace in his calves Low potassium replace as needed. Hold diuretics for the time being. Magnesium is adequate mild Met Acidosis - reval with ongoing Diuresis. Better today. Anticipate this to remain corrected with initiation of dialysis Labs Labs Laboratory Tests Test 12/01/20 17:40 12/01/20 20:17 12/01/20 20:20 12/02/20 03:15 Glucose (Fingerstick) 361 mg/dL (70-99) 461 mg/dL (70-99) 447 mg/dL (70-99) 237 mg/dL (70-99) Test 12/02/20 07:01 12/02/20 08:00 12/02/20 11:09 12/02/20 13:23 Glucose (Fingerstick) 124 mg/dL (70-99) 83 mg/dL (70-99) White Blood Count 9.4 x10^3/uL (4.0-11.0) Red Blood Count 4.51 x10^6/uL (4.30-5.70) Hemoglobin 14.2 g/dL (13.0-17.5) Hematocrit 44.8 % (39.0-53.0) Mean Corpuscular Volume 99 fL (79-100) Mean Corpuscular Hemoglobin 32 pg (25-35) Mean Corpuscular Hemoglobin Concent 32 g/dL (31-37) Red Cell Distribution Width 16.8 % (11.5-14.5) Platelet Count 221 x10^3/uL (140-400) Neutrophils (%) (Auto) 82 % (31-73) Lymphocytes (%) (Auto) 10 % (24-48) Monocytes (%) (Auto) 8 % (0-9) Eosinophils (%) (Auto) 1 % (0-3) Basophils (%) (Auto) 0 % (0-3) Neutrophils # (Auto) 7.7 x10^3/uL (1.8-7.7) Lymphocytes # (Auto) 0.9 x10^3/uL (1.0-4.8) Monocytes # (Auto) 0.7 x10^3/uL (0.0-1.1) Eosinophils # (Auto) 0.1 x10^3/uL (0.0-0.7) Basophils # (Auto) 0.0 x10^3/uL (0.0-0.2) Sodium Level 139 mmol/L (136-145) Potassium Level 3.7 mmol/L (3.5-5.1) Chloride Level 102 mmol/L (98-107) Carbon Dioxide Level 19 mmol/L (21-32) Anion Gap 18 (6-14) Blood Urea Nitrogen 103 mg/dL (8-26) Creatinine 4.1 mg/dL (0.7-1.3) Estimated GFR (Cockcroft-Gault) 17.4 Glucose Level 122 mg/dL (70-99) Calcium Level 9.5 mg/dL (8.5-10.1) SARS-CoV-2 Antigen (Rapid) Negative (NEGATIVE) Test 12/02/20 16:05 12/02/20 21:39 12/03/20 05:00 12/03/20 07:18 Glucose (Fingerstick) 98 mg/dL (70-99) 151 mg/dL (70-99) 98 mg/dL (70-99) White Blood Count 10.1 x10^3/uL (4.0-11.0) Red Blood Count 4.60 x10^6/uL (4.30-5.70) Hemoglobin 14.5 g/dL (13.0-17.5) Hematocrit 44.8 % (39.0-53.0) Mean Corpuscular Volume 97 fL (79-100) Mean Corpuscular Hemoglobin 32 pg (25-35) Mean Corpuscular Hemoglobin Concent 32 g/dL (31-37) Red Cell Distribution Width 16.9 % (11.5-14.5) Platelet Count 227 x10^3/uL (140-400) Neutrophils (%) (Auto) 84 % (31-73) Lymphocytes (%) (Auto) 9 % (24-48) Monocytes (%) (Auto) 6 % (0-9) Eosinophils (%) (Auto) 1 % (0-3) Basophils (%) (Auto) 0 % (0-3) Neutrophils # (Auto) 8.5 x10^3/uL (1.8-7.7) Lymphocytes # (Auto) 0.9 x10^3/uL (1.0-4.8) Monocytes # (Auto) 0.6 x10^3/uL (0.0-1.1) Eosinophils # (Auto) 0.1 x10^3/uL (0.0-0.7) Basophils # (Auto) 0.0 x10^3/uL (0.0-0.2) Sodium Level 139 mmol/L (136-145) Potassium Level 3.2 mmol/L (3.5-5.1) Chloride Level 101 mmol/L (98-107) Carbon Dioxide Level 24 mmol/L (21-32) Anion Gap 14 (6-14) Blood Urea Nitrogen 99 mg/dL (8-26) Creatinine 4.1 mg/dL (0.7-1.3) Estimated GFR (Cockcroft-Gault) 17.4 Glucose Level 109 mg/dL (70-99) Calcium Level 9.4 mg/dL (8.5-10.1) Magnesium Level 2.6 mg/dL (1.8-2.4) Triglycerides Level 68 mg/dL (0-150) Cholesterol Level 121 mg/dL (0-200) LDL Cholesterol, Calculated 80 mg/dL (0-100) VLDL Cholesterol, Calculated 14 mg/dL (0-40) Non-HDL Cholesterol Calculated 94 mg/dL (0-129) HDL Cholesterol 27 mg/dL (40-60) Cholesterol/HDL Ratio 4.5 Thyroid Stimulating Hormone (TSH) 4.948 uIU/mL (0.358-3.74) Test 12/03/20 11:22 Glucose (Fingerstick) 96 mg/dL (70-99) Laboratory Tests Test 12/02/20 21:39 12/03/20 05:00 12/03/20 07:18 12/03/20 11:22 Glucose (Fingerstick) 151 mg/dL (70-99) 98 mg/dL (70-99) 96 mg/dL (70-99) White Blood Count 10.1 x10^3/uL (4.0-11.0) Red Blood Count 4.60 x10^6/uL (4.30-5.70) Hemoglobin 14.5 g/dL (13.0-17.5) Hematocrit 44.8 % (39.0-53.0) Mean Corpuscular Volume 97 fL (79-100) Mean Corpuscular Hemoglobin 32 pg (25-35) Mean Corpuscular Hemoglobin Concent 32 g/dL (31-37) Red Cell Distribution Width 16.9 % (11.5-14.5) Platelet Count 227 x10^3/uL (140-400) Neutrophils (%) (Auto) 84 % (31-73) Lymphocytes (%) (Auto) 9 % (24-48) Monocytes (%) (Auto) 6 % (0-9) Eosinophils (%) (Auto) 1 % (0-3) Basophils (%) (Auto) 0 % (0-3) Neutrophils # (Auto) 8.5 x10^3/uL (1.8-7.7) Lymphocytes # (Auto) 0.9 x10^3/uL (1.0-4.8) Monocytes # (Auto) 0.6 x10^3/uL (0.0-1.1) Eosinophils # (Auto) 0.1 x10^3/uL (0.0-0.7) Basophils # (Auto) 0.0 x10^3/uL (0.0-0.2) Sodium Level 139 mmol/L (136-145) Potassium Level 3.2 mmol/L (3.5-5.1) Chloride Level 101 mmol/L (98-107) Carbon Dioxide Level 24 mmol/L (21-32) Anion Gap 14 (6-14) Blood Urea Nitrogen 99 mg/dL (8-26) Creatinine 4.1 mg/dL (0.7-1.3) Estimated GFR (Cockcroft-Gault) 17.4 Glucose Level 109 mg/dL (70-99) Calcium Level 9.4 mg/dL (8.5-10.1) Magnesium Level 2.6 mg/dL (1.8-2.4) Triglycerides Level 68 mg/dL (0-150) Cholesterol Level 121 mg/dL (0-200) LDL Cholesterol, Calculated 80 mg/dL (0-100) VLDL Cholesterol, Calculated 14 mg/dL (0-40) Non-HDL Cholesterol Calculated 94 mg/dL (0-129) HDL Cholesterol 27 mg/dL (40-60) Cholesterol/HDL Ratio 4.5 Thyroid Stimulating Hormone (TSH) 4.948 uIU/mL (0.358-3.74) Review All relevant outside records, renal labs, imaging studies, telemetry/EKG's were reviewed. Images Images Most recent echocardiogram is from 09/09/2019 The left ventricular systolic function is severely impaired. The Ejection Fraction is 25%. There is a pacemaker lead in RA/RV. Mild tricuspid regurgitation with an estimated PAP of 81 mmHg. There is severe pulmonary hypertension. There is no evidence of significant pericardial effusion. Signed by : Leonard Stark, Electronically Approved : 09/09/2019 10:56:59 Renal sonogram 12/02/2020 FINDINGS: Right kidney measures 9.9 cm in length. There are numerous cystic lesions noted within the kidneys largest at the upper pole measuring 2.4 cm which is mildly complex. No hydronephrosis. Left kidney measures 8.7 cm in length. No kidney is not well visualized. No hydronephrosis. Bladder is distended and appears thin-walled. There is bilateral pleural effusions noted. IMPRESSION: 1. No hydronephrosis. 2. Mildly complex lesion at the upper pole of the right kidney. Further evaluation with nonemergent/outpatient renal protocol CT or MRI is recommended. JANAK CASIANO MD Dec 03, 2020 16:07
[2020-12-03] MEDS: HYDROcodone/APAP 5/325MG 1 TAB TABLET PO PRN (16:33)
[2020-12-03 19:10] VITALS: BP 160/88
[2020-12-03] MEDS: ASPIRIN ENTERIC COATED 81 MG TABLET.DR. PO SCH (21:38)
[2020-12-03] MEDS: SIMVASTATIN 20 MG TABLET PO SCH (21:38)
[2020-12-03] MEDS: INSULIN GLARGINE SYRINGE. SQ SCH (21:42)
[2020-12-03 23:45] VITALS: BP 148/85
[2020-12-04 02:16] LABS: HEMOGLOBIN A1C 8.2 % (4.8-5.6)
[2020-12-04 03:30] VITALS: BP 136/79
[2020-12-04] MEDS: LEVOTHYROXINE 25 MCG TABLET. PO SCH (05:04)
[2020-12-04 05:13] LABS: CALCIUM 9.4 mg/dL (8.5-10.1); CREATININE 4.1 mg/dL (0.7-1.3); GFR 17.4; POTASSIUM 3.3 mmol/L (3.5-5.1)
[2020-12-04 07:00] VITALS: BP 145/89
[2020-12-04] MEDS: INSULIN LISPRO 300 UNITS/3 ML VIAL. SQ SCH ×4 (08:00→20:33)
[2020-12-04] MEDS: METOPROLOL TART IMMED RELEASE 50 MG TABLET. PO SCH ×2 (08:19→19:49)
[2020-12-04] MEDS: SERTRALINE 25 MG TABLET. PO SCH (08:20)
[2020-12-04] MEDS: hydrALAZINE 25 MG TABLET PO SCH ×3 (08:20→19:49)
[2020-12-04] MEDS: DABIGATRAN ETEXILATE 75 MG CAPSULE. PO SCH ×2 (08:21→19:49)
[2020-12-04] MEDS: POTASSIUM CHLORIDE 10 MEQ TABLET.ER. PO SCH (08:21)
[2020-12-04 10:15] VITALS: BP 141/80
[2020-12-04] MEDS ORDERED: POTASSIUM CHLORIDE 20 MEQ TABLET.ER. PO ONE (11:30)
--- NOTE | 2020-12-04 11:31 | PDOC ---
PROGRESS NOTES Date of Service: DATE: 12/04/20 TIME: 11:29 Subjective Subjective moved to cardiac icu Objective Objective Vital Signs Date Time Temp Pulse Resp B/P (MAP) Pulse Ox O2 Delivery O2 Flow Rate FiO2 12/04/20 10:15 97.3 68 19 141/80 (100) 99 Room Air 1.0 97.3 Intake and Output 12/04/20 07:00 Intake Total 120 ml Balance 120 ml Intake Oral 120 ml # Voids 6 Physical Exam Abdomen: Normal bowel sounds Heart: Regular rate Extremities: Other (+2 edema bilaterally) General: mild distress Lungs: Other (Mildly decreased breath sounds) MUSCULOSKELETAL: No swelling, Osteoarthritic changes both hands Psych/Mental Status: Mood NL Skin: Other (skin break down) Diagnosis Problem List Problems Medical Problems: (1) CHF (congestive heart failure) Status: Acute (2) Fluid overload Status: Acute (3) Kidney failure Status: Acute Assessment Assessment Problems Medical Problems: (1) CHF (congestive heart failure) Status: Acute (2) Fluid overload Status: Acute (3) Kidney failure Status: Acute IMPRESSION: 1. Acute on chronic systolic heart failure. 2. Worsening kidney failure.[id number] 3. Chronic dilated cardiomyopathy, ejection fraction 20%. 4. Insulin-dependent diabetes. 5. Hypertension. 6. Hyperlipidemia. 7. Malnutrition severe. 8. General debility. 9. h/o heart surgery.CABG 10 .presence of AICD PLAN:pot 3.3. replace pot stable at the present time. cardiac arrhythmias, v tach, moved to cardiac floor discussed about dialysis ,pt is not happy about it,said he may consider doing it and see how it goes . BS good now wbc normal chf on cxr AICD Plan Plan of Care Problems Medical Problems: (1) CHF (congestive heart failure) Status: Acute (2) Fluid overload Status: Acute (3) Kidney failure Status: Acute Comment Review of Relevant I have reviewed the following items debbie (where applicable) has been applied. Labs Laboratory Tests Test 12/03/20 16:50 12/03/20 17:37 12/03/20 20:59 12/04/20 04:00 Potassium Level 3.6 mmol/L (3.5-5.1) 3.3 mmol/L (3.5-5.1) Glucose (Fingerstick) 90 mg/dL (70-99) 108 mg/dL (70-99) Sodium Level 140 mmol/L (136-145) Chloride Level 102 mmol/L (98-107) Carbon Dioxide Level 29 mmol/L (21-32) Anion Gap 9 (6-14) Blood Urea Nitrogen 98 mg/dL (8-26) Creatinine 4.1 mg/dL (0.7-1.3) Estimated GFR (Cockcroft-Gault) 17.4 Glucose Level 114 mg/dL (70-99) Calcium Level 9.4 mg/dL (8.5-10.1) Test 12/04/20 08:14 Glucose (Fingerstick) 86 mg/dL (70-99) Medications Current Medications Ergocalciferol (Vitamin D2) 50,000 unit WEEKLY PO ; Start 12/08/20 at 09:00 Levothyroxine Sodium (Synthroid) 25 mcg DAILY06 PO Last administered on 12/04/20at 05:04; Start 12/04/20 at 06:00 Vitals/I & O Vital Sign - Last 24 Hours 12/03/20 12/03/20 12/03/20 12/03/20 15:00 15:14 16:33 17:30 Temp 97.4 97.4 Pulse 64 59 Resp 18 B/P (MAP) 137/89 (105) 132/81 Pulse Ox 95 95 95 O2 Delivery Nasal Cannula Room Air Room Air O2 Flow Rate 1.0 1.0 1.0 12/03/20 12/03/20 12/03/20 12/03/20 19:10 20:00 21:38 21:38 Temp 97.4 97.4 Pulse 63 63 63 Resp 23 B/P (MAP) 160/88 (112) 160/88 160/88 Pulse Ox 98 O2 Delivery Room Air Room Air O2 Flow Rate 1.5 1.5 12/03/20 12/04/20 12/04/20 12/04/20 23:45 03:30 07:00 08:00 Temp 97.7 97.5 97.0 97.7 97.5 97.0 Pulse 61 68 64 Resp 20 20 15 B/P (MAP) 148/85 (106) 136/79 (98) 145/89 (107) Pulse Ox 93 96 100 O2 Delivery Room Air Nasal Cannula Room Air Nasal Cannula O2 Flow Rate 1.5 1.0 1.0 12/04/20 12/04/20 12/04/20 08:19 08:20 10:15 Temp 97.3 97.3 Pulse 64 64 68 Resp 19 B/P (MAP) 145/89 145/89 141/80 (100) Pulse Ox 99 O2 Delivery Room Air O2 Flow Rate 1.0 Intake and Output 12/03/20 12/03/20 12/04/20 15:00 23:00 07:00 Intake Total 0 ml 120 ml Balance 0 ml 120 ml Justifications for Admission Other Justification NAUN ROPER MD Dec 04, 2020 11:31
[2020-12-04 14:00] VITALS: BP 148/90
--- NOTE | 2020-12-04 15:29 | PDOC ---
DATE OF SERVICE: DOS: DATE: 12/04/20 TIME: 15:25 SUBJECTIVE ROS Acute on chronic renal failure Patient claims she is doing okay. Does admit to poor appetite and distaste for food CVS: no Orthopnea, no CP RESP: no SOB, no [place] GI: min Nausea, no Vomiting : no Dysuria, no Urgency OBJECTIVE Vital Signs Vital Signs Date Time Temp Pulse Resp B/P (MAP) Pulse Ox O2 Delivery O2 Flow Rate FiO2 12/04/20 14:18 68 148/90 12/04/20 14:00 97.3 17 97 Nasal Cannula 1.0 97.3 I & 0 Intake and Output 12/04/20 07:00 Intake Total 120 ml Balance 120 ml Intake Oral 120 ml # Voids 6 PHYSICAL EXAM Physical Exam General Appearance: Awake not fully Alert Oriented x 1-2, drowsy In no visible respt Distress Eyes: Sclerae anicteric conjunctiva Normal EN: No EN Drainage Mucous Memb. Moist Neck: No JVD min JVP Supple no Thyromegaly CVS: S1 S2 soft murmur No Gallop No Rub trace dependent edema Resp: Rare basal Rales no rhonchi no Acc. Muscle use GI: BAS +ve NO Bruit Non Tender Non Distended : no CVA tenderness; no Suprapubic Tenderness NEURO: Appears to be somewhat drowsy, no asterixis Assessment & Plan ALEXIA - in the setting of Ac. Decompensation of CH sys CHF. Appears to have progression of his underlying CKD to current levels. Given his nausea, poor appetite as well as fluid balance challenges, he may best be served by initiation of hemodialysis. I have discussed this with him and he is agreeable to the same. Permacath placement in the morning and initiate dialysis. I have discussed this with Dr. Gomez -patient's primary care provider who is in agreement of the same. Patient will try it for a few months and if he does not like how it makes him feel he can always stop. Urine output is minimal currently as documented off of diuretics CHF - await cardio eval. Diuresis as needed to optimize cardiopulmonary status Edema - Prooably asso with Pulm HTN and Rv Failure - diuresis as needed. Current examination of lower extremities does not reveal significant edema Low potassium replace as ordered. Hold diuretics for the time being. Magnesium is adequate mild Met Acidosis -much improved currently. COMMENT/RELEVANT DATA Meds Current Medications Medications (Trade) Dose Ordered Sig/Missy Start Time Stop Time Status Last Admin Dose Admin Acetaminophen/ Hydrocodone Bitart (Lortab 5/325) 1 tab PRN Q8HRS PRN 12/01/20 21:00 12/03/20 16:33 1 TAB Albuterol Sulfate (Ventolin Neb Soln) 2.5 mg PRN Q4HRS PRN 12/01/20 18:00 Aspirin (Ecotrin) 81 mg HS 12/01/20 21:00 12/03/20 21:38 81 MG Dabigatran (Pradaxa) 75 mg BID 12/01/20 21:00 12/04/20 08:21 75 MG Dextrose (Dextrose 50%-Water Syringe) 12.5 gm PRN Q15MIN PRN 12/01/20 16:30 Ergocalciferol (Vitamin D2) 50,000 unit WEEKLY 12/08/20 09:00 Furosemide (Lasix) 40 mg BID92 12/02/20 09:00 12/03/20 16:22 DC 12/03/20 15:11 40 MG Hydralazine HCl (Apresoline) 25 mg TID 12/01/20 21:00 12/04/20 14:18 25 MG Info (Anti-Coagulation Monitoring By Pharmacy) 1 each PRN DAILY PRN 12/01/20 21:45 12/02/20 09:46 1 EACH Insulin Glargine (Lantus Syringe) 10 unit QHS 12/01/20 21:00 12/03/20 21:42 10 UNIT Insulin Human Lispro (HumaLOG) 10 units 1X ONCE 12/01/20 21:30 12/01/20 21:31 DC Levothyroxine Sodium (Synthroid) 25 mcg DAILY06 12/04/20 06:00 12/04/20 05:04 25 MCG Metolazone (Zaroxolyn) 2.5 mg DAILY 12/02/20 09:00 12/03/20 16:22 DC 12/03/20 08:58 2.5 MG Metoprolol Tartrate (Lopressor) 50 mg BID 12/01/20 21:00 12/04/20 08:19 50 MG Potassium Chloride (Klor-Con) 40 meq 1X ONCE 12/04/20 11:30 12/04/20 11:40 DC 12/04/20 11:55 40 MEQ Sertraline HCl (Zoloft) 25 mg DAILY 12/02/20 09:00 12/04/20 08:20 25 MG Simvastatin (Zocor) 20 mg HS 12/01/20 21:00 12/03/20 21:38 20 MG Lab Laboratory Tests Test 12/03/20 16:50 12/03/20 17:37 12/03/20 20:59 12/04/20 04:00 Potassium Level 3.6 mmol/L (3.5-5.1) 3.3 mmol/L (3.5-5.1) Glucose (Fingerstick) 90 mg/dL (70-99) 108 mg/dL (70-99) Sodium Level 140 mmol/L (136-145) Chloride Level 102 mmol/L (98-107) Carbon Dioxide Level 29 mmol/L (21-32) Anion Gap 9 (6-14) Blood Urea Nitrogen 98 mg/dL (8-26) Creatinine 4.1 mg/dL (0.7-1.3) Estimated GFR (Cockcroft-Gault) 17.4 Glucose Level 114 mg/dL (70-99) Calcium Level 9.4 mg/dL (8.5-10.1) Test 12/04/20 08:14 12/04/20 11:44 Glucose (Fingerstick) 86 mg/dL (70-99) 131 mg/dL (70-99) Results All relevant outside records, renal labs, imaging studies, telemetry/EKG's were reviewed. Justicifation of Admission Dx: Justifications for Admission: Justification of Admission Dx: N/A JANAK CASIANO MD Dec 04, 2020 15:29
--- NOTE | 2020-12-04 16:09 | PDOC ---
PROGRESS NOTES Date of Service DATE: 12/04/20 TIME: 16:06 Subjective Subjective Patient seen and evaluated Objective Objective Vital Signs Date Time Temp Pulse Resp B/P (MAP) Pulse Ox O2 Delivery O2 Flow Rate FiO2 12/04/20 14:18 68 148/90 12/04/20 14:00 97.3 17 97 Nasal Cannula 1.0 97.3 Intake and Output 12/04/20 07:00 Intake Total 120 ml Balance 120 ml Intake Oral 120 ml # Voids 6 Physical Exam Abdomen: Normal bowel sounds Heart: Regular rate General: mild distress Lungs: Other (Decreased breath sounds) Assessment Assessment Problems Medical Problems: (1) CHF (congestive heart failure) Status: Acute (2) Fluid overload Status: Acute (3) Kidney failure Status: Acute 1. Congestive heart failure. Probably systolic. The patient is feeling better today. He denies chest pain. Previous Lexiscan testing earlier this year showed an ejection fraction of 39%. The patient is being evaluated by the renal service for dialysis. Echo pending. 2. History of coronary artery bypass surgery. Will check on old records. Patient is unable to state who his primary community living instructor is. 3. ICD. Patient is in a V paced rhythm. Continue present medications. 4. ALEXIA. Creatinine remains significantly elevated. It was 2.3 level last October. The renal service is evaluating. Probable dialysis as above. 5. Uncontrolled diabetes. Initial glucose in the ER was 381. On sliding scale insulin as per the primary service. Comment Review of Relevant I have reviewed the following items debbie (where applicable) has been applied. Labs Laboratory Tests Test 12/02/20 21:39 12/03/20 05:00 12/03/20 07:18 12/03/20 11:22 Glucose (Fingerstick) 151 mg/dL (70-99) 98 mg/dL (70-99) 96 mg/dL (70-99) White Blood Count 10.1 x10^3/uL (4.0-11.0) Red Blood Count 4.60 x10^6/uL (4.30-5.70) Hemoglobin 14.5 g/dL (13.0-17.5) Hematocrit 44.8 % (39.0-53.0) Mean Corpuscular Volume 97 fL (79-100) Mean Corpuscular Hemoglobin 32 pg (25-35) Mean Corpuscular Hemoglobin Concent 32 g/dL (31-37) Red Cell Distribution Width 16.9 % (11.5-14.5) Platelet Count 227 x10^3/uL (140-400) Neutrophils (%) (Auto) 84 % (31-73) Lymphocytes (%) (Auto) 9 % (24-48) Monocytes (%) (Auto) 6 % (0-9) Eosinophils (%) (Auto) 1 % (0-3) Basophils (%) (Auto) 0 % (0-3) Neutrophils # (Auto) 8.5 x10^3/uL (1.8-7.7) Lymphocytes # (Auto) 0.9 x10^3/uL (1.0-4.8) Monocytes # (Auto) 0.6 x10^3/uL (0.0-1.1) Eosinophils # (Auto) 0.1 x10^3/uL (0.0-0.7) Basophils # (Auto) 0.0 x10^3/uL (0.0-0.2) Sodium Level 139 mmol/L (136-145) Potassium Level 3.2 mmol/L (3.5-5.1) Chloride Level 101 mmol/L (98-107) Carbon Dioxide Level 24 mmol/L (21-32) Anion Gap 14 (6-14) Blood Urea Nitrogen 99 mg/dL (8-26) Creatinine 4.1 mg/dL (0.7-1.3) Estimated GFR (Cockcroft-Gault) 17.4 Glucose Level 109 mg/dL (70-99) Hemoglobin A1c 8.2 % (4.8-5.6) Calcium Level 9.4 mg/dL (8.5-10.1) Magnesium Level 2.6 mg/dL (1.8-2.4) Triglycerides Level 68 mg/dL (0-150) Cholesterol Level 121 mg/dL (0-200) LDL Cholesterol, Calculated 80 mg/dL (0-100) VLDL Cholesterol, Calculated 14 mg/dL (0-40) Non-HDL Cholesterol Calculated 94 mg/dL (0-129) HDL Cholesterol 27 mg/dL (40-60) Cholesterol/HDL Ratio 4.5 Thyroid Stimulating Hormone (TSH) 4.948 uIU/mL (0.358-3.74) Test 12/03/20 16:50 12/03/20 17:37 12/03/20 20:59 12/04/20 04:00 Potassium Level 3.6 mmol/L (3.5-5.1) 3.3 mmol/L (3.5-5.1) Glucose (Fingerstick) 90 mg/dL (70-99) 108 mg/dL (70-99) Sodium Level 140 mmol/L (136-145) Chloride Level 102 mmol/L (98-107) Carbon Dioxide Level 29 mmol/L (21-32) Anion Gap 9 (6-14) Blood Urea Nitrogen 98 mg/dL (8-26) Creatinine 4.1 mg/dL (0.7-1.3) Estimated GFR (Cockcroft-Gault) 17.4 Glucose Level 114 mg/dL (70-99) Calcium Level 9.4 mg/dL (8.5-10.1) Test 12/04/20 08:14 12/04/20 11:44 Glucose (Fingerstick) 86 mg/dL (70-99) 131 mg/dL (70-99) Laboratory Tests Test 12/03/20 16:50 12/03/20 17:37 12/03/20 20:59 12/04/20 04:00 Potassium Level 3.6 mmol/L (3.5-5.1) 3.3 mmol/L (3.5-5.1) Glucose (Fingerstick) 90 mg/dL (70-99) 108 mg/dL (70-99) Sodium Level 140 mmol/L (136-145) Chloride Level 102 mmol/L (98-107) Carbon Dioxide Level 29 mmol/L (21-32) Anion Gap 9 (6-14) Blood Urea Nitrogen 98 mg/dL (8-26) Creatinine 4.1 mg/dL (0.7-1.3) Estimated GFR (Cockcroft-Gault) 17.4 Glucose Level 114 mg/dL (70-99) Calcium Level 9.4 mg/dL (8.5-10.1) Test 12/04/20 08:14 12/04/20 11:44 Glucose (Fingerstick) 86 mg/dL (70-99) 131 mg/dL (70-99) Medications Current Medications Furosemide (Lasix) 80 mg 1X ONCE IVP Last administered on 12/01/20at 14:53; Start 12/01/20 at 14:15; Stop 12/01/20 at 14:16; Status DC Aspirin (Ecotrin) 81 mg HS PO Last administered on 12/03/20 21:38; Start 12/01/20 at 21:00 Dabigatran (Pradaxa) 75 mg BID PO Last administered on 12/04/20 08:21; Start 12/01/20 at 21:00 Hydralazine HCl (Apresoline) 25 mg TID PO Last administered on 12/04/20 14:18; Start 12/01/20 at 21:00 Metolazone (Zaroxolyn) 2.5 mg DAILY PO Last administered on 12/03/20 08:58; Start 12/02/20 at 09:00; Stop 12/03/20 at 16:22; Status DC Potassium Chloride (Klor-Con) 10 meq DAILY PO Last administered on 12/04/20 08:21; Start 12/02/20 at 09:00 Sertraline HCl (Zoloft) 25 mg DAILY PO Last administered on 12/04/20 08:20; Start 12/02/20 at 09:00 Simvastatin (Zocor) 20 mg HS PO Last administered on 12/03/20 21:38; Start 12/01/20 at 21:00 Albuterol Sulfate (Ventolin Neb Soln) 2.5 mg PRN Q6HRS PRN NEB SHORTNESS OF BREATH; Start 12/01/20 at 18:00; Status Cancel Ergocalciferol (Vitamin D2) 50,000 unit WEEKLY PO ; Start 12/08/20 at 09:00 Metoprolol Tartrate (Lopressor) 50 mg BID PO Last administered on 12/04/20 08:19; Start 12/01/20 at 21:00 Insulin Human Lispro (HumaLOG) 0-5 UNITS TIDWMEALS SQ ; Start 12/01/20 at 17:00; Stop 12/01/20 at 19:15; Status DC Dextrose (Dextrose 50%-Water Syringe) 12.5 gm PRN Q15MIN PRN IV SEE COMMENTS; Start 12/01/20 at 16:30 Furosemide (Lasix) 40 mg BID92 IVP Last administered on 12/03/20at 15:11; Start 12/02/20 at 09:00; Stop 12/03/20 at 16:22; Status DC Albuterol Sulfate (Ventolin Neb Soln) 2.5 mg PRN Q4HRS PRN NEB SHORTNESS OF BREATH; Start 12/01/20 at 18:00 Insulin Human Lispro (HumaLOG) 10 units TIDWMEALHC SQ ; Start 12/01/20 at 21:00; Status UNV Insulin Glargine (Lantus Syringe) 10 unit QHS SQ Last administered on 12/03/20at 21:42; Start 12/01/20 at 21:00 Insulin Human Lispro (HumaLOG) 0-10 UNITS TIDWMEALHC SQ Last administered on 12/01/20at 21:10; Start 12/01/20 at 21:00 Acetaminophen/ Hydrocodone Bitart (Lortab 5/325) 1 tab PRN Q8HRS PRN PO MODERATE PAIN 4-6 Last administered on 12/03/20at 16:33; Start 12/01/20 at 21:00 Insulin Human Lispro (HumaLOG) 10 units 1X IV ; Start 12/01/20 at 21:00; Status UNV Insulin Human Lispro (HumaLOG) 10 units 1X ONCE SQ ; Start 12/01/20 at 21:00; Stop 12/01/20 at 21:04; Status DC Insulin Human Lispro (HumaLOG) 10 units 1X ONCE SQ ; Start 12/01/20 at 21:30; Stop 12/01/20 at 21:31; Status DC Info (Anti-Coagulation Monitoring By Pharmacy) 1 each PRN DAILY PRN MC SEE COMMENTS Last administered on 12/02/20at 09:46; Start 12/01/20 at 21:45 Potassium Chloride (Klor-Con) 40 meq 1X ONCE PO Last administered on 12/03/20at 10:30; Start 12/03/20 at 10:30; Stop 12/03/20 at 10:31; Status DC Levothyroxine Sodium (Synthroid) 25 mcg DAILY06 PO Last administered on 12/04/20at 05:04; Start 12/04/20 at 06:00 Potassium Chloride (Klor-Con) 40 meq 1X ONCE PO Last administered on 12/04/20at 11:55; Start 12/04/20 at 11:30; Stop 12/04/20 at 11:40; Status DC Active Scripts Active Pradaxa (Dabigatran Etexilate Mesylate) 75 Mg Capsule 75 Mg PO BID 30 Days Digoxin 125 Mcg Tablet 125 Mcg PO QODAY 30 Days Reported Hydralazine Hcl 25 Mg Tablet 1 Tab PO TID Furosemide 40 Mg Tablet 40 PO DAILY Fluticasone Propionate Nasal [place] (Fluticasone Propionate) Unknown Strength [place].susp Unknown Dose NS DAILY Promethazine Hcl 6.25 Mg/5 Ml Syrup 1 PO TID PRN Megestrol Acetate 40 Mg Tablet 1 Tab PO BID Vitamin D2 (Ergocalciferol (Vitamin D2)) 1,250 Mcg Capsule 1 Cap PO WEEKLY Zoloft (Sertraline Hcl) 25 Mg Tablet 1 Tab PO DAILY Tramadol Hcl 50 Mg Tablet 50 Mg PO PRN BID PRN Potassium Chloride (Potassium Chloride) 10 Meq Tab.sr.24h 10 Meq PO DAILY Metolazone 2.5 Mg Tablet 2.5 Mg PO DAILY Albuterol Sulfate Conc Neb Soln (Albuterol Sulfate) 2.5 Mg/0.5 Ml Vial.neb 1 Vial NEB Q4HRS PRN Digoxin 125 Mcg Tablet 125 Mcg PO DAILY Metoprolol Tartrate 100 Mg Tablet 50 Mg PO BID Diltiazem 24HR Cd (Diltiazem Hcl) 120 Mg Cap.er.24h 1 Cap PO DAILY Aspir 81 (Aspirin) 81 Mg Tablet.dr 1 Tab PO HS Apidra (Insulin Glulisine) 100 Unit/1 Ml Vial 10 Unit SQ TIDAC Vitamin D (Cholecalciferol (Vitamin D3)) 10,000 Unit Capsule 50,000 Unit PO WEEKLY Niaspan (Niacin) 500 Mg Tab.er.24h 500 Mg PO HS Simvastatin 20 Mg Tablet 20 Mg PO HS Vitals/I & O Vital Sign - Last 24 Hours 12/03/20 12/03/20 12/03/20 12/03/20 16:33 17:30 19:10 20:00 Temp 97.4 97.4 Pulse 63 Resp 23 B/P (MAP) 160/88 (112) Pulse Ox 95 95 98 O2 Delivery Room Air Room Air Room Air Room Air O2 Flow Rate 1.0 1.0 1.5 1.5 12/03/20 12/03/20 12/03/20 12/04/20 21:38 21:38 23:45 03:30 Temp 97.7 97.5 97.7 97.5 Pulse 63 63 61 68 Resp 20 20 B/P (MAP) 160/88 160/88 148/85 (106) 136/79 (98) Pulse Ox 93 96 O2 Delivery Room Air Nasal Cannula O2 Flow Rate 1.5 12/04/20 12/04/20 12/04/20 12/04/20 07:00 08:00 08:19 08:20 Temp 97.0 97.0 Pulse 64 64 64 Resp 15 B/P (MAP) 145/89 (107) 145/89 145/89 Pulse Ox 100 O2 Delivery Room Air Nasal Cannula O2 Flow Rate 1.0 1.0 12/04/20 12/04/20 12/04/20 10:15 14:00 14:18 Temp 97.3 97.3 97.3 97.3 Pulse 68 68 68 Resp 19 17 B/P (MAP) 141/80 (100) 148/90 (109) 148/90 Pulse Ox 99 97 O2 Delivery Room Air Nasal Cannula O2 Flow Rate 1.0 1.0 Intake and Output 12/03/20 12/03/20 12/04/20 15:00 23:00 07:00 Intake Total 0 ml 120 ml Balance 0 ml 120 ml Justifications for Admission Other Justification NICK DIEGO MD Dec 04, 2020 16:09
[2020-12-04 19:29] VITALS: BP 149/82
[2020-12-04] MEDS: ASPIRIN ENTERIC COATED 81 MG TABLET.DR. PO SCH (19:48)
[2020-12-04] MEDS: SIMVASTATIN 20 MG TABLET PO SCH (19:49)
[2020-12-04] MEDS: INSULIN GLARGINE SYRINGE. SQ SCH (20:36)
[2020-12-04 23:00] VITALS: BP 135/68
[2020-12-05 03:00] VITALS: BP 126/81
[2020-12-05] MEDS: LEVOTHYROXINE 25 MCG TABLET. PO SCH (06:07)
[2020-12-05 07:10] VITALS: BP 129/78
[2020-12-05] MEDS: INSULIN LISPRO 300 UNITS/3 ML VIAL. SQ SCH ×4 (08:00→21:00)
[2020-12-05] MEDS: METOPROLOL TART IMMED RELEASE 50 MG TABLET. PO SCH ×2 (08:35→21:29)
[2020-12-05] MEDS: DABIGATRAN ETEXILATE 75 MG CAPSULE. PO SCH (08:35)
[2020-12-05] MEDS: SERTRALINE 25 MG TABLET. PO SCH (08:36)
[2020-12-05] MEDS: POTASSIUM CHLORIDE 10 MEQ TABLET.ER. PO SCH (08:36)
[2020-12-05] MEDS: hydrALAZINE 25 MG TABLET PO SCH ×3 (08:36→21:29)
[2020-12-05] MEDS ORDERED: ANTI-COAG MONITOR BY PHARMACY. MC PRN (08:45)
--- NOTE | 2020-12-05 08:59 | PDOC ---
PROGRESS NOTES Date of Service: DATE: 12/05/20 TIME: 08:57 Subjective Subjective no new problems ,non sustained v tacycardia 15 beat Objective Objective Vital Signs Date Time Temp Pulse Resp B/P (MAP) Pulse Ox O2 Delivery O2 Flow Rate FiO2 12/05/20 08:36 72 129/78 12/05/20 07:10 97.5 14 98 Nasal Cannula 2.0 97.5 Intake and Output 12/05/20 06:59 Intake Total 890 ml Balance 890 ml Intake Oral 890 ml # Voids 5 Physical Exam Abdomen: Normal bowel sounds Heart: Regular rate Extremities: Other (+2 edema bilaterally) General: mild distress Lungs: Other (Decreased breath sounds) MUSCULOSKELETAL: No swelling, Osteoarthritic changes both hands Psych/Mental Status: Mood NL Skin: Other (skin break down) Diagnosis Problem List Problems Medical Problems: (1) CHF (congestive heart failure) Status: Acute (2) Fluid overload Status: Acute (3) Kidney failure Status: Acute Assessment Assessment Problems Medical Problems: (1) CHF (congestive heart failure) Status: Acute (2) Fluid overload Status: Acute (3) Kidney failure Status: Acute IMPRESSION: 1. Acute on chronic systolic heart failure. 2. Worsening kidney failure.[id number] 3. Chronic dilated cardiomyopathy, ejection fraction 20%. 4. Insulin-dependent diabetes. 5. Hypertension. 6. Hyperlipidemia. 7. Malnutrition severe. 8. General debility. 9. h/o heart surgery.CABG 10 .presence of AICD PLAN: Temp dialysis cathther. start on dialysis today. cardiac arrythmias, AICD stable at the present time. cardiac arrhythmias, v tach, moved to cardiac floor discussed about dialysis ,pt is not happy about it,said he may consider doing it and see how it goes . BS good now wbc normal chf on cxr AICD Plan Plan of Care Problems Medical Problems: (1) CHF (congestive heart failure) Status: Acute (2) Fluid overload Status: Acute (3) Kidney failure Status: Acute Comment Review of Relevant I have reviewed the following items debbie (where applicable) has been applied. Labs Laboratory Tests Test 12/04/20 11:44 12/04/20 16:41 12/04/20 16:43 12/04/20 19:55 Glucose (Fingerstick) 131 mg/dL (70-99) 161 mg/dL (70-99) 166 mg/dL (70-99) 165 mg/dL (70-99) Test 12/05/20 07:30 Glucose (Fingerstick) 82 mg/dL (70-99) Medications Current Medications Ergocalciferol (Vitamin D2) 50,000 unit WEEKLY PO ; Start 12/08/20 at 09:00 Info (Anti-Coagulation Monitoring By Pharmacy) 1 each PRN DAILY PRN MC SEE COMMENTS; Start 12/05/20 at 08:45 Potassium Chloride (Klor-Con) 40 meq 1X ONCE PO Last administered on 12/04/20at 11:55; Start 12/04/20 at 11:30; Stop 12/04/20 at 11:40; Status DC Vitals/I & O Vital Sign - Last 24 Hours 12/04/20 12/04/20 12/04/20 12/04/20 10:15 14:00 14:18 19:29 Temp 97.3 97.3 97.3 97.3 Pulse 68 68 68 67 Resp 19 17 17 B/P (MAP) 141/80 (100) 148/90 (109) 148/90 149/82 (104) Pulse Ox 99 97 99 O2 Delivery Room Air Nasal Cannula O2 Flow Rate 1.0 1.0 12/04/20 12/04/20 12/04/20 12/04/20 19:30 19:49 19:49 20:00 Temp 97.0 97.0 Pulse 67 67 B/P (MAP) 149/82 149/82 O2 Delivery Nasal Cannula O2 Flow Rate 1.0 12/04/20 12/05/20 12/05/20 12/05/20 23:00 03:00 07:10 08:35 Temp 97.6 97.8 97.5 97.6 97.8 97.5 Pulse 72 72 72 Resp 22 24 14 B/P (MAP) 135/68 (90) 126/81 (96) 129/78 (95) 129/78 Pulse Ox 98 O2 Delivery Nasal Cannula Nasal Cannula O2 Flow Rate 2.0 12/05/20 08:36 Pulse 72 B/P (MAP) 129/78 Intake and Output 12/04/20 12/04/20 12/05/20 14:59 22:59 06:59 Intake Total 480 ml 380 ml 30 ml Balance 480 ml 380 ml 30 ml Justifications for Admission Other Justification NAUN ROPER MD Dec 05, 2020 08:59
[2020-12-05] MEDS ORDERED: LIDOCAINE WITH 8.4% SOD BICARB 3 ML DISP.SYRIN. ONE (09:41)
[2020-12-05] MEDS ORDERED: LIDOCAINE WITH 8.4% SOD BICARB 3 ML DISP.SYRIN. INJ ONE (10:00)
--- NOTE | 2020-12-05 10:28 | NUR ---
Kristen from [facility] called to let nursing staff know that this patient has used their services before, number is [phone].
--- NOTE | 2020-12-05 10:42 | PDOC ---
Exam Manager Plan Manager Plan Mari Pipe Turner Pipe Turner Roxy Pre-Procedure Diagnosis Pre-Procedure Diagnosis ARF Post-Procedure Diagnosis Post-Procedure Diagnosis Same Procedure Performed Procedure Performed R IJ temp dialysis cath Type of Anesthesia Type of Anesthesia None Estimated Blood Loss EBL: 3 Specimens Specimans None Drain/Tubes Drains/Tubes r IJ 20 cm schon Condition of Patient Condition of Patient stable Disposition Disposition procedure done at bedside. ALEE TURCIOS MD Dec 05, 2020 10:42
[2020-12-05 10:46] LABS: CALCIUM 9.3 mg/dL (8.5-10.1); CREATININE 3.8 mg/dL (0.7-1.3); POTASSIUM 3.6 mmol/L (3.5-5.1)
[2020-12-05 10:48] LABS: BASO % 0 % (0-3); EOS # 0.3 x10^3/uL (0.0-0.7); EOS % 4 % (0-3); HEMATOCRIT 43.9 % (39.0-53.0); HEMOGLOBIN 14.2 g/dL (13.0-17.5); LYMPH % 12 % (24-48); MEAN CORPUSCULAR HEMOGLOBIN 31 pg (25-35); MEAN CORPUSCULAR HGB CONC 32 g/dL (31-37); MEAN CORPUSCULAR VOLUME 97 fL (79-100); MONO # 0.8 x10^3/uL (0.0-1.1); MONO % 9 % (0-9); NEUT # 6.7 x10^3/uL (1.8-7.7); NEUT % 76 % (31-73); PLATELET COUNT 249 x10^3/uL (140-400); RED BLOOD COUNT 4.53 x10^6/uL (4.30-5.70); RED CELL DISTRIBUTION WIDTH 16.5 % (11.5-14.5); WHITE BLOOD COUNT 8.8 x10^3/uL (4.0-11.0)
[2020-12-05 11:00] VITALS: BP 138/80
--- NOTE | 2020-12-05 11:11 | RAD ---
EXAM: Chest, single view. HISTORY: Line placement. COMPARISON: 12/01/2020 FINDINGS: A frontal view of the chest obtained. There is a right internal jugular catheter with the t ip in the inferior right atrium. No pneumothorax is seen. There is a cardiac pacemaker defibrillator unchanged in position. There is evidence of prior CABG. There are chronic appearing interstitial blackburn ges. There is a stable cardiac silhouette. IMPRESSION: 1. Right internal jugular catheter with the tip in the inferior right atrium. 2. Stable interstitial changes and prominent cardiac silhouette. Electronically signed by: Nena Cortez MD (12/05/2020 11:08 AM) [id number]
--- NOTE | 2020-12-05 11:36 | CARD ---
MR#: [id number] Date of Study: 12/04/2020 Ordering Physician: NICK ALVES, Referring Physician: NICK ALVES, Tech: Romina Chaney [facility] APPROVED REPORT EXAM: Two-dimensional and M-mode echocardiogram with Doppler and color Doppler. Other Information Quality : AverageHR: 80bpm Rhythm : NSR INDICATION Dyspnea Chest Pain 2D DIMENSIONS RVDd3.8 (2.9-3.5cm)Left Atrium(2D)4.2 (1.6-4.0cm) IVSd1.1 (0.7-1.1cm)Aortic Root(2D)3.0 (2.0-3.7cm) LVDd4.3 (3.9-5.9cm)LVOT Diameter2.2 (1.8-2.4cm) PWd1.2 (0.7-1.1cm)LVDs3.6 (2.5-4.0cm) FS (%) 17.9 %SV26.2 ml Aortic Valve AoV Peak Fidencio.97.9cm/sAoV VTI14.7cm AO Peak GR.3.9mmHgLVOT VTI 5.62cm AO Mean GR.2mmHg Mitral Valve MV E Glsuxfcs40.6cm/sMV DECEL [id number] MV A Qpzdrlyo35.8cm/sE/A Ratio1.4 TDI Lateral E' P. V2.15cm/sMedial E' P. V2.40cm/s E/Lateral E'29.6E/Medial E'26.5 Tricuspid Valve TR P. [id number]/sTR Peak Gr.44mmHg LEFT VENTRICLE The Left Ventricle is borderline dilated. There is mild concentric left ventricular hypertrophy. The systolic function is severely impaired. Estimated ejection fraction 15-20% Severe diffuse hypokinesis . There is a probable thrombus in the apex. RIGHT VENTRICLE The right ventricle is normal size. There is normal right ventricular wall thickness. RV systolic fun ction is mildly reduced. There are device leads in the right ventricle and atrium. ATRIA The left atrium size is normal. The right atrium size is normal. The interatrial septum is intact wit h no evidence for an atrial septal defect or patent foramen ovale as noted on 2-D or Doppler imaging. AORTIC VALVE The aortic valve is normal in structure and function. Doppler and Color Flow revealed trace aortic re gurgitation. There is no significant aortic valvular stenosis. MITRAL VALVE The mitral valve is normal in structure and function. There is no evidence of mitral valve prolapse. There is no mitral valve stenosis. Doppler and Color-flow revealed mild mitral regurgitation. TRICUSPID VALVE The tricuspid valve is normal in structure and function. Doppler and Color Flow revealed mild tricusp id regurgitation. Estimated PAP > 50 mmHG. PULMONIC VALVE The pulmonary valve is normal in structure and function. Doppler and Color Flow revealed moderate pul jeff valvular regurgitation. GREAT VESSELS The aortic root is normal in size. The ascending aorta is normal in size. The pulmonary artery is nor mal. The IVC is dilated and collapses <50% with inspiration. PERICARDIAL EFFUSION There is no evidence of significant pericardial effusion. Critical Notification Critical Value: No <Conclusion> The Left Ventricle is borderline dilated. The systolic function is severely impaired. Estimated ejection fraction 15-20% Severe diffuse hypokinesis. There is a probable thrombus in the apex. There is mild concentric left ventricular hypertrophy. There are device leads in the right ventricle and atrium. Doppler and Color Flow revealed trace aortic regurgitation. There is no significant aortic valvular stenosis. Doppler and Color-flow revealed mild mitral regurgitation. Doppler and Color Flow revealed mild tricuspid regurgitation. Estimated PAP > 50 mmHG. Doppler and Color Flow revealed moderate pulmonic valvular regurgitation. Signed by : Nick Alves MD Electronically Approved : 12/05/2020 11:35:46
[2020-12-05] MEDS ORDERED: DIALYSIS PATIENT. MC PRN (12:30)
[2020-12-05] MEDS ORDERED: IV NORMAL SALINE 1000ML BAG 1,000 ML IV PRN ×2 (12:30)
--- NOTE | 2020-12-05 13:16 | RAD ---
Procedure: Ultrasound-guided placement of right internal jugular temporary dialysis catheter 12/05/2020 11:13 AM Clinical Indication: Renal failure temporary dialysis Discussion: The risks and benefits of the procedure were discussed the patient and/or their patient access representative. Informed consent was obtained. A timeout procedure was performed. All elements of maximal sterile barrier technique including the use of a cap, mask, sterile gown, sterile gloves, large sterile sheet, appropriate hand hygiene, and 2% chlorhexidine for cutaneous antisepsis (or acceptable alternative antiseptic per current guidelines) were followed for this procedure. The patient was prepped and draped in the usual sterile fashion. Ultrasound interrogation of the right neck revealed patency and compressibility of the right internal jugular vein. A 21-gauge micropuncture was then used to gain access to this vein under ultrasound guidance. A hard copy ultrasound image was recorded. A guidewire was advanced centrally. 5 [place] sheath was placed. Over a wire following dilatation, a temporary dialysis catheter was advanced centrally. Catheter was found to flush and aspirate normally. Follow-up chest radiograph demonstrates tip in acceptable position. The catheter was secured in place and a sterile dressing was applied. No immediate complications were identified. Impression: Successful ultrasound-guided placement of right internal jugular temporary dialysis catheter
[2020-12-05] MEDS ORDERED: POTASSIUM CHLORIDE 20 MEQ TABLET.ER. PO ONE (13:45)
--- NOTE | 2020-12-05 13:45 | PDOC ---
SASHA MCFRALANE JEWELER APPRENTICE 12/05/20 1345: CARDIO Progress Notes Date and Time Date of Service 12/05/19 Time of Evaluation 1310 Subjective Subjective: No Chest Pain, No Palpitations, No Dizziness, Other (Not more SOA) Vitals Vitals Vital Signs Date Time Temp Pulse Resp B/P (MAP) Pulse Ox O2 Delivery O2 Flow Rate FiO2 12/05/20 11:00 97.4 60 14 138/80 (99) 97 Room Air 97.4 12/05/20 08:00 2.0 Weight Weight [ ] Input and Output Intake and Output Intake and Output 12/05/20 07:00 Intake Total 890 ml Balance 890 ml Intake Oral 890 ml # Voids 5 Laboratory Labs Laboratory Tests Test 12/04/20 16:41 12/04/20 16:43 12/04/20 19:55 12/05/20 07:30 Glucose (Fingerstick) 161 mg/dL (70-99) 166 mg/dL (70-99) 165 mg/dL (70-99) 82 mg/dL (70-99) Test 12/05/20 09:25 12/05/20 10:55 White Blood Count 8.8 x10^3/uL (4.0-11.0) Red Blood Count 4.53 x10^6/uL (4.30-5.70) Hemoglobin 14.2 g/dL (13.0-17.5) Hematocrit 43.9 % (39.0-53.0) Mean Corpuscular Volume 97 fL (79-100) Mean Corpuscular Hemoglobin 31 pg (25-35) Mean Corpuscular Hemoglobin Concent 32 g/dL (31-37) Red Cell Distribution Width 16.5 % (11.5-14.5) Platelet Count 249 x10^3/uL (140-400) Neutrophils (%) (Auto) 76 % (31-73) Lymphocytes (%) (Auto) 12 % (24-48) Monocytes (%) (Auto) 9 % (0-9) Eosinophils (%) (Auto) 4 % (0-3) Basophils (%) (Auto) 0 % (0-3) Neutrophils # (Auto) 6.7 x10^3/uL (1.8-7.7) Lymphocytes # (Auto) 1.0 x10^3/uL (1.0-4.8) Monocytes # (Auto) 0.8 x10^3/uL (0.0-1.1) Eosinophils # (Auto) 0.3 x10^3/uL (0.0-0.7) Basophils # (Auto) 0.0 x10^3/uL (0.0-0.2) Sodium Level 139 mmol/L (136-145) Potassium Level 3.6 mmol/L (3.5-5.1) Chloride Level 99 mmol/L (98-107) Carbon Dioxide Level 27 mmol/L (21-32) Anion Gap 13 (6-14) Blood Urea Nitrogen 92 mg/dL (8-26) Creatinine 3.8 mg/dL (0.7-1.3) Estimated GFR (Cockcroft-Gault) 19.0 Glucose Level 67 mg/dL (70-99) Calcium Level 9.3 mg/dL (8.5-10.1) Hepatitis B Surface Antigen Nonreactive (Nonreactive) Glucose (Fingerstick) 142 mg/dL (70-99) Physical Exam HEENT: Neck Supple W Full Motion Chest: Symmetric LUNGS: Other (diminished bases) Heart: RRR (v-paced with underlying SR) Abdomen: Soft N/T Extremities: No Edema Neurology: alert, oriented, follow commands Assessment Assessment 1. Weakness, fatigue. Progressive over last month. Covid negative 2. Acute respiratory failure with acute on chronic systolic CHF. 3. ICM s/p AICD; (Biotronik) Echo with LVEF 1520%. Device check 09/11/20 with normal function, stable lead impedance 4. CAD; s/p CABG 2001 and PCI/RAD to SVG to , [facility] 2017 with patent grafts 5. Mild troponin elevation; initial 0.09. CP free. Most probably type II, demand ischemia. MPI 04/20 without significant reversible ischemia 6. ALEXIA on CKD; progressive. HD to be initiated 6. Paroxysmal AFIB; v-paced. rate controlled. Recent device check with 0% AFIB burden 7. Hypertension: controlled 8. Hyperlipidemia; well on goal 9. Diabetes, II; uncontrolled. as per IM 10. Arrhythmia; having bursts of NSVT Recommendations Replace K. Check Mg and replace if < 2.0. continue metoprolol Diuretic on hold due to worsening ALEXIA Fluid offloading via HD Will need to have alternative OAC to Pradaxa due to renal function. Consider ASA therapy alone as recent device check with 0% AFIB burden Discontinue Cardizem due to CMP Consider Entresto if remains on HD Metoprolol for rate control Continue secondary prevention measures. Supportive care Justicifation of Admission Dx: Justifications for Admission: Justification of Admission Dx: N/A CARSON FAIRCHILD MD 12/05/201922: CARDIO Progress Notes Assessment Assessment Patient seen and examined. Agree with TRACK LAMINATING MACHINE TENDER's assessment and plan. Continue fluid removal with HD for ac on chr systolic HF, nephrology following. LVEF 15-20%. Slight trop elevation prob demand ischemia. CAD status clinically stable. PAF presently V-paced rhythm. Recent ICD check showed 0% AF burden. Agree with ASA for stroke prophylaxis for now. SASHA MCFARLANE APRN Dec 05, 2020 13:45 CARSON FAIRCHILD MD Dec 05, 2020 19:23
--- NOTE | 2020-12-05 13:46 | PDOC ---
DATE OF SERVICE DATE: 12/05/20 TIME: 13:40 SUBJECTIVE ROS Stable, No acute concerns voiced by RN or patient OBJECTIVE Vital Signs Vital Signs Date Time Temp Pulse Resp B/P (MAP) Pulse Ox O2 Delivery O2 Flow Rate FiO2 12/05/20 11:00 97.4 60 14 138/80 (99) 97 Room Air 97.4 12/05/20 08:00 2.0 I & 0 Intake and Output 12/05/20 07:00 Intake Total 890 ml Balance 890 ml Intake Oral 890 ml # Voids 5 PHYSICAL EXAM Physical Exam GEN NAD , asleep, easily arousable HEENT: OM moist , On O2 by NC NECK: Supple. LUNGS decreased at bases , non labored CARDIOVASCULAR: S1, S2. ABDOMEN: Soft, bowel sounds present, no mass palpable. : No Garcia. EXTREMITIES: No edema, no calf tenderness. NEUROLOGIC: Moving all the extremities. No focal deficits noted. SKIN No rash DIAGNOSIS/ASSESSMENT Assessment & Plan ALEXIA on CKD --in the setting of Ac. Decompensation of CH sys CHF. Appears to have progression of his underlying CKD to current levels. Plan to initiate HD , Temp HDC placed earlier this am , 1 st treatment today , Discussed treatment plan with Felisha CHF - per Cardiology, patient comfortable, . Stable interstitial changes and prominent cardiac silhouette.HD with UF today Edema - Prooably asso with Pulm HTN and Rv Failure CKD stage 3- Follows with Teresa Ovalles 2.1 to 2.5 at least since 2018. Coronary artery disease, history of CABG , pacemaker defibrillator. Insulin-dependent diabetes. COMMENT/RELEVANT DATA Meds Current Medications Medications (Trade) Dose Ordered Sig/Missy Start Time Stop Time Status Last Admin Dose Admin Acetaminophen/ Hydrocodone Bitart (Lortab 5/325) 1 tab PRN Q8HRS PRN 12/01/20 21:00 12/03/20 16:33 1 TAB Albuterol Sulfate (Ventolin Neb Soln) 2.5 mg PRN Q4HRS PRN 12/01/20 18:00 Aspirin (Ecotrin) 81 mg HS 12/01/20 21:00 12/04/20 19:48 81 MG Dabigatran (Pradaxa) 75 mg BID 12/01/20 21:00 12/05/20 08:35 75 MG Dextrose (Dextrose 50%-Water Syringe) 12.5 gm PRN Q15MIN PRN 12/01/20 16:30 Ergocalciferol (Vitamin D2) 50,000 unit WEEKLY 12/08/20 09:00 Furosemide (Lasix) 40 mg BID92 12/02/20 09:00 12/03/20 16:22 DC 12/03/20 15:11 40 MG Hydralazine HCl (Apresoline) 25 mg TID 12/01/20 21:00 12/05/20 08:36 25 MG Info (Anti-Coagulation Monitoring By Pharmacy) 1 each PRN DAILY PRN 12/05/20 08:45 Info (PHARMACY MONITORING -- do not chart) 1 each PRN DAILY PRN 12/05/20 12:30 Insulin Glargine (Lantus Syringe) 10 unit QHS 12/01/20 21:00 12/04/20 20:36 10 UNIT Insulin Human Lispro (HumaLOG) 10 units 1X ONCE 12/01/20 21:30 12/01/20 21:31 DC Levothyroxine Sodium (Synthroid) 25 mcg DAILY06 12/04/20 06:00 12/05/20 06:07 25 MCG Lidocaine HCl (Buffered Lidocaine 1%) 3 ml 1X ONCE 12/05/20 10:00 12/05/20 10:01 DC Metolazone (Zaroxolyn) 2.5 mg DAILY 12/02/20 09:00 12/03/20 16:22 DC 12/03/20 08:58 2.5 MG Metoprolol Tartrate (Lopressor) 50 mg BID 12/01/20 21:00 12/05/20 08:35 50 MG Potassium Chloride (Klor-Con) 40 meq 1X ONCE 12/04/20 11:30 12/04/20 11:40 DC 12/04/20 11:55 40 MEQ Sertraline HCl (Zoloft) 25 mg DAILY 12/02/20 09:00 12/05/20 08:36 25 MG Simvastatin (Zocor) 20 mg HS 12/01/20 21:00 12/04/20 19:49 20 MG Sodium Chloride 1,000 ml @ 400 mls/hr Q2H30M PRN 12/05/20 12:30 12/06/20 00:29 Lab Laboratory Tests Test 12/04/20 16:41 12/04/20 16:43 12/04/20 19:55 12/05/20 07:30 Glucose (Fingerstick) 161 mg/dL (70-99) 166 mg/dL (70-99) 165 mg/dL (70-99) 82 mg/dL (70-99) Test 12/05/20 09:25 12/05/20 10:55 White Blood Count 8.8 x10^3/uL (4.0-11.0) Red Blood Count 4.53 x10^6/uL (4.30-5.70) Hemoglobin 14.2 g/dL (13.0-17.5) Hematocrit 43.9 % (39.0-53.0) Mean Corpuscular Volume 97 fL (79-100) Mean Corpuscular Hemoglobin 31 pg (25-35) Mean Corpuscular Hemoglobin Concent 32 g/dL (31-37) Red Cell Distribution Width 16.5 % (11.5-14.5) Platelet Count 249 x10^3/uL (140-400) Neutrophils (%) (Auto) 76 % (31-73) Lymphocytes (%) (Auto) 12 % (24-48) Monocytes (%) (Auto) 9 % (0-9) Eosinophils (%) (Auto) 4 % (0-3) Basophils (%) (Auto) 0 % (0-3) Neutrophils # (Auto) 6.7 x10^3/uL (1.8-7.7) Lymphocytes # (Auto) 1.0 x10^3/uL (1.0-4.8) Monocytes # (Auto) 0.8 x10^3/uL (0.0-1.1) Eosinophils # (Auto) 0.3 x10^3/uL (0.0-0.7) Basophils # (Auto) 0.0 x10^3/uL (0.0-0.2) Sodium Level 139 mmol/L (136-145) Potassium Level 3.6 mmol/L (3.5-5.1) Chloride Level 99 mmol/L (98-107) Carbon Dioxide Level 27 mmol/L (21-32) Anion Gap 13 (6-14) Blood Urea Nitrogen 92 mg/dL (8-26) Creatinine 3.8 mg/dL (0.7-1.3) Estimated GFR (Cockcroft-Gault) 19.0 Glucose Level 67 mg/dL (70-99) Calcium Level 9.3 mg/dL (8.5-10.1) Hepatitis B Surface Antigen Nonreactive (Nonreactive) Glucose (Fingerstick) 142 mg/dL (70-99) Results All relevant outside records, renal labs, imaging studies, telemetry/EKG's were reviewed. Justicifation of Admission Dx: Justifications for Admission: Justification of Admission Dx: N/A ISRAEL LOPEZ MD Dec 05, 2020 13:46
--- NOTE | 2020-12-05 14:44 | NUR ---
SS following for discharge planning. SS received pt chart and discussed with pt RN. Pt is from home with spouse and is currently requiring oxygen. PT/OT ordered and recommending jail unit. COVID19 test pending. Pt has temporary dialysis cath today and had dialysis today. SS discussed discharge planning with pt's spouse. Pt's spouse agreeable to jail unit and requested referral be phoned and faxed to [facility], ; fax [phone]. SS phoned and faxed referral as requested. SS will continue to follow for discharge planning.
[2020-12-05] MEDS: ANTI-COAG MONITOR BY PHARMACY. MC PRN (15:22)
--- NOTE | 2020-12-05 17:41 | NUR ---
Wound Care Pt in dialysis upon arrival of WC team. will assess tomorrow.
[2020-12-05 19:00] VITALS: BP 115/66
[2020-12-05] MEDS: SIMVASTATIN 20 MG TABLET PO SCH (21:29)
[2020-12-05] MEDS: ASPIRIN ENTERIC COATED 81 MG TABLET.DR. PO SCH (21:29)
[2020-12-05] MEDS: INSULIN GLARGINE SYRINGE. SQ SCH (21:39)
[2020-12-05 23:14] VITALS: BP 118/66
[2020-12-06 03:30] VITALS: BP 120/85
[2020-12-06] MEDS: LEVOTHYROXINE 25 MCG TABLET. PO SCH (05:53)
[2020-12-06] MEDS ORDERED: DIALYSIS PATIENT. MC PRN ×2 (08:00)
[2020-12-06] MEDS ORDERED: ALBUMIN HUMAN 25% 200 ML IV PRN (08:00)
[2020-12-06] MEDS: INSULIN LISPRO 300 UNITS/3 ML VIAL. SQ SCH ×4 (08:00→21:00)
[2020-12-06] MEDS ORDERED: IV NORMAL SALINE 1000ML BAG 1,000 ML IV PRN ×2 (08:00)
[2020-12-06 09:00] LABS: CALCIUM 8.5 mg/dL (8.5-10.1); CREATININE 2.2 mg/dL (0.7-1.3); GFR 35.7; POTASSIUM 3.7 mmol/L (3.5-5.1)
[2020-12-06] MEDS: hydrALAZINE 25 MG TABLET PO SCH ×3 (09:00→20:58)
[2020-12-06] MEDS: METOPROLOL TART IMMED RELEASE 50 MG TABLET. PO SCH ×2 (09:00→20:58)
--- NOTE | 2020-12-06 09:09 | PDOC ---
PROGRESS NOTES Date of Service: DATE: 12/06/20 TIME: 09:09 Subjective Subjective in dialysis Objective Objective Vital Signs Date Time Temp Pulse Resp B/P (MAP) Pulse Ox O2 Delivery O2 Flow Rate FiO2 12/06/20 03:30 97.7 79 120/85 (97) 97 Room Air 97.7 12/05/20 23:14 20 12/05/20 20:17 1.5 Intake and Output 12/06/20 07:00 Intake Total 60 ml Output Total 100 ml Balance -40 ml Intake Oral 60 ml Tube Feeding 0 ml Output Urine Total 100 ml # Voids 4 Physical Exam Abdomen: Normal bowel sounds Heart: Regular rate Extremities: Other (+2 edema bilaterally) General: mild distress Lungs: Other (Decreased breath sounds) MUSCULOSKELETAL: No swelling, Osteoarthritic changes both hands Psych/Mental Status: Mood NL Skin: Other (skin break down) Diagnosis Problem List Problems Medical Problems: (1) CHF (congestive heart failure) Status: Acute (2) Fluid overload Status: Acute (3) Kidney failure Status: Acute Assessment Assessment Problems Medical Problems: (1) CHF (congestive heart failure) Status: Acute (2) Fluid overload Status: Acute (3) Kidney failure Status: Acute IMPRESSION: 1. Acute on chronic systolic heart failure. 2. Worsening kidney failure.[id number] 3. Chronic dilated cardiomyopathy, ejection fraction 20%. 4. Insulin-dependent diabetes. 5. Hypertension. 6. Hyperlipidemia. 7. Malnutrition severe. 8. General debility. 9. h/o heart surgery.CABG 10 .presence of AICD PLAN:Dialysis, today day 2 Temp dialysis catheter cardiac arrythmias, AICD stable at the present time. cardiac arrhythmias, v tach, moved to cardiac floor discussed about dialysis ,pt is not happy about it,said he may consider doing it and see how it goes . BS good now wbc normal chf on cxr AICD Plan Plan of Care Problems Medical Problems: (1) CHF (congestive heart failure) Status: Acute (2) Fluid overload Status: Acute (3) Kidney failure Status: Acute Comment Review of Relevant I have reviewed the following items debbie (where applicable) has been applied. Labs Laboratory Tests Test 12/05/20 09:25 12/05/20 10:55 12/05/20 18:01 12/05/20 20:49 White Blood Count 8.8 x10^3/uL (4.0-11.0) Red Blood Count 4.53 x10^6/uL (4.30-5.70) Hemoglobin 14.2 g/dL (13.0-17.5) Hematocrit 43.9 % (39.0-53.0) Mean Corpuscular Volume 97 fL (79-100) Mean Corpuscular Hemoglobin 31 pg (25-35) Mean Corpuscular Hemoglobin Concent 32 g/dL (31-37) Red Cell Distribution Width 16.5 % (11.5-14.5) Platelet Count 249 x10^3/uL (140-400) Neutrophils (%) (Auto) 76 % (31-73) Lymphocytes (%) (Auto) 12 % (24-48) Monocytes (%) (Auto) 9 % (0-9) Eosinophils (%) (Auto) 4 % (0-3) Basophils (%) (Auto) 0 % (0-3) Neutrophils # (Auto) 6.7 x10^3/uL (1.8-7.7) Lymphocytes # (Auto) 1.0 x10^3/uL (1.0-4.8) Monocytes # (Auto) 0.8 x10^3/uL (0.0-1.1) Eosinophils # (Auto) 0.3 x10^3/uL (0.0-0.7) Basophils # (Auto) 0.0 x10^3/uL (0.0-0.2) Sodium Level 139 mmol/L (136-145) Potassium Level 3.6 mmol/L (3.5-5.1) Chloride Level 99 mmol/L (98-107) Carbon Dioxide Level 27 mmol/L (21-32) Anion Gap 13 (6-14) Blood Urea Nitrogen 92 mg/dL (8-26) Creatinine 3.8 mg/dL (0.7-1.3) Estimated GFR (Cockcroft-Gault) 19.0 Glucose Level 67 mg/dL (70-99) Calcium Level 9.3 mg/dL (8.5-10.1) Magnesium Level 2.3 mg/dL (1.8-2.4) Hepatitis B Surface Antigen Nonreactive (Nonreactive) Hepatitis B Core Total Antibody Nonreactive (Nonreactive) Glucose (Fingerstick) 142 mg/dL (70-99) 95 mg/dL (70-99) 154 mg/dL (70-99) Test 12/06/20 08:10 Sodium Level 139 mmol/L (136-145) Potassium Level 3.7 mmol/L (3.5-5.1) Chloride Level 102 mmol/L (98-107) Carbon Dioxide Level 28 mmol/L (21-32) Anion Gap 9 (6-14) Blood Urea Nitrogen 47 mg/dL (8-26) Creatinine 2.2 mg/dL (0.7-1.3) Estimated GFR (Cockcroft-Gault) 35.7 Glucose Level 74 mg/dL (70-99) Calcium Level 8.5 mg/dL (8.5-10.1) Medications Current Medications Albumin Human 200 ml @ 200 mls/hr 1X PRN PRN IV Hypotension; Start 12/06/20 at 08:00; Stop 12/06/20 at 13:59 Ergocalciferol (Vitamin D2) 50,000 unit WEEKLY PO ; Start 12/08/20 at 09:00 Info (PHARMACY MONITORING -- do not chart) 1 each PRN DAILY PRN MC SEE COMMENTS; Start 12/05/20 at 12:30 Info (PHARMACY MONITORING -- do not chart) 1 each PRN DAILY PRN MC SEE COMMENTS; Start 12/06/20 at 08:00 Info (PHARMACY MONITORING -- do not chart) 1 each PRN DAILY PRN MC SEE COMMENTS; Start 12/06/20 at 08:00; Status UNV Lidocaine HCl (Buffered Lidocaine 1%) 3 ml 1X ONCE INJ ; Start 12/05/20 at 10:00; Stop 12/05/20 at 10:01; Status DC Lidocaine HCl (Buffered Lidocaine 1%) 3 ml STK-MED ONCE .ROUTE ; Start 12/05/20 at 09:41; Stop 12/05/20 at 09:41; Status DC Potassium Chloride (Klor-Con) 20 meq 1X ONCE PO Last administered on 12/05/20at 17:53; Start 12/05/20 at 13:45; Stop 12/05/20 at 13:46; Status DC Sodium Chloride 1,000 ml @ 400 mls/hr Q2H30M PRN IV PATENCY; Start 12/05/20 at 12:30; Stop 12/06/20 at 00:29; Status DC Sodium Chloride 1,000 ml @ 400 mls/hr Q2H30M PRN IV PATENCY; Start 12/06/20 at 08:00; Stop 12/06/20 at 19:59 Sodium Chloride 1,000 ml @ 1,000 mls/hr Q1H PRN IV hypotension; Start 12/05/20 at 12:30; Stop 12/05/20 at 18:29; Status DC Sodium Chloride 1,000 ml @ 1,000 mls/hr Q1H PRN IV hypotension; Start 12/06/20 at 08:00; Stop 12/06/20 at 13:59 Vitals/I & O Vital Sign - Last 24 Hours 12/05/20 12/05/20 12/05/20 12/05/20 11:00 19:00 20:17 21:29 Temp 97.4 97.4 97.4 97.4 Pulse 60 61 61 Resp 14 20 B/P (MAP) 138/80 (99) 115/66 (82) 115/66 Pulse Ox 97 97 O2 Delivery Room Air Nasal Cannula Nasal Cannula O2 Flow Rate 2.0 1.5 12/05/20 12/05/20 12/06/20 21:29 23:14 03:30 Temp 97.7 97.7 97.7 97.7 Pulse 61 60 79 Resp 20 B/P (MAP) 115/66 118/66 (83) 120/85 (97) Pulse Ox 98 97 O2 Delivery Room Air Room Air Intake and Output 12/05/20 12/05/20 12/06/20 15:00 23:00 07:00 Intake Total 60 ml 0 ml Output Total 100 ml Balance -100 ml 60 ml 0 ml Justifications for Admission Other Justification NAUN ROPER MD Dec 06, 2020 09:09
--- NOTE | 2020-12-06 10:29 | PDOC ---
DATE OF SERVICE DATE: 12/06/20 TIME: 10:29 SUBJECTIVE ROS Stableseen on HD, 2 nd treatment , no complaints OBJECTIVE Vital Signs Vital Signs Date Time Temp Pulse Resp B/P (MAP) Pulse Ox O2 Delivery O2 Flow Rate FiO2 12/06/20 03:30 97.7 79 120/85 (97) 97 Room Air 97.7 12/05/20 23:14 20 12/05/20 20:17 1.5 I & 0 Intake and Output 12/06/20 07:00 Intake Total 60 ml Output Total 100 ml Balance -40 ml Intake Oral 60 ml Tube Feeding 0 ml Output Urine Total 100 ml # Voids 4 PHYSICAL EXAM Physical Exam GEN NAD , asleep, easily arousable HEENT: OM moist , On O2 by NC NECK: Supple. LUNGS decreased at bases , non labored CARDIOVASCULAR: S1, S2. ABDOMEN: Soft, bowel sounds present, no mass palpable. : No Garcia. EXTREMITIES: No edema, no calf tenderness. NEUROLOGIC: Moving all the extremities. No focal deficits noted. SKIN No rash DIAGNOSIS/ASSESSMENT Assessment & Plan ALEXIA on CKD --in the setting of Ac. Decompensation of CH sys CHF. Appears to have progression of his underlying CKD to current levels. initiate HD on 12/05, nd treatment today, seen during treatment, tolerating well , continue as ordered, [facility] Cm-dickson on - if no improvement in renal function will need Permcath prior to dc Access - Temp HDC CHF - per Cardiology, patient comfortable, . Stable interstitial changes and prominent cardiac silhouette.HD with UF today Edema - Prooably asso with Pulm HTN and Rv Failure CKD stage 3- Follows with Teresa Ovalles 2.1 to 2.5 at least since 2018. Coronary artery disease, history of CABG , pacemaker defibrillator. Insulin-dependent diabetes. COMMENT/RELEVANT DATA Meds Current Medications Medications (Trade) Dose Ordered Sig/Missy Start Time Stop Time Status Last Admin Dose Admin Acetaminophen/ Hydrocodone Bitart (Lortab 5/325) 1 tab PRN Q8HRS PRN 12/01/20 21:00 12/03/20 16:33 1 TAB Albumin Human 200 ml @ 200 mls/hr 1X PRN PRN 12/06/20 08:00 12/06/20 13:59 Albuterol Sulfate (Ventolin Neb Soln) 2.5 mg PRN Q4HRS PRN 12/01/20 18:00 Aspirin (Ecotrin) 81 mg HS 12/01/20 21:00 12/05/20 21:29 81 MG Dabigatran (Pradaxa) 75 mg BID 12/01/20 21:00 12/05/20 17:10 DC 12/05/20 08:35 75 MG Dextrose (Dextrose 50%-Water Syringe) 12.5 gm PRN Q15MIN PRN 12/01/20 16:30 Ergocalciferol (Vitamin D2) 50,000 unit WEEKLY 12/08/20 09:00 Furosemide (Lasix) 40 mg BID92 12/02/20 09:00 12/03/20 16:22 DC 12/03/20 15:11 40 MG Hydralazine HCl (Apresoline) 25 mg TID 12/01/20 21:00 12/05/20 21:29 25 MG Info (Anti-Coagulation Monitoring By Pharmacy) 1 each PRN DAILY PRN 12/05/20 08:45 12/05/20 15:21 DC Info (PHARMACY MONITORING -- do not chart) 1 each PRN DAILY PRN 12/06/20 08:00 UNV Insulin Glargine (Lantus Syringe) 10 unit QHS 12/01/20 21:00 12/05/20 21:39 10 UNIT Insulin Human Lispro (HumaLOG) 10 units 1X ONCE 12/01/20 21:30 12/01/20 21:31 DC Levothyroxine Sodium (Synthroid) 25 mcg DAILY06 12/04/20 06:00 12/06/20 05:53 25 MCG Lidocaine HCl (Buffered Lidocaine 1%) 3 ml 1X ONCE 12/05/20 10:00 12/05/20 10:01 DC Metolazone (Zaroxolyn) 2.5 mg DAILY 12/02/20 09:00 12/03/20 16:22 DC 12/03/20 08:58 2.5 MG Metoprolol Tartrate (Lopressor) 50 mg BID 12/01/20 21:00 12/05/20 21:29 50 MG Potassium Chloride (Klor-Con) 20 meq 1X ONCE 12/05/20 13:45 12/05/20 13:46 DC 12/05/20 17:53 20 MEQ Sertraline HCl (Zoloft) 25 mg DAILY 12/02/20 09:00 12/05/20 08:36 25 MG Simvastatin (Zocor) 20 mg HS 12/01/20 21:00 12/05/20 21:29 20 MG Sodium Chloride 1,000 ml @ 400 mls/hr Q2H30M PRN 12/06/20 08:00 12/06/20 19:59 Lab Laboratory Tests Test 12/05/20 10:55 12/05/20 18:01 12/05/20 20:49 12/06/20 08:10 Glucose (Fingerstick) 142 mg/dL (70-99) 95 mg/dL (70-99) 154 mg/dL (70-99) Sodium Level 139 mmol/L (136-145) Potassium Level 3.7 mmol/L (3.5-5.1) Chloride Level 102 mmol/L (98-107) Carbon Dioxide Level 28 mmol/L (21-32) Anion Gap 9 (6-14) Blood Urea Nitrogen 47 mg/dL (8-26) Creatinine 2.2 mg/dL (0.7-1.3) Estimated GFR (Cockcroft-Gault) 35.7 Glucose Level 74 mg/dL (70-99) Calcium Level 8.5 mg/dL (8.5-10.1) Results All relevant outside records, renal labs, imaging studies, telemetry/EKG's were reviewed. Justicifation of Admission Dx: Justifications for Admission: Justification of Admission Dx: N/A ISRAEL LOPEZ MD Dec 06, 2020 10:29
[2020-12-06 11:00] VITALS: BP 125/75
--- NOTE | 2020-12-06 11:29 | NUR ---
SS following up with discharge planning. SS reviewed pt chart and discussed with pt RN. Pt is currently on room air. COVID19 negative. PT/OT recommended [facility] unit. Pt accepted at [facility], ; fax [phone]. Nephrology reporting that pt will need outpatient chair time. SS phoned and faxed referral to [facility], ; fax [phone]. SS will continue to follow for discharge planning.
[2020-12-06] MEDS: SERTRALINE 25 MG TABLET. PO SCH (12:22)
[2020-12-06] MEDS: POTASSIUM CHLORIDE 10 MEQ TABLET.ER. PO SCH (12:22)
--- NOTE | 2020-12-06 12:47 | PDOC ---
SASHA MCFARLANE SERVICENOW ADMINISTRATOR DEVELOPER 12/06/20 1247: CARDIO Progress Notes Date and Time Date of Service 12/06/19 Time of Evaluation 1245 Subjective Subjective: No Chest Pain, No Palpitations, No Dizziness, Other (SOA improved) Vitals Vitals Vital Signs Date Time Temp Pulse Resp B/P (MAP) Pulse Ox O2 Delivery O2 Flow Rate FiO2 12/06/20 03:30 97.7 79 120/85 (97) 97 Room Air 97.7 12/05/20 23:14 20 12/05/20 20:17 1.5 Weight Weight [ ] Input and Output Intake and Output Intake and Output 12/06/20 07:00 Intake Total 60 ml Output Total 100 ml Balance -40 ml Intake Oral 60 ml Tube Feeding 0 ml Output Urine Total 100 ml # Voids 4 Laboratory Labs Laboratory Tests Test 12/05/20 18:01 12/05/20 20:49 12/06/20 08:10 12/06/20 12:12 Glucose (Fingerstick) 95 mg/dL (70-99) 154 mg/dL (70-99) 59 mg/dL (70-99) Sodium Level 139 mmol/L (136-145) Potassium Level 3.7 mmol/L (3.5-5.1) Chloride Level 102 mmol/L (98-107) Carbon Dioxide Level 28 mmol/L (21-32) Anion Gap 9 (6-14) Blood Urea Nitrogen 47 mg/dL (8-26) Creatinine 2.2 mg/dL (0.7-1.3) Estimated GFR (Cockcroft-Gault) 35.7 Glucose Level 74 mg/dL (70-99) Calcium Level 8.5 mg/dL (8.5-10.1) Physical Exam HEENT: Neck Supple W Full Motion Chest: Symmetric LUNGS: Other (diminished bases) Heart: RRR (v-paced with underlying SR) Abdomen: Soft N/T Extremities: No Edema Neurology: alert, oriented, follow commands Assessment Assessment 1. Weakness, fatigue. Progressive over last month. Covid negative 2. Acute respiratory failure with acute on chronic systolic CHF. 3. ICM s/p AICD; (Biotronik) Echo with LVEF 15-20%. Device check 09/11/20 with normal function, stable lead impedance 4. CAD; s/p CABG 2001 and PCI/RAD to SVG to OM, [facility] 2017 with patent grafts 5. Mild troponin elevation; initial 0.09. CP free. Most probably type II, demand ischemia. MPI 04/20 without significant reversible ischemia 6. ALEXIA on CKD; progressive. HD initiated 6. Paroxysmal AFIB; v-paced. rate controlled. Appears to be having brief burst of PAFIB on tele. Recent device check with 0% AFIB burden 7. Hypertension: controlled 8. Hyperlipidemia; well on goal 9. Diabetes, II; uncontrolled. as per IM 10. Arrhythmia; having bursts of NSVT Recommendations Fluid offloading via HD Metoprolol for rate control ASA therapy for stroke prevention for now. Consider Eliquis for stroke prophylaxis Consider addition of Entresto Continue secondary prevention measures. Supportive care Justicifation of Admission Dx: Justifications for Admission: Justification of Admission Dx: N/A CARSON FAIRCHILD MD 12/06/20 1848: CARDIO Progress Notes Assessment Assessment Patient seen and examined. Agree with DENITRATOR OPERATOR's assessment and plan. Continue fluid removal with HD for ac on chr systolic HF, nephrology following. LVEF 15-20%. Slight trop elevation prob demand ischemia. CAD status clinically stable. PAF with tele showing few brief episodes of AF with aberrant conduction. Continue BB. Agree with ASA for stroke prophylaxis for now. SASHA MCFARLANE APRN Dec 06, 2020 12:47 CARSON FAIRCHILD MD Dec 06, 2020 18:48
--- NOTE | 2020-12-06 13:43 | NUR ---
Patient came back from dialysis around noon. Patient blood sugar was check and it was at 59 but patient has not eat this morning because he left for dialysis early. Patient alert and oriented. This RN gave him 2 orange juices (240ml) with 2 sugar and monitored the patient. Rechecked blood sugar was 84 and patient is resting in bed.
[2020-12-06 15:00] VITALS: BP 127/78
--- NOTE | 2020-12-06 16:34 | NUR ---
Wound/Ostomy Care Wound Type/Assessment: Pt seen per wound care consult. See wound assessment. pt has bilateral lower leg abrasions X3. Wounds cleansed and assessed. Wounds are reddened and pink with good epithelization. Treatment Recommendations/Plan: Recommendations for xeroform gauze and foam dressing to all wounds until healed. Education provided: Pt educated on dressing changes. Offloading surface/device: Pt repositioned in bed and turned to right side using wedge and bilateral lower extremities floated using pillows. Dressings applied. Recommended Referrals/Tests: N/A Discharge Recommendations for dressings: Dressing change instructions left in room. No other wounds noted. Bed lowered and call light in reach. Wound care will follow up for reassessment on 12/14/19.
--- NOTE | 2020-12-06 18:44 | NUR ---
Patient transferred to 5N at room 508. Nurse exchange report was given to Sumaya MORIN.
[2020-12-06 19:00] VITALS: BP 136/76
[2020-12-06] MEDS: ASPIRIN ENTERIC COATED 81 MG TABLET.DR. PO SCH (20:57)
[2020-12-06] MEDS: SIMVASTATIN 20 MG TABLET PO SCH (20:58)
[2020-12-06] MEDS: INSULIN GLARGINE SYRINGE. SQ SCH (21:01)
[2020-12-06] MEDS: CALCIUM CARBONATE 500 MG TAB.CHEW PO PRN (22:54)
[2020-12-06 23:00] VITALS: BP 94/60
[2020-12-06] MEDS ORDERED: ONDANSETRON PF 4 MG/2 ML VIAL. IVP PRN (23:00)
[2020-12-07] MEDS: CALCIUM CARBONATE 500 MG TAB.CHEW PO PRN ×2 (02:52→09:54)
[2020-12-07 03:00] VITALS: BP 120/74
[2020-12-07] MEDS: LEVOTHYROXINE 25 MCG TABLET. PO SCH (06:01)
[2020-12-07 07:00] VITALS: BP 115/64
[2020-12-07] MEDS: INSULIN LISPRO 300 UNITS/3 ML VIAL. SQ SCH ×4 (07:35→21:00)
[2020-12-07 08:40] LABS: CALCIUM 8.6 mg/dL (8.5-10.1); GFR 39.8
--- NOTE | 2020-12-07 09:06 | PDOC ---
PROGRESS NOTES Date of Service: DATE: 12/07/20 TIME: 09:06 Subjective Subjective tolerating dialysis well Objective Objective Vital Signs Date Time Temp Pulse Resp B/P (MAP) Pulse Ox O2 Delivery O2 Flow Rate FiO2 12/07/20 07:00 98.9 72 16 115/64 (81) 99 Room Air 98.9 Intake and Output 12/07/20 07:00 Intake Total 395 ml Balance 395 ml Intake Oral 395 ml # Voids 4 Physical Exam Abdomen: Normal bowel sounds Heart: Regular rate Extremities: Other (+2 edema bilaterally) General: mild distress Lungs: Other (Decreased breath sounds) MUSCULOSKELETAL: No swelling, Osteoarthritic changes both hands Psych/Mental Status: Mood NL Skin: Other (skin break down) Diagnosis Problem List Problems Medical Problems: (1) CHF (congestive heart failure) Status: Acute (2) Fluid overload Status: Acute (3) Kidney failure Status: Acute Assessment Assessment Problems Medical Problems: (1) CHF (congestive heart failure) Status: Acute (2) Fluid overload Status: Acute (3) Kidney failure Status: Acute IMPRESSION: 1. Acute on chronic systolic heart failure. 2. Worsening kidney failure.cr4.0 3. Chronic dilated cardiomyopathy, ejection fraction 20%. 4. Insulin-dependent diabetes. 5. Hypertension. 6. Hyperlipidemia. 7. Malnutrition severe. 8. General debility. 9. h/o heart surgery.CABG 10 .presence of AICD PLAN: SNU transfer saturday Dialysis, day 3 needs perm dialysis catheter cardiac arrythmias, AICD stable at the present time. cardiac arrhythmias, v tach, moved to cardiac floor discussed about dialysis ,pt is not happy about it,said he may consider doing it and see how it goes . BS good now wbc normal chf on cxr AICD Plan Plan of Care Problems Medical Problems: (1) CHF (congestive heart failure) Status: Acute (2) Fluid overload Status: Acute (3) Kidney failure Status: Acute Comment Review of Relevant I have reviewed the following items debbie (where applicable) has been applied. Labs Laboratory Tests Test 12/06/20 12:12 12/06/20 12:50 12/06/20 16:51 12/06/20 20:58 Glucose (Fingerstick) 59 mg/dL (70-99) 84 mg/dL (70-99) 160 mg/dL (70-99) 140 mg/dL (70-99) Test 12/07/20 07:00 12/07/20 07:12 12/07/20 07:36 Sodium Level 140 mmol/L (136-145) Potassium Level 4.0 mmol/L (3.5-5.1) Chloride Level 103 mmol/L (98-107) Carbon Dioxide Level 31 mmol/L (21-32) Anion Gap 6 (6-14) Blood Urea Nitrogen 30 mg/dL (8-26) Creatinine 2.0 mg/dL (0.7-1.3) Estimated GFR (Cockcroft-Gault) 39.8 Glucose Level 57 mg/dL (70-99) Calcium Level 8.6 mg/dL (8.5-10.1) Glucose (Fingerstick) 62 mg/dL (70-99) 88 mg/dL (70-99) Medications Current Medications Calcium Carbonate/ Glycine (Tums) 500 mg PRN Q4HRS PRN PO INDIGESTION Last administered on 12/07/20at 02:52; Start 12/06/20 at 23:00 Ergocalciferol (Vitamin D2) 50,000 unit WEEKLY PO ; Start 12/08/20 at 09:00 Ondansetron HCl (Zofran) 4 mg PRN Q6HRS PRN IVP NAUSEA/VOMITING 1ST CHOICE; Start 12/06/20 at 23:00 Vitals/I & O Vital Sign - Last 24 Hours 12/06/20 12/06/20 12/06/20 12/06/20 11:00 15:00 15:04 19:00 Temp 97.3 97.6 97.3 97.6 Pulse 66 71 66 Resp 16 18 B/P (MAP) 125/75 (92) 127/78 (94) 125/75 Pulse Ox 100 98 O2 Delivery Room Air Room Air Room Air 12/06/20 12/06/20 12/06/20 12/06/20 19:00 20:58 20:58 23:00 Temp 98.1 99.0 98.1 99.0 Pulse 76 76 76 80 Resp 18 20 B/P (MAP) 136/76 (96) 136/76 136/76 94/60 (71) Pulse Ox 99 98 O2 Delivery Room Air Room Air 12/07/20 12/07/20 03:00 07:00 Temp 97.9 98.9 97.9 98.9 Pulse 80 72 Resp 21 16 B/P (MAP) 120/74 (89) 115/64 (81) Pulse Ox 94 99 O2 Delivery Room Air Room Air Intake and Output 12/06/20 12/06/20 12/07/20 15:00 23:00 07:00 Intake Total 240 ml 155 ml Balance 240 ml 155 ml Justifications for Admission Other Justification Nutrition Consultation Dietary Evaluation: Recommendations by RD: Dietary education by RD, Protein supplementation Comments: REC renal/ADA diet per pmhx, will adjust diet order as needed; honor food preferences, provide snacks as requested REC nepro q day or more often pending pt preference RD available [phone] for additional diet education as needed Expected Outcomes/Goals: PO intake to meet >75% est needs Additional diet education questions answered as able prior to discharge Interpretation of weight loss: >7.5% in 3 months Malnutrition Findings: Food and Nutrition Intake (Mod: <75% est energy req 7days Weight Status: Underweight NAUN ROPER MD Dec 07, 2020 09:06
[2020-12-07] MEDS: POTASSIUM CHLORIDE 10 MEQ TABLET.ER. PO SCH (09:54)
[2020-12-07] MEDS: METOPROLOL TART IMMED RELEASE 50 MG TABLET. PO SCH ×2 (09:54→21:06)
[2020-12-07] MEDS: SERTRALINE 25 MG TABLET. PO SCH (09:54)
[2020-12-07] MEDS: hydrALAZINE 25 MG TABLET PO SCH ×3 (09:55→21:07)
--- NOTE | 2020-12-07 10:34 | PDOC ---
DATE OF SERVICE DATE: 12/07/20 TIME: 10:31 SUBJECTIVE ROS Stable , states just feeling tired, No SOB OBJECTIVE Vital Signs Vital Signs Date Time Temp Pulse Resp B/P (MAP) Pulse Ox O2 Delivery O2 Flow Rate FiO2 12/07/20 09:55 72 115/64 12/07/20 07:00 98.9 16 99 Room Air 98.9 I & 0 Intake and Output 12/07/20 07:00 Intake Total 395 ml Balance 395 ml Intake Oral 395 ml # Voids 4 PHYSICAL EXAM Physical Exam GEN NAD , sitting in chair HEENT: OM moist , On RA NECK: Supple. LUNGS decreased at bases , non labored CARDIOVASCULAR: S1, S2. ABDOMEN: Soft, bowel sounds present, no mass palpable. : No Garcia. EXTREMITIES: No edema, no calf tenderness. NEUROLOGIC: Moving all the extremities. No focal deficits noted. SKIN No rash DIAGNOSIS/ASSESSMENT Assessment & Plan ALEXIA on CKD --in the setting of Ac. Decompensation of CH sys CHF. Appears to have progression of his underlying CKD to current levels. initiate HD on 12/05, treatment today, seen during treatment, tolerating well , continue as ordered, [facility] Cm-dickson on - if no improvement in renal function will need Permcath prior to dc Access - Temp HDC CHF - per Cardiology, patient comfortable, . Stable interstitial changes and prominent cardiac silhouette.HD with UF today Edema - Prooably asso with Pulm HTN and Rv Failure CKD stage 3- Follows with Dr. Vaughan, Creat 2.1 to 2.5 at least since 2018. Coronary artery disease, history of CABG , pacemaker defibrillator. Insulin-dependent diabetes. COMMENT/RELEVANT DATA Meds Current Medications Medications (Trade) Dose Ordered Sig/Missy Start Time Stop Time Status Last Admin Dose Admin Acetaminophen/ Hydrocodone Bitart (Lortab 5/325) 1 tab PRN Q8HRS PRN 12/01/20 21:00 12/03/20 16:33 1 TAB Albumin Human 200 ml @ 200 mls/hr 1X PRN PRN 12/06/20 08:00 12/06/20 13:59 DC Albuterol Sulfate (Ventolin Neb Soln) 2.5 mg PRN Q4HRS PRN 12/01/20 18:00 Aspirin (Ecotrin) 81 mg HS 12/01/20 21:00 1/5/21 20:57 81 MG Calcium Carbonate/ Glycine (Tums) 500 mg PRN Q4HRS PRN 12/06/20 23:00 12/07/20 09:54 500 MG Dabigatran (Pradaxa) 75 mg BID 12/01/20 21:00 12/05/20 17:10 DC 12/05/20 08:35 75 MG Dextrose (Dextrose 50%-Water Syringe) 12.5 gm PRN Q15MIN PRN 12/01/20 16:30 Ergocalciferol (Vitamin D2) 50,000 unit WEEKLY 12/08/20 09:00 Furosemide (Lasix) 40 mg BID92 12/02/20 09:00 12/03/20 16:22 DC 12/03/20 15:11 40 MG Hydralazine HCl (Apresoline) 25 mg TID 12/01/20 21:00 12/07/20 09:55 25 MG Info (Anti-Coagulation Monitoring By Pharmacy) 1 each PRN DAILY PRN 12/05/20 08:45 12/05/20 15:21 DC Info (PHARMACY MONITORING -- do not chart) 1 each PRN DAILY PRN 12/06/20 08:00 UNV Insulin Glargine (Lantus Syringe) 10 unit QHS 12/01/20 21:00 12/06/20 21:01 10 UNIT Insulin Human Lispro (HumaLOG) 10 units 1X ONCE 12/01/20 21:30 12/01/20 21:31 DC Levothyroxine Sodium (Synthroid) 25 mcg DAILY06 12/04/20 06:00 12/07/20 06:01 25 MCG Lidocaine HCl (Buffered Lidocaine 1%) 3 ml 1X ONCE 12/05/20 10:00 12/05/20 10:01 DC Metolazone (Zaroxolyn) 2.5 mg DAILY 12/02/20 09:00 12/03/20 16:22 DC 12/03/20 08:58 2.5 MG Metoprolol Tartrate (Lopressor) 50 mg BID 12/01/20 21:00 12/07/20 09:54 50 MG Ondansetron HCl (Zofran) 4 mg PRN Q6HRS PRN 12/06/20 23:00 Potassium Chloride (Klor-Con) 20 meq 1X ONCE 12/05/20 13:45 12/05/20 13:46 DC 12/05/20 17:53 20 MEQ Sertraline HCl (Zoloft) 25 mg DAILY 12/02/20 09:00 12/07/20 09:54 25 MG Simvastatin (Zocor) 20 mg HS 12/01/20 21:00 12/06/20 20:58 20 MG Sodium Chloride 1,000 ml @ 400 mls/hr Q2H30M PRN 12/06/20 08:00 12/06/20 19:59 DC Lab Laboratory Tests Test 12/06/20 12:12 12/06/20 12:50 12/06/20 16:51 12/06/20 20:58 Glucose (Fingerstick) 59 mg/dL (70-99) 84 mg/dL (70-99) 160 mg/dL (70-99) 140 mg/dL (70-99) Test 12/07/20 07:00 12/07/20 07:12 12/07/20 07:36 Sodium Level 140 mmol/L (136-145) Potassium Level 4.0 mmol/L (3.5-5.1) Chloride Level 103 mmol/L (98-107) Carbon Dioxide Level 31 mmol/L (21-32) Anion Gap 6 (6-14) Blood Urea Nitrogen 30 mg/dL (8-26) Creatinine 2.0 mg/dL (0.7-1.3) Estimated GFR (Cockcroft-Gault) 39.8 Glucose Level 57 mg/dL (70-99) Calcium Level 8.6 mg/dL (8.5-10.1) Glucose (Fingerstick) 62 mg/dL (70-99) 88 mg/dL (70-99) Results All relevant outside records, renal labs, imaging studies, telemetry/EKG's were reviewed. Justicifation of Admission Dx: Justifications for Admission: Justification of Admission Dx: N/A ISRAEL LOPEZ MD Dec 07, 2020 10:34
--- NOTE | 2020-12-07 10:40 | NUR ---
SW following. Discussed with RN, pt accepted at [facility] pending more recent negative COVID test. 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 Dialysis admissions referral was faxed to [facility] by Myriam ALVARES) yesterday. Pt possibly ready to discharge on Saturday (12/09/20) per physician. SW will continue to follow.
[2020-12-07] MEDS: HYDROcodone/APAP 5/325MG 1 TAB TABLET PO PRN ×2 (10:48→21:07)
[2020-12-07 11:00] VITALS: BP 131/76
--- NOTE | 2020-12-07 11:31 | PDOC ---
SASHA MCFARLANE CAGE UNLOADER 12/07/20 1131: CARDIO Progress Notes Date and Time Date of Service 12/07/19 Time of Evaluation 1128 Subjective Subjective: No Chest Pain, No Palpitations, No Dizziness, Other (feeling better ) Vitals Vitals Vital Signs Date Time Temp Pulse Resp B/P (MAP) Pulse Ox O2 Delivery O2 Flow Rate FiO2 12/07/20 09:55 72 115/64 12/07/20 07:00 98.9 16 99 Room Air 98.9 Weight Weight [ ] Input and Output Intake and Output Intake and Output 12/07/20 07:00 Intake Total 395 ml Balance 395 ml Intake Oral 395 ml # Voids 4 Laboratory Labs Laboratory Tests Test 12/06/20 12:12 12/06/20 12:50 12/06/20 16:51 12/06/20 20:58 Glucose (Fingerstick) 59 mg/dL (70-99) 84 mg/dL (70-99) 160 mg/dL (70-99) 140 mg/dL (70-99) Test 12/07/20 07:00 12/07/20 07:12 12/07/20 07:36 Sodium Level 140 mmol/L (136-145) Potassium Level 4.0 mmol/L (3.5-5.1) Chloride Level 103 mmol/L (98-107) Carbon Dioxide Level 31 mmol/L (21-32) Anion Gap 6 (6-14) Blood Urea Nitrogen 30 mg/dL (8-26) Creatinine 2.0 mg/dL (0.7-1.3) Estimated GFR (Cockcroft-Gault) 39.8 Glucose Level 57 mg/dL (70-99) Calcium Level 8.6 mg/dL (8.5-10.1) Glucose (Fingerstick) 62 mg/dL (70-99) 88 mg/dL (70-99) Physical Exam HEENT: Neck Supple W Full Motion Chest: Symmetric LUNGS: Other (diminished bases) Heart: RRR (v-paced with underlying SR) Abdomen: Soft N/T Extremities: No Edema Neurology: alert, oriented, follow commands Assessment Assessment 1. Weakness, fatigue. Progressive over last month. Covid negative 2. Acute respiratory failure with acute on chronic systolic CHF. 3. ICM s/p AICD; (Biotronik) Echo with LVEF 15-20%. Device check 09/11/20 with normal function, stable lead impedance 4. CAD; s/p CABG 2001 and PCI/RAD to SVG to [facility] 2017 with patent grafts 5. Mild troponin elevation; initial 0.09. CP free. Most probably type II, demand ischemia. MPI 04/20 without significant reversible ischemia 6. ALEXIA on CKD; progressive. HD initiated 6. Paroxysmal AFIB; v-paced. rate controlled. Few brief burst of aberrant AFIB on tele overnight. Recent device check with 0% AFIB burden 7. Hypertension: controlled 8. Hyperlipidemia; well on goal 9. Diabetes, II; uncontrolled. as per IM Recommendations Fluid offloading via HD Metoprolol for rate control ASA therapy for stroke prevention for now. Monitor AFIB burden. Consider Eliquis for stroke prophylaxis Consider Entresto on an outpatient basis Continue secondary prevention measures. Supportive care Follow up in our office with Dr. Stark as scheduled. Justicifation of Admission Dx: Justifications for Admission: Justification of Admission Dx: N/A CARSON STARK MD 12/07/20 1644: CARDIO Progress Notes Assessment Assessment Patient seen and examined. Agree with PASTORAL MINISTRIES PROFESSOR's assessment and plan. Acute on chronic systolic heart failure better compensated with fluid removal with hemodialysis, nephrology following. LVEF 15-20%. Slight trop elevation prob demand ischemia. CAD status clinically stable. Continue ASA for PAF stroke prophylaxis SASHA MCFARLANE APRN Dec 07, 2020 11:31 CARSON STARK MD Dec 07, 2020 16:44
[2020-12-07 15:00] VITALS: BP 114/65
[2020-12-07 19:00] VITALS: BP 121/68
[2020-12-07] MEDS: SIMVASTATIN 20 MG TABLET PO SCH (21:06)
[2020-12-07 23:00] VITALS: BP 114/61
[2020-12-08] MEDS: ASPIRIN ENTERIC COATED 81 MG TABLET.DR. PO SCH ×2 (00:02→20:42)
[2020-12-08 03:00] VITALS: BP 100/61
[2020-12-08] MEDS: LEVOTHYROXINE 25 MCG TABLET. PO SCH (05:34)
[2020-12-08 07:00] VITALS: BP 118/63
[2020-12-08] MEDS: INSULIN LISPRO 300 UNITS/3 ML VIAL. SQ SCH ×4 (08:00→20:48)
--- NOTE | 2020-12-08 08:05 | PDOC ---
PROGRESS NOTES Date of Service: DATE: 12/08/20 TIME: 08:05 Subjective Subjective no new problems Objective Objective Vital Signs Date Time Temp Pulse Resp B/P (MAP) Pulse Ox O2 Delivery O2 Flow Rate FiO2 12/08/20 07:00 98.2 66 18 118/63 (81) 100 Room Air 98.2 12/07/20 21:07 1.5 Intake and Output 12/08/20 07:00 Intake Total 170 ml Balance 170 ml Intake Oral 170 ml # Voids 6 Physical Exam Abdomen: Normal bowel sounds Heart: Regular rate Extremities: Other (+2 edema bilaterally) General: mild distress Lungs: Other (Decreased breath sounds) MUSCULOSKELETAL: No swelling, Osteoarthritic changes both hands Psych/Mental Status: Mood NL Skin: Other (skin break down) Diagnosis Problem List Problems Medical Problems: (1) CHF (congestive heart failure) Status: Acute (2) Fluid overload Status: Acute (3) Kidney failure Status: Acute Assessment Assessment Problems Medical Problems: (1) CHF (congestive heart failure) Status: Acute (2) Fluid overload Status: Acute (3) Kidney failure Status: Acute IMPRESSION: 1. Acute on chronic systolic heart failure. 2. Worsening kidney failure.cr4.0 3. Chronic dilated cardiomyopathy, ejection fraction 20%. 4. Insulin-dependent diabetes. 5. Hypertension. 6. Hyperlipidemia. 7. Malnutrition severe. 8. General debility. 9. h/o heart surgery.CABG 10 .presence of AICD PLAN:perm dialysis cathter today and get dialysed SNU transfer tomorrow cardiac arrythmias, AICD stable at the present time. cardiac arrhythmias, v tach, moved to cardiac floor BS good now wbc normal chf on cxr AICD Plan Plan of Care Problems Medical Problems: (1) CHF (congestive heart failure) Status: Acute (2) Fluid overload Status: Acute (3) Kidney failure Status: Acute Comment Review of Relevant I have reviewed the following items debbie (where applicable) has been applied. Labs Laboratory Tests Test 12/07/20 11:48 12/07/20 17:14 12/07/20 21:15 Glucose (Fingerstick) 78 mg/dL (70-99) 102 mg/dL (70-99) 114 mg/dL (70-99) Medications Current Medications Ergocalciferol (Vitamin D2) 50,000 unit WEEKLY PO ; Start 12/08/20 at 09:00 Vitals/I & O Vital Sign - Last 24 Hours 12/07/20 12/07/20 12/07/20 12/07/20 09:54 09:55 11:00 14:53 Temp 97.7 97.7 Pulse 72 72 78 78 Resp 14 B/P (MAP) 115/64 115/64 131/76 (94) 131/76 Pulse Ox 100 O2 Delivery Room Air 12/07/20 12/07/20 12/07/20 12/07/20 15:00 19:00 20:00 21:06 Temp 98.3 98.6 98.3 98.6 Pulse 63 75 75 Resp 16 18 B/P (MAP) 114/65 (81) 121/68 (85) 121/68 Pulse Ox 97 96 O2 Delivery Room Air Room Air O2 Flow Rate 1.5 12/07/20 12/07/20 12/07/20 12/07/20 21:07 21:07 22:07 23:00 Temp 98.6 98.6 Pulse 75 78 Resp 16 16 B/P (MAP) 121/68 114/61 (78) Pulse Ox 96 100 O2 Delivery Room Air Room Air O2 Flow Rate 1.5 12/08/20 12/08/20 03:00 07:00 Temp 98.6 98.2 98.6 98.2 Pulse 68 66 Resp 18 18 B/P (MAP) 100/61 (74) 118/63 (81) Pulse Ox 99 100 O2 Delivery Room Air Intake and Output 12/07/20 12/07/20 12/08/20 15:00 23:00 07:00 Intake Total 170 ml Balance 170 ml Justifications for Admission Other Justification Nutrition Consultation Dietary Evaluation: Recommendations by RD: Dietary education by RD, Protein supplementation Comments: REC renal/ADA diet per pmhx, will adjust diet order as needed; honor food preferences, provide snacks as requested REC nepro q day or more often pending pt preference RD available [phone] for additional diet education as needed Expected Outcomes/Goals: PO intake to meet >75% est needs Additional diet education questions answered as able prior to discharge Interpretation of weight loss: >7.5% in 3 months Malnutrition Findings: Food and Nutrition Intake (Mod: <75% est energy req 7days Weight Status: Underweight NAUN ROPER MD Dec 08, 2020 08:05
[2020-12-08 08:35] LABS: CALCIUM 8.9 mg/dL (8.5-10.1); CREATININE 2.3 mg/dL (0.7-1.3); GFR 33.9; POTASSIUM 4.3 mmol/L (3.5-5.1)
[2020-12-08] MEDS: hydrALAZINE 25 MG TABLET PO SCH ×3 (08:41→20:44)
[2020-12-08] MEDS: METOPROLOL TART IMMED RELEASE 50 MG TABLET. PO SCH ×2 (08:41→20:43)
[2020-12-08] MEDS: SERTRALINE 25 MG TABLET. PO SCH (08:41)
[2020-12-08] MEDS: POTASSIUM CHLORIDE 10 MEQ TABLET.ER. PO SCH (08:41)
[2020-12-08] MEDS ORDERED: ERGOCALCIFEROL (VITAMIN D2) 50,000 UNIT CAPSULE. PO SCH (09:00)
--- NOTE | 2020-12-08 10:33 | NUR ---
HUNG following. Discussed with RN, plan for pt to get permanent dialysis cath placed today with discharge to [facility] tomorrow (12/09/20). Dialysis chair time set up at [facility] (ph: [phone], fax: [phone]) for , , at 6am. First chair time is Saturday at 530am. HUNG left message for Bridgette at the dialysis clinic to discuss pt start date and check if its okay for pt to not have dialysis for 4 days. [facility] notified of chair time, and of anticipated discharge date. Report from cath placement will need to be faxed to [facility] - awaiting this. HUNG will continue to follow. Addendum: 12/08/20 at 1350 by TERRI PERSAUD Pt not getting the permanent dialysis cath today as Dr. Welsh is still trying to determine if pt is needing adjunct faculty for medical terminology dialysis. Dr. Welsh will make a decision tomorrow (12/09/20), if pt is needing dialysis, cath will be placed tomorrow and pt can discharge to [facility] afterwards. Negative COVID test and discharge orders to be faxed to [facility]. Cath placement report to be faxed to [facility] (ph: [phone], fax: [phone]) when available. HUNG will continue to follow.
--- NOTE | 2020-12-08 10:46 | PDOC ---
SASHA MCFARLANE VP & GENERAL COUNSEL 12/08/20 1046: CARDIO Progress Notes Date and Time Date of Service 12/08/20 Time of Evaluation 1045 Subjective Subjective: No Chest Pain, No Palpitations, No Dizziness, Other (feeling better ) Vitals Vitals Vital Signs Date Time Temp Pulse Resp B/P (MAP) Pulse Ox O2 Delivery O2 Flow Rate FiO2 12/08/20 08:41 66 118/63 12/08/20 07:00 98.2 18 100 Room Air 98.2 12/07/20 21:07 1.5 Weight Weight [ ] Input and Output Intake and Output Intake and Output 12/08/20 07:00 Intake Total 170 ml Balance 170 ml Intake Oral 170 ml # Voids 6 Laboratory Labs Laboratory Tests Test 12/07/20 11:48 12/07/20 17:14 12/07/20 21:15 12/08/20 07:35 Glucose (Fingerstick) 78 mg/dL (70-99) 102 mg/dL (70-99) 114 mg/dL (70-99) 96 mg/dL (70-99) Test 12/08/20 08:10 Sodium Level 140 mmol/L (136-145) Potassium Level 4.3 mmol/L (3.5-5.1) Chloride Level 103 mmol/L (98-107) Carbon Dioxide Level 28 mmol/L (21-32) Anion Gap 9 (6-14) Blood Urea Nitrogen 37 mg/dL (8-26) Creatinine 2.3 mg/dL (0.7-1.3) Estimated GFR (Cockcroft-Gault) 33.9 Glucose Level 96 mg/dL (70-99) Calcium Level 8.9 mg/dL (8.5-10.1) Physical Exam HEENT: Neck Supple W Full Motion Chest: Symmetric LUNGS: Other (diminished bases) Heart: RRR (v-paced with underlying SR, few brief burst of PAFIB noted ) Abdomen: Soft N/T Extremities: No Edema Neurology: alert, oriented, follow commands Assessment Assessment 1. Weakness, fatigue. Progressive over last month. Covid negative 2. Acute respiratory failure with acute on chronic systolic CHF. 3. ICM s/p AICD; (Biotronik) Echo with LVEF 15-20%. Device check 09/11/20 with normal function, stable lead impedance 4. CAD; s/p CABG 2001 and PCI/RAD to SVG to [facility] 2017 with patent grafts 5. Mild troponin elevation; initial 0.09. CP free. Most probably type II, demand ischemia. MPI 04/20 without significant reversible ischemia 6. ALEXIA on CKD; progressive. HD initiated 6. Paroxysmal AFIB; v-paced. rate controlled. Few brief burst of PAFIB on tele. Recent device check with 0% AFIB burden 7. Hypertension: controlled 8. Hyperlipidemia; well on goal 9. Diabetes, II; uncontrolled. as per IM Recommendations Fluid offloading via HD Metoprolol for rate control ASA therapy for stroke prevention for now. Monitor AFIB burden. Continue secondary prevention measures. Supportive care Follow up in our office with Dr. Stark as scheduled. Justicifation of Admission Dx: Justifications for Admission: Justification of Admission Dx: N/A CARSON STARK MD 12/08/20 1651: CARDIO Progress Notes Assessment Assessment Patient seen and examined. Agree with COMMERCIAL MORTGAGE BROKER's assessment and plan. Acute on chronic systolic heart failure better compensated with fluid removal with hemodialysis, nephrology following. LVEF 15-20%. Possible permacath placement tomorrow per nephrology Slight trop elevation prob demand ischemia. CAD status clinically stable. Recent ICD check showed normal function. Continue ASA for PAF stroke prophylaxis SASHA MCFARLANE APRN Dec 08, 2020 10:46 CARSON STARK MD Dec 08, 2020 16:51
[2020-12-08 11:00] VITALS: BP 118/70
--- NOTE | 2020-12-08 11:37 | PDOC ---
DATE OF SERVICE DATE: 12/08/20 TIME: 11:33 SUBJECTIVE ROS Stable , on RA OBJECTIVE Vital Signs Vital Signs Date Time Temp Pulse Resp B/P (MAP) Pulse Ox O2 Delivery O2 Flow Rate FiO2 12/08/20 11:00 98.0 71 16 118/70 (86) 99 Room Air 98.0 12/07/20 21:07 1.5 I & 0 Intake and Output 12/08/20 07:00 Intake Total 170 ml Balance 170 ml Intake Oral 170 ml # Voids 6 PHYSICAL EXAM Physical Exam GEN NAD , sitting in chair HEENT: OM moist , On RA NECK: Supple. LUNGS decreased at bases , non labored CARDIOVASCULAR: S1, S2. ABDOMEN: Soft, bowel sounds present, no mass palpable. : No Garcia. EXTREMITIES: No edema, no calf tenderness. NEUROLOGIC: Moving all the extremities. No focal deficits noted. SKIN No rash DIAGNOSIS/ASSESSMENT Assessment & Plan ALEXIA on CKD --in the setting of Ac. Decompensation of CH sys CHF. initiate HD on 12/05, 2 nd treatment 12/06 , Reviewed labs, appears to be at his baseline with eGFR cw ckd 3 Re-eval again tomorrow , still not a clear picture if he really needs Chronic HD , NPO tonight , Permacath tomorrow if worsening renal function . Parish RN, recommend to hold the the OP chair time Access - Temp HDC CHF - per Cardiology, patient comfortable, . Stable interstitial changes and prominent cardiac silhouette. Edema - Probably asso with Pulm HTN and Rv Failure CKD stage 3- Follows with Dr. Vaughan, Creat 2.1 to 2.5 at least since 2018. Coronary artery disease, history of CABG , pacemaker defibrillator. Insulin-dependent diabetes. COMMENT/RELEVANT DATA Meds Current Medications Medications (Trade) Dose Ordered Sig/Missy Start Time Stop Time Status Last Admin Dose Admin Acetaminophen/ Hydrocodone Bitart (Lortab 5/325) 1 tab PRN Q8HRS PRN 12/01/20 21:00 12/07/20 21:07 1 TAB Albumin Human 200 ml @ 200 mls/hr 1X PRN PRN 12/06/20 08:00 12/06/20 13:59 DC Albuterol Sulfate (Ventolin Neb Soln) 2.5 mg PRN Q4HRS PRN 12/01/20 18:00 Aspirin (Ecotrin) 81 mg HS 12/01/20 21:00 12/08/20 00:02 81 MG Calcium Carbonate/ Glycine (Tums) 500 mg PRN Q4HRS PRN 12/06/20 23:00 12/07/20 09:54 500 MG Dabigatran (Pradaxa) 75 mg BID 12/01/20 21:00 12/05/20 17:10 DC 12/05/20 08:35 75 MG Dextrose (Dextrose 50%-Water Syringe) 12.5 gm PRN Q15MIN PRN 12/01/20 16:30 Ergocalciferol (Vitamin D2) 50,000 unit WEEKLY 12/08/20 09:00 12/08/20 08:41 50,000 UNIT Furosemide (Lasix) 40 mg BID92 12/02/20 09:00 12/03/20 16:22 DC 12/03/20 15:11 40 MG Hydralazine HCl (Apresoline) 25 mg TID 12/01/20 21:00 12/08/20 08:41 25 MG Info (Anti-Coagulation Monitoring By Pharmacy) 1 each PRN DAILY PRN 12/05/20 08:45 12/05/20 15:21 DC Info (PHARMACY MONITORING -- do not chart) 1 each PRN DAILY PRN 12/06/20 08:00 UNV Insulin Glargine (Lantus Syringe) 10 unit QHS 12/01/20 21:00 12/07/20 13:16 DC 12/06/20 21:01 10 UNIT Insulin Human Lispro (HumaLOG) 10 units 1X ONCE 12/01/20 21:30 12/01/20 21:31 DC Levothyroxine Sodium (Synthroid) 25 mcg DAILY06 12/04/20 06:00 12/08/20 05:34 25 MCG Lidocaine HCl (Buffered Lidocaine 1%) 3 ml 1X ONCE 12/05/20 10:00 12/05/20 10:01 DC Metolazone (Zaroxolyn) 2.5 mg DAILY 12/02/20 09:00 12/03/20 16:22 DC 12/03/20 08:58 2.5 MG Metoprolol Tartrate (Lopressor) 50 mg BID 12/01/20 21:00 12/08/20 08:41 50 MG Ondansetron HCl (Zofran) 4 mg PRN Q6HRS PRN 12/06/20 23:00 Potassium Chloride (Klor-Con) 20 meq 1X ONCE 12/05/20 13:45 12/05/20 13:46 DC 12/05/20 17:53 20 MEQ Sertraline HCl (Zoloft) 25 mg DAILY 12/02/20 09:00 12/08/20 08:41 25 MG Simvastatin (Zocor) 20 mg HS 12/01/20 21:00 12/07/20 21:06 20 MG Sodium Chloride 1,000 ml @ 400 mls/hr Q2H30M PRN 12/06/20 08:00 12/06/20 19:59 DC Lab Laboratory Tests Test 12/07/20 11:48 12/07/20 17:14 12/07/20 21:15 12/08/20 07:35 Glucose (Fingerstick) 78 mg/dL (70-99) 102 mg/dL (70-99) 114 mg/dL (70-99) 96 mg/dL (70-99) Test 12/08/20 08:10 Sodium Level 140 mmol/L (136-145) Potassium Level 4.3 mmol/L (3.5-5.1) Chloride Level 103 mmol/L (98-107) Carbon Dioxide Level 28 mmol/L (21-32) Anion Gap 9 (6-14) Blood Urea Nitrogen 37 mg/dL (8-26) Creatinine 2.3 mg/dL (0.7-1.3) Estimated GFR (Cockcroft-Gault) 33.9 Glucose Level 96 mg/dL (70-99) Calcium Level 8.9 mg/dL (8.5-10.1) Results All relevant outside records, renal labs, imaging studies, telemetry/EKG's were reviewed. Justicifation of Admission Dx: Justifications for Admission: Justification of Admission Dx: N/A ISRAEL LOPEZ MD Dec 08, 2020 11:37
[2020-12-08] MEDS: CALCIUM CARBONATE 500 MG TAB.CHEW PO PRN (12:03)
[2020-12-08 15:00] VITALS: BP 132/78
[2020-12-08] MEDS ORDERED: ACETAMINOPHEN 325 MG TABLET. PO PRN (17:45)
[2020-12-08 19:00] VITALS: BP 123/68
[2020-12-08] MEDS: SIMVASTATIN 20 MG TABLET PO SCH (20:42)
[2020-12-08 23:00] VITALS: BP 110/64
[2020-12-09] VITALS (7 sets, daily range): BP systolic 110–141; BP diastolic 64–77
[2020-12-09] MEDS: LEVOTHYROXINE 25 MCG TABLET. PO SCH (05:57)
[2020-12-09 07:58] LABS: CALCIUM 8.7 mg/dL (8.5-10.1); CREATININE 2.4 mg/dL (0.7-1.3); GFR 32.3; POTASSIUM 4.2 mmol/L (3.5-5.1)
[2020-12-09] MEDS: INSULIN LISPRO 300 UNITS/3 ML VIAL. SQ SCH ×2 (08:00→12:00)
[2020-12-09] MEDS ORDERED: IV NORMAL SALINE 1000ML BAG 1,000 ML IV PRN ×2 (08:30)
[2020-12-09] MEDS ORDERED: DIALYSIS PATIENT. MC PRN (08:30)
--- NOTE | 2020-12-09 08:56 | PDOC ---
PROGRESS NOTES Date of Service: DATE: 12/09/20 TIME: 08:54 Subjective Subjective pt doing well Objective Objective Vital Signs Date Time Temp Pulse Resp B/P (MAP) Pulse Ox O2 Delivery O2 Flow Rate FiO2 12/09/20 07:00 98.6 57 18 110/67 (81) 97 Room Air 98.6 Intake and Output 12/09/20 07:00 Intake Total 500 ml Balance 500 ml Intake Oral 500 ml # Voids 6 # Bowel Movements 3 Physical Exam Abdomen: Normal bowel sounds Heart: Regular rate Extremities: Other (+2 edema bilaterally) General: mild distress Lungs: Other (Decreased breath sounds) MUSCULOSKELETAL: No swelling, Osteoarthritic changes both hands Psych/Mental Status: Mood NL Skin: Other (skin break down) Diagnosis Problem List Problems Medical Problems: (1) CHF (congestive heart failure) Status: Acute (2) Fluid overload Status: Acute (3) Kidney failure Status: Acute Assessment Assessment Problems Medical Problems: (1) CHF (congestive heart failure) Status: Acute (2) Fluid overload Status: Acute (3) Kidney failure Status: Acute IMPRESSION: 1. Acute on chronic systolic heart failure. 2. Worsening kidney failure.[id number] 3. Chronic dilated cardiomyopathy, ejection fraction 20%. 4. Insulin-dependent diabetes. 5. Hypertension. 6. Hyperlipidemia. 7. Malnutrition severe. 8. General debility. 9. h/o heart surgery.CABG 10 .presence of AICD PLAN: pt may not need perm dialysis cathter . improved with short dialysis can watch and see how he does in controlled environment in SNU SNU transfer today cardiac arrythmias, AICD stable at the present time. cardiac arrhythmias, v tach, moved to cardiac floor BS good now wbc normal chf on cxr AICD Plan Plan of Care Problems Medical Problems: (1) CHF (congestive heart failure) Status: Acute (2) Fluid overload Status: Acute (3) Kidney failure Status: Acute Comment Review of Relevant I have reviewed the following items debbie (where applicable) has been applied. Labs Laboratory Tests Test 12/08/20 11:48 12/08/20 17:01 12/08/20 20:48 12/09/20 07:00 Glucose (Fingerstick) 72 mg/dL (70-99) 130 mg/dL (70-99) 209 mg/dL (70-99) Sodium Level 139 mmol/L (136-145) Potassium Level 4.2 mmol/L (3.5-5.1) Chloride Level 103 mmol/L (98-107) Carbon Dioxide Level 26 mmol/L (21-32) Anion Gap 10 (6-14) Blood Urea Nitrogen 41 mg/dL (8-26) Creatinine 2.4 mg/dL (0.7-1.3) Estimated GFR (Cockcroft-Gault) 32.3 Glucose Level 129 mg/dL (70-99) Calcium Level 8.7 mg/dL (8.5-10.1) Test 12/09/20 07:39 Glucose (Fingerstick) 130 mg/dL (70-99) Medications Current Medications Acetaminophen (Tylenol) 650 mg PRN Q6HRS PRN PO MILD PAIN / TEMP > 100.3'F Last administered on 12/08/20at 17:47; Start 12/08/20 at 17:45 Ergocalciferol (Vitamin D2) 50,000 unit WEEKLY PO Last administered on 12/08/20at 08:41; Start 12/08/20 at 09:00 Info (PHARMACY MONITORING -- do not chart) 1 each PRN DAILY PRN MC SEE COMMENTS; Start 12/09/20 at 08:30 Sodium Chloride 1,000 ml @ 400 mls/hr Q2H30M PRN IV PATENCY; Start 12/09/20 at 08:30; Stop 12/09/20 at 20:29 Sodium Chloride 1,000 ml @ 1,000 mls/hr Q1H PRN IV hypotension; Start 12/09/20 at 08:30; Stop 12/09/20 at 14:29 Vitals/I & O Vital Sign - Last 24 Hours 12/08/20 12/08/20 12/08/20 12/08/20 11:00 14:33 15:00 19:00 Temp 98.0 97.6 98.5 98.0 97.6 98.5 Pulse 71 80 67 91 Resp 16 18 18 B/P (MAP) 118/70 (86) 147/86 132/78 (96) 123/68 (86) Pulse Ox 99 100 100 O2 Delivery Room Air Room Air 12/08/20 12/08/20 12/08/20 12/08/20 20:00 20:43 20:44 23:00 Temp 99.2 99.2 Pulse 91 91 68 Resp 18 B/P (MAP) 123/68 123/68 110/64 (79) Pulse Ox 100 O2 Delivery Room Air 12/09/20 12/09/20 03:00 07:00 Temp 98.7 98.6 98.7 98.6 Pulse 72 57 Resp 16 18 B/P (MAP) 111/70 (84) 110/67 (81) Pulse Ox 99 97 O2 Delivery Room Air Intake and Output 12/08/20 12/08/20 12/09/20 15:00 23:00 07:00 Intake Total 0 ml 400 ml 100 ml Balance 0 ml 400 ml 100 ml Justifications for Admission Other Justification Nutrition Consultation Dietary Evaluation: Recommendations by RD: Dietary education by RD, Protein supplementation Comments: REC renal/ADA diet per pmhx, will adjust diet order as needed; honor food preferences, provide snacks as requested REC nepro q day or more often pending pt preference RD available [phone] for additional diet education as needed Expected Outcomes/Goals: PO intake to meet >75% est needs Additional diet education questions answered as able prior to discharge Interpretation of weight loss: >7.5% in 3 months Malnutrition Findings: Food and Nutrition Intake (Mod: <75% est energy req 7days Weight Status: Underweight NAUN ROPER MD Dec 09, 2020 08:56
[2020-12-09] MEDS: hydrALAZINE 25 MG TABLET PO SCH ×2 (09:00→14:39)
[2020-12-09] MEDS ORDERED: APIX2.5T PO (09:03)
[2020-12-09] MEDS ORDERED: LEVO25TA4 PO (09:03)
--- NOTE | 2020-12-09 09:05 | SNU/HH DC ---
DISCHARGE ORDERS DISCHARGE INFORMATION: DISCHARGE DATE: Dec 09, 2020 FINAL DIAGNOSIS Problems Medical Problems: (1) CHF (congestive heart failure) Status: Acute (2) Fluid overload Status: Acute (3) Kidney failure Status: Acute CONDITION ON DISCHARGE: Stable CODE STATUS: Code Status: Full CARE HOME: SNF STAY <30 DAYS: Yes HOSPICE: HOSPICE: No LTAC: ADMIT TO LTAC: No POST DISCHARGE ORDERS: ACTIVITY ORDERS: Resume previous activity WEIGHT BEARING STATUS: Other, see below BATHING ORDERS: No Tub Bath until see Dr. ROACH AFTER DISCHARGE: Renal WOUND/INCISION CARE: Ice to area for comfort, May get incision wet, Other, see below CHECKS AFTER DISCHARGE: CHECKS AFTER DISCHARGE: Check blood press - daily, Check blood sugar, ac/hs, Weigh Yourself Daily TREATMENT/EQUIPMENT ORDERS: Physical Therapy For: Evalulation/Treatment Occupational Therapy For: Evaluation/Treatment DISCHARGE MEDICATIONS: Home Meds Active Scripts Apixaban (ELIQUIS) 2.5 Mg Tablet, 2.5 MG PO BID for afib for 30 Days, #60 TAB Prov:NAUN ROPER MD 12/09/20 Levothyroxine Sodium (LEVOTHYROXINE SODIUM) 25 Mcg Tablet, 25 MCG PO DAILY06 for thyroid for 30 Days, #30 TAB Prov:NAUN ROPER MD 12/09/20 Reported Medications Hydralazine Hcl (HYDRALAZINE HCL) 25 Mg Tablet, 1 TAB PO TID for HTN 10/20/20 Fluticasone Propionate (FLUTICASONE PROPIONATE NASAL SPRAY) Unknown Strength Sp ray.susp, NS DAILY for UNKNOWN 10/20/20 Ergocalciferol (Vitamin D2) (Vitamin D2) 1,250 Mcg Capsule, 1 CAP PO WEEKLY for suppl 10/20/20 Sertraline Hcl (ZOLOFT) 25 Mg Tablet, 1 TAB PO DAILY for depression, #30 TAB 2 Refills 10/20/20 Potassium Chloride (POTASSIUM CHLORIDE ) 10 Meq Tab.sr.24h, 10 MEQ PO DAILY for supp, TAB.SR 10/27/18 Metolazone (METOLAZONE) 2.5 Mg Tablet, 2.5 MG PO DAILY for unk, #30 TAB 0 Refills 10/27/18 Albuterol Sulfate (ALBUTEROL SULFATE CONC NEB SOLN) 2.5 Mg/0.5 Ml Vial.neb, 1 VIAL NEB Q4HRS PRN for SHORTNESS OF BREATH, #60 VIAL 1 Refill 08/09/17 Metoprolol Tartrate (METOPROLOL TARTRATE) 100 Mg Tablet, 50 MG PO BID for FOR HYPERTENSION, #60 TAB 0 Refills 08/09/17 Aspirin (ASPIR 81) 81 Mg Tablet.dr, 1 TAB PO HS, #30 TAB 5 Refills 01/02/17 Insulin Glulisine (APIDRA) 100 Unit/1 Ml Vial, 10 UNIT SQ TIDAC, VIAL 03/18/14 Cholecalciferol (Vitamin D3) (VITAMIN D) 10,000 Unit Capsule, 87930 UNIT PO WEEKLY 03/18/14 Niacin (NIASPAN) 500 Mg Tab.er.24h, 500 MG PO HS 03/18/14 Simvastatin (SIMVASTATIN) 20 Mg Tablet, 20 MG PO HS 03/18/14 Discontinued Reported Medications Furosemide (FUROSEMIDE) 40 Mg Tablet, 40 PO DAILY for UNKNOWN 10/20/20 Promethazine Hcl (PROMETHAZINE HCL) 6.25 Mg/5 Ml Syrup, 1 PO TID PRN for COUGH 10/20/20 Megestrol Acetate (MEGESTROL ACETATE) 40 Mg Tablet, 1 TAB PO BID for unkn 10/20/20 Tramadol Hcl (TRAMADOL HCL) 50 Mg Tablet, 50 MG PO PRN BID PRN for PAIN, TAB 0 Refills 10/20/20 Digoxin (DIGOXIN) 125 Mcg Tablet, 125 MCG PO DAILY, TAB 08/09/17 Diltiazem Hcl (DILTIAZEM 24HR CD) 120 Mg Cap.er.24h, 1 CAP PO DAILY, #90 CAP 1 Refill 01/28/17 Discontinued Scripts Dabigatran Etexilate Mesylate (PRADAXA) 75 Mg Capsule, 75 MG PO BID for afib for 30 Days, #60 CAP Prov:NAUN ROPER MD 10/21/20 Digoxin (DIGOXIN) 125 Mcg Tablet, 125 MCG PO QODAY for chf for 30 Days, #30 TAB Prov:NAUN ROPER MD 10/21/20 NAUN ROPER MD Dec 09, 2020 09:05
--- NOTE | 2020-12-09 09:57 | PDOC ---
DATE OF SERVICE DATE: 12/09/20 TIME: 09:57 SUBJECTIVE ROS Stable , on RA OBJECTIVE Vital Signs Vital Signs Date Time Temp Pulse Resp B/P (MAP) Pulse Ox O2 Delivery O2 Flow Rate FiO2 12/09/20 07:00 98.6 57 18 110/67 (81) 97 Room Air 98.6 I & 0 Intake and Output 12/09/20 07:00 Intake Total 500 ml Balance 500 ml Intake Oral 500 ml # Voids 6 # Bowel Movements 3 PHYSICAL EXAM Physical Exam GEN NAD , sitting in chair HEENT: OM moist , On RA NECK: Supple. LUNGS decreased at bases , non labored CARDIOVASCULAR: S1, S2. ABDOMEN: Soft, bowel sounds present, no mass palpable. : No Garcia. EXTREMITIES: No edema, no calf tenderness. NEUROLOGIC: Moving all the extremities. No focal deficits noted. SKIN No rash DIAGNOSIS/ASSESSMENT DIAGNOSIS/ASSESSMENT Assessment & Plan ALEXIA on CKD -- initiate HD on 12/05, 3 treatment today , seen om dialysis , tolerating well, continue as ordered, Parish Baeza Still uncertain if will need Chr HD, as Renal function only mild worsening since Saturday , Ordered permacath , has chair time TTS , mazin be followed as OP for renal recovery Access - Temp HDC CHF - per Cardiology, patient comfortable, . Stable interstitial changes and prominent cardiac silhouette. Edema - Probably asso with Pulm HTN and Rv Failure CKD stage 3- Follows with Dr. Vaughan, Teresa 2.1 to 2.5 at least since 2018. Coronary artery disease, history of CABG , pacemaker defibrillator. Insulin-dependent diabetes. COMMENT/RELEVANT DATA Meds Current Medications Medications (Trade) Dose Ordered Sig/Missy Start Time Stop Time Status Last Admin Dose Admin Acetaminophen (Tylenol) 650 mg PRN Q6HRS PRN 12/08/20 17:45 12/08/20 17:47 650 MG Acetaminophen/ Hydrocodone Bitart (Lortab 5/325) 1 tab PRN Q8HRS PRN 12/01/20 21:00 12/07/20 21:07 1 TAB Albumin Human 200 ml @ 200 mls/hr 1X PRN PRN 12/06/20 08:00 12/06/20 13:59 DC Albuterol Sulfate (Ventolin Neb Soln) 2.5 mg PRN Q4HRS PRN 12/31/20 18:00 Aspirin (Ecotrin) 81 mg HS 12/01/20 21:00 12/08/20 20:42 81 MG Calcium Carbonate/ Glycine (Tums) 500 mg PRN Q4HRS PRN 12/06/20 23:00 12/08/20 12:03 500 MG Dabigatran (Pradaxa) 75 mg BID 12/01/20 21:00 12/05/20 17:10 DC 12/05/20 08:35 75 MG Dextrose (Dextrose 50%-Water Syringe) 12.5 gm PRN Q15MIN PRN 12/01/20 16:30 Ergocalciferol (Vitamin D2) 50,000 unit WEEKLY 12/08/20 09:00 12/08/20 08:41 50,000 UNIT Furosemide (Lasix) 40 mg BID92 12/02/20 09:00 12/03/20 16:22 DC 12/03/20 15:11 40 MG Hydralazine HCl (Apresoline) 25 mg TID 12/01/20 21:00 12/08/20 20:44 25 MG Info (Anti-Coagulation Monitoring By Pharmacy) 1 each PRN DAILY PRN 12/05/20 08:45 12/05/20 15:21 DC Info (PHARMACY MONITORING -- do not chart) 1 each PRN DAILY PRN 12/09/20 08:30 Insulin Glargine (Lantus Syringe) 10 unit QHS 12/01/20 21:00 12/07/20 13:16 DC 12/06/20 21:01 10 UNIT Insulin Human Lispro (HumaLOG) 10 units 1X ONCE 12/01/20 21:30 12/01/20 21:31 DC Levothyroxine Sodium (Synthroid) 25 mcg DAILY06 12/04/20 06:00 12/09/20 05:57 25 MCG Lidocaine HCl (Buffered Lidocaine 1%) 3 ml 1X ONCE 12/05/20 10:00 12/05/20 10:01 DC Metolazone (Zaroxolyn) 2.5 mg DAILY 12/02/20 09:00 12/03/20 16:22 DC 12/03/20 08:58 2.5 MG Metoprolol Tartrate (Lopressor) 50 mg BID 12/01/20 21:00 12/08/20 20:43 50 MG Ondansetron HCl (Zofran) 4 mg PRN Q6HRS PRN 12/06/20 23:00 Potassium Chloride (Klor-Con) 20 meq 1X ONCE 12/05/20 13:45 12/05/20 13:46 DC 12/05/20 17:53 20 MEQ Sertraline HCl (Zoloft) 25 mg DAILY 12/02/20 09:00 12/08/20 08:41 25 MG Simvastatin (Zocor) 20 mg HS 12/01/20 21:00 12/08/20 20:42 20 MG Sodium Chloride 1,000 ml @ 400 mls/hr Q2H30M PRN 12/09/20 08:30 12/09/20 20:29 Lab Laboratory Tests Test 12/08/20 11:48 12/08/20 17:01 12/08/20 20:48 12/09/20 07:00 Glucose (Fingerstick) 72 mg/dL (70-99) 130 mg/dL (70-99) 209 mg/dL (70-99) Sodium Level 139 mmol/L (136-145) Potassium Level 4.2 mmol/L (3.5-5.1) Chloride Level 103 mmol/L (98-107) Carbon Dioxide Level 26 mmol/L (21-32) Anion Gap 10 (6-14) Blood Urea Nitrogen 41 mg/dL (8-26) Creatinine 2.4 mg/dL (0.7-1.3) Estimated GFR (Cockcroft-Gault) 32.3 Glucose Level 129 mg/dL (70-99) Calcium Level 8.7 mg/dL (8.5-10.1) Test 12/09/20 07:39 Glucose (Fingerstick) 130 mg/dL (70-99) Results All relevant outside records, renal labs, imaging studies, telemetry/EKG's were reviewed. Justicifation of Admission Dx: Justifications for Admission: Justification of Admission Dx: N/A ISRAEL LOPEZ MD Dec 09, 2020 09:57
[2020-12-09 10:42] LABS: PROTHROMBIN TIME PATIENT 17.9 SEC (11.7-14.0)
[2020-12-09] MEDS ORDERED: ceFAZolin SODIUM IV Push 1 GM VIAL. IVP ONE ×2 (13:07→13:15)
[2020-12-09] MEDS ORDERED: fentaNYL PF VIAL 100 MCG/2 ML VIAL ONE (13:08)
[2020-12-09] MEDS ORDERED: MIDAZOLAM HCL/PF 2 MG/2 ML VIAL. ONE (13:08)
[2020-12-09] MEDS ORDERED: LIDOCAINE 2%/EPI 1:100,000 20 ML VIAL. ONE (13:10)
[2020-12-09] MEDS ORDERED: LIDOCAINE 1%/EPI 1:100,000 20 ML VIAL. SQ ONE (13:15)
[2020-12-09] MEDS ORDERED: MIDAZOLAM HCL/PF 2 MG/2 ML VIAL. IV ONE (13:15)
[2020-12-09] MEDS ORDERED: fentaNYL PF VIAL 100 MCG/2 ML VIAL IV ONE (13:15)
--- NOTE | 2020-12-09 13:18 | NUR ---
HUNG following for discharge planning. Spoke with RN and reviewed chart. Pt to have cath placed today. SW met with pt and spoke with on the phone and confirmed discharge plan. Pt to discharge today, 12/09 to SNU. HUNG spoke with Staci and confirmed chair time. Pt needs to arrive by 5:30am for 6am dialysis on TRS. Pt's first chair time is 12/13. Pt to discharge to [facility] today at 1600 via transportation arranged by Ara with [facility]. HUNG faxed discharge orders including negative COVID result. SW confirmed with Ara that orders were received and that she is aware of chair time. also provided with contact information for pt's [facility] and the chair time. Packet of clinicals ready to be sent. RN to call report. SW awaiting cath placement and will fax this paperwork to Staci. Addendum: 12/09/20 at 1733 by SUSAN PERSAUD Tunnel dialysis catheter placement [facility]. No further SW needs at this time.
[2020-12-09] MEDS: METOPROLOL TART IMMED RELEASE 50 MG TABLET. PO SCH (14:39)
[2020-12-09] MEDS: POTASSIUM CHLORIDE 10 MEQ TABLET.ER. PO SCH (14:39)
[2020-12-09] MEDS: SERTRALINE 25 MG TABLET. PO SCH (14:40)
--- NOTE | 2020-12-09 16:45 | NUR ---
Discharge Note: Patient was discharged to [facility]. Patients IV was discontinued without any complications per [employer]OR LEARNING [employer]. Wound dressings and pictures were taken and changed. Patient and family agreeable with discharge plans. Patient did not have any further questions or concerns. Patient was transferred via wheelchair van with all personal belongings by facilities transportation. Report was called to PATIENCE Gonsalves at [facility].
--- NOTE | 2020-12-11 10:22 | PDOC ---
Provider Note Date of Service: DATE: 12/11/20 TIME: 10:22 Provider Note Discharge summary dictated.#[id number]. Justifications for Admission Other Justification NAUN ROPER MD Dec 11, 2020 10:22
--- NOTE | 2020-12-11 10:32 | DS ---
DATE OF DISCHARGE: 12/09/2020 REASON FOR ADMISSION TO THE HOSPITAL: Acute on chronic congestive heart failure, systolic; acute on chronic kidney failure. CONSULTATIONS: Yobani Mata MD; Luisa Gonzalez MD, Renal. PROCEDURES DONE: Ultrasound of the kidneys, echocardiogram, dialysis, insertion of temporary dialysis catheter and later on permanent dialysis catheter. HOSPITAL COURSE: The patient is a 75-year-old male. The patient was in the hospital 3 weeks ago for heart failure. His creatinine was 2.5 and once he went home, he was not following his instructions. He developed fluid overload and also worsening kidney function. The patient has a history of diabetes, hypertension, coronary artery disease, bypass surgery, systolic heart failure, ejection fraction 20-25%. The patient was admitted to the hospital, was given IV Lasix and did not improve much. Seen by Cardiology. Echocardiogram shows 20-25%. The patient was on Pradaxa for AFib. Because of the kidney failure, changed to Eliquis 2.5 b.i.d. The patient was seen by Renal. Ultrasound of the kidney shows some cyst in the kidney, but the patient was started on temporary hemodialysis catheter, was dialyzed 3 times in the hospital and the swelling improved. Later on was converted to permanent dialysis catheter. The patient was doing well and has lot of physical therapy and rehabilitation. The patient was discharged to shelter unit. FINAL DIAGNOSES: 1. Acute on chronic systolic heart failure.20% EJF 2. New onset of end-stage renal disease, started new on hemodialysis. 3. Chronic atrial fibrillation, on anticoagulation. 4. Insulin-dependent diabetes. 5. General debility. 6. Hypertension. 7. Hyperlipidemia. 8. Malnutrition. 9. Skin breakdown present at admission. DISPOSITION: To shelter unit. PT, OT, rehabilitation. Continue dialysis Saturday, and Saturday outpatient and see how he does. The patient's prognosis is guarded, stable at the time of discharge. NAUN ROPER MD DR: RAE/harjinder JOB#: [id number] / [id number]
[2021-01-13] MEDS ORDERED: TRAM50TA PO (22:55)
[2021-01-13] MEDS ORDERED: GABA-585 PO (22:55)
[2021-01-13] MEDS ORDERED: LIDO1ADH63 TP (22:55)
[2021-01-13] MEDS ORDERED: LOPE-101 PO (22:55)
[2021-01-13] MEDS ORDERED: ACET500T68 PO (22:55)
[2021-01-13] MEDS ORDERED: ERGO500089 PO (22:55)
== END 2020-12-09 16:45 | DRG 682 ==
LOC: ER 13:36 → ED HOLD 14:58 → 5 NORTH 21:36 → 2 NORTH 12-02 13:24 → CVICU 12-04 07:36 → 5 NORTH 12-06 18:02
PROVIDERS: ADMIT Internal Medicine; ATTEND Internal Medicine
PROC: 02HV33Z Insertion of Infusion Device into Superior Vena Cava, Percutaneous Approach (ICD-10-PCS; principal; 2020-12-05)
PROC: B548ZZA Ultrasonography of Superior Vena Cava, Guidance (ICD-10-PCS; 2020-12-05)
PROC: 5A1D70Z Performance of Urinary Filtration, Intermittent, Less than 6 Hours Per Day (ICD-10-PCS; 2020-12-05)
PROC: 5A1D70Z Performance of Urinary Filtration, Intermittent, Less than 6 Hours Per Day (ICD-10-PCS; 2020-12-06)
PROC: 5A1D70Z Performance of Urinary Filtration, Intermittent, Less than 6 Hours Per Day (ICD-10-PCS; 2020-12-09)
DX: N17.9 Acute kidney failure, unspecified (principal); I50.23 Acute on chronic systolic (congestive) heart failure; E43 Unspecified severe protein-calorie malnutrition; J96.00 Acute respiratory failure, unspecified whether with hypoxia or hypercapnia; I13.0 Hypertensive heart and chronic kidney disease with heart failure and stage 1 through stage 4 chronic kidney disease, or unspecified chronic kidney disease; I24.8 Other forms of acute ischemic heart disease; I47.2 Ventricular tachycardia; I42.0 Dilated cardiomyopathy; N18.4 Chronic kidney disease, stage 4 (severe); E11.22 Type 2 diabetes mellitus with diabetic chronic kidney disease; E11.65 Type 2 diabetes mellitus with hyperglycemia; E78.5 Hyperlipidemia, unspecified; I25.10 Atherosclerotic heart disease of native coronary artery without angina pectoris; I48.0 Paroxysmal atrial fibrillation; J44.9 Chronic obstructive pulmonary disease, unspecified; Z79.4 Long term (current) use of insulin; Z83.3 Family history of diabetes mellitus; Z86.73 Personal history of transient ischemic attack (TIA), and cerebral infarction without residual deficits; Z87.891 Personal history of nicotine dependence; Z95.1 Presence of aortocoronary bypass graft; Z95.810 Presence of automatic (implantable) cardiac defibrillator; K21.9 Gastro-esophageal reflux disease without esophagitis; M19.90 Unspecified osteoarthritis, unspecified site; Z20.822 Contact with and (suspected) exposure to COVID-19
CPT/HCPCS: 36415; 36556; 36581; 71045; 76770; 76937; 77001; 80048; 80053; 80061; 81001; 82962; 83036; 83735; 83880; 84132; 84443; 84484; 85007; 85025; 85610; 85730; 86317; 86704; 87340; 87426; 93005; 93306; 96374; 99152; A4215; C1750; C1892; J0690; J1815; J1940; J2250; J3010; J3490; U0003; 97530-GO; 97530-GP; 97535-GO; 99285-25; G0378